=== PATIENT | male | born 1940 | race Caucasian/White ===

== ENCOUNTER → 2016-09-21 | Outpatient (CLI) | payer MEDICARE ==
[2016-09-21 10:55] LABS: HEMATOCRIT 39.1 % (37.9-51.0); HGB HCT DIFFERENCE -0.1; MEAN CORPUSCULAR HEMOGLOBIN 28.5 pg (27.0-33.4); MEAN CORPUSCULAR HGB CONC 33.1 g/dL (32.0-36.0); MEAN CORPUSCULAR VOLUME 86 fl (80-97); RED BLOOD COUNT 4.55 10^6/uL (4.35-5.55); RED CELL DISTRIBUTION WIDTH 14.6 % (11.5-14.0); WHITE BLOOD COUNT 6.4 10^3/uL (4.0-10.5)
[2016-09-21 11:14] LABS: ALBUMIN 4.2 g/dL (3.5-5.0); ANION GAP 14 (5-19); BLOOD UREA NITROGEN 27 mg/dL (7-20); CALCIUM 9.7 mg/dL (8.4-10.2); CARBON DIOXIDE 24 mmol/L (22-30); CHLORIDE 105 mmol/L (98-107); CREATININE RESULT 1.44 mg/dL (0.52-1.25); GLUCOSE 253 mg/dL (75-110); PHOSPHORUS 3.9 mg/dL (2.5-4.5); POTASSIUM 4.9 mmol/L (3.6-5.0); SODIUM 142.8 mmol/L (137-145)
[2016-09-21 11:26] LABS: EOSINOPHILS % (MANUAL) 3 % (0-6); LYMPHOCYTES % (MANUAL) 19 % (13-45); TOTAL CELLS COUNTED 100
[2016-09-21 11:27] LABS: ANISOCYTOSIS SLIGHT; HYPOCHROMASIA SLIGHT; OVALOCYTES SLIGHT; POIKILOCYTOSIS SLIGHT; TOXIC GRANULATION 1+
[2016-09-21 11:32] LABS: BASOPHILS % (MANUAL) 0 % (0-2)
[2016-09-22 07:18] LABS: VITAMIN D 25-HYDROXY 15.5 ng/mL (30.0-100.0)
== END ==
LOC: OD 09:43
PROVIDERS: ATTEND Internal Medicine Nephrology
DX: N18.3 Chronic kidney disease, stage 3 (moderate) (principal); D63.8 Anemia in other chronic diseases classified elsewhere
CPT/HCPCS: 36415; 80048; 82040; 82306; 83970; 84100; 85025

== ENCOUNTER → 2016-10-12 | Outpatient (CLI) | payer MEDICARE ==
[2016-10-12 15:19] LABS: HEMATOCRIT 38.2 % (37.9-51.0); HEMOGLOBIN 13.1 g/dL (13.5-17.0); HGB HCT DIFFERENCE 1.1; MEAN CORPUSCULAR HEMOGLOBIN 29.1 pg (27.0-33.4); MEAN CORPUSCULAR HGB CONC 34.3 g/dL (32.0-36.0); MEAN CORPUSCULAR VOLUME 85 fl (80-97); RED CELL DISTRIBUTION WIDTH 14.4 % (11.5-14.0); WHITE BLOOD COUNT 8.9 10^3/uL (4.0-10.5)
[2016-10-12 15:39] LABS: BASOPHILS % (MANUAL) 0 % (0-2); EOSINOPHILS % (MANUAL) 1 % (0-6); LYMPHOCYTES % (MANUAL) 5 % (13-45); TOTAL CELLS COUNTED 100
[2016-10-12 15:40] LABS: ANISOCYTOSIS SLIGHT; TOXIC GRANULATION SLIGHT
[2016-10-12 15:42] LABS: ALANINE AMINOTRANSFERASE 26 U/L (21-72); ALBUMIN 4.5 g/dL (3.5-5.0); ALKALINE PHOSPHATASE 113 U/L (38-126); ANION GAP 18 (5-19); ASPARTATE AMINO TRANSFERASE 16 U/L (17-59); BILIRUBIN,DIRECT 0.4 mg/dL (0.0-0.4); BILIRUBIN,TOTAL 0.8 mg/dL (0.2-1.3); BLOOD UREA NITROGEN 41 mg/dL (7-20); CALCIUM 9.5 mg/dL (8.4-10.2); CARBON DIOXIDE 20 mmol/L (22-30); CHLORIDE 99 mmol/L (98-107); CREATININE RESULT 1.57 mg/dL (0.52-1.25); GLUCOSE 377 mg/dL (75-110); POTASSIUM 4.7 mmol/L (3.6-5.0); SODIUM 136.7 mmol/L (137-145); TOTAL PROTEIN 8.1 g/dL (6.3-8.2)
== END ==
LOC: OD 14:13
PROVIDERS: ATTEND Physician Assistant
DX: E11.69 Type 2 diabetes mellitus with other specified complication (principal)
CPT/HCPCS: 36415; 80053; 82010; 83036; 85025

== ENCOUNTER 2016-10-23 17:31 | Emergency (ER) | payer MEDICARE ==
--- NOTE | 2016-10-23 19:56 | ER Document Report ---
ED Medical Screen (RME) - General Chief Complaint: High Blood Sugar Stated Complaint: SUGAR CONERNS Notes: Patient is here because his blood sugar keeps going up and down, mostly up for the past several weeks. Tonight, the blood sugar was 581. Patient has no symptoms. No cough or cold or chest congestion. No vomiting or diarrhea. No UTI symptoms. Patient's blood sugar here is 360. TRAVEL OUTSIDE OF THE [place] IN LAST 30 DAYS: No - Related Data Allergies/Adverse Reactions: aspirin [Aspirin] Allergy (Intermediate, Verified 10/23/16 17:39) bleeding ulcers codeine [Codeine] Allergy (Intermediate, Verified 10/23/16 17:39) bleeding ulcers Past Medical History - Past Medical History Cardiac Medical History: Reports: Hx Hypercholesterolemia, Hx Hypertension Denies: Hx Coronary Artery Disease, Hx Heart Attack Pulmonary Medical History: Reports: Hx COPD - "short breath" No difinitive dx Denies: Hx Asthma, Hx Bronchitis, Hx Pneumonia Neurological Medical History: Denies: Hx Cerebrovascular Accident, Hx Seizures Endocrine Medical History: Reports: Hx Diabetes Mellitus Type 1, Hx Diabetes Mellitus Type 2 Renal/ Medical History: Denies: Hx Peritoneal Dialysis GI Medical History: Reports: Hx Gastroesophageal Reflux Disease Musculoskeltal Medical History: Reports Hx Arthritis - Generalized Psychiatric Medical History: Denies: Hx Depression Past Surgical History: Reports: Hx Abdominal Surgery - hernia repair, Hx Appendectomy, Hx Cholecystectomy, Hx Orthopedic Surgery - back x2 with hardware. Denies: Hx Pacemaker - Immunizations Hx Diphtheria, Pertussis, Tetanus Vaccination: Yes Physical Exam - Vital signs Vitals: Temp Pulse Resp BP Pulse Ox 98.6 F 63 18 145/65 H 95 10/23/16 17:42 10/23/16 17:42 10/23/16 17:42 10/23/16 17:42 10/23/16 17:42 Course - Vital Signs Vital signs: Temp Pulse Resp BP Pulse Ox 98.6 F 63 18 145/65 H 95 10/23/16 17:42 10/23/16 17:42 10/23/16 17:42 10/23/16 17:42 10/23/16 17:42
--- NOTE | 2016-10-23 20:23 | ER Document Report ---
ED Medical Screen (RME) - General Chief Complaint: High Blood Sugar Stated Complaint: SUGAR CONERNS Notes: Daughter states father was hospitalized at [facility] last week for very low magnesium levels. She states her father will not admit it but he has not been feeling well again. Sugar levels have been going up and down. Seen by primary care physician yesterday and lab work was ordered, but no results known yet. Discussed with Dr. Byrnes. Labs to be ordered. TRAVEL OUTSIDE OF THE [place] IN LAST 30 DAYS: No - Related Data Allergies/Adverse Reactions: aspirin [Aspirin] Allergy (Intermediate, Verified 10/23/16 17:39) bleeding ulcers codeine [Codeine] Allergy (Intermediate, Verified 10/23/16 17:39) bleeding ulcers Past Medical History - Past Medical History Cardiac Medical History: Reports: Hx Hypercholesterolemia, Hx Hypertension Denies: Hx Coronary Artery Disease, Hx Heart Attack Pulmonary Medical History: Reports: Hx COPD - "short breath" No difinitive dx Denies: Hx Asthma, Hx Bronchitis, Hx Pneumonia Neurological Medical History: Denies: Hx Cerebrovascular Accident, Hx Seizures Endocrine Medical History: Reports: Hx Diabetes Mellitus Type 1, Hx Diabetes Mellitus Type 2 Renal/ Medical History: Denies: Hx Peritoneal Dialysis GI Medical History: Reports: Hx Gastroesophageal Reflux Disease Musculoskeltal Medical History: Reports Hx Arthritis - Generalized Psychiatric Medical History: Denies: Hx Depression Past Surgical History: Reports: Hx Abdominal Surgery - hernia repair, Hx Appendectomy, Hx Cholecystectomy, Hx Orthopedic Surgery - back x2 with hardware. Denies: Hx Pacemaker - Immunizations Hx Diphtheria, Pertussis, Tetanus Vaccination: Yes Physical Exam - Vital signs Vitals: Temp Pulse Resp BP Pulse Ox 98.6 F 63 18 145/65 H 95 10/23/16 17:42 10/23/16 17:42 10/23/16 17:42 10/23/16 17:42 10/23/16 17:42 Course - Vital Signs Vital signs: Temp Pulse Resp BP Pulse Ox 98.6 F 63 18 145/65 H 95 10/23/16 17:42 10/23/16 17:42 10/23/16 17:42 10/23/16 17:42 10/23/16 17:42
[2016-10-23 20:43] LABS: ABSOLUTE BASOPHILS # (AUTO) 0.1 10^3/uL (0.0-0.2); ABSOLUTE EOSINOPHILS # (AUTO) 0.3 10^3/uL (0.0-0.6); ABSOLUTE LYMPHOCYTES (AUTO) 1.8 10^3/uL (0.5-4.7); ABSOLUTE NEUT (AUTO) 6.2 10^3/uL (1.7-8.2); BASOPHILS % (AUTO) 0.8 % (0-2); EOSINOPHILS % (AUTO) 2.9 % (0-6); HEMATOCRIT 37.8 % (37.9-51.0); HEMOGLOBIN 12.6 g/dL (13.5-17.0); LYMPHOCYTES % (AUTO) 19.2 % (13-45); MEAN CORPUSCULAR HEMOGLOBIN 28.2 pg (27.0-33.4); MEAN CORPUSCULAR HGB CONC 33.2 g/dL (32.0-36.0); MEAN CORPUSCULAR VOLUME 85 fl (80-97); MONOCYTES % (AUTO) 10.2 % (3-13); RED BLOOD COUNT 4.45 10^6/uL (4.35-5.55); RED CELL DISTRIBUTION WIDTH 14.6 % (11.5-14.0); SEGMENTED NEUTROPHILS % (AUTO) 66.9 % (42-78); WHITE BLOOD COUNT 9.3 10^3/uL (4.0-10.5)
[2016-10-23 20:54] LABS: ALANINE AMINOTRANSFERASE 29 U/L (21-72); ALBUMIN 4.1 g/dL (3.5-5.0); ALKALINE PHOSPHATASE 94 U/L (38-126); ANION GAP 14 (5-19); ASPARTATE AMINO TRANSFERASE 17 U/L (17-59); BILIRUBIN,DIRECT 0.3 mg/dL (0.0-0.4); BILIRUBIN,TOTAL 0.5 mg/dL (0.2-1.3); BLOOD UREA NITROGEN 27 mg/dL (7-20); CALCIUM 9.2 mg/dL (8.4-10.2); CARBON DIOXIDE 22 mmol/L (22-30); CHLORIDE 102 mmol/L (98-107); CREATININE RESULT 1.44 mg/dL (0.52-1.25); GLUCOSE 305 mg/dL (75-110); MAGNESIUM 1.6 mg/dL (1.6-2.3); POTASSIUM 4.6 mmol/L (3.6-5.0); TOTAL PROTEIN 7.6 g/dL (6.3-8.2)
--- NOTE | 2016-10-23 21:19 | ER Document Report ---
ED General - General Chief Complaint: High Blood Sugar Stated Complaint: SUGAR CONERNS Notes: Patient is a 76-year-old male presents with concerns of hypoglycemia. He denies any additional symptoms. States taking his insulin and glipizide home his sugars continue to be in 300s-500s. 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 He denies any headache, neck pain, shortness of breath, nausea or vomiting. Does continue to admit to some dietary discretion indiscretions but states overall his diet has significantly improved. He has not noted that nothing seems to prompt his sugars to get higher and that nothing seems to get them lower. TRAVEL OUTSIDE OF THE [place] IN LAST 30 DAYS: No - Related Data Allergies/Adverse Reactions: aspirin [Aspirin] Allergy (Intermediate, Verified 10/23/16 17:39) bleeding ulcers codeine [Codeine] Allergy (Intermediate, Verified 10/23/16 17:39) bleeding ulcers Past Medical History - General Information source: Patient - Social History Smoking Status: Never Smoker Frequency of alcohol use: None Drug Abuse: None Lives with: Spouse/Significant other Family History: Hypertension Patient has suicidal ideation: No Patient has homicidal ideation: No - Past Medical History Cardiac Medical History: Reports: Hx Hypercholesterolemia, Hx Hypertension Denies: Hx Coronary Artery Disease, Hx Heart Attack Pulmonary Medical History: Reports: Hx COPD - "short breath" No difinitive dx Denies: Hx Asthma, Hx Bronchitis, Hx Pneumonia Neurological Medical History: Denies: Hx Cerebrovascular Accident, Hx Seizures Endocrine Medical History: Reports: Hx Diabetes Mellitus Type 1, Hx Diabetes Mellitus Type 2 Renal/ Medical History: Denies: Hx Peritoneal Dialysis GI Medical History: Reports: Hx Gastroesophageal Reflux Disease Musculoskeltal Medical History: Reports Hx Arthritis - Generalized Psychiatric Medical History: Denies: Hx Depression Past Surgical History: Reports: Hx Abdominal Surgery - hernia repair, Hx Appendectomy, Hx Cholecystectomy, Hx Orthopedic Surgery - back x2 with hardware. Denies: Hx Pacemaker - Immunizations Hx Diphtheria, Pertussis, Tetanus Vaccination: Yes Hx Pneumococcal Vaccination: 04/12/11 Review of Systems - Review of Systems Notes: Constitutional: Negative for fever. HENT: Negative for sore throat. Eyes: Negative for visual changes. Cardiovascular: Negative for chest pain. Respiratory: Negative for shortness of breath. Gastrointestinal: Negative for abdominal pain, vomiting or diarrhea. Genitourinary: Negative for dysuria. Musculoskeletal: Negative for back pain. Skin: Negative for rash. Neurological: Negative for headaches, weakness or numbness. 10 point ROS negative except as marked above and in HPI. Physical Exam - Vital signs Vitals: Temp Pulse Resp BP Pulse Ox 98.6 F 63 18 145/65 H 95 10/23/16 17:42 10/23/16 17:42 10/23/16 17:42 10/23/16 17:42 10/23/16 17:42 Interpretation: Normal Notes: PHYSICAL EXAMINATION: GENERAL: Well-appearing, well-nourished and in no acute distress. HEAD: Atraumatic, normocephalic. EYES: Pupils equal round and reactive to light, extraocular movements intact, sclera anicteric, conjunctiva are normal. ENT: nares patent, oropharynx clear without exudates. Moist mucous membranes. NECK: Normal range of motion, supple without lymphadenopathy LUNGS: Breath sounds clear to auscultation bilaterally and equal. No wheezes rales or rhonchi. HEART: Regular rate and rhythm without murmurs ABDOMEN: Soft, nontender, normoactive bowel sounds. No guarding, no rebound. No masses appreciated. EXTREMITIES: Normal range of motion, no pitting or edema. No cyanosis. NEUROLOGICAL: No focal neurological deficits. Moves all extremities spontaneously and on command. PSYCH: Normal mood, normal affect. SKIN: Warm, Dry, normal turgor, no rashes or lesions noted. Course - Re-evaluation Re-evalutation: 10/23/16 21:18 Presentation of asymptomatic hyperglycemia. There is no evidence of HHS or diabetic ketoacidosis on laboratories or based on clinical history. Patient's vitals are within normal limits. They deny any acute focal complaints. Treatment with insulin and IV fluids given here in the emergency department with appropriate response of the blood sugar. Patient does have primary care follow-up. Patient was instructed to continue taking their home medications and advised they will likely need to increase dietary modification and may also need medication changes. Indications to return to emergency department as well as the importance of close outpatient follow-up were discussed at length. Patient verbalized understanding of the need for close follow-up and indications to return to the ED. - Vital Signs Vital signs: Temp Pulse Resp BP Pulse Ox 97.7 F 54 L 18 125/74 98 10/23/16 21:39 10/23/16 21:39 10/23/16 21:39 10/23/16 21:39 10/23/16 21:39 - Laboratory Result Diagrams: 10/23/16 20:31 10/23/16 20:31 Laboratory results interpreted by me: 10/23/16 10/23/16 20:31 20:31 Hgb 12.6 L Hct 37.8 L RDW 14.6 H BUN 27 H Creatinine 1.44 H Est GFR ( Amer) 58 L Est GFR (Non-Af Amer) 48 L Glucose 305 H Discharge - Discharge Clinical Impression: Hyperglycemia Condition: Good Disposition: HOME, SELF-CARE Additional Instructions: You need to followup urgently with your primary care doctor as your blood sugars were dangerously high today. You did not have any evidence of a dangerous condition associated with these blood sugars at this time. However, it is very important that you get your blood sugars under control. Please take all of your medications exactly as directed. You should avoid foods that are high in carbohydrates and sugary foods. Losing weight will also help to better control your blood sugars. Please return to emergency department immediately if you develop weakness, persistent vomiting, confusion, or any other symptoms that are concerning to you. Referrals: ANDRES VELAZCO PA [Primary Care Provider] - Follow up as needed
[2016-10-23 21:40] VITALS: BP 125/74
== END 2016-10-23 21:41 | disposition home or self-care (01) ==
LOC: ER 17:31
DX: E11.65 Type 2 diabetes mellitus with hyperglycemia (principal)
CPT/HCPCS: 36415; 80053; 82962; 83735; 85025; 99283

== ENCOUNTER → 2016-11-08 | Outpatient (CLI) | payer MEDICARE ==
[2016-11-08 17:26] LABS: ANION GAP 11 (5-19); BLOOD UREA NITROGEN 25 mg/dL (7-20); CALCIUM 9.5 mg/dL (8.4-10.2); CARBON DIOXIDE 25 mmol/L (22-30); CHLORIDE 104 mmol/L (98-107); CREATININE RESULT 1.48 mg/dL (0.52-1.25); GLUCOSE 271 mg/dL (75-110); POTASSIUM 4.8 mmol/L (3.6-5.0); SODIUM 140.3 mmol/L (137-145)
== END ==
LOC: OD 15:29
PROVIDERS: ATTEND Internal Medicine Nephrology
DX: N18.3 Chronic kidney disease, stage 3 (moderate) (principal); E55.9 Vitamin D deficiency, unspecified
CPT/HCPCS: 36415; 80048; 82306

== ENCOUNTER → 2016-12-29 | Outpatient (CLI) | payer MEDICARE ==
[2016-12-29 10:51] LABS: ANION GAP 15 (5-19); BLOOD UREA NITROGEN 24 mg/dL (7-20); CALCIUM 9.3 mg/dL (8.4-10.2); CARBON DIOXIDE 22 mmol/L (22-30); CHLORIDE 100 mmol/L (98-107); CREATININE RESULT 1.43 mg/dL (0.52-1.25); GLUCOSE 294 mg/dL (75-110); POTASSIUM 4.4 mmol/L (3.6-5.0); SODIUM 136.6 mmol/L (137-145)
== END ==
LOC: OD 09:39
PROVIDERS: ATTEND Internal Medicine Nephrology
DX: N18.3 Chronic kidney disease, stage 3 (moderate) (principal); E55.9 Vitamin D deficiency, unspecified
CPT/HCPCS: 36415; 80048; 82306

== ENCOUNTER 2017-03-04 03:00 | Emergency (ER) | payer MEDICARE ==
[2017-03-04] MEDS ORDERED: KETOROLAC TROMETHAMINE 60 MG/2 ML SDV IM ONE (03:39)
[2017-03-04] MEDS ORDERED: DIAZEPAM 5 MG TABLET PO ONE (03:39)
--- NOTE | 2017-03-04 03:40 | ER Document Report ---
ED General - General Chief Complaint: Headache Stated Complaint: HEADACHE Time Seen by Provider: 03/04/17 03:16 Mode of Arrival: Ambulatory Information source: Patient, Relative Notes: 76-year-old male presents with complaints of left neck stiffness rating down the left arm. Patient denies any chest pain shortness breath difficulty breathing patient notes symptoms have been constant for the past 2 days worsened with movement, otherwise there is no pain TRAVEL OUTSIDE OF THE [place] IN LAST 30 DAYS: No - HPI Onset: Other Onset/Duration: Persistent Quality of pain: Achy Severity: Mild Pain Level: 1 Associated symptoms: Body/muscle aches Exacerbated by: Movement Relieved by: Denies Similar symptoms previously: No Recently seen / treated by doctor: No - Related Data Allergies/Adverse Reactions: aspirin [Aspirin] Allergy (Intermediate, Verified 10/23/16 17:39) bleeding ulcers codeine [Codeine] Allergy (Intermediate, Verified 10/23/16 17:39) bleeding ulcers Past Medical History - Social History Smoking Status: Former Smoker Cigarette use (# per day): No Chew tobacco use (# tins/day): No Smoking Education Provided: No Frequency of alcohol use: None Drug Abuse: None Family History: Hypertension Patient has suicidal ideation: No Patient has homicidal ideation: No - Past Medical History Cardiac Medical History: Reports: Hx Hypercholesterolemia, Hx Hypertension Denies: Hx Coronary Artery Disease, Hx Heart Attack Pulmonary Medical History: Reports: Hx COPD - "short breath" No difinitive dx Denies: Hx Asthma, Hx Bronchitis, Hx Pneumonia Neurological Medical History: Denies: Hx Cerebrovascular Accident, Hx Seizures Endocrine Medical History: Reports: Hx Diabetes Mellitus Type 1, Hx Diabetes Mellitus Type 2 Renal/ Medical History: Denies: Hx Peritoneal Dialysis GI Medical History: Reports: Hx Gastroesophageal Reflux Disease Musculoskeltal Medical History: Reports Hx Arthritis - Generalized Psychiatric Medical History: Denies: Hx Depression Past Surgical History: Reports: Hx Abdominal Surgery - hernia repair, Hx Appendectomy, Hx Cholecystectomy, Hx Orthopedic Surgery - back x2 with hardware. Denies: Hx Pacemaker - Immunizations Hx Diphtheria, Pertussis, Tetanus Vaccination: Yes Hx Pneumococcal Vaccination: 04/12/11 Review of Systems - Review of Systems Notes: REVIEW OF SYSTEMS: CONSTITUTIONAL : Denies fever, chills, or sweats. Denies recent illness. EENT: Admits to the left lateral neck pain CARDIOVASCULAR: Denies chest pain. Denies palpitations or racing or irregular heart beat. Denies ankle edema. RESPIRATORY: Denies cough, cold, or chest congestion. Denies shortness of breath, difficulty breathing, or wheezing. GASTROINTESTINAL: Denies abdominal pain or distention. Denies nausea, vomiting , or diarrhea. Denies blood in vomitus, stools, or per rectum. Denies black, tarry stools. Denies constipation. GENITOURINARY: Denies difficulty urinating, painful urination, burning, frequency, blood in urine, or discharge. MUSCULOSKELETAL: Admits to neck stiffness with movement SKIN: Denies rash, lesions or sores. HEMATOLOGIC : Denies easy bruising or bleeding. LYMPHATIC: Denies swollen, enlarged glands. NEUROLOGICAL: Denies confusion or altered mental status. Denies passing out or loss of consciousness. Denies dizziness or lightheadedness. Denies headache. Denies weakness or paralysis or loss of use of either side. Denies problems with gait or speech. Denies sensory loss, numbness, or tingling. Denies seizures. PSYCHIATRIC: Denies anxiety or stress. Denies depression, suicidal ideation, or homicidal ideation. ALL OTHER SYSTEMS REVIEWED AND NEGATIVE. Dictation was performed using [employer] voice recognition software PHYSICAL EXAMINATION: GENERAL: Well-appearing, well-nourished and in no acute distress. HEAD: Atraumatic, normocephalic. EYES: Pupils equal round and reactive to light, extraocular movements intact, sclera anicteric, conjunctiva are normal. ENT: Nares patent, oropharynx clear without exudates. Moist mucous membranes. NECK: Limited range of motion of the neck secondary to pain easily palpable and reproducible LUNGS: Breath sounds clear to auscultation bilaterally and equal. No wheezes rales or rhonchi. HEART: Regular rate and rhythm without murmurs ABDOMEN: Soft, nontender, nondistended abdomen. No guarding, no rebound. No masses appreciated. Musculoskeletal: Normal range of motion, no pitting or edema. No cyanosis. NEUROLOGICAL: Cranial nerves grossly intact. Normal speech, normal gait. Normal sensory, motor exams PSYCH: Normal mood, normal affect. SKIN: Warm, Dry, normal turgor, no rashes or lesions noted. Physical Exam - Vital signs Vitals: Temp Pulse Resp BP Pulse Ox 98.2 F 67 18 125/72 97 03/04/17 03:01 03/04/17 03:01 03/04/17 03:01 03/04/17 03:01 03/04/17 03:01 Course - Re-evaluation Re-evalutation: 03/04/17 04:32 Initial obvious concern was for cardiac event versus dissection however the patient's pain is easily reproducible it is completely musculoskeletal. Patient given medications which have improved his symptoms. Will discharge home at this time with close follow-up family is happy with this plan After performing a Medical Screening Examination, I estimate there is LOW risk for CENTRAL CORD SYNDROME, EPIDURAL MASS LESION, SEVERE SPINAL STENOSIS, ARTERIAL DISSECTION, MENINGITIS, or ACUTE CORONARY SYNDROME, thus I consider the discharge disposition reasonable. I have reevaluated this patient multiple times and no significant life threatening changes are noted. The patient and I have discussed the diagnosis and risks, and we agree with discharging home to follow-up on an outpatient basis with the understanding that symptoms and presentations can change. We also discussed returning to the Emergency Department immediately if new or worsening symptoms occur. We have discussed the symptoms which are most concerning (e.g., saddle anesthesia, urinary or bowel incontinence or retention, changing or worsening pain) that necessitate immediate return. - Vital Signs Vital signs: Temp Pulse Resp BP Pulse Ox 98.2 F 67 18 125/72 97 03/04/17 03:01 03/04/17 03:01 03/04/17 03:01 03/04/17 03:01 03/04/17 03:01 Discharge - Discharge Clinical Impression: Neck pain, Torticollis Condition: Stable Disposition: HOME, SELF-CARE Instructions: Torticollis ([facility]) Prescriptions: Diazepam [Valium 5 mg Tablet] 5 mg PO QIDP PRN #15 tablet PRN Reason: Referrals: GENE WICK PA-C [Primary Care Provider] - Follow up tomorrow
[2017-03-04 04:34] VITALS: BP 133/55
--- NOTE | 2017-03-04 21:52 | EKG REPORT ---
SEVERITY:- ABNORMAL ECG - SINUS RHYTHM MULTIPLE VENTRICULAR PREMATURE COMPLEXES LEFT AXIS DEVIATION : Confirmed by: Mary Altamirano 04-Mar-2017 21:52:00
== END 2017-03-04 04:33 | disposition home or self-care (01) ==
LOC: ER 03:00
DX: M43.6 Torticollis (principal); M54.2 Cervicalgia; I10 Essential (primary) hypertension; E11.9 Type 2 diabetes mellitus without complications; Z88.6 Allergy status to analgesic agent; Z88.5 Allergy status to narcotic agent; Z87.891 Personal history of nicotine dependence
CPT/HCPCS: 93005; 99284; 96372; 93010; A9270; J1885

== ENCOUNTER → 2017-08-26 | Outpatient (CLI) | payer MEDICARE ==
--- NOTE | 2017-08-26 15:19 | RADIOLOGY REPORT (SQ) ---
EXAM DESCRIPTION: CT CHEST WITHOUT COMPLETED DATE/TIME: 08/26/2017 9:21 am REASON FOR STUDY: R91.1 SOLITARY PULMONARY NODULE R91.1 SOLITARY PULMONARY NODULE COMPARISON: CT abdomen pelvis 06/12/2015 TECHNIQUE: CT scan performed of the chest without intravenous contrast. Images reviewed with lung, soft tissue and bone windows. Reconstructed coronal and sagittal MPR images reviewed. All images st ored on PACS. All CT scanners at this facility use dose modulation, iterative reconstruction, and/or weight based d osing when appropriate to reduce radiation dose to as low as reasonably achievable (ALARA). [facility]: Dose Right [facility]: CareDose [facility]: Dose Right [facility]: Teradose 4D [facility]: [employer] RADIATION DOSE: CT Rad equipment meets quality standard of care and radiation dose reduction techniq ues were employed. CTDIvol: 16.7 mGy. DLP: 650 mGy-cm. mGy. LIMITATIONS: No technical limitations. FINDINGS: LUNGS AND PLEURA: No acute infiltrates. No pleural effusions. No pneumothorax. A 6 mm focus of pleural thickening is present along the inferior right major fissure image 54, unchan ged from CT abdomen pelvis 06/12/2015. A benign calcified granuloma 5 mm in size is present in the periphery of the left upper lobe on image 24. Less than 3 mm noncalcified granulomas are present in the periphery of the right upper lobe on image 26. There is minimal benign thickening in the right minor fissure axial image 53. HILAR AND MEDIASTINAL STRUCTURES: There is mild mediastinal adenopathy of uncertain clinical signific ance as follows: 1.1 x 1 cm right peritracheal lymph node image 15 1.6 x 1.2 cm right peritracheal lymph node image 19 Aortopulmonary window lymph nodes 1.4 x 0.9 cm and 1.5 x 0.9 cm on axial image 21 Sub- carinal 2.6 x 1.6 cm lymph node axial image 29 HEART AND VASCULAR STRUCTURES: No aneurysm. No pericardial effusion. Minimal aortic valve calcifica tion UPPER ABDOMEN: Post cholecystectomy. 1.6 cm right upper pole parapelvic cyst THYROID AND OTHER SOFT TISSUES: No masses. No adenopathy. BONES: No significant finding. HARDWARE: None in the chest. OTHER: No other significant findings. IMPRESSION: No worrisome pulmonary nodules. Mild mediastinal adenopathy TECHNICAL DOCUMENTATION: JOB ID: [id number] Quality ID # [id number]: Final reports with documentation of one or more dose reduction techniques (e.g., Au tomated exposure control, adjustment of the mA and/or kV according to patient size, use of iterative reconstruction technique) 2010 [employer]- All Rights Reserved Reading location - IP/workstation name: [email or web address]
== END ==
LOC: RAD 09:51
PROVIDERS: ATTEND Physician Assistant
DX: R91.1 Solitary pulmonary nodule (principal); R59.0 Localized enlarged lymph nodes
CPT/HCPCS: 71250

== ENCOUNTER → 2017-09-11 | Outpatient (CLI) | payer MEDICARE ==
--- NOTE | 2017-09-12 11:38 | RADIOLOGY REPORT (SQ) ---
EXAM DESCRIPTION: PET CT SKULL/THIGH COMPLETED DATE/TIME: 09/11/2017 9:24 pm REASON FOR STUDY: ABNORMAL FINDINGS IN LUNG R91.8 OTHER NONSPECIFIC ABNORMAL FINDING OF LUNG FIELD COMPARISON: Chest CT dated 08/26/2017. CT abdomen and pelvis dated 06/12/2015. RADIONUCLIDE AND DOSE: 10.0 mCi F18 FDG The route of agent administration: Intravenous FASTING BLOOD SUGAR: 200 mg/dl CONTRAST TYPE AND DOSE: No CT contrast given. TECHNIQUE: Blood glucose level was verified. Above dose of FDG was injected intravenously. 2-D seg mented attenuation correction images were obtained from the base of the skull to the midthighs. Nonc ontrast CT images were obtained for attenuation correction and fusion with emission images. CT image s were performed without oral or intravenous contrast and are not sensitive for parenchymal lesions. A series of overlapping emission PET images were obtained. Images reviewed and manipulated at [facility] work station by the radiologist. Images stored on PACS. LIMITATIONS: None. FINDINGS: HEAD AND NECK: No areas of abnormal metabolic activity in the soft tissues of the head and neck. CHEST: Again seen is scattered adenopathy in the mediastinum. No unusual activity associated with al most all of these lymph nodes. There is a single lymph node between the aortic arch and trachea, kyle suring 1.6 cm, with mean SUV value 2.82. ABDOMEN AND PELVIS: No areas of abnormal metabolic activity in the abdomen or pelvis. Expected physi ologic activity is present in the genitourinary system and bowel. PROXIMAL LOWER EXTREMITIES: No areas of abnormal metabolic activity in the soft tissues of the lower extremities. BONES: No abnormal metabolic activity in the visualized skeleton. ADDITIONAL CT FINDINGS: Nonobstructing calyceal calculus in the right kidney. 8 mm calcification in the bladder. Surgical changes in the lumbar spine with hardware. No additional significant findings on the noncontrast CT images. OTHER: Background blood pool activity mean SUV value 2.13. Background liver activity mean SUV value 2.95. IMPRESSION: 1. ALMOST ALL OF THE MEDIASTINAL LYMPH NODES DEMONSTRATE NO UNUSUAL METABOLIC ACTIVITY. THERE IS A S LEONIDAS LYMPH NODE LOCATED BETWEEN THE AORTIC ARCH AND TRACHEA WITH ACTIVITY SLIGHTLY ABOVE BASELINE. THIS IS NONSPECIFIC AND COULD BE DUE TO INFLAMMATION. EARLY MALIGNANT ADENOPATHY IS LESS LIKELY BUT CANNOT BE EXCLUDED. CONSIDER FOLLOWUP WITH REPEAT CT IN 3 MONTHS FOR RE-EVALUATION. OTHERWISE NO UN USUAL ACTIVITY IN THE CHEST. NO ABNORMAL FINDINGS ON THE REMAINDER OF THE STUDY. 2. INCIDENTAL FINDINGS ON NONCONTRAST CT WITH A NONOBSTRUCTING CALYCEAL CALCULUS IN THE RIGHT KIDNEY WELL A CALCULUS IN THE BLADDER. TECHNICAL DOCUMENTATION: JOB ID: [id number] [employer]- All Rights Reserved Reading location - IP/workstation name: [email or web address]
== END ==
LOC: RAD 18:12
PROVIDERS: ATTEND Physician Assistant
DX: R91.8 Other nonspecific abnormal finding of lung field (principal); N20.0 Calculus of kidney; N21.0 Calculus in bladder
CPT/HCPCS: 78815; A9552

== ENCOUNTER → 2017-09-20 | Outpatient (CLI) | payer MEDICARE ==
--- NOTE | 2017-09-20 11:18 | RADIOLOGY REPORT (SQ) ---
EXAM DESCRIPTION: CT ABD/PELVIS COMBO COMPLETED DATE/TIME: 09/20/2017 9:01 am REASON FOR STUDY: N20.0 CALCULUS OF KIDNEY N20.0 CALCULUS OF KIDNEY COMPARISON: CT ABDOMEN PELVIS 06/12/2015 PET-CT 09/11/2017 TECHNIQUE: CT scan of the abdomen and pelvis performed with and without intravenous contrast, and WI THOUT oral contrast. Contrasted imaging performed helical scanning technique and dynamic intravenous contrast injection. Images reviewed with lung, soft tissue, and bone windows. Reconstructed coronal a nd sagittal MPR images reviewed. Delayed images for evaluation of the urinary system also acquired. A ll images stored on PACS. All CT scanners at this facility use dose modulation, iterative reconstruction, and/or weight based d osing when appropriate to reduce radiation dose to as low as reasonably achievable (ALARA). [facility]: Dose Right [facility]: CareDose [facility]: Dose Right [facility]: Teradose 4D [facility]: Taste Guru CONTRAST TYPE AND DOSE: contrast/concentration: Isovue 300.00 mg/ml; Total Contrast Delivered: 75.0 ml; Total Saline Delivered: 70.0 ml 75 ML IV ISOVUE-300, LOW OSMOLAR CONTRAST RENAL FUNCTION: Creatinine 1.5, GFR 45 RADIATION DOSE: CT Rad equipment meets quality standard of care and radiation dose reduction technWerkadoo ues were employed. CTDIvol: 17.4 - 19.8 mGy. DLP: 3203 mGy-cm. . LIMITATIONS: None. FINDINGS: NON-CONTRASTED IMAGING: There is a 3.5 mm right upper pole intrarenal nonobstructive calcu jesus. An 8 mm bladder stone is present, Hounsfield units 700. No left-sided renal or ureteral stones . POST-CONTRASTED IMAGING: LOWER CHEST: Hiatal hernia. Minimal left coronary calcifications LIVER: Normal size. No masses. No dilated ducts. SPLEEN: Normal size. No focal lesions. PANCREAS: No masses. No significant calcifications. No adjacent inflammation or peripancreatic fluid collections. Pancreatic duct not dilated. GALLBLADDER: Surgically absent ADRENAL GLANDS: No significant masses or asymmetry. RIGHT KIDNEY AND URETER: No solid masses. 1 cm posterior right midpole renal cortical cyst. 3.5 mm right upper pole intrarenal nonobstructive stone. No right ureteral calculi. No hydronephrosis or hydroureter. LEFT KIDNEY AND URETER: No solid masses. 1 cm left posterior mid pole renal cortical cyst. No signi ficant calcifications. No hydronephrosis or hydroureter. AORTA AND VESSELS: No aneurysm. No dissection. Renal arteries, SMA, celiac without stenosis. RETROPERITONEUM: No retroperitoneal adenopathy, hemorrhage or masses. BOWEL AND PERITONEAL CAVITY: No masses or inflammatory changes. No free fluid or peritoneal masses. APPENDIX: Surgically absent PELVIS: No mass. No free fluid. Bladder distended. 8 mm bladder stone. No bladder wall thickening . ABDOMINAL WALL: Moderate size subxiphoid fatty ventral hernia. Bilateral fat containing inguinal her nias right larger than left BONES: Lower lumbar fusion with hardware OTHER: No other significant finding. IMPRESSION: Nonobstructive right intrarenal upper pole and urinary bladder calculi. Benign bilateral renal cortical cysts. TECHNICAL DOCUMENTATION: JOB ID: [id number] Quality ID # [id number]: Final reports with documentation of one or more dose reduction techniques (e.g., Au tomated exposure control, adjustment of the mA and/or kV according to patient size, use of iterative reconstruction technique) 2010 [employer]- All Rights Reserved Reading location - IP/workstation name: [facility]
== END ==
LOC: RAD 08:17
PROVIDERS: ATTEND Urology
DX: N20.0 Calculus of kidney (principal); N28.1 Cyst of kidney, acquired
CPT/HCPCS: 74178; 82565

== ENCOUNTER 2017-09-28 10:45 | Day surgery (SDC) | payer MEDICARE ==
[~2017-09-28 10:45] MED LIST: CEFAZOLIN 1 GM/D5W RTU 1 GM/50 ML RTUPB IV PRN
[2017-09-28] MEDS ORDERED: FENTANYL CITRATE INJ/PF 100 MCG/2 ML AMPUL ONE (12:24)
[2017-09-28] MEDS ORDERED: ONDANSETRON HCL INJ/PF 4 MG/2 ML SDV ONE (12:24)
[2017-09-28] MEDS ORDERED: MIDAZOLAM 2 MG/2 ML INJ ONE (12:24)
[2017-09-28] MEDS ORDERED: PROPOFOL INJ 200 MG/20 ML VIAL IV ONE (12:25)
[2017-09-28] MEDS ORDERED: LIDOCAINE 2% URO-JET 5 ML KIT ONE (12:33)
[2017-09-28] MEDS ORDERED: KETAMINE HCL INJ 500 MG/10 ML VIAL ONE (12:52)
[2017-09-28 12:59] LABS: ANION GAP 11 (5-19); BLOOD UREA NITROGEN 32 mg/dL (7-20); CALCIUM 9.5 mg/dL (8.4-10.2); CARBON DIOXIDE 26 mmol/L (22-30); CHLORIDE 107 mmol/L (98-107); GLUCOSE 65 mg/dL (75-110)
--- NOTE | 2017-09-28 14:31 | EKG REPORT ---
SEVERITY:- OTHERWISE NORMAL ECG - SINUS RHYTHM ATRIAL PREMATURE COMPLEX BORDERLINE LEFT AXIS DEVIATION : Confirmed by: Kehinde Fabian MD 28-Sep-2017 14:31:05
[2017-09-28] MEDS ORDERED: HYDROCODONE/ACETAMINOPHEN 5-325 MG TABLET PO PRN (14:49)
[2017-09-28] MEDS ORDERED: ONDANSETRON HCL INJ/PF 4 MG/2 ML SDV IV PRN (14:49)
--- NOTE | 2017-09-28 15:15 | RADIOLOGY REPORT (SQ) ---
EXAM DESCRIPTION: KUB/ABDOMEN (SINGLE VIEW) COMPLETED DATE/TIME: 09/28/2017 2:46 pm REASON FOR STUDY: CYSTSCOPY WITH LITHOTRIPSY, LEFT URETERAL STENT N20.1 CALCULUS OF URETER COMPARISON: CT abdomen pelvis 09/20/2017 FLUOROSCOPY TIME: 55 seconds 3 digital images saved to PACS. TECHNIQUE: Intra-operative images acquired during surgical procedure to evaluate progress. NUMBER OF IMAGES: 3 digital images LIMITATIONS: None. FINDINGS: Intra procedural imaging and fluoro during left-sided retrograde study. Clips right upper quadrant post cholecystectomy. Lower lumbar fusion hardware. Stone at the left ureterovesical junc tion seen on 09/20/2017 is no longer identified. IMPRESSION: Intra procedural imaging and fluoro COMMENT: Quality ID [id number]: Final reports for procedures using fluoroscopy that document radiation exp osure indices, or exposure time and number of fluorographic images (if radiation exposure indices are not available) Please consult full operative report of the attending physician for description of the procedure. TECHNICAL DOCUMENTATION: JOB ID: [id number] [employer]- All Rights Reserved Reading location - IP/workstation name: [email or web address]
--- NOTE | 2017-09-28 15:50 | RADIOLOGY REPORT (SQ) ---
EXAM DESCRIPTION: NO CHG FLUORO COMPLETE DATE/TIME: 09/28/2017 2:59 pm REASON FOR STUDY: LITHOTRIPSY ON LEFT SIDED URETERAL STONE IN OR3 N20.1 CALCULUS OF URETER FINDINGS: Please see combined report for performance of procedure and radiologic supervision and int erpretation. IMPRESSION: Please see combined report for performance of procedure and radiologic supervision and i nterpretation. Reading location - IP/workstation name: [email or web address]
[2017-09-28 16:20] VITALS: BP 160/89
--- NOTE | 2017-09-30 10:14 | Operative Report ---
Operative Report DATE OF SURGERY: 09/28/17 PREOPERATIVE DIAGNOSIS: left distal ureteral stone POSTOPERATIVE DIAGNOSIS: same OPERATION: cystoscopy, ureteroscopy, laser ureteral stone and removal, placement of left ureteral stent, 4.8 26cm, left SURGEON: JESSE MATHIAS II ANESTHESIA: LMAC TISSUE REMOVED OR ALTERED: stone fragments ESTIMATED BLOOD LOSS: minimal PROCEDURE: The patient was taken to the cystoscopy suite and place into the supine position on the cysto table. After adequate MAC anesthesia, he was placed into the lithotomy position and prepped and draped in the usual sterile fashion. Cystoscopy was carried out and a bulge in the left distal ureter was confirmed. A 0.035 Garfield wire was placed into the distal ureter as a safety wire and advanced under fluoroscopy into the left renal pelvis. The cystoscope was removed and a semi-rigid ureteroscope was placed under direct vision into the bladder and the left ureteral orifice visualized. The scope was gently placed into the left ureter and advanced a short distance where the stone was seen. Using the Holmium laser, the stone was fragmented and the fragments removed. The ureteroscope was removed and the cystoscope replaced. Using the exchange technique, a 4.8 F 26cm Polaris double-pigtail stent was placed and positioned under fluoroscopic guidance. Stone fragments were irrigaed from the bladder. All scopes were removed and the patient returned to PACU in satisfactory condition, having tolerated the procedure well.
== END 2017-09-28 16:23 | disposition home or self-care (01) ==
LOC: OROUT 10:45
PROVIDERS: ATTEND Urology
DX: N20.1 Calculus of ureter (principal); I12.9 Hypertensive chronic kidney disease with stage 1 through stage 4 chronic kidney disease, or unspecified chronic kidney disease; E11.22 Type 2 diabetes mellitus with diabetic chronic kidney disease; N18.3 Chronic kidney disease, stage 3 (moderate); J44.9 Chronic obstructive pulmonary disease, unspecified; E78.5 Hyperlipidemia, unspecified; G47.30 Sleep apnea, unspecified; M19.90 Unspecified osteoarthritis, unspecified site; Z79.4 Long term (current) use of insulin; Z88.2 Allergy status to sulfonamides; Z88.5 Allergy status to narcotic agent; Z79.899 Other long term (current) drug therapy
CPT/HCPCS: 36415; 82962; 82370; 80048; 74018; 93005; 93010; 52356; C1758; Q9967; J2250; J0690; J3010; J3490; J2405; J2704; 918

== ENCOUNTER 2017-09-30 12:04 | Emergency (ER) | payer MEDICARE ==
--- NOTE | 2017-09-30 13:26 | ER Document Report ---
ED General - General Chief Complaint: Urinary Problem Stated Complaint: WOUND CHECK Time Seen by Provider: 09/30/17 13:12 Mode of Arrival: Ambulatory Information source: Patient Notes: 77-year-old male presents with complaints of blood in the urine. Patient denies any fevers or chills denies any nausea vomiting or diarrhea patient notes intermittent pain only. Patient had a 8 mm stone taken out of the bladder , notes that a stent was placed as well [address] Cam. Patient denies any other concerns discharge paper work noted to return if there is pink urine for greater than 1 day TRAVEL OUTSIDE OF THE [place] IN LAST 30 DAYS: No - HPI Onset: Other - 2 days Onset/Duration: Intermittent Quality of pain: Burning Severity: Mild Pain Level: 1 Associated symptoms: None Exacerbated by: Other - urination Relieved by: Denies Similar symptoms previously: Yes Recently seen / treated by doctor: Yes - Related Data Allergies/Adverse Reactions: aspirin [Aspirin] Allergy (Intermediate, Verified 09/30/17 13:02) bleeding ulcers codeine [Codeine] Allergy (Intermediate, Verified 09/30/17 13:02) bleeding ulcers Past Medical History - Social History Smoking Status: Former Smoker Cigarette use (# per day): No Chew tobacco use (# tins/day): No Smoking Education Provided: No Frequency of alcohol use: None Drug Abuse: None Family History: Hypertension Patient has suicidal ideation: No Patient has homicidal ideation: No - Past Medical History Cardiac Medical History: Reports: Hx Hypercholesterolemia, Hx Hypertension Denies: Hx Coronary Artery Disease, Hx Heart Attack Pulmonary Medical History: Reports: Hx COPD - USES INH Denies: Hx Asthma, Hx Bronchitis, Hx Pneumonia Neurological Medical History: Denies: Hx Cerebrovascular Accident, Hx Seizures Endocrine Medical History: Reports: Hx Diabetes Mellitus Type 1, Hx Diabetes Mellitus Type 2 Renal/ Medical History: Denies: Hx Peritoneal Dialysis GI Medical History: Reports: Hx Gastroesophageal Reflux Disease Musculoskeltal Medical History: Reports Hx Arthritis - GENERALIZED Psychiatric Medical History: Denies: Hx Depression Past Surgical History: Reports: Hx Abdominal Surgery - hernia repair, Hx Appendectomy, Hx Cholecystectomy, Hx Orthopedic Surgery - back x2 with hardware. Denies: Hx Pacemaker - Immunizations Hx Diphtheria, Pertussis, Tetanus Vaccination: No Hx Pneumococcal Vaccination: 04/12/11 Review of Systems - Review of Systems Notes: REVIEW OF SYSTEMS: CONSTITUTIONAL : Denies fever, chills, or sweats. Denies recent illness. EENT: Denies eye, ear, throat, or mouth pain or symptoms. Denies nasal or sinus congestion or discharge. Denies throat, tongue, or mouth swelling or difficulty swallowing. CARDIOVASCULAR: Denies chest pain. Denies palpitations or racing or irregular heart beat. Denies ankle edema. RESPIRATORY: Denies cough, cold, or chest congestion. Denies shortness of breath, difficulty breathing, or wheezing. GASTROINTESTINAL: Denies abdominal pain or distention. Denies nausea, vomiting , or diarrhea. Denies blood in vomitus, stools, or per rectum. Denies black, tarry stools. Denies constipation. GENITOURINARY: Admits to blood in urine MUSCULOSKELETAL: Denies back or neck pain or stiffness. Denies joint pain or swelling. SKIN: Denies rash, lesions or sores. HEMATOLOGIC : Denies easy bruising or bleeding. LYMPHATIC: Denies swollen, enlarged glands. NEUROLOGICAL: Denies confusion or altered mental status. Denies passing out or loss of consciousness. Denies dizziness or lightheadedness. Denies headache. Denies weakness or paralysis or loss of use of either side. Denies problems with gait or speech. Denies sensory loss, numbness, or tingling. Denies seizures. PSYCHIATRIC: Denies anxiety or stress. Denies depression, suicidal ideation, or homicidal ideation. ALL OTHER SYSTEMS REVIEWED AND NEGATIVE. Dictation was performed using [employer] voice recognition software PHYSICAL EXAMINATION: GENERAL: Well-appearing, well-nourished and in no acute distress. HEAD: Atraumatic, normocephalic. EYES: Pupils equal round and reactive to light, extraocular movements intact, sclera anicteric, conjunctiva are normal. ENT: Nares patent, oropharynx clear without exudates. Moist mucous membranes. NECK: Normal range of motion, supple without lymphadenopathy LUNGS: Breath sounds clear to auscultation bilaterally and equal. No wheezes rales or rhonchi. HEART: Regular rate and rhythm without murmurs ABDOMEN: Soft, nontender, nondistended abdomen. No guarding, no rebound. No masses appreciated. Musculoskeletal: Normal range of motion, no pitting or edema. No cyanosis. NEUROLOGICAL: Cranial nerves grossly intact. Normal speech, normal gait. Normal sensory, motor exams PSYCH: Normal mood, normal affect. SKIN: Warm, Dry, normal turgor, no rashes or lesions noted. Physical Exam - Vital signs Vitals: Temp Pulse Resp BP Pulse Ox 98.3 F 63 20 124/65 96 09/30/17 12:12 09/30/17 12:12 09/30/17 12:12 09/30/17 12:12 09/30/17 12:12 Course - Re-evaluation Re-evalutation: 09/30/17 13:[address] Cam who states it is normal and expected to have blood . I conveyed this information to the patient's daughter, urinalysis is pending at this time 09/30/17 13:50 09/30/17 14:07 large leuk esterase noted, pt will be started on cipro, urine culture ordered, will dc home with urology follow up After performing a Medical Screening Examination, I estimate there is LOW risk for ACUTE APPENDICITIS, BOWEL OBSTRUCTION, ACUTE CHOLECYSTITIS, PERFORATED DIVERTICULITIS, INCARCERATED HERNIA, PANCREATITIS, TESTICULAR TORSION or PERFORATED ULCER, thus I consider the discharge disposition reasonable. Also, there is no evidence or peritonitis, sepsis, or toxicity. I have reevaluated this patient multiple times and no significant life threatening changes are noted. The patient and I have discussed the diagnosis and risks, and we agree with discharging home with close follow-up with the understanding that symptoms and presentations can change. We also discussed returning to the Emergency Department immediately if new or worsening symptoms occur. We have discussed the symptoms which are most concerning (e.g., bloody stool, fever, changing or worsening pain, intractable vomiting - standard verbal up date) that necessitate immediate return. - Vital Signs Vital signs: Temp Pulse Resp BP Pulse Ox 98.3 F 63 20 124/65 96 09/30/17 12:12 09/30/17 12:12 09/30/17 12:12 09/30/17 12:12 09/30/17 12:12 - Laboratory Laboratory results interpreted by me: 09/30/17 13:30 Urine Protein 100 H Urine Glucose (UA) 50 H Urine Blood LARGE H Ur Leukocyte Esterase LARGE H Discharge - Discharge Clinical Impression: Hematuria Qualifiers: Hematuria type: unspecified type Qualified Code(s): R31.9 - Hematuria, unspecified UTI (urinary tract infection) Qualifiers: Urinary tract infection type: acute cystitis Hematuria presence: with hematuria Qualified Code(s): N30.01 - Acute cystitis with hematuria Condition: Stable Disposition: HOME, SELF-CARE Instructions: Urinary Tract Infection ([facility]) Prescriptions: Ciprofloxacin HCl [Cipro 500 mg Tablet] 500 mg PO BID #20 tablet Referrals: GENE WICK PA-C [Primary Care Provider] - Follow up tomorrow
[2017-09-30 14:04] LABS: APPEARANCE,URINE CLOUDY; BILIRUBIN,URINE NEGATIVE (NEGATIVE); COLOR,URINE AMBER; GLUCOSE, URINE 50 mg/dL (NEGATIVE)
[2017-09-30 14:05] LABS: KETONES,URINE NEGATIVE (NEGATIVE); LEUKOCYTE ESTERASE,URINE LARGE (NEGATIVE); NITRITE,URINE NEGATIVE (NEGATIVE); PROTEIN,URINE 100 mg/dL (NEGATIVE); URINE SPECIFIC GRAVITY 1.017; UROBILINOGEN,URINE NEGATIVE mg/dL (<2.0)
[2017-09-30 14:22] VITALS: BP 120/60
== END 2017-09-30 14:21 | disposition home or self-care (01) ==
LOC: ER 12:04
DX: N30.01 Acute cystitis with hematuria (principal); Z98.890 Other specified postprocedural states; Z87.891 Personal history of nicotine dependence; I10 Essential (primary) hypertension; J44.9 Chronic obstructive pulmonary disease, unspecified; E11.9 Type 2 diabetes mellitus without complications
CPT/HCPCS: 81001; 87086; 99283

== ENCOUNTER 2017-10-03 16:48 | Emergency (ER) | payer MEDICARE ==
--- NOTE | 2017-10-03 17:15 | ER Document Report ---
ED Medical Screen (RME) - General Chief Complaint: Urinary Problem Stated Complaint: BACK PAIN, URINARY PROBLEMS TRAVEL OUTSIDE OF THE [place] IN LAST 30 DAYS: No - HPI Notes: 10/03/17 17:15 Difficulty in urinating with recent bladder stone removed and a ureteral stent placed. No fevers chills - Related Data Allergies/Adverse Reactions: aspirin [Aspirin] Allergy (Intermediate, Verified 10/03/17 16:53) bleeding ulcers codeine [Codeine] Allergy (Intermediate, Verified 10/03/17 16:53) bleeding ulcers Past Medical History - Past Medical History Cardiac Medical History: Reports: Hx Hypercholesterolemia, Hx Hypertension Denies: Hx Coronary Artery Disease, Hx Heart Attack Pulmonary Medical History: Reports: Hx COPD - USES INH Denies: Hx Asthma, Hx Bronchitis, Hx Pneumonia Neurological Medical History: Denies: Hx Cerebrovascular Accident, Hx Seizures Endocrine Medical History: Reports: Hx Diabetes Mellitus Type 1, Hx Diabetes Mellitus Type 2 Renal/ Medical History: Denies: Hx Peritoneal Dialysis GI Medical History: Reports: Hx Gastroesophageal Reflux Disease Musculoskeltal Medical History: Reports Hx Arthritis - GENERALIZED Psychiatric Medical History: Denies: Hx Depression Past Surgical History: Reports: Hx Abdominal Surgery - hernia repair, Hx Appendectomy, Hx Cholecystectomy, Hx Orthopedic Surgery - back x2 with hardware. Denies: Hx Pacemaker - Immunizations Hx Diphtheria, Pertussis, Tetanus Vaccination: No History of Influenza Vaccine for 04/2017 - 09/2017 Season: Yes Influenza Administration Date for 04/2017 - 09/2017 Season: 03/04/17 Review of Systems - Review of Systems Genitourinary: Frequency, Urgency Physical Exam - Vital signs Vitals: Temp Pulse Resp BP Pulse Ox 98.2 F 72 17 145/63 H 99 10/03/17 16:56 10/03/17 16:56 10/03/17 16:56 10/03/17 16:56 10/03/17 16:56 - Respiratory Respiratory status: No respiratory distress Chest status: Nontender Breath sounds: Normal Chest palpation: Normal Course - Vital Signs Vital signs: Temp Pulse Resp BP Pulse Ox 98.2 F 72 17 145/63 H 99 10/03/17 16:56 10/03/17 16:56 10/03/17 16:56 10/03/17 16:56 10/03/17 16:56 Doctor's Discharge - Discharge Referrals: GENE WICK PA-C [Primary Care Provider] - Follow up as needed
[2017-10-03] MEDS ORDERED: TAMSULOSIN HCL 0.4 MG CAP.SR.24H PO ONE (17:16)
[2017-10-03] MEDS ORDERED: NORMAL SALINE 1000 ML 1,000 ML IV ONE (17:16)
[2017-10-03 17:42] LABS: ABSOLUTE BASOPHILS # (AUTO) 0.1 10^3/uL (0.0-0.2); ABSOLUTE EOSINOPHILS # (AUTO) 0.3 10^3/uL (0.0-0.6); ABSOLUTE LYMPHOCYTES (AUTO) 1.3 10^3/uL (0.5-4.7); ABSOLUTE MONOCYTES (AUTO) 1.3 10^3/uL (0.1-1.4); ABSOLUTE NEUT (AUTO) 4.5 10^3/uL (1.7-8.2); BASOPHILS % (AUTO) 0.8 % (0-2); EOSINOPHILS % (AUTO) 4.1 % (0-6); HEMATOCRIT 40.2 % (37.9-51.0); HEMOGLOBIN 13.2 g/dL (13.5-17.0); LYMPHOCYTES % (AUTO) 17.3 % (13-45); MEAN CORPUSCULAR HEMOGLOBIN 28.6 pg (27.0-33.4); MEAN CORPUSCULAR VOLUME 87 fl (80-97); MONOCYTES % (AUTO) 17.1 % (3-13); PLATELET COUNT 181 10^3/uL (150-450); RED BLOOD COUNT 4.63 10^6/uL (4.35-5.55); RED CELL DISTRIBUTION WIDTH 14.6 % (11.5-14.0); SEGMENTED NEUTROPHILS % (AUTO) 60.7 % (42-78); TOTAL CELLS COUNTED % (AUTO) 100 %; WHITE BLOOD COUNT 7.4 10^3/uL (4.0-10.5)
[2017-10-03 18:10] LABS: ANION GAP 11 (5-19); BLOOD UREA NITROGEN 34 mg/dL (7-20); CALCIUM 9.6 mg/dL (8.4-10.2); CARBON DIOXIDE 26 mmol/L (22-30); CHLORIDE 104 mmol/L (98-107); GLUCOSE 153 mg/dL (75-110); POTASSIUM 4.6 mmol/L (3.6-5.0); SODIUM 140.6 mmol/L (137-145)
--- NOTE | 2017-10-03 18:45 | RADIOLOGY REPORT (SQ) ---
EXAM DESCRIPTION: CT LTD RENAL STONE PROTOCOL ON COMPLETED DATE/TIME: 10/03/2017 6:31 pm REASON FOR STUDY: lower abd pain hx of ua stent COMPARISON: None. TECHNIQUE: CT scan of the abdomen and pelvis performed without intravenous or oral contrast. Images reviewed with lung, soft tissue, and bone windows. Reconstructed coronal and sagittal MPR images revi ewed. All images stored on PACS. All CT scanners at this facility use dose modulation, iterative reconstruction, and/or weight based d osing when appropriate to reduce radiation dose to as low as reasonably achievable (ALARA). [facility]: Dose Right [facility]: CareDose [facility]: Dose Right [facility]: Teradose 4D [facility]: [employer] RADIATION DOSE: CT Rad equipment meets quality standard of care and radiation dose reduction techniq ues were employed. CTDIvol: 17.8 mGy. DLP: 1024 mGy-cm.mGy. LIMITATIONS: None. FINDINGS: LOWER CHEST: No significant findings. No nodules or infiltrates. NON-CONTRASTED LIVER, SPLEEN, ADRENALS: Evaluation limited by lack of IV contrast. No identified sign ificant masses. PANCREAS: No masses. No peripancreatic inflammatory changes. GALLBLADDER: Surgically absent. RIGHT KIDNEY AND URETER: No suspicious masses. Assessment limited by lack of IV contrast. There is a tiny nonobstructing upper calyceal calculus. No hydronephrosis or hydroureter. LEFT KIDNEY AND URETER: No suspicious masses. Assessment limited by lack of IV contrast. No signifi cant calcifications. A ureteral stent is present. AORTA AND RETROPERITONEUM: No aneurysm. No retroperitoneal masses or adenopathy. BOWEL AND PERITONEAL CAVITY: Occasional sigmoid diverticula with no acute inflammatory changes. No b owel masses or wall thickening. APPENDIX: Surgically absent. PELVIS, BLADDER, AND ABDOMINAL WALL:No abnormal masses. No free fluid. Bladder normal. BONES: Posterior rods at L4-5 with screws through the pedicles. No acute abnormality. OTHER: No other significant finding. IMPRESSION: 1. Small nonobstructing right renal calculus. 2. Left ureteral stent in good position. No hydronephrosis or hydroureter. 3. Mild diverticulosis coli. 4. Surgical changes in the lower lumbar spine. COMMENT: Quality ID # [id number]: Final reports with documentation of one or more dose reduction techniques (e.g., Automated exposure control, adjustment of the mA and/or kV according to patient size, use of iterative reconstruction technique) TECHNICAL DOCUMENTATION: JOB ID: [id number] [employer]- All Rights Reserved Reading location - IP/workstation name: [email or web address]
[2017-10-03] MEDS ORDERED: LIDOCAINE 2% URO-JET 5 ML KIT MM ONE (19:17)
--- NOTE | 2017-10-03 19:24 | ER Document Report ---
ED GI/ - General Chief Complaint: Urinary Problem Stated Complaint: BACK PAIN, URINARY PROBLEMS Time Seen by Provider: 10/03/17 17:21 Notes: Patient is a 77-year-old male comes emergency department for chief complaint of difficulties with urination, he states that he can still urinate but when he does it seems to be less than usual and he is having intermittent painful urination symptoms. He reports intermittent flank pain as well. Patient had a ureteral stent placed on the left side by Dr. Cam last Tuesday, states he is unsure if he passed a stone or not. He denies nausea vomiting, fever or chills. He denies any current complaints. He states he was seen after the stent was placed here already and he thinks he is taking penicillin antibiotic. Past medical history includes diabetes, appendectomy, cholecystectomy, hernia repair, he is unsure about BPH. TRAVEL OUTSIDE OF THE [place] IN LAST 30 DAYS: No - Related Data Allergies/Adverse Reactions: aspirin [Aspirin] Allergy (Intermediate, Verified 10/03/17 16:53) bleeding ulcers codeine [Codeine] Allergy (Intermediate, Verified 10/03/17 16:53) bleeding ulcers Past Medical History - General Information source: Patient - Social History Smoking Status: Former Smoker Chew tobacco use (# tins/day): No Frequency of alcohol use: None Drug Abuse: None Lives with: Family Family History: Hypertension Patient has suicidal ideation: No Patient has homicidal ideation: No - Past Medical History Cardiac Medical History: Reports: Hx Hypercholesterolemia, Hx Hypertension Denies: Hx Coronary Artery Disease, Hx Heart Attack Pulmonary Medical History: Reports: Hx COPD - USES INH Denies: Hx Asthma, Hx Bronchitis, Hx Pneumonia Neurological Medical History: Denies: Hx Cerebrovascular Accident, Hx Seizures Endocrine Medical History: Reports: Hx Diabetes Mellitus Type 2 Renal/ Medical History: Denies: Hx Peritoneal Dialysis GI Medical History: Reports: Hx Gastroesophageal Reflux Disease Musculoskeltal Medical History: Reports Hx Arthritis - GENERALIZED Psychiatric Medical History: Denies: Hx Depression Past Surgical History: Reports: Hx Abdominal Surgery - hernia repair, Hx Appendectomy, Hx Cholecystectomy, Hx Orthopedic Surgery - back x2 with hardware. Denies: Hx Pacemaker - Immunizations Hx Diphtheria, Pertussis, Tetanus Vaccination: No Hx Pneumococcal Vaccination: 04/12/11 Review of Systems - Review of Systems Constitutional: No symptoms reported EENT: No symptoms reported Cardiovascular: No symptoms reported Respiratory: No symptoms reported Gastrointestinal: See HPI Genitourinary: See HPI Male Genitourinary: No symptoms reported Musculoskeletal: No symptoms reported Skin: No symptoms reported Hematologic/Lymphatic: No symptoms reported Neurological/Psychological: No symptoms reported Physical Exam - Vital signs Vitals: Temp Pulse Resp BP Pulse Ox 98.2 F 72 17 145/63 H 99 10/03/17 16:56 10/03/17 16:56 10/03/17 16:56 10/03/17 16:56 10/03/17 16:56 Interpretation: Normal - General General appearance: Appears well, Alert In distress: None - HEENT Head: Normocephalic, Atraumatic Eyes: Normal Pupils: PERRL - Respiratory Respiratory status: No respiratory distress Chest status: Nontender Breath sounds: Normal Chest palpation: Normal - Cardiovascular Rhythm: Regular Heart sounds: Normal auscultation Murmur: No - Abdominal Inspection: Normal Distension: No distension Bowel sounds: Normal Tenderness: Nontender. No: Tender, Guarding - Genitourinary Inspection: Normal. No: Blood at meatus, Penile discharge Tenderness: Nontender Scrotum: Normal. No: Swelling, Redness, Hot to touch - Back Back: Normal, Nontender. No: Tender, CVA tenderness - Extremities General upper extremity: Normal inspection, Nontender, Normal color, Normal ROM , Normal temperature General lower extremity: Normal inspection, Nontender, Normal color, Normal ROM , Normal temperature, Normal weight bearing. No: Aster's sign - Neurological Neuro grossly intact: Yes Cognition: Normal Orientation: AAOx4 John Coma Scale Eye Opening: Spontaneous John Coma Scale Verbal: Oriented [place] Coma Scale Motor: Obeys Commands [place] Coma Scale Total: 15 Speech: Normal Motor strength normal: LUE, RUE, LLE, RLE Sensory: Normal - Psychological Associated symptoms: Normal affect, Normal mood - Skin Skin Temperature: Warm Skin Moisture: Dry Skin Color: Normal Course - Re-evaluation Re-evalutation: Review of previous visit shows the patient was prescribed and is taking Cipro, not penicillin. Patient is well-appearing on exam, soft abdomen, he declines a Irizarry catheter to be placed, vital signs unremarkable. CT showing left ureteral stent in place without any complications, no hydroureter or hydronephrosis, small right nephrolithiasis. No acute findings. CBC shows no leukocytosis or shift. Urinalysis shows red blood cells, patient does not have gross hematuria, no infection. Previous urine culture did not grow out any concerning findings. Patient was able to urinate without any difficulty. He is asymptomatic now. Asking to go home. Intermittent dysuria, patient states he has pain medication at home but he was not taking them because he did not need them, he states he was to leave, he will take them if he needs them, he states he will follow-up with his urologist. Discussed return precautions in detail. Patient states understanding and agreement. - Vital Signs Vital signs: Temp Pulse Resp BP Pulse Ox 98.2 F 74 20 131/75 H 98 10/03/17 16:56 10/03/17 20:36 10/03/17 20:36 10/03/17 20:36 10/03/17 20:36 - Laboratory Result Diagrams: 10/03/17 17:29 10/03/17 17:29 Laboratory results interpreted by me: 10/03/17 10/03/17 10/03/17 17:29 17:29 20:00 Hgb 13.2 L RDW 14.6 H Monocytes % 17.1 H BUN 34 H Creatinine 1.54 H Est GFR ( Amer) 54 L Est GFR (Non-Af Amer) 44 L Glucose 153 H Urine Protein 100 H Urine Blood LARGE H Ur Leukocyte Esterase SMALL H Discharge - Discharge Clinical Impression: Dysuria, Urinary symptom or sign Condition: Stable Disposition: HOME, SELF-CARE Additional Instructions: Your urine does not show infection, the urine culture from last time is normal, your stent and CAT scan imaging appear normal for today. You also have a small stone in the right kidney. No concerning findings noted. You can use your pain medication if needed (along with your stool softener to avoid constipation). Please follow-up with your urologist for additional evaluation and management. Return if you worsen including vomiting, fever, severe pain, or any other concerning or worsening symptoms. Referrals: GENE WICK PA-C [Primary Care Provider] - Follow up as needed
[2017-10-03 20:18] LABS: APPEARANCE,URINE SLIGHTLY-CLOUDY; BILIRUBIN,URINE NEGATIVE (NEGATIVE); COLOR,URINE YELLOW; GLUCOSE, URINE NEGATIVE (NEGATIVE); KETONES,URINE NEGATIVE (NEGATIVE); LEUKOCYTE ESTERASE,URINE SMALL (NEGATIVE); NITRITE,URINE NEGATIVE (NEGATIVE); PROTEIN,URINE 100 mg/dL (NEGATIVE); URINE SPECIFIC GRAVITY 1.013; UROBILINOGEN,URINE NEGATIVE mg/dL (<2.0)
[2017-10-03 20:37] VITALS: BP 131/75
== END 2017-10-03 20:36 | disposition home or self-care (01) ==
LOC: ER 16:48
DX: R30.0 Dysuria (principal); R10.9 Unspecified abdominal pain; Z96.0 Presence of urogenital implants; E11.9 Type 2 diabetes mellitus without complications; I10 Essential (primary) hypertension; J44.9 Chronic obstructive pulmonary disease, unspecified; Z90.49 Acquired absence of other specified parts of digestive tract; Z88.6 Allergy status to analgesic agent; Z88.5 Allergy status to narcotic agent; Z87.891 Personal history of nicotine dependence
CPT/HCPCS: 99284; 36415; 87086; 85025; 80048; 81001; 76380; A9270; J7030

== ENCOUNTER → 2017-10-05 | Outpatient (CLI) | payer MEDICARE ==
--- NOTE | 2017-10-05 11:04 | RADIOLOGY REPORT (SQ) ---
EXAM DESCRIPTION: L SPINE WHOLE COMPLETED DATE/TIME: 10/05/2017 9:55 am REASON FOR STUDY: LOW BACK PAIN M54.5 LOW BACK PAIN COMPARISON: CT abdomen pelvis 10/03/2017 Lumbar spine plain films 07/25/2008 NUMBER OF VIEWS: Five views including obliques. TECHNIQUE: AP, lateral, oblique, and sacral radiographic images acquired of the lumbar spine. LIMITATIONS: None. FINDINGS: MINERALIZATION: Normal. SEGMENTATION: There is transitional anatomy with short ribs/ long transverse processes at the transit ional segment which is labeled T12. This puts fusion hardware at the L4-5 level ALIGNMENT: Normal. VERTEBRAE: Maintained height. No fracture or worrisome bone lesion. DISCS: High-grade disc space loss of height at L3-4 POSTERIOR ELEMENTS: Post bilateral laminectomy at L4 HARDWARE: Bilateral transpedicular screws and dorsal fixation plates at L4-5 PARASPINAL SOFT TISSUES: Left-sided double-J ureteral stent unchanged from CT 10/03/2017 PELVIS: Incompletely included in the field of view. Old bone graft harvest site left posterior iliac crest OTHER: No other significant finding. IMPRESSION: Advanced degenerative disc changes at L3-4. Old fusion at L4-5. TECHNICAL DOCUMENTATION: JOB ID: [id number] [employer]- All Rights Reserved Reading location - IP/workstation name: [email or web address]
== END ==
LOC: RAD 09:37
PROVIDERS: ATTEND Physician Assistant
DX: M54.5 Low back pain (principal); M51.36 Other intervertebral disc degeneration, lumbar region
CPT/HCPCS: 72110

== ENCOUNTER → 2017-11-09 | Outpatient (CLI) | payer MEDICARE ==
[2017-11-09 11:36] LABS: ABSOLUTE BASOPHILS # (AUTO) 0.1 10^3/uL (0.0-0.2); ABSOLUTE EOSINOPHILS # (AUTO) 0.2 10^3/uL (0.0-0.6); ABSOLUTE LYMPHOCYTES (AUTO) 1.4 10^3/uL (0.5-4.7); ABSOLUTE MONOCYTES (AUTO) 0.8 10^3/uL (0.1-1.4); ABSOLUTE NEUT (AUTO) 4.3 10^3/uL (1.7-8.2); EOSINOPHILS % (AUTO) 3.3 % (0-6); HEMATOCRIT 39.4 % (37.9-51.0); HEMOGLOBIN 13.1 g/dL (13.5-17.0); LYMPHOCYTES % (AUTO) 19.9 % (13-45); MEAN CORPUSCULAR HEMOGLOBIN 28.6 pg (27.0-33.4); MEAN CORPUSCULAR HGB CONC 33.2 g/dL (32.0-36.0); MEAN CORPUSCULAR VOLUME 86 fl (80-97); MONOCYTES % (AUTO) 11.9 % (3-13); PLATELET COUNT 191 10^3/uL (150-450); RED BLOOD COUNT 4.58 10^6/uL (4.35-5.55); SEGMENTED NEUTROPHILS % (AUTO) 63.9 % (42-78); TOTAL CELLS COUNTED % (AUTO) 100 %; WHITE BLOOD COUNT 6.8 10^3/uL (4.0-10.5)
[2017-11-09 11:40] LABS: APPEARANCE,URINE CLEAR; BILIRUBIN,URINE NEGATIVE (NEGATIVE); COLOR,URINE STRAW; GLUCOSE, URINE 150 mg/dL (NEGATIVE); KETONES,URINE NEGATIVE (NEGATIVE); LEUKOCYTE ESTERASE,URINE NEGATIVE (NEGATIVE); NITRITE,URINE NEGATIVE (NEGATIVE); PROTEIN,URINE NEGATIVE (NEGATIVE); URINE SPECIFIC GRAVITY 1.014; UROBILINOGEN,URINE NEGATIVE mg/dL (<2.0)
[2017-11-09 12:04] LABS: ALBUMIN 4.1 g/dL (3.5-5.0); ANION GAP 12 (5-19); BLOOD UREA NITROGEN 25 mg/dL (7-20); CALCIUM 9.8 mg/dL (8.4-10.2); CARBON DIOXIDE 26 mmol/L (22-30); CHLORIDE 107 mmol/L (98-107); GLUCOSE 105 mg/dL (75-110); PHOSPHORUS 3.2 mg/dL (2.5-4.5); POTASSIUM 4.6 mmol/L (3.6-5.0); SODIUM 145.4 mmol/L (137-145)
[2017-11-10 12:39] LABS: CREATININE URINE 63.1 mg/dL (Not Estab.)
[2017-11-10 13:26] LABS: MICROALBUMIN URINE <3.0 ug/mL (Not Estab.)
== END ==
LOC: OD 10:43
PROVIDERS: ATTEND Internal Medicine Nephrology
DX: N18.3 Chronic kidney disease, stage 3 (moderate) (principal); E55.9 Vitamin D deficiency, unspecified; D63.8 Anemia in other chronic diseases classified elsewhere; E11.9 Type 2 diabetes mellitus without complications
CPT/HCPCS: 36415; 80048; 81001; 82040; 82043; 82306; 82570; 83970; 84100; 85025

== ENCOUNTER 2017-11-23 19:26 | Emergency (ER) | payer MEDICARE ==
[2017-11-23 21:48] LABS: ANION GAP 11 (5-19); BLOOD UREA NITROGEN 37 mg/dL (7-20); CALCIUM 9.4 mg/dL (8.4-10.2); CARBON DIOXIDE 25 mmol/L (22-30); CHLORIDE 106 mmol/L (98-107); GLUCOSE 134 mg/dL (75-110); POTASSIUM 4.1 mmol/L (3.6-5.0); SODIUM 142.2 mmol/L (137-145)
--- NOTE | 2017-11-23 22:17 | ER Document Report ---
ED General - General Chief Complaint: Dizziness Stated Complaint: DIZZY Time Seen by Provider: 11/23/17 19:49 Mode of Arrival: Medic Information source: Patient Notes: Patient is a 77-year-old male who presents with chief complaint of possible hypoglycemic episode. Patient reports that about 530 he took his usual dose of 70/30 insulin and then a short time later felt "drunk". Patient then called his family member who came and checked his glucose and found it to be 61. Patient reports that he drank some juice and ate some crackers with fairly immediate resolution of his symptoms. On arrival patient reports that all of his symptoms have subsided. Patient denies any chest pain, shortness of breath , nausea, vomiting, fever or any other sick concerning symptoms. Patient reports that he takes 70/30 insulin but denies the use of any sulfonylureas. Patient is completely alert and oriented on arrival. TRAVEL OUTSIDE OF THE [place] IN LAST 30 DAYS: No - Related Data Allergies/Adverse Reactions: aspirin [Aspirin] Allergy (Intermediate, Verified 10/03/17 16:53) bleeding ulcers codeine [Codeine] Allergy (Intermediate, Verified 10/03/17 16:53) bleeding ulcers Past Medical History - General Information source: Patient - Social History Smoking Status: Never Smoker Frequency of alcohol use: None Drug Abuse: None Lives with: Alone Family History: Hypertension Patient has suicidal ideation: No Patient has homicidal ideation: No - Past Medical History Cardiac Medical History: Reports: Hx Hypercholesterolemia, Hx Hypertension Denies: Hx Coronary Artery Disease, Hx Heart Attack Pulmonary Medical History: Reports: Hx COPD - USES INH Denies: Hx Asthma, Hx Bronchitis, Hx Pneumonia Neurological Medical History: Denies: Hx Cerebrovascular Accident, Hx Seizures Endocrine Medical History: Reports: Hx Diabetes Mellitus Type 1, Hx Diabetes Mellitus Type 2 Renal/ Medical History: Denies: Hx Peritoneal Dialysis GI Medical History: Reports: Hx Gastroesophageal Reflux Disease Musculoskeltal Medical History: Reports Hx Arthritis - GENERALIZED Psychiatric Medical History: Denies: Hx Depression Past Surgical History: Reports: Hx Abdominal Surgery - hernia repair, Hx Appendectomy, Hx Cholecystectomy, Hx Orthopedic Surgery - back x2 with hardware. Denies: Hx Pacemaker - Immunizations Hx Diphtheria, Pertussis, Tetanus Vaccination: No Hx Pneumococcal Vaccination: 04/12/11 Review of Systems - Review of Systems Constitutional: See HPI EENT: No symptoms reported Cardiovascular: No symptoms reported Respiratory: No symptoms reported Gastrointestinal: No symptoms reported Genitourinary: No symptoms reported Male Genitourinary: No symptoms reported Musculoskeletal: No symptoms reported Skin: No symptoms reported Hematologic/Lymphatic: No symptoms reported Neurological/Psychological: No symptoms reported Physical Exam - Vital signs Vitals: Temp Pulse Resp BP Pulse Ox 97.5 F 49 L 18 129/77 H 92 11/23/17 19:38 11/23/17 19:38 11/23/17 19:38 11/23/17 19:38 11/23/17 19:38 - Notes Notes: PHYSICAL EXAMINATION: GENERAL: Well-appearing, well-nourished and in no acute distress. HEAD: Atraumatic, normocephalic. EYES: Pupils equal round and reactive to light, extraocular movements intact, sclera anicteric, conjunctiva are normal. ENT: Nares patent, oropharynx clear without exudates. Moist mucous membranes. NECK: Normal range of motion, supple without lymphadenopathy LUNGS: Breath sounds clear to auscultation bilaterally and equal. No wheezes rales or rhonchi. HEART: Regular rate and rhythm without murmurs ABDOMEN: Soft, nontender, nondistended abdomen. No guarding, no rebound. No masses appreciated. Musculoskeletal: Normal range of motion, no pitting or edema. No cyanosis. NEUROLOGICAL: Cranial nerves grossly intact. Normal speech, normal gait. Normal sensory, motor exams PSYCH: Normal mood, normal affect. SKIN: Warm, Dry, normal turgor, no rashes or lesions noted. Course - Re-evaluation Re-evalutation: Patient is a 77-year-old male who is an insulin-dependent diabetic. Patient reports that after taking his insulin earlier tonight he episode of feeling "drunk". Patient has complete resolution of the symptoms at the time he arrived to the emergency department. Patient denies use of any sulfonylureas. Patient denies any other symptoms, patient reports that he has not had any recent illnesses. Will check basic metabolic panel and monitor patient for a few hours. Physical metabolic panel is within normal limits. Patient continues to report that he feels well enough to go home. Patient will be discharged home after being given food and additional p.o. fluids. Patient understands return precautions to include an additional drop in his blood glucose. Patient agrees to follow-up with his primary care provider later this week and let him know that he was seen in the emergency department for an episode of hypoglycemia. - Vital Signs Vital signs: Temp Pulse Resp BP Pulse Ox 97.5 F 55 L 18 131/83 H 97 11/23/17 19:38 11/23/17 23:22 11/23/17 23:22 11/23/17 23:22 11/23/17 23:22 - Laboratory Result Diagrams: 11/23/17 21:09 Laboratory results interpreted by me: 11/23/17 21:09 BUN 37 H Creatinine 1.46 H Est GFR ( Amer) 57 L Est GFR (Non-Af Amer) 47 L Glucose 134 H Discharge - Discharge Clinical Impression: Hypoglycemia Condition: Stable Disposition: HOME, SELF-CARE Additional Instructions: Hypoglycemia You have suffered an episode of hypoglycemia (low blood sugar). Typical symptoms of hypoglycemia are shaking, sweating, headache, and confusion. When severe, unconsciousness or seizure may occur. Hypoglycemia occurs when a person taking insulin or diabetes pills has a change in the amount of blood sugar available -- due to exercise, decreased food intake, or alcohol. Should you feel symptoms of hypoglycemia again, immediately take some form of sugar such as sweetened juice. As the reaction subsides, eat a complex carbohydrate such as bread. If possible, check your blood sugar using a chemical strip. If episodes are occurring without obvious explanation, contact your physician for further evaluation. Please use caution when using your insulin and be sure to eat a meal as your normal routine. This appears to be the cause of your dizziness and altered feeling earlier. Your blood sugar has been stable since you arrived to the emergency department. Please follow-up with your primary care physician and let her know that you are here for an episode of hypoglycemia. Return to the emergency department if you develop worsening symptoms or any other symptoms that are concerning to you. Referrals: GENE WICK PA-C [Primary Care Provider] - Follow up as needed
[2017-11-23 23:23] VITALS: BP 131/83
== END 2017-11-23 23:23 | disposition home or self-care (01) ==
LOC: ER 19:26
DX: E11.649 Type 2 diabetes mellitus with hypoglycemia without coma (principal); R42 Dizziness and giddiness; Z79.4 Long term (current) use of insulin; I10 Essential (primary) hypertension; J44.9 Chronic obstructive pulmonary disease, unspecified
CPT/HCPCS: 36415; 80048; 82962; 99285

== ENCOUNTER → 2017-12-23 | Outpatient (CLI) | payer MEDICARE ==
--- NOTE | 2017-12-23 11:04 | RADIOLOGY REPORT (SQ) ---
EXAM DESCRIPTION: CT CHEST WITHOUT COMPLETED DATE/TIME: 12/23/2017 9:05 am REASON FOR STUDY: LOCALIZED ENLARGED LYMPH NODES R59.0 LOCALIZED ENLARGED LYMPH NODES COMPARISON: 08/26/2017. PET-CT 09/11/2017. TECHNIQUE: CT scan performed of the chest without intravenous contrast. Images reviewed with lung, soft tissue and bone windows. Reconstructed coronal and sagittal MPR images reviewed. All images st ored on PACS. All CT scanners at this facility use dose modulation, iterative reconstruction, and/or weight based d osing when appropriate to reduce radiation dose to as low as reasonably achievable (ALARA). [facility]: Dose Right [facility]: CareDose [facility]: Dose Right [facility]: Teradose 4D [facility]: Smart ChipIn RADIATION DOSE: CT Rad equipment meets quality standard of care and radiation dose reduction techniq ues were employed. CTDIvol: 17.6 mGy. DLP: 691 mGy-cm. mGy. LIMITATIONS: No technical limitations. FINDINGS: LUNGS AND PLEURA: No masses, infiltrates, pneumothorax. No pleural effusions, calcificati ons. HILAR AND MEDIASTINAL STRUCTURES: Small level 2 and level 4 nodes measuring up to about 1 cm in short axis are not significantly changed. No bulky adenopathy. HEART AND VASCULAR STRUCTURES: No aneurysm. No pericardial effusion. UPPER ABDOMEN: No acute findings. Limited exam. THYROID AND OTHER SOFT TISSUES: No masses. No adenopathy. BONES: No acute findings. HARDWARE: None in the chest. OTHER: No other significant findings. IMPRESSION: Small mediastinal nodes. No significant change. TECHNICAL DOCUMENTATION: JOB ID: [id number] Quality ID # [id number]: Final reports with documentation of one or more dose reduction techniques (e.g., Au tomated exposure control, adjustment of the mA and/or kV according to patient size, use of iterative reconstruction technique) 2010 [employer]- All Rights Reserved Reading location - IP/workstation name: [email or web address]
== END ==
LOC: RAD 08:33
PROVIDERS: ATTEND Physician Assistant
DX: R59.0 Localized enlarged lymph nodes (principal)
CPT/HCPCS: 71250

== ENCOUNTER → 2018-01-16 | Outpatient (CLI) | payer MEDICARE ==
[2018-01-17 14:38] LABS: ANTICHROMATIN AB <0.2 AI (0.0-0.9); CENTROMERE B AB <0.2 AI (0.0-0.9); JO-1 ANTIBODY (ANACOMP) <0.2 AI (0.0-0.9); RNP AB <0.2 AI (0.0-0.9); SCLERODERMA-70 ANTIBODIES <0.2 AI (0.0-0.9); SJOGREN'S ANTI-SS-B AB <0.2 AI (0.0-0.9); SJOGREN'S SS-A ANTIBODY <0.2 AI (0.0-0.9); SMITH AB ANA <0.2 AI (0.0-0.9)
[2018-01-18 08:18] LABS: DNA DOUBLE STRAND ANTIBODY ANA 2 IU/mL (0-9)
== END ==
LOC: OD 10:31
PROVIDERS: ATTEND Physician Assistant
DX: R59.0 Localized enlarged lymph nodes (principal); R94.2 Abnormal results of pulmonary function studies
CPT/HCPCS: 36415; 86021; 86225; 86235; 86430; 86698; 87449

== ENCOUNTER 2018-04-21 11:48 | Observation (INO) | payer MEDICARE ==
--- NOTE | 2018-04-21 12:10 | ER Document Report ---
ED Medical Screen (RME) - General Chief Complaint: Abdominal Pain >50 Stated Complaint: GROIN PAIN Time Seen by Provider: 04/21/18 12:06 Notes: 77 years old male with a history of COPD, going to physical therapy, during the time he started having pain over the left groin region. Therefore present to the ED. Not associated with any nausea vomiting diarrhea dysuria frequency urgency. Denies any fever chills or other constitutional symptoms. Standing walking increases the pain. Had a chemical stress test yesterday On examination left lower quadrant abdominal pain and questionable palpable mass may be its feces. And also left hip tenderness anteriorly. TRAVEL OUTSIDE OF THE [place] IN LAST 30 DAYS: No - Related Data Allergies/Adverse Reactions: aspirin [Aspirin] Allergy (Intermediate, Verified 04/21/18 11:48) bleeding ulcers codeine [Codeine] Allergy (Intermediate, Verified 04/21/18 11:48) bleeding ulcers Past Medical History - Past Medical History Cardiac Medical History: Reports: Hx Hypercholesterolemia, Hx Hypertension Denies: Hx Coronary Artery Disease, Hx Heart Attack Pulmonary Medical History: Reports: Hx COPD Denies: Hx Asthma, Hx Bronchitis, Hx Pneumonia Neurological Medical History: Denies: Hx Cerebrovascular Accident, Hx Seizures Endocrine Medical History: Reports: Hx Diabetes Mellitus Type 1, Hx Diabetes Mellitus Type 2 Renal/ Medical History: Denies: Hx Peritoneal Dialysis GI Medical History: Reports: Hx Gastroesophageal Reflux Disease Musculoskeltal Medical History: Reports Hx Arthritis - GENERALIZED Psychiatric Medical History: Denies: Hx Depression Past Surgical History: Reports: Hx Abdominal Surgery - hernia repair, Hx Appendectomy, Hx Cholecystectomy, Hx Orthopedic Surgery - back x2 with hardware. Denies: Hx Pacemaker - Immunizations Hx Diphtheria, Pertussis, Tetanus Vaccination: No History of Influenza Vaccine for 04/2017 - 09/2017 Season: Yes Influenza Administration Date for 04/2017 - 09/2017 Season: 03/04/17 Physical Exam - Vital signs Vitals: Temp Pulse Resp BP Pulse Ox 97.7 F 66 18 129/73 H 99 04/21/18 11:51 04/21/18 11:51 04/21/18 11:51 04/21/18 11:51 04/21/18 11:51 Course - Vital Signs Vital signs: Temp Pulse Resp BP Pulse Ox 97.7 F 66 18 129/73 H 99 04/21/18 11:51 04/21/18 11:51 04/21/18 11:51 04/21/18 11:51 04/21/18 11:51 Doctor's Discharge - Discharge Referrals: TRENTON CERVANTES PA-C [Primary Care Provider] - Follow up as needed
[2018-04-21 12:31] LABS: ABSOLUTE BASOPHILS # (AUTO) 0.1 10^3/uL (0.0-0.2); ABSOLUTE EOSINOPHILS # (AUTO) 0.2 10^3/uL (0.0-0.6); ABSOLUTE LYMPHOCYTES (AUTO) 1.1 10^3/uL (0.5-4.7); ABSOLUTE MONOCYTES (AUTO) 0.9 10^3/uL (0.1-1.4); BASOPHILS % (AUTO) 0.7 % (0-2); EOSINOPHILS % (AUTO) 2.9 % (0-6); HEMATOCRIT 38.5 % (37.9-51.0); HEMOGLOBIN 12.5 g/dL (13.5-17.0); LYMPHOCYTES % (AUTO) 15.1 % (13-45); MEAN CORPUSCULAR HEMOGLOBIN 28.8 pg (27.0-33.4); MEAN CORPUSCULAR HGB CONC 32.5 g/dL (32.0-36.0); MEAN CORPUSCULAR VOLUME 89 fl (80-97); MONOCYTES % (AUTO) 13.1 % (3-13); PLATELET COUNT 190 10^3/uL (150-450); RED BLOOD COUNT 4.34 10^6/uL (4.35-5.55); SEGMENTED NEUTROPHILS % (AUTO) 68.2 % (42-78); TOTAL CELLS COUNTED % (AUTO) 100 %; WHITE BLOOD COUNT 7.3 10^3/uL (4.0-10.5)
--- NOTE | 2018-04-21 12:44 | RADIOLOGY REPORT (SQ) ---
EXAM DESCRIPTION: HIP LEFT AP/LATERAL COMPLETED DATE/TIME: 04/21/2018 12:35 pm REASON FOR STUDY: Hip pain COMPARISON: None. NUMBER OF VIEWS: Two views. TECHNIQUE: AP pelvis and additional frog-leg view of the left hip. LIMITATIONS: None. FINDINGS: MINERALIZATION: Normal. LEFT HIP: No fracture or dislocation. No worrisome bone lesions. No contour deformity. No joint spa ce narrowing. RIGHT HIP: No fracture or dislocation. No worrisome bone lesions. PUBIS AND ISCHIUM: No fracture. PELVIS: No fracture. SACRUM: No fracture or dislocation. No worrisome bone lesions. LOWER LUMBAR SPINE: Hardware in the lower lumbar spine. No acute findings. SOFT TISSUES: No findings. OTHER: No other significant finding. IMPRESSION: NEGATIVE STUDY OF THE LEFT HIP AND PELVIS. NO EXPLANATION FOR PAIN. TECHNICAL DOCUMENTATION: JOB ID: [id number] [employer]- All Rights Reserved Reading location - IP/workstation name: [email or web address]
--- NOTE | 2018-04-21 12:45 | RADIOLOGY REPORT (SQ) ---
EXAM DESCRIPTION: ACUTE ABDOMEN SERIES COMPLETED DATE/TIME: 04/21/2018 12:35 pm REASON FOR STUDY: Abdominal pain COMPARISON: None. NUMBER OF VIEWS: Three views. TECHNIQUE: Frontal chest, supine abdomen and upright/decubitus abdomen radiographic images acquired. LIMITATIONS: None. FINDINGS: CHEST: Lungs clear of infiltrates. FREE AIR: None. No abnormal gas collections. BOWEL GAS PATTERN: Nonobstructive pattern. No dilated loops or air fluid levels. CALCIFICATIONS: No suspicious calcifications. HARDWARE: Clips in the upper abdomen. Hardware in the lower lumbar spine. SOFT TISSUES: No gross mass or suggestion of organomegaly. BONES: No acute fracture. No worrisome bone lesions. OTHER: No other significant finding. IMPRESSION: NO RADIOGRAPHIC EVIDENCE FOR ACUTE ABDOMINAL DISEASE. TECHNICAL DOCUMENTATION: JOB ID: [id number] [employer]- All Rights Reserved Reading location - IP/workstation name: [email or web address]
[2018-04-21 12:51] LABS: ALANINE AMINOTRANSFERASE 11 U/L (21-72); ALBUMIN 3.9 g/dL (3.5-5.0); ALKALINE PHOSPHATASE 78 U/L (38-126); ANION GAP 9 (5-19); ASPARTATE AMINO TRANSFERASE 22 U/L (17-59); BILIRUBIN,DIRECT 0.3 mg/dL (0.0-0.4); BILIRUBIN,TOTAL 0.9 mg/dL (0.2-1.3); BLOOD UREA NITROGEN 30 mg/dL (7-20); CALCIUM 9.2 mg/dL (8.4-10.2); CARBON DIOXIDE 24 mmol/L (22-30); CHLORIDE 104 mmol/L (98-107); GLUCOSE 173 mg/dL (75-110); POTASSIUM 4.7 mmol/L (3.6-5.0); TOTAL PROTEIN 7.8 g/dL (6.3-8.2)
--- NOTE | 2018-04-21 13:48 | RADIOLOGY REPORT (SQ) ---
EXAM DESCRIPTION: U/S NON OB PEL LTD W/DOPPLER COMPLETED DATE/TIME: 04/21/2018 1:34 pm REASON FOR STUDY: Left groin pain X 1 week, ? Hernia, muscle strain COMPARISON: None. TECHNIQUE: Dynamic and static grayscale images acquired of the pelvis via transabdominal approach an d recorded on PACS. Additional selected color Doppler and spectral images recorded. LIMITATIONS: None. FINDINGS: Sonographic imaging of the area of concern in the left groin with comparison imaging the r ight side shows no hernia or suspicious mass. No abnormality is seen. IMPRESSION: Normal study. TECHNICAL DOCUMENTATION: JOB ID: [id number] [employer]- All Rights Reserved Rev Reading location - IP/workstation name: [email or web address]
[2018-04-21 15:23] LABS: APPEARANCE,URINE CLEAR; BILIRUBIN,URINE NEGATIVE (NEGATIVE); COLOR,URINE YELLOW; GLUCOSE, URINE NEGATIVE (NEGATIVE); KETONES,URINE NEGATIVE (NEGATIVE); LEUKOCYTE ESTERASE,URINE NEGATIVE (NEGATIVE); NITRITE,URINE NEGATIVE (NEGATIVE); PROTEIN,URINE NEGATIVE (NEGATIVE); URINE SPECIFIC GRAVITY 1.016; UROBILINOGEN,URINE NEGATIVE mg/dL (<2.0)
--- NOTE | 2018-04-21 18:23 | RADIOLOGY REPORT (SQ) ---
EXAM DESCRIPTION: CT ABD/PELVIS WITH IV ORAL COMPLETED DATE/TIME: 04/21/2018 6:06 pm REASON FOR STUDY: LLQ pain, quest muscle strain, hernia, adenopathy? COMPARISON: 06/12/2015 TECHNIQUE: CT scan of the abdomen and pelvis performed using helical scanning technique with dynamic intravenous contrast injection. No oral contrast. Images reviewed with lung, soft tissue, and bone windows. Reconstructed coronal and sagittal MPR images reviewed. Delayed images for evaluation of the urinary system also acquired. All images stored on PACS. All CT scanners at this facility use dose modulation, iterative reconstruction, and/or weight based d osing when appropriate to reduce radiation dose to as low as reasonably achievable (ALARA). [facility]: Dose Right [facility]: CareDose [facility]: Dose Right [facility]: Teradose 4D [facility]: [employer] CONTRAST TYPE AND DOSE: contrast/concentration: Isovue 350.00 mg/ml; Total Contrast Delivered: 100.0 ml; Total Saline Delivered: 72.0 ml RENAL FUNCTION: BUN 30 creatinine 1.5 RADIATION DOSE: CT Rad equipment meets quality standard of care and radiation dose reduction techniq ues were employed. CTDIvol: 19.5 - 20.7 mGy. DLP: 2322 mGy-cm.. LIMITATIONS: None. FINDINGS: LOWER CHEST: Cardiomegaly. No infiltrates or masses. LIVER: Normal size. No masses. No dilated ducts. SPLEEN: Normal size. No focal lesions. PANCREAS: No masses. No significant calcifications. No adjacent inflammation or peripancreatic fluid collections. Pancreatic duct not dilated. GALLBLADDER: Surgically absent. ADRENAL GLANDS: No significant masses or asymmetry. RIGHT KIDNEY AND URETER: No solid masses. Small nonobstructing intrarenal calculus. No hydronephr osis or hydroureter. LEFT KIDNEY AND URETER: No solid masses. No significant calcifications. No hydronephrosis or hydr oureter. AORTA AND VESSELS: No aneurysm. No dissection. Renal arteries, SMA, celiac without stenosis. RETROPERITONEUM: No retroperitoneal adenopathy, hemorrhage or masses. BOWEL AND PERITONEAL CAVITY: Mild sigmoid diverticulosis with no acute inflammatory changes in the si gmoid area. There are inflammatory changes associated with segment of the descending colon with stra nding in the fat around the colon. A small diverticulum is seen just at the inferior margin of this inflammation on image 61. APPENDIX: Surgically absent. PELVIS: No mass. No free fluid. Normal bladder. ABDOMINAL WALL: No masses. No hernias. BONES: Surgical changes at L5-S1. OTHER: No other significant finding. IMPRESSION: 1. Cardiomegaly. 2. Inflammatory changes associated with a segment of the descending colon, possible diverticulitis. 3. Mild diverticulosis in the sigmoid colon. TECHNICAL DOCUMENTATION: JOB ID: [id number] Quality ID # [id number]: Final reports with documentation of one or more dose reduction techniques (e.g., Au tomated exposure control, adjustment of the mA and/or kV according to patient size, use of iterative reconstruction technique) 2010 [employer]- All Rights Reserved Reading location - IP/workstation name: [email or web address]
[2018-04-21] MEDS ORDERED: CEFTRIAXONE INJ 1000 MG VIAL IV ONE (18:43)
[2018-04-21] MEDS ORDERED: METRONIDAZOLE RTU 500 MG/NS 100 ML IV ONE (18:44)
--- NOTE | 2018-04-21 18:51 | ER Document Report ---
ED GI/ - General Chief Complaint: Abdominal Pain >50 Stated Complaint: GROIN PAIN Time Seen by Provider: 04/21/18 12:06 Notes: Patient is complaining of pain in the left groin for the past week. It's onset coincides with him starting physical therapy to improve his pulmonary function. His pulmonary doctor felt that it would benefit him and his breathing difficulties from COPD. The pain is located in the left lower quadrant. He is never had this pain before. Has not had any nausea or vomiting or diarrhea. Does not hurt to move, but is some pain to stand. Pressing on the abdomen is somewhat tender as well. Patient has had a couple of surgeries for hernias in the suprapubic and towards the right side of the lower abdomen. IDDM, hypertension, high cholesterol Patient recently referred to automobile sales consultant [facility] in [place] and ultimately ended up having a Lexiscan nuclear stress cardiac scan yesterday at a local office that is a branch of [facility]. I was able to track down the report of the procedure done yesterday. It was read as showing: Atrial fibrillation, baseline function normal. Stress results normal. Frequent PVCs. Ejection fraction 55%. Ultimate impression normal perfusion without ischemia. TRAVEL OUTSIDE OF THE [place] IN LAST 30 DAYS: No - Related Data Allergies/Adverse Reactions: aspirin [Aspirin] Allergy (Intermediate, Verified 04/21/18 11:48) bleeding ulcers codeine [Codeine] Allergy (Intermediate, Verified 04/21/18 11:48) bleeding ulcers Past Medical History - Social History Smoking Status: Never Smoker Family History: Reviewed & Not Pertinent, Hypertension Patient has suicidal ideation: No Patient has homicidal ideation: No - Past Medical History Cardiac Medical History: Reports: Hx Hypercholesterolemia, Hx Hypertension Pulmonary Medical History: Reports: Hx COPD Endocrine Medical History: Reports: Hx Diabetes Mellitus Type 1, Hx Diabetes Mellitus Type 2 GI Medical History: Reports: Hx Gastroesophageal Reflux Disease Musculoskeletal Medical History: Reports Hx Arthritis - GENERALIZED Past Surgical History: Reports: Hx Abdominal Surgery - hernia repair x2, Hx Appendectomy, Hx Cholecystectomy, Hx Orthopedic Surgery - back x2 with hardware. Denies: Hx Pacemaker - Immunizations Hx Diphtheria, Pertussis, Tetanus Vaccination: No Hx Pneumococcal Vaccination: 04/12/11 Review of Systems - Review of Systems Notes: REVIEW OF SYSTEMS: CONSTITUTIONAL : Denies fever. EENT: Denies eye, ear, nose or mouth or throat pain or other symptoms. CARDIOVASCULAR: Denies chest pain. RESPIRATORY: Denies cough, chest congestion, or shortness of breath. GASTROINTESTINAL: See HPI. GENITOURINARY: Denies difficulty or painful urinating, urinary frequency, blood in urine. MUSCULOSKELETAL: Denies back or neck pain. Denies joint pain or swelling. SKIN: Denies rash or skin lesions. NEUROLOGICAL: Denies LOC or altered mental status. Denies headache. Denies sensory loss or motor deficits. ALL OTHER SYSTEMS REVIEWED AND NEGATIVE. Physical Exam - Vital signs Vitals: Temp Pulse Resp BP Pulse Ox 97.7 F 66 18 129/73 H 99 04/21/18 11:51 04/21/18 11:51 04/21/18 11:51 04/21/18 11:51 04/21/18 11:51 Interpretation: Normal - Notes Notes: PHYSICAL EXAMINATION: GENERAL: Well-appearing, in no acute distress. Vital signs are all normal. HEAD: Atraumatic, normocephalic. EYES: Pupils equal round and reactive to light, extraocular movements intact. ENT: oropharynx clear without exudates. Moist mucous membranes. NECK: Normal range of motion, supple. LUNGS: Breath sounds clear and equal bilaterally. HEART: Regular rate and rhythm without murmurs. ABDOMEN: Obese, soft, tender to palpation and pressing in the left lower quadrant and lateral most inguinal region. Otherwise, no significant abdominal tenderness. No guarding or rebound. No masses. No tenderness in the scrotum or testicles. BACK: No tenderness throughout entire back. EXTREMITIES: Normal range of motion without pain. NEUROLOGICAL: Normal speech, normal gait. Normal sensory, motor, and reflex exams. Awake, alert, and oriented x3. Cranial nerves normal. PSYCH: Normal mood, normal affect. SKIN: Warm, dry, no rashes. Course - Re-evaluation Re-evalutation: 04/21/18 19:11 Spoke with hospitalist, Dr. Holm, who will see the patient for admission. Patient has been started on Rocephin and Flagyl IV. - Vital Signs Vital signs: Temp Pulse Resp BP Pulse Ox 97.7 F 66 22 H 116/67 97 04/21/18 11:51 04/21/18 11:51 04/21/18 18:05 04/21/18 18:05 04/21/18 16:01 - Laboratory Result Diagrams: 04/21/18 12:17 04/21/18 12:17 Laboratory results interpreted by me: 04/21/18 04/21/18 12:17 12:17 RBC 4.34 L Hgb 12.5 L RDW 15.0 H Monocytes % 13.1 H BUN 30 H Creatinine 1.45 H Est GFR ( Amer) 57 L Est GFR (Non-Af Amer) 47 L Glucose 173 H ALT 11 L Discharge - Discharge Clinical Impression: Abdominal pain, left lower quadrant, Diverticulitis Condition: Stable Disposition: ADMITTED INPATIENT Admitting Provider: Hospitalist Unit Admitted: Medical Floor Referrals: TRENTON CERVANTES PA-C [Primary Care Provider] - Follow up as needed
[2018-04-21] MEDS ORDERED: MAG HYDROX/AL HYDROX/SIMETH SUSP 30 ML UDCUP PO PRN (19:38)
[2018-04-21] MEDS ORDERED: ACETAMINOPHEN 325 MG TABLET PO PRN (19:38)
[2018-04-21] MEDS ORDERED: PROMETHAZINE HCL INJ 25 MG/1 ML VIAL IV PRN (19:38)
[2018-04-21] MEDS ORDERED: GLUCAGON,HUMAN RECOMB 1 MG INJ IM PRN (19:47)
[2018-04-21] MEDS ORDERED: DEXTROSE 50%-WATER 25 GM/50 ML DISP.SYRIN IV PRN ×2 (19:47)
[2018-04-21] MEDS ORDERED: DEXTROSE 40% GEL 15 GM TUBE PO PRN ×2 (19:47)
--- NOTE | 2018-04-21 20:06 | PDOC H&P ---
History of Present Illness Admission Date/PCP: 04/21/18 19:29 KEV ELDER Patient complains of: Abdominal pain History of Present Illness: JOEL MARIE is a 77 year old male who comes to the emergency department complaining of left lower abdominal pain that he refers as stated the up to 5/ 10 in intensity, but it, went to evaluate him he was pain-free. Tells me that he has started physical therapy 1 week ago to improve his pulmonary function and this pain is started the very first day, pain is related with movements, tenderness to palpation. The patient denies fever, nausea, vomiting, his last bowel movement was today and normal. Patient has a couple of hernia surgeries. CT abdomen and pelvis without contrast on it shows descending colonic diverticulitis. Past Medical History Cardiac Medical History: Reports: Hyperlipidema, Hypertension Pulmonary Medical History: Reports: Chronic Obstructive Pulmonary Disease (COPD) Endocrine Medical History: Reports: Diabetes Mellitus Type 2 Renal/ Medical History: Reports: Chronic Kidney Disease GI Medical History: Reports: Gastroesophageal Reflux Disease Musculoskeltal Medical History: Reports: Arthritis - GENERALIZED Past Surgical History Past Surgical History: Reports: Appendectomy, Cholecystectomy, Herniorrhaphy, Orthopedic Surgery - back x2 with hardware Social History Information Source: Patient Smoking Status: Never Smoker Frequency of Alcohol Use: None Hx Recreational Drug Use: No Hx Prescription Drug Abuse: No Family History Family History: Reviewed & Not Pertinent, Hypertension Parental Family History Reviewed: Yes - Brother with diabetes mellitus Children Family History Reviewed: NA Sibling(s) Family History Reviewed.: NA Medication/Allergy Home Medications: Nitroglycerin [Nitrostat 0.4 mg (1/150 Gr) Tabs 25/Bottle] 1 tab SL Q5MP PRN Sertraline HCl 50 mg PO QHS 05/30/15 Carvedilol 12.5 mg PO BID 06/19/15 Albuterol Sulfate [Ventolin Hfa] 1 puff PO Q4HP PRN 09/27/17 Atorvastatin Calcium 1 tab PO DAILY 09/27/17 Chlorthalidone [Chlorthalidone 25 mg Tablet] 1 tab PO DAILY 09/27/17 Famotidine 1 tab PO DAILY 09/27/17 Insulin Aspart Prot/Insuln Asp [Novolog Mix 70-30 Vial] 30 units SQ BID Loratadine [Claritin] 1 tab PO DAILY 09/27/17 Pioglitazone HCl 1 tab PO DAILY 09/27/17 Umeclidinium Brm/Vilanterol Tr [Anoro Ellipta 62.5-25 Mcg INH] 1 puff PO DAILY 09/27/17 Cholecalciferol (Vitamin D3) [Vitamin D3] 1 cap PO ASDIR PRN 09/28/17 Ciprofloxacin HCl [Cipro 500 mg Tablet] 500 mg PO BID #20 tablet 09/30/17 Hydrocodone/Acetaminophen [[place] 5-325 mg Tablet] 1 tab PO Q6HP PRN 09/30/17 Allergies/Adverse Reactions: aspirin [Aspirin] Allergy (Intermediate, Verified 04/21/18 11:48) bleeding ulcers codeine [Codeine] Allergy (Intermediate, Verified 04/21/18 11:48) bleeding ulcers Review of Systems Review of Systems: As outlined above, others negative Physical Exam Vital Signs: Temp Pulse Resp BP Pulse Ox 97.7 F 66 17 125/85 83 L 04/21/18 11:51 04/21/18 11:51 04/21/18 19:00 04/21/18 19:00 04/21/18 19:00 Additional comments: General appearance: Well-developed, obese, alert and cooperative, and appears to be in no acute distress Head: Normocephalic Eyes: PEERL, EOMI, vision is grossly intact. Ears: External auditory canal and tympanic membranes clear, hearing grossly intact. Nose: No nasal discharge. Throat: Oral cavity and pharynx normal. No inflammation, swelling, exudate or lesions. Neck: Neck supple, nontender without lymphadenopathy, masses or thyromegaly. Cardiac: Normal S1 and S2. No S3, S4 or murmurs. Rhythm is regular. There is no peripheral edema, cyanosis or pallor. Extremities are warm and well perfused. Capillary refill is less than 2 seconds. No carotid bruits. Lungs: Clear to auscultation and percussion without rales, rhonchi, wheezing, bilateral decreased breath sounds. Not using accessory muscles. Abdomen: Positive bowel sounds. Soft. Tenderness to palpation in the left lower quadrant. No guarding or rebound. No masses. Difficult to appreciate due to body habitus hepatosplenomegaly Extremities: No significant deformity or joint abnormality. No edema. Peripheral pulses intact. No varicosities. Neurological: Cranial nerves II through XII grossly intact. Strength and sensation symmetric and intact throughout. Reflexes 2+ throughout. Skin: Skin normal color, texture and turgor with no lesions or eruptions, warm and dry. Psychiatric: The mental examination revealed the patient was oriented to person , place, and time. The patient was able to demonstrate good judgment on recent , without hallucinations, abnormal affect or abnormal behaviors. Results Laboratory Results: 04/21/18 04/21/18 04/21/18 12:17 12:17 14:54 WBC 7.3 RBC 4.34 L Hgb 12.5 L Hct 38.5 MCV 89 MCH 28.8 MCHC 32.5 RDW 15.0 H Plt Count 190 Seg Neutrophils % 68.2 Lymphocytes % 15.1 Monocytes % 13.1 H Eosinophils % 2.9 Basophils % 0.7 Absolute Neutrophils 5.0 Absolute Lymphocytes 1.1 Absolute Monocytes 0.9 Absolute Eosinophils 0.2 Absolute Basophils 0.1 Sodium 137.0 Potassium 4.7 Chloride 104 Carbon Dioxide 24 Anion Gap 9 BUN 30 H Creatinine 1.45 H Est GFR ( Amer) 57 L Est GFR (Non-Af Amer) 47 L Glucose 173 H Calcium 9.2 Total Bilirubin 0.9 Direct Bilirubin 0.3 AST 22 ALT 11 L Alkaline Phosphatase 78 Total Protein 7.8 Albumin 3.9 Urine Color YELLOW Urine Appearance CLEAR Urine pH 5.0 Ur Specific [place] 1.016 Urine Protein NEGATIVE Urine Glucose (UA) NEGATIVE Urine Ketones NEGATIVE Urine Blood NEGATIVE Urine Nitrite NEGATIVE Urine Bilirubin NEGATIVE Urine Urobilinogen NEGATIVE Ur Leukocyte Esterase NEGATIVE Urine WBC (Auto) 0 Urine RBC (Auto) 0 Urine Mucus (Auto) RARE Urine Ascorbic Acid NEGATIVE Impressions: Acute Abdomen Series 04/21/18 12:07 IMPRESSION: NO RADIOGRAPHIC EVIDENCE FOR ACUTE ABDOMINAL DISEASE. Hip X-Ray 04/21/18 12:08 IMPRESSION: NEGATIVE STUDY OF THE LEFT HIP AND PELVIS. NO EXPLANATION FOR PAIN. Pelvis Ultrasound 04/21/18 13:03 IMPRESSION: Normal study. Abdomen/Pelvis CT 04/21/18 14:39 IMPRESSION: 1. Cardiomegaly. 2. Inflammatory changes associated with a segment of the descending colon, possible diverticulitis. 3. Mild diverticulosis in the sigmoid colon. Assessment & Plan - Diagnosis (1) Abdominal pain, left lower quadrant Is this a current diagnosis for this admission?: Yes Plan: Patient comes with left lower quadrant abdominal pain that is started right away he started physical therapy, worsening with movements. CT abdomen and pelvis shows left descending colonic diverticulitis, however the patient does not have any fever, leukocytosis, nausea or vomiting, patient is nontoxic. In the emergency department has been given IV Rocephin and IV Flagyl. I suspect that his symptoms are just secondary to muscle strain and for now I want to continue the antibiotics. I am placing a labs for the morning and pain medications. (2) CKD (chronic kidney disease), stage III Is this a current diagnosis for this admission?: Yes Plan: Stable (3) HTN (hypertension) Is this a current diagnosis for this admission?: Yes Plan: Blood pressure is well controlled, continue with home antihypertensive medications (4) Insulin dependent diabetes mellitus Is this a current diagnosis for this admission?: Yes Plan: We are going to continue with his home insulin, Accu-Cheks q. before meals and at bedtime, insulin lispro sliding scale and hypoglycemia protocol. - Time Time Spent: 30 to 50 Minutes - Inpatient Certification Based on my medical assessment, after consideration of the patient's comorbidities, presenting symptoms, or acuity I expect that the services needed warrant INPATIENT care.: Yes I certify that my determination is in accordance with my understanding of Medicare's requirements for reasonable and necessary INPATIENT services [42 CFR 412.3e].: Yes Medical Necessity: Risk of Complication if Not Cared For in Hospital
[2018-04-21] MEDS: HEPARIN SOD (PORCINE) 5,000 UNIT/ML 1 ML SYRINGE SUBCUT SCH (21:37)
[2018-04-22] MEDS: HEPARIN SOD (PORCINE) 5,000 UNIT/ML 1 ML SYRINGE SUBCUT SCH ×3 (06:11→21:27)
[2018-04-22 06:54] LABS: ABSOLUTE EOSINOPHILS # (AUTO) 0.2 10^3/uL (0.0-0.6); ABSOLUTE LYMPHOCYTES (AUTO) 1.2 10^3/uL (0.5-4.7); ABSOLUTE MONOCYTES (AUTO) 1.4 10^3/uL (0.1-1.4); ABSOLUTE NEUT (AUTO) 5.5 10^3/uL (1.7-8.2); BASOPHILS % (AUTO) 0.5 % (0-2); EOSINOPHILS % (AUTO) 2.4 % (0-6); HEMATOCRIT 36.9 % (37.9-51.0); HEMOGLOBIN 12.5 g/dL (13.5-17.0); LYMPHOCYTES % (AUTO) 14.6 % (13-45); MEAN CORPUSCULAR HEMOGLOBIN 29.6 pg (27.0-33.4); MEAN CORPUSCULAR HGB CONC 33.8 g/dL (32.0-36.0); MEAN CORPUSCULAR VOLUME 88 fl (80-97); MONOCYTES % (AUTO) 16.4 % (3-13); PLATELET COUNT 178 10^3/uL (150-450); RED BLOOD COUNT 4.21 10^6/uL (4.35-5.55); RED CELL DISTRIBUTION WIDTH 14.3 % (11.5-14.0); SEGMENTED NEUTROPHILS % (AUTO) 66.1 % (42-78); TOTAL CELLS COUNTED % (AUTO) 100 %; WHITE BLOOD COUNT 8.3 10^3/uL (4.0-10.5)
[2018-04-22 07:21] LABS: ANION GAP 14 (5-19); BLOOD UREA NITROGEN 28 mg/dL (7-20); CALCIUM 9.2 mg/dL (8.4-10.2); CARBON DIOXIDE 20 mmol/L (22-30); CHLORIDE 105 mmol/L (98-107); GLUCOSE 130 mg/dL (75-110); POTASSIUM 4.1 mmol/L (3.6-5.0); SODIUM 139.2 mmol/L (137-145)
[2018-04-22] MEDS ORDERED: METRONIDAZOLE 500 MG TABLET PO ONE (10:16)
[2018-04-22] MEDS ORDERED: CIPROFLOXACIN HCL 500 MG TABLET PO ONE (10:16)
[2018-04-22] MEDS: METRONIDAZOLE 500 MG TABLET PO SCH ×2 (14:22→21:26)
[2018-04-22] MEDS: INSULIN LISPRO 100 UNIT/ML 3 ML VIAL SUBCUT PRN ×3 (14:39→21:27)
--- NOTE | 2018-04-22 19:00 | PDOC DISCHARGE SUMMARY ---
General - Admit/Disc Date/PCP Admission Date/Primary Care Provider: 04/21/18 19:29 KEV ELDER Discharge Date: 04/22/18 - Discharge Diagnosis (1) Diverticulitis Is this a current diagnosis for this admission?: Yes Summary: It was a pretty mild case and he was very stable, so I talked it over with him and he elected to go home on oral antibiotics. We discharged him on Cipro and Flagyl. He has follow-up with his doctor this coming week. - Additional Information Resuscitation Status: Full Code Discharge Diet: Diabetic Discharge Activity: Activity As Tolerated Prescriptions: Ciprofloxacin HCl [Cipro 500 mg Tablet] 500 mg PO Q12 #20 tablet Metronidazole [Flagyl 500 mg Tablet] 500 mg PO Q8 #30 tablet Home Medications: Albuterol Sulfate [Ventolin 0.083% Neb 2.5 mg/3 mL Ampul] 1 vial NEB QHS Atorvastatin Calcium [Lipitor 10 mg Tablet] 10 mg PO QHS 04/21/18 Carvedilol [Coreg 25 mg Tablet] 25 mg PO Q12 04/21/18 Chlorthalidone [Chlorthalidone 25 mg Tablet] 25 mg PO DAILY 04/21/18 Ergocalciferol (Vitamin D2) [Vitamin D2] 50,000 unit PO WHITE@1000 04/21/18 Famotidine [Pepcid 20 mg Tablet] 40 mg PO BID 04/21/18 Fluticasone/Umeclidin/Vilanter [Trelegy Ellipta 100-62.5-25] 2 each IH DAILYP PRN 04/21/18 Hum Insulin NPH/Reg Insulin Hm [Novolin 70-30 100 Unit/ml Vial] 0 unit SQ .SLD SCALE 04/21/18 Lisinopril [Prinivil 2.5 mg Tablet] 2.5 mg PO DAILY 04/21/18 Loratadine [Claritin 10 mg Tablet] 10 mg PO DAILY 04/21/18 Pioglitazone HCl [Actos 15 mg Tablet] 15 mg PO DAILY 04/21/18 Sertraline HCl [Zoloft 50 mg Tablet] 50 mg PO DAILY 04/21/18 Ciprofloxacin HCl [Cipro 500 mg Tablet] 500 mg PO Q12 #20 tablet 04/22/18 Metronidazole [Flagyl 500 mg Tablet] 500 mg PO Q8 #30 tablet 04/22/18 History of Present Illness History of Present Illness: JOEL MARIE is a 77 year old male who comes to the emergency department complaining of left lower abdominal pain that he refers as stated the up to 5/ 10 in intensity, but it, went to evaluate him he was pain-free. Tells me that he has started physical therapy 1 week ago to improve his pulmonary function and this pain is started the very first day, pain is related with movements, tenderness to palpation. The patient denies fever, nausea, vomiting, his last bowel movement was today and normal. Patient has a couple of hernia surgeries. CT abdomen and pelvis without contrast on it shows descending colonic diverticulitis. Hospital Course Hospital Course: He was placed empirically on IV antibiotics but he can eat and drink without difficulty. He was not having any pain when he ate. He said he still had a little discomfort and soreness in his left lower quadrant but he still thinks it was probably from a muscle pull. I reviewed his CT scan and explained to him what diverticulitis is. I talked to him about his options. We eventually decided that he would be okay to go home on oral antibiotics. I prescribed a 10 -day course of Cipro and Flagyl. He said he has follow-up with his primary care provider earlier this week. His labs and examination were reassuring and he was discharged home in good condition. Physical Exam Vital Signs: Temp Pulse Resp BP Pulse Ox 98.8 F 114 H 16 122/81 99 04/22/18 16:11 04/22/18 16:11 04/22/18 16:11 04/22/18 16:11 04/22/18 16:11 Intake & Output 04/21/18 04/22/18 04/23/18 06:59 06:59 06:59 Intake Total 220 384 Output Total 500 Balance 220 -116 Weight 107.2 kg General appearance: PRESENT: no acute distress, cooperative, disheveled, morbidly obese Respiratory exam: PRESENT: clear to auscultation jake, symmetrical, unlabored. ABSENT: accessory muscle use, rales, rhonchi, tachypnea, wheezes Cardiovascular exam: PRESENT: RRR, +S1, +S2. ABSENT: diastolic murmur, systolic murmur Vascular exam: PRESENT: normal capillary refill GI/Abdominal exam: PRESENT: normal bowel sounds, soft, tenderness - Mildly tender left lower quadrant. ABSENT: distended, guarding, rebound Extremities exam: ABSENT: clubbing, pedal edema Musculoskeletal exam: PRESENT: ambulatory, normal inspection. ABSENT: deformity Neurological exam: PRESENT: alert, awake, oriented to person, oriented to place , oriented to time Psychiatric exam: PRESENT: appropriate affect, normal mood Skin exam: PRESENT: dry, warm Results Laboratory Results: 04/22/18 06:21 04/22/18 06:21 04/22/18 04/22/18 06:21 06:21 WBC 8.3 RBC 4.21 L Hgb 12.5 L Hct 36.9 L MCV 88 MCH 29.6 MCHC 33.8 RDW 14.3 H Plt Count 178 Seg Neutrophils % 66.1 Lymphocytes % 14.6 Monocytes % 16.4 H Eosinophils % 2.4 Basophils % 0.5 Absolute Neutrophils 5.5 Absolute Lymphocytes 1.2 Absolute Monocytes 1.4 Absolute Eosinophils 0.2 Absolute Basophils 0.0 Sodium 139.2 Potassium 4.1 Chloride 105 Carbon Dioxide 20 L Anion Gap 14 BUN 28 H Creatinine 1.33 H Est GFR ( Amer) > 60 Est GFR (Non-Af Amer) 52 L Glucose 130 H Calcium 9.2 Impressions: Acute Abdomen Series 04/21/18 12:07 IMPRESSION: NO RADIOGRAPHIC EVIDENCE FOR ACUTE ABDOMINAL DISEASE. Hip X-Ray 04/21/18 12:08 IMPRESSION: NEGATIVE STUDY OF THE LEFT HIP AND PELVIS. NO EXPLANATION FOR PAIN. Pelvis Ultrasound 04/21/18 13:03 IMPRESSION: Normal study. Abdomen/Pelvis CT 04/21/18 14:39 IMPRESSION: 1. Cardiomegaly. 2. Inflammatory changes associated with a segment of the descending colon, possible diverticulitis. 3. Mild diverticulosis in the sigmoid colon. Qualifiers - * PATIENT BEING DISCHARGED WITH ANY OF THE FOLLOWING DIAGNOSIS: No
[2018-04-22] MEDS: CIPROFLOXACIN HCL 500 MG TABLET PO SCH (21:26)
[2018-04-23] MEDS: HEPARIN SOD (PORCINE) 5,000 UNIT/ML 1 ML SYRINGE SUBCUT SCH (05:47)
[2018-04-23] MEDS: METRONIDAZOLE 500 MG TABLET PO SCH (06:07)
[2018-04-23] MEDS: INSULIN LISPRO 100 UNIT/ML 3 ML VIAL SUBCUT PRN (09:57)
[2018-04-23] MEDS: CIPROFLOXACIN HCL 500 MG TABLET PO SCH (09:57)
[2018-04-23 10:47] VITALS: BP 129/73
== END 2018-04-23 11:00 | disposition home or self-care (01) ==
LOC: ER 11:48 → EH 19:29 → INTOOBSV 19:29 → 5 21:06
PROVIDERS: ADMIT Internal Medicine; ATTEND Internal Medicine
DX: K57.32 Diverticulitis of large intestine without perforation or abscess without bleeding (principal); E78.5 Hyperlipidemia, unspecified; I12.9 Hypertensive chronic kidney disease with stage 1 through stage 4 chronic kidney disease, or unspecified chronic kidney disease; E11.22 Type 2 diabetes mellitus with diabetic chronic kidney disease; N18.3 Chronic kidney disease, stage 3 (moderate); J44.9 Chronic obstructive pulmonary disease, unspecified; R29.898 Other symptoms and signs involving the musculoskeletal system; Z79.899 Other long term (current) drug therapy; Z98.890 Other specified postprocedural states; Z90.49 Acquired absence of other specified parts of digestive tract; Z79.4 Long term (current) use of insulin
CPT/HCPCS: 99285; 96365; 36415 ×2; 87040; 82962 ×3; 85025 ×2; 87077; 80048; 80053; 81001; 74022; 73502; 76857; 93976; 74177; J1644 ×2; A9270 ×6; J0696; 87186; G0378; J1815

== ENCOUNTER → 2018-05-09 | Outpatient (CLI) | payer MEDICARE ==
[2018-05-09 10:54] LABS: ABSOLUTE BASOPHILS # (AUTO) 0.1 10^3/uL (0.0-0.2); ABSOLUTE EOSINOPHILS # (AUTO) 0.3 10^3/uL (0.0-0.6); ABSOLUTE LYMPHOCYTES (AUTO) 1.4 10^3/uL (0.5-4.7); ABSOLUTE MONOCYTES (AUTO) 0.8 10^3/uL (0.1-1.4); ABSOLUTE NEUT (AUTO) 3.8 10^3/uL (1.7-8.2); BASOPHILS % (AUTO) 1.1 % (0-2); EOSINOPHILS % (AUTO) 5.2 % (0-6); HEMATOCRIT 35.7 % (37.9-51.0); LYMPHOCYTES % (AUTO) 21.3 % (13-45); MEAN CORPUSCULAR HEMOGLOBIN 29.9 pg (27.0-33.4); MEAN CORPUSCULAR HGB CONC 33.6 g/dL (32.0-36.0); MEAN CORPUSCULAR VOLUME 89 fl (80-97); MONOCYTES % (AUTO) 13.2 % (3-13); PLATELET COUNT 175 10^3/uL (150-450); RED BLOOD COUNT 4.02 10^6/uL (4.35-5.55); RED CELL DISTRIBUTION WIDTH 14.5 % (11.5-14.0); SEGMENTED NEUTROPHILS % (AUTO) 59.2 % (42-78); TOTAL CELLS COUNTED % (AUTO) 100 %; WHITE BLOOD COUNT 6.4 10^3/uL (4.0-10.5)
[2018-05-09 11:09] LABS: ANION GAP 14 (5-19); BLOOD UREA NITROGEN 30 mg/dL (7-20); CALCIUM 8.7 mg/dL (8.4-10.2); CARBON DIOXIDE 22 mmol/L (22-30); CHLORIDE 109 mmol/L (98-107); GLUCOSE 138 mg/dL (75-110); POTASSIUM 4.7 mmol/L (3.6-5.0); SODIUM 145.2 mmol/L (137-145)
[2018-05-10 12:38] LABS: CREATININE URINE 102.3 mg/dL (Not Estab.); MICROALBUMIN URINE 8.9 ug/mL (Not Estab.)
== END ==
LOC: OD 10:01
PROVIDERS: ATTEND Internal Medicine Nephrology
DX: N11.9 Chronic tubulo-interstitial nephritis, unspecified (principal); D63.8 Anemia in other chronic diseases classified elsewhere; E11.9 Type 2 diabetes mellitus without complications
CPT/HCPCS: 36415; 80048; 82043; 82570; 85025

== ENCOUNTER 2018-06-04 08:47 | Inpatient (IN) | payer MEDICARE ==
--- NOTE | 2018-06-04 09:26 | ER Document Report ---
ED General - General Chief Complaint: Rectal Bleeding Stated Complaint: RECTAL BLEEDING Time Seen by Provider: 06/04/18 09:08 Mode of Arrival: Ambulatory Notes: 77-year-old male presents emergency department complaints of bleeding from his rectum. He states his been going on for the last 3 days. He states that the bleeding only occurs during defecation. He says that the toilet is bright red. He denies straining with a bowel movement. Patient states that this has happened in the past. He is followed up with GI and had a colonoscopy done. Patient denies ever being told with the bleeding was from. Patient denies any abdominal pain, nausea, vomiting, diarrhea, constipation, dysuria, hematuria. Patient does have a history of A. fib and is on Eliquis. TRAVEL OUTSIDE OF THE [place] IN LAST 30 DAYS: No - HPI Onset: Other - 3 days Onset/Duration: Gradual Quality of pain: No pain Severity: None Pain Level: Denies Associated symptoms: None Exacerbated by: Denies Relieved by: Denies Similar symptoms previously: Yes Recently seen / treated by doctor: No - Related Data Allergies/Adverse Reactions: aspirin [Aspirin] Allergy (Intermediate, Verified 04/21/18 11:48) bleeding ulcers codeine [Codeine] Allergy (Intermediate, Verified 04/21/18 11:48) bleeding ulcers Past Medical History - General Information source: Patient - Social History Smoking Status: Former Smoker Family History: Reviewed & Not Pertinent, Hypertension - Past Medical History Cardiac Medical History: Reports: Hx Hypercholesterolemia, Hx Hypertension Denies: Hx Coronary Artery Disease, Hx Heart Attack Pulmonary Medical History: Reports: Hx COPD Denies: Hx Asthma, Hx Bronchitis, Hx Pneumonia Neurological Medical History: Denies: Hx Cerebrovascular Accident, Hx Seizures Endocrine Medical History: Reports: Hx Diabetes Mellitus Type 1, Hx Diabetes Mellitus Type 2 Renal/ Medical History: Denies: Hx Peritoneal Dialysis GI Medical History: Reports: Hx Gastroesophageal Reflux Disease Musculoskeletal Medical History: Reports Hx Arthritis - GENERALIZED Psychiatric Medical History: Denies: Hx Depression Past Surgical History: Reports: Hx Abdominal Surgery - hernia repair x2, Hx Appendectomy, Hx Cholecystectomy, Hx Herniorrhaphy, Hx Orthopedic Surgery - back x2 with hardware. Denies: Hx Pacemaker - Immunizations Hx Diphtheria, Pertussis, Tetanus Vaccination: No Hx Pneumococcal Vaccination: 04/12/11 Review of Systems - Review of Systems Constitutional: No symptoms reported EENT: No symptoms reported Cardiovascular: No symptoms reported Respiratory: No symptoms reported Gastrointestinal: Rectal bleeding Genitourinary: No symptoms reported Male Genitourinary: No symptoms reported Musculoskeletal: No symptoms reported Skin: No symptoms reported Hematologic/Lymphatic: No symptoms reported Neurological/Psychological: No symptoms reported -: Yes All other systems reviewed and negative Physical Exam - Vital signs Vitals: Temp Pulse Resp BP Pulse Ox 97.6 F 94 18 115/86 H 98 06/04/18 08:58 06/04/18 08:58 06/04/18 08:58 06/04/18 08:58 06/04/18 08:58 - Notes Notes: PHYSICAL EXAMINATION: GENERAL: Well-appearing, well-nourished and in no acute distress. HEAD: Atraumatic, normocephalic. EYES: Pupils equal round and reactive to light, extraocular movements intact, sclera anicteric, conjunctiva are normal. ENT: Nares patent, oropharynx clear without exudates. Moist mucous membranes. NECK: Normal range of motion, supple without lymphadenopathy LUNGS: Breath sounds clear to auscultation bilaterally and equal. No wheezes rales or rhonchi. HEART: Regular rate and rhythm without murmurs ABDOMEN: Soft, nontender, nondistended abdomen. No guarding, no rebound. No masses appreciated. Rectal exam done. No gross blood appreciated. No hemorrhoids or fissures appreciated. Musculoskeletal: Normal range of motion, no pitting or edema. No cyanosis. NEUROLOGICAL: Cranial nerves grossly intact. Normal speech, normal gait. Normal sensory, motor exams PSYCH: Normal mood, normal affect. SKIN: Warm, Dry, normal turgor, no rashes or lesions noted. Course - Re-evaluation Re-evalutation: 06/04/18 09:32 EKG: Ventricular rate 80, QRS duration 106, QTc 425, atrial fibrillation. No ST segment elevation. 06/04/18 10:[address] Russell, general surgery, regarding keeping the patient in the hospital and having surgery perform colonoscopy as we do not have GI coverage. He's agreeable. Patient is stable. Hemoglobin is 12.1. No active bleeding appreciated. I spoke with the hospitalist application development consultant, Dr. Carpenter. He's agreeable with admitting the patient. 06/04/18 10:29 - Vital Signs Vital signs: Temp Pulse Resp BP Pulse Ox 97.6 F 94 18 115/86 H 98 06/04/18 08:58 06/04/18 08:58 06/04/18 08:58 06/04/18 08:58 06/04/18 08:58 - Laboratory Result Diagrams: 06/04/18 09:29 06/04/18 09:29 Laboratory results interpreted by me: 06/04/18 06/04/18 06/04/18 09:29 09:29 09:29 RBC 4.23 L Hgb 12.1 L Hct 37.3 L RDW 14.4 H Plt Count 147 L Monocytes % 15.3 H Eosinophils % 6.8 H PT 21.2 H APTT 43.4 H Chloride 109 H BUN 32 H Creatinine 1.51 H Est GFR ( Amer) 55 L Est GFR (Non-Af Amer) 45 L Glucose 148 H AST 14 L ALT 16 L Discharge - Discharge Clinical Impression: Lower GI bleed Renal failure Qualifiers: Renal failure chronicity: chronic Chronic kidney disease stage: unspecified stage Qualified Code(s): N18.9 - Chronic kidney disease, unspecified Condition: Stable Disposition: ADMITTED OBSERVATION Admitting Provider: Hospitalist Unit Admitted: Telemetry Referrals: SUJEY BARRAGAN MD [ACTIVE STAFF] - Follow up as needed
[2018-06-04 09:46] LABS: ABSOLUTE EOSINOPHILS # (AUTO) 0.4 10^3/uL (0.0-0.6); ABSOLUTE LYMPHOCYTES (AUTO) 1.4 10^3/uL (0.5-4.7); ABSOLUTE NEUT (AUTO) 3.6 10^3/uL (1.7-8.2); BASOPHILS % (AUTO) 0.7 % (0-2); EOSINOPHILS % (AUTO) 6.8 % (0-6); HEMATOCRIT 37.3 % (37.9-51.0); HEMOGLOBIN 12.1 g/dL (13.5-17.0); LYMPHOCYTES % (AUTO) 21.2 % (13-45); MEAN CORPUSCULAR HEMOGLOBIN 28.6 pg (27.0-33.4); MEAN CORPUSCULAR HGB CONC 32.5 g/dL (32.0-36.0); MEAN CORPUSCULAR VOLUME 88 fl (80-97); MONOCYTES % (AUTO) 15.3 % (3-13); PLATELET COUNT 147 10^3/uL (150-450); RED BLOOD COUNT 4.23 10^6/uL (4.35-5.55); RED CELL DISTRIBUTION WIDTH 14.4 % (11.5-14.0); TOTAL CELLS COUNTED % (AUTO) 100 %; WHITE BLOOD COUNT 6.4 10^3/uL (4.0-10.5)
[2018-06-04 09:49] LABS: INTERNATIONAL RATION (INR) 1.74; PROTHROMBIN TIME 21.2 SEC (11.4-15.4)
[2018-06-04 09:50] LABS: PARTIAL THROMBOPLASTIN TIME 43.4 SEC (23.5-35.8)
[2018-06-04 10:05] LABS: ALANINE AMINOTRANSFERASE 16 U/L (21-72); ALBUMIN 3.7 g/dL (3.5-5.0); ALKALINE PHOSPHATASE 79 U/L (38-126); ANION GAP 12 (5-19); ASPARTATE AMINO TRANSFERASE 14 U/L (17-59); BILIRUBIN,DIRECT 0.2 mg/dL (0.0-0.4); BILIRUBIN,TOTAL 0.4 mg/dL (0.2-1.3); BLOOD UREA NITROGEN 32 mg/dL (7-20); CALCIUM 8.9 mg/dL (8.4-10.2); CARBON DIOXIDE 22 mmol/L (22-30); CHLORIDE 109 mmol/L (98-107); GLUCOSE 148 mg/dL (75-110); POTASSIUM 4.2 mmol/L (3.6-5.0); SODIUM 143.2 mmol/L (137-145); TOTAL PROTEIN 6.9 g/dL (6.3-8.2)
[2018-06-04 12:21] LABS: ABSOLUTE EOSINOPHILS # (AUTO) 0.4 10^3/uL (0.0-0.6); ABSOLUTE LYMPHOCYTES (AUTO) 1.3 10^3/uL (0.5-4.7); ABSOLUTE NEUT (AUTO) 3.6 10^3/uL (1.7-8.2); BASOPHILS % (AUTO) 0.6 % (0-2); EOSINOPHILS % (AUTO) 6.6 % (0-6); HEMOGLOBIN 12.2 g/dL (13.5-17.0); LYMPHOCYTES % (AUTO) 20.3 % (13-45); MEAN CORPUSCULAR HEMOGLOBIN 29.1 pg (27.0-33.4); MEAN CORPUSCULAR HGB CONC 32.9 g/dL (32.0-36.0); MEAN CORPUSCULAR VOLUME 88 fl (80-97); MONOCYTES % (AUTO) 15.2 % (3-13); PLATELET COUNT 142 10^3/uL (150-450); RED BLOOD COUNT 4.19 10^6/uL (4.35-5.55); RED CELL DISTRIBUTION WIDTH 14.4 % (11.5-14.0); SEGMENTED NEUTROPHILS % (AUTO) 57.3 % (42-78); TOTAL CELLS COUNTED % (AUTO) 100 %; WHITE BLOOD COUNT 6.3 10^3/uL (4.0-10.5)
--- NOTE | 2018-06-04 17:17 | EKG REPORT ---
SEVERITY:- ABNORMAL ECG - ATRIAL FIBRILLATION, V-RATE 62-[address]-T CHANGES- INFERIOR LEADS : Confirmed by: Kehinde Fabian MD 04-Jun-2018 17:16:49
[2018-06-04] MEDS ORDERED: ALBUTEROL SULFATE 0.083% NEB 2.5 MG/3 ML AMPUL NEB PRN (18:29)
--- NOTE | 2018-06-04 18:45 | PDOC H&P ---
History of Present Illness Admission Date/PCP: 06/04/18 10:45 History of Present Illness: JOEL MARIE is a 77 year old male with a history of atrial fibrillation on Xarelto who said he is noticed a little bit of blood in his stool the last couple of days but this morning it seemed like there was a lot more and it scared him and so he decided to come in to be evaluated. He has a history of diverticulosis and was recently hospitalized here end of April with diverticulitis. He said he thinks his last colonoscopy was earlier this year and as far as he knows everything was okay. He is not had any lightheadedness or abdominal pain. Past Medical History Cardiac Medical History: Reports: Hyperlipidema, Hypertension Denies: Coronary Artery Disease, Myocardial Infarction Pulmonary Medical History: Reports: Chronic Obstructive Pulmonary Disease (COPD) Denies: Asthma, Bronchitis, Pneumonia Neurological Medical History: Denies: Seizures Endocrine Medical History: Reports: Diabetes Mellitus Type 1, Diabetes Mellitus Type 2 GI Medical History: Reports: Gastroesophageal Reflux Disease Musculoskeltal Medical History: Reports: Arthritis - GENERALIZED Psychiatric Medical History: Denies: Depression Past Surgical History Past Surgical History: Reports: Appendectomy, Cholecystectomy, Herniorrhaphy, Orthopedic Surgery - back x2 with hardware Denies: Pacemaker Social History Smoking Status: Never Smoker Frequency of Alcohol Use: None Hx Recreational Drug Use: No Drugs: None Hx Prescription Drug Abuse: No Family History Family History: Reviewed & Not Pertinent, Hypertension Parental Family History Reviewed: Yes - Noncontributory Children Family History Reviewed: Yes - Noncontributory Sibling(s) Family History Reviewed.: Yes - Noncontributory Medication/Allergy Home Medications: Albuterol Sulfate [Ventolin 0.083% Neb 2.5 mg/3 mL Ampul] 1 vial NEB RTQ6HP PRN 04/21/18 Atorvastatin Calcium [Lipitor 10 mg Tablet] 10 mg PO QHS 04/21/18 Carvedilol [Coreg 25 mg Tablet] 25 mg PO Q12 04/21/18 Chlorthalidone [Chlorthalidone 25 mg Tablet] 25 mg PO DAILY 04/21/18 Ergocalciferol (Vitamin D2) [Vitamin D2] 50,000 unit PO WHITE@1000 04/21/18 Famotidine [Pepcid 20 mg Tablet] 40 mg PO BID 04/21/18 Hum Insulin NPH/Reg Insulin Hm [Novolin 70-30 100 Unit/ml Vial] 0 unit SQ .SLD SCALE 04/21/18 Lisinopril [Prinivil 2.5 mg Tablet] 2.5 mg PO DAILY 04/21/18 Loratadine [Claritin 10 mg Tablet] 10 mg PO DAILY 04/21/18 Pioglitazone HCl [Actos 15 mg Tablet] 15 mg PO DAILY 04/21/18 Sertraline HCl [Zoloft 50 mg Tablet] 50 mg PO DAILY 04/21/18 Rivaroxaban [Xarelto 15 mg Tablet] 15 mg PO QPM 06/04/18 Allergies/Adverse Reactions: aspirin [Aspirin] Allergy (Intermediate, Verified 04/21/18 11:48) bleeding ulcers codeine [Codeine] Allergy (Intermediate, Verified 04/21/18 11:48) bleeding ulcers Review of Systems All systems: reviewed and no additional remarkable complaints except as stated - 10 point review of systems was conducted with the patient and was negative except as noted above Physical Exam Vital Signs: Temp Pulse Resp BP Pulse Ox 98.2 F 94 18 123/67 98 06/04/18 16:22 06/04/18 16:22 06/04/18 16:22 06/04/18 16:22 06/04/18 16:22 Intake & Output 06/03/18 06/04/18 06/05/18 06:59 06:59 06:59 Intake Total 940 Balance 940 Weight 101.151 kg General appearance: PRESENT: no acute distress, cooperative, disheveled, obese Head exam: PRESENT: atraumatic, normocephalic Eye exam: PRESENT: EOMI, PERRLA. ABSENT: conjunctival injection, nystagmus, scleral icterus Ear exam: PRESENT: normal external ear exam Mouth exam: PRESENT: moist, neck supple Throat exam: ABSENT: post pharyngeal erythema Neck exam: PRESENT: full ROM. ABSENT: JVD, lymphadenopathy, meningismus, tenderness, thyromegaly Respiratory exam: PRESENT: clear to auscultation jake, symmetrical, unlabored. ABSENT: accessory muscle use, chest wall tenderness, rales, rhonchi, tachypnea, wheezes Cardiovascular exam: PRESENT: irregular rhythm Vascular exam: PRESENT: normal capillary refill GI/Abdominal exam: PRESENT: normal bowel sounds, soft. ABSENT: distended, guarding, rebound, tenderness Rectal exam: PRESENT: heme (+) stool - By report Extremities exam: ABSENT: clubbing, pedal edema Musculoskeletal exam: PRESENT: ambulatory, normal inspection. ABSENT: deformity Neurological exam: PRESENT: alert, awake, oriented to person, oriented to place , oriented to time, oriented to situation, CN II-XII grossly intact. ABSENT: motor sensory deficit Psychiatric exam: PRESENT: appropriate affect, normal mood Skin exam: PRESENT: dry, warm Results Laboratory Results: 06/04/18 12:00 06/04/18 12:00 WBC 6.3 RBC 4.19 L Hgb 12.2 L Hct 37.0 L MCV 88 MCH 29.1 MCHC 32.9 RDW 14.4 H Plt Count 142 L Seg Neutrophils % 57.3 Lymphocytes % 20.3 Monocytes % 15.2 H Eosinophils % 6.6 H Basophils % 0.6 Absolute Neutrophils 3.6 Absolute Lymphocytes 1.3 Absolute Monocytes 1.0 Absolute Eosinophils 0.4 Absolute Basophils 0.0 Assessment & Plan - Diagnosis (1) Lower GI bleed Is this a current diagnosis for this admission?: Yes Plan: He is on Xarelto and does have a history of diverticuli but does not seem to have presentation consistent with diverticulitis at this time. Surgery see him in consultation and is going to a bowel prep on him with plans to do a colonoscopy Tuesday. Xarelto is on hold at this time. H&H every 4 hours. I did not put him on a twice daily PPD because this does not appear to be an upper GI bleed based on his description of bright red blood per rectum. (2) Diabetes mellitus type 2 in obese Is this a current diagnosis for this admission?: Yes Plan: Continue his home medication regimen with a consistent carbohydrate diet. (3) Atrial fibrillation Qualifiers: Atrial fibrillation type: chronic Qualified Code(s): I48.2 - Chronic atrial fibrillation Is this a current diagnosis for this admission?: Yes Plan: Continue his rate controlling agents but hold his Xarelto on now due to active bleeding. - Time Time Spent: 50 to 70 Minutes - Inpatient Certification Based on my medical assessment, after consideration of the patient's comorbidities, presenting symptoms, or acuity I expect that the services needed warrant INPATIENT care.: Yes I certify that my determination is in accordance with my understanding of Medicare's requirements for reasonable and necessary INPATIENT services [42 CFR 412.3e].: Yes Medical Necessity: Significant Comorbidiites Make Outpatient Treatment Too Risky , Need Close Monitoring Due to Risk of Patient Decompensation, Need For Continuous Telemetry Monitoring, Need for Surgery - Colonoscopy
[2018-06-04 18:49] LABS: ABSOLUTE EOSINOPHILS # (AUTO) 0.4 10^3/uL (0.0-0.6); ABSOLUTE LYMPHOCYTES (AUTO) 1.1 10^3/uL (0.5-4.7); ABSOLUTE MONOCYTES (AUTO) 0.9 10^3/uL (0.1-1.4); ABSOLUTE NEUT (AUTO) 3.2 10^3/uL (1.7-8.2); BASOPHILS % (AUTO) 0.8 % (0-2); EOSINOPHILS % (AUTO) 6.6 % (0-6); HEMATOCRIT 36.2 % (37.9-51.0); HEMOGLOBIN 11.9 g/dL (13.5-17.0); LYMPHOCYTES % (AUTO) 19.6 % (13-45); MEAN CORPUSCULAR VOLUME 88 fl (80-97); MONOCYTES % (AUTO) 15.8 % (3-13); PLATELET COUNT 122 10^3/uL (150-450); RED BLOOD COUNT 4.12 10^6/uL (4.35-5.55); RED CELL DISTRIBUTION WIDTH 14.7 % (11.5-14.0); SEGMENTED NEUTROPHILS % (AUTO) 57.2 % (42-78); TOTAL CELLS COUNTED % (AUTO) 100 %; WHITE BLOOD COUNT 5.5 10^3/uL (4.0-10.5)
--- NOTE | 2018-06-04 19:07 | PDOC CONSULTATION ---
Consultation Consult Date: 06/04/18 Consult reason:: GI Bleed. History of Present Illness Admission Date/PCP: 06/04/18 10:45 History of Present Illness: JOEL MARIE is a 77 year old male who was placed on Eliquis about a month ago for A-Fib noted blood on the toilet bowl after BM past 3 days but more this am. Had history of colonoscopy early this year for lower GI bleed but patient claimed he was not told what was found other than a normal study. He was not on Eliquis at that time. He denies any pains,N/V,diarrhea nor constipation. He took last dose of Eliquis last night and his PT/INR is elevated. Past Medical History Cardiac Medical History: Reports: Hyperlipidema, Hypertension Denies: Coronary Artery Disease, Myocardial Infarction Pulmonary Medical History: Reports: Chronic Obstructive Pulmonary Disease (COPD) Denies: Asthma, Bronchitis, Pneumonia Neurological Medical History: Denies: Seizures Endocrine Medical History: Reports: Diabetes Mellitus Type 1, Diabetes Mellitus Type 2 GI Medical History: Reports: Gastroesophageal Reflux Disease Musculoskeltal Medical History: Reports: Arthritis - GENERALIZED Psychiatric Medical History: Denies: Depression Past Surgical History Past Surgical History: Reports: Appendectomy, Cholecystectomy, Herniorrhaphy, Orthopedic Surgery - back x2 with hardware Denies: Pacemaker Social History Smoking Status: Never Smoker Frequency of Alcohol Use: None Hx Recreational Drug Use: No Drugs: None Hx Prescription Drug Abuse: No Family History Family History: Reviewed & Not Pertinent, Hypertension Parental Family History Reviewed: Yes Children Family History Reviewed: No Sibling(s) Family History Reviewed.: No Medication/Allergy Home Medications: Albuterol Sulfate [Ventolin 0.083% Neb 2.5 mg/3 mL Ampul] 1 vial NEB RTQ6HP PRN 04/21/18 Atorvastatin Calcium [Lipitor 10 mg Tablet] 10 mg PO QHS 04/21/18 Carvedilol [Coreg 25 mg Tablet] 25 mg PO Q12 04/21/18 Chlorthalidone [Chlorthalidone 25 mg Tablet] 25 mg PO DAILY 04/21/18 Ergocalciferol (Vitamin D2) [Vitamin D2] 50,000 unit PO WHITE@1000 04/21/18 Famotidine [Pepcid 20 mg Tablet] 40 mg PO BID 04/21/18 Hum Insulin NPH/Reg Insulin Hm [Novolin 70-30 100 Unit/ml Vial] 0 unit SQ .SLD SCALE 04/21/18 Lisinopril [Prinivil 2.5 mg Tablet] 2.5 mg PO DAILY 04/21/18 Loratadine [Claritin 10 mg Tablet] 10 mg PO DAILY 04/21/18 Pioglitazone HCl [Actos 15 mg Tablet] 15 mg PO DAILY 04/21/18 Sertraline HCl [Zoloft 50 mg Tablet] 50 mg PO DAILY 04/21/18 Rivaroxaban [Xarelto 15 mg Tablet] 15 mg PO QPM 06/04/18 Allergies/Adverse Reactions: aspirin [Aspirin] Allergy (Intermediate, Verified 04/21/18 11:48) bleeding ulcers codeine [Codeine] Allergy (Intermediate, Verified 04/21/18 11:48) bleeding ulcers Review of Systems Constitutional: PRESENT: as per HPI, other - no fever/chills Eyes: PRESENT: other - no visual/hearing changes Cardiovascular: PRESENT: other - no chest pains/cough Physical Exam Vital Signs: Temp Pulse Resp BP Pulse Ox 98.2 F 94 18 123/67 98 06/04/18 16:22 06/04/18 16:22 06/04/18 16:22 06/04/18 16:22 06/04/18 16:22 Intake & Output 06/03/18 06/04/18 06/05/18 06:59 06:59 06:59 Intake Total 940 Balance 940 Weight 101.151 kg General appearance: PRESENT: no acute distress, obese Head exam: PRESENT: atraumatic Eye exam: PRESENT: conjunctiva pink Mouth exam: PRESENT: moist Neck exam: PRESENT: full ROM Respiratory exam: PRESENT: clear to auscultation jake Cardiovascular exam: PRESENT: irregular rhythm Pulses: PRESENT: normal radial pulses Vascular exam: PRESENT: normal capillary refill GI/Abdominal exam: PRESENT: soft Rectal exam: PRESENT: deferred Extremities exam: PRESENT: full ROM Musculoskeletal exam: PRESENT: ambulatory Neurological exam: PRESENT: alert, oriented to person, oriented to place, oriented to time, oriented to situation Psychiatric exam: PRESENT: appropriate affect Skin exam: PRESENT: normal color, warm Results Laboratory Results: 06/04/18 18:28 06/04/18 06/04/18 12:00 18:28 WBC 6.3 5.5 RBC 4.19 L 4.12 L Hgb 12.2 L 11.9 L Hct 37.0 L 36.2 L MCV 88 88 MCH 29.1 29.0 MCHC 32.9 33.0 RDW 14.4 H 14.7 H Plt Count 142 L 122 L Seg Neutrophils % 57.3 57.2 Lymphocytes % 20.3 19.6 Monocytes % 15.2 H 15.8 H Eosinophils % 6.6 H 6.6 H Basophils % 0.6 0.8 Absolute Neutrophils 3.6 3.2 Absolute Lymphocytes 1.3 1.1 Absolute Monocytes 1.0 0.9 Absolute Eosinophils 0.4 0.4 Absolute Basophils 0.0 0.0 Assessment & Plan - Time Time Spent: 30 to 50 Minutes - Inpatient Certification Medical Necessity: Need Close Monitoring Due to Risk of Patient Decompensation, Need for Surgery - Plan Summary Plan Summary: Hold off Eliquis and follow up PT/INR Will need bowel prep prior to colonoscopy hopefully by tomorrow if PT/INR better. Will inform Dr Reagan who will likely do the colonoscopy.
[2018-06-04] MEDS ORDERED: FAMOTIDINE 20 MG TABLET PO ONE ×2 (19:30→22:00)
[2018-06-04] MEDS: ATORVASTATIN CALCIUM 10 MG TABLET PO SCH (21:55)
[2018-06-04] MEDS: CARVEDILOL 12.5 MG TABLET PO SCH (21:55)
[2018-06-05 00:32] LABS: ABSOLUTE EOSINOPHILS # (AUTO) 0.4 10^3/uL (0.0-0.6); ABSOLUTE LYMPHOCYTES (AUTO) 1.3 10^3/uL (0.5-4.7); ABSOLUTE NEUT (AUTO) 3.2 10^3/uL (1.7-8.2); BASOPHILS % (AUTO) 0.7 % (0-2); EOSINOPHILS % (AUTO) 6.8 % (0-6); HEMATOCRIT 36.3 % (37.9-51.0); HEMOGLOBIN 11.8 g/dL (13.5-17.0); LYMPHOCYTES % (AUTO) 22.2 % (13-45); MEAN CORPUSCULAR HEMOGLOBIN 28.8 pg (27.0-33.4); MEAN CORPUSCULAR HGB CONC 32.6 g/dL (32.0-36.0); MEAN CORPUSCULAR VOLUME 88 fl (80-97); MONOCYTES % (AUTO) 16.6 % (3-13); PLATELET COUNT 126 10^3/uL (150-450); RED BLOOD COUNT 4.11 10^6/uL (4.35-5.55); RED CELL DISTRIBUTION WIDTH 14.6 % (11.5-14.0); SEGMENTED NEUTROPHILS % (AUTO) 53.7 % (42-78); TOTAL CELLS COUNTED % (AUTO) 100 %
[2018-06-05 05:28] LABS: ABSOLUTE EOSINOPHILS # (AUTO) 0.4 10^3/uL (0.0-0.6); ABSOLUTE LYMPHOCYTES (AUTO) 1.3 10^3/uL (0.5-4.7); ABSOLUTE MONOCYTES (AUTO) 1.1 10^3/uL (0.1-1.4); ABSOLUTE NEUT (AUTO) 3.9 10^3/uL (1.7-8.2); BASOPHILS % (AUTO) 0.5 % (0-2); EOSINOPHILS % (AUTO) 5.8 % (0-6); HEMATOCRIT 36.5 % (37.9-51.0); MEAN CORPUSCULAR HGB CONC 32.8 g/dL (32.0-36.0); MEAN CORPUSCULAR VOLUME 88 fl (80-97); MONOCYTES % (AUTO) 15.8 % (3-13); PLATELET COUNT 127 10^3/uL (150-450); RED BLOOD COUNT 4.14 10^6/uL (4.35-5.55); RED CELL DISTRIBUTION WIDTH 14.5 % (11.5-14.0); SEGMENTED NEUTROPHILS % (AUTO) 57.9 % (42-78); TOTAL CELLS COUNTED % (AUTO) 100 %; WHITE BLOOD COUNT 6.7 10^3/uL (4.0-10.5)
[2018-06-05 06:02] LABS: ANION GAP 11 (5-19); BLOOD UREA NITROGEN 27 mg/dL (7-20); CALCIUM 8.8 mg/dL (8.4-10.2); CARBON DIOXIDE 24 mmol/L (22-30); CHLORIDE 106 mmol/L (98-107); GLUCOSE 142 mg/dL (75-110); POTASSIUM 4.1 mmol/L (3.6-5.0); SODIUM 140.8 mmol/L (137-145)
[2018-06-05] MEDS ORDERED: PEG 3350/NA SULF,BICARB,CL/KCL 4000 ML PO ONE (06:54)
[2018-06-05] MEDS ORDERED: PEG 3350/NA SULF,BICARB,CL/KCL 4000 ML ONE (07:02)
[2018-06-05] MEDS: NORMAL SALINE 1000 ML 1,000 ML IV PRN ×2 (07:42→13:43)
[2018-06-05] MEDS: HUM INSULIN NPH/REG INSULIN HM 100 UNIT/1 ML 3 ML SUBCUT SCH ×2 (07:43→18:12)
[2018-06-05] MEDS: LORATADINE 10 MG TABLET PO SCH (09:16)
[2018-06-05] MEDS: CARVEDILOL 12.5 MG TABLET PO SCH ×2 (09:16→21:35)
[2018-06-05] MEDS: PIOGLITAZONE HCL 15 MG TABLET PO SCH (09:16)
[2018-06-05] MEDS: FAMOTIDINE 20 MG TABLET PO SCH ×2 (09:17→18:13)
[2018-06-05] MEDS: SERTRALINE HCL 50 MG TABLET PO SCH (09:17)
[2018-06-05] MEDS: CHLORTHALIDONE 25 MG TABLET PO SCH (09:17)
[2018-06-05] MEDS: LISINOPRIL 5 MG TABLET PO SCH (09:17)
[2018-06-05] MEDS ORDERED: DIPHENHYDRAMINE HCL 50 MG/ML VIAL ONE (14:18)
[2018-06-05] MEDS ORDERED: FENTANYL CITRATE INJ/PF 100 MCG/2 ML AMPUL ONE (14:18)
[2018-06-05] MEDS ORDERED: ONDANSETRON HCL INJ/PF 4 MG/2 ML SDV ONE (14:18)
[2018-06-05] MEDS ORDERED: NALOXONE HCL INJ/PF 0.4 MG/1 ML SDV ONE (14:19)
[2018-06-05] MEDS ORDERED: GLUCAGON,HUMAN RECOMB 1 MG INJ ONE (14:19)
[2018-06-05] MEDS ORDERED: FLUMAZENIL INJ 0.5 MG/5 ML VIAL ONE (14:19)
[2018-06-05] MEDS ORDERED: EPINEPHRINE INJ 1 MG/10 ML DISP.SYRIN ONE (14:19)
[2018-06-05] MEDS: MIDAZOLAM 2 MG/2 ML INJ ONE ×3 (14:58→15:09)
--- NOTE | 2018-06-05 15:49 | Operative Report ---
Operative Report DATE OF SURGERY: 06/05/18 PREOPERATIVE DIAGNOSIS: Gastrointestinal bleed; history of peptic ulcer disease ; history of diverticulosis POSTOPERATIVE DIAGNOSIS: Same with mild to moderate gastritis and duodenitis; no gastrointestinal bleeding source identified OPERATION: 1. Esophagogastroduodenoscopy with biopsy of the gastric antrum. 2. Total colonoscopy to cecum with photodocumentation SURGEON: MARLA DIOP ANESTHESIA: Moderate Sedation TISSUE REMOVED OR ALTERED: Biopsies of gastric antrum COMPLICATIONS: None ESTIMATED BLOOD LOSS: Scant INTRAOPERATIVE FINDINGS: See below PROCEDURE: Patient was taken on the fifth floor to the endoscopy suite where conscious sedation was induced. He was placed in the left lateral decubitus position after monitoring devices were attached. Surgical and surgical timeout were conducted. Oropharynx anesthetized with topical lidocaine. The flexible adult upper endoscope was advanced to the hypopharynx, down the esophagus through the stomach into the first and second portion of the duodenum. Patient tolerated the procedure well. First portion of the duodenum had mild inflammation; no ulcers. The pylorus was scope very carefully no evidence of bleeding clot or ulcer. The distal antrum was mildly inflamed, and a cold forceps biopsy was obtained and sent for DELANEY and histologic analysis. Bleeding was minimal The remainder the stomach was unremarkable with no evidence of clot bleeding tumor or stricture. Scope was retroflexed in the stomach and a good look at the GE junction revealed the Z line to be at approximately 40 cm from the incisor. Small hiatal hernia. Scope was withdrawn through the stomach in a antegrade fashion with aspiration of air. Scope was brought back through the GE junction and then the remainder of the esophagus uneventfully with no evidence of bleeding tumor stricture polyp. The procedure was concluded. We now switched scopes placed the patient in the left lateral cubitus position, and performed a rectal exam. The posterior surface of the prostate gland was slightly enlarged The flexible adult colonoscope was advanced all the way to the cecum. This was an excellent study on a well-prepped bowel. The only pathologic findings were sigmoid diverticulosis. No evidence of tumor stricture bleeding or polyp. The scope was withdrawn to light the colon checked the mucosa carefully. Again no bleeding source identified. Tolerated procedure well. Appropriate candidate for surveillance colonoscopy in 3-5 years. Tez dictating. Pression: GI bleeding source abated; possibly related to diverticulosis; possibly related to mild gastritis.
--- NOTE | 2018-06-05 20:18 | PDOC PROGRESS REPORT ---
Subjective Progress Note for:: 06/05/18 Subjective:: No acute events overnight. Reason For Visit: ACUTE LOWER GI BLEED Physical Exam Vital Signs: Temp Pulse Resp BP Pulse Ox 97.6 F 85 16 135/84 H 97 06/05/18 18:30 06/05/18 19:00 06/05/18 18:30 06/05/18 18:30 06/05/18 18:30 Intake & Output 06/04/18 06/05/18 06/06/18 06:59 06:59 06:59 Intake Total 940 2114 Output Total 100 Balance 840 2114 Weight 104.8 kg General appearance: PRESENT: no acute distress, well-developed, well-nourished Respiratory exam: PRESENT: clear to auscultation jake. ABSENT: rales, rhonchi, wheezes Cardiovascular exam: PRESENT: RRR. ABSENT: diastolic murmur, rubs, systolic murmur GI/Abdominal exam: PRESENT: normal bowel sounds, soft. ABSENT: distended, guarding, mass, organolmegaly, rebound, tenderness Results Laboratory Results: 06/05/18 04:22 06/05/18 04:22 06/05/18 06/05/18 06/05/18 00:18 04:22 04:22 WBC 6.0 6.7 RBC 4.11 L 4.14 L Hgb 11.8 L 12.0 L Hct 36.3 L 36.5 L MCV 88 88 MCH 28.8 29.0 MCHC 32.6 32.8 RDW 14.6 H 14.5 H Plt Count 126 L 127 L Seg Neutrophils % 53.7 57.9 Lymphocytes % 22.2 20.0 Monocytes % 16.6 H 15.8 H Eosinophils % 6.8 H 5.8 Basophils % 0.7 0.5 Absolute Neutrophils 3.2 3.9 Absolute Lymphocytes 1.3 1.3 Absolute Monocytes 1.0 1.1 Absolute Eosinophils 0.4 0.4 Absolute Basophils 0.0 0.0 Sodium 140.8 Potassium 4.1 Chloride 106 Carbon Dioxide 24 Anion Gap 11 BUN 27 H Creatinine 1.29 H Est GFR ( Amer) > 60 Est GFR (Non-Af Amer) 54 L Glucose 142 H Calcium 8.8 Assessment & Plan - Diagnosis (1) Lower GI bleed Is this a current diagnosis for this admission?: Yes Plan: Likely diverticular source. Status post colonoscopy. Pending final report. Hold Xarelto. H&H stable. (2) Atrial fibrillation Qualifiers: Atrial fibrillation type: chronic Qualified Code(s): I48.2 - Chronic atrial fibrillation Is this a current diagnosis for this admission?: Yes Plan: Rate controlled. Beta-blockers. Hold Xarelto due to active GI bleed. Continue his rate controlling agents but hold his Xarelto on now due to active bleeding. (3) Diabetes mellitus type 2 in obese Is this a current diagnosis for this admission?: Yes Plan: Continue long-acting insulin, sliding scale, pre-meal, Accu-Chek. Diabetic diet. Restart home meds on discharge. (4) HTN (hypertension) Is this a current diagnosis for this admission?: Yes Plan: Controlled. Continue ROSY and beta-blockers. Adjust meds as needed.
[2018-06-05] MEDS: ATORVASTATIN CALCIUM 10 MG TABLET PO SCH (21:35)
[2018-06-06 04:59] LABS: ABSOLUTE EOSINOPHILS # (AUTO) 0.3 10^3/uL (0.0-0.6); ABSOLUTE LYMPHOCYTES (AUTO) 1.3 10^3/uL (0.5-4.7); ABSOLUTE NEUT (AUTO) 2.8 10^3/uL (1.7-8.2); BASOPHILS % (AUTO) 0.4 % (0-2); EOSINOPHILS % (AUTO) 6.1 % (0-6); HEMATOCRIT 33.6 % (37.9-51.0); HEMOGLOBIN 11.3 g/dL (13.5-17.0); LYMPHOCYTES % (AUTO) 24.3 % (13-45); MEAN CORPUSCULAR HEMOGLOBIN 29.3 pg (27.0-33.4); MEAN CORPUSCULAR HGB CONC 33.7 g/dL (32.0-36.0); MEAN CORPUSCULAR VOLUME 87 fl (80-97); PLATELET COUNT 127 10^3/uL (150-450); RED BLOOD COUNT 3.87 10^6/uL (4.35-5.55); RED CELL DISTRIBUTION WIDTH 14.7 % (11.5-14.0); SEGMENTED NEUTROPHILS % (AUTO) 51.2 % (42-78); TOTAL CELLS COUNTED % (AUTO) 100 %; WHITE BLOOD COUNT 5.5 10^3/uL (4.0-10.5)
[2018-06-06 05:22] LABS: ALANINE AMINOTRANSFERASE 12 U/L (21-72); ALBUMIN 3.2 g/dL (3.5-5.0); ALKALINE PHOSPHATASE 77 U/L (38-126); ANION GAP 10 (5-19); ASPARTATE AMINO TRANSFERASE 14 U/L (17-59); BILIRUBIN,DIRECT 0.2 mg/dL (0.0-0.4); BILIRUBIN,TOTAL 0.6 mg/dL (0.2-1.3); BLOOD UREA NITROGEN 23 mg/dL (7-20); CALCIUM 8.5 mg/dL (8.4-10.2); CARBON DIOXIDE 24 mmol/L (22-30); CHLORIDE 107 mmol/L (98-107); GLUCOSE 129 mg/dL (75-110); POTASSIUM 3.9 mmol/L (3.6-5.0); SODIUM 140.7 mmol/L (137-145); TOTAL PROTEIN 6.3 g/dL (6.3-8.2)
[2018-06-06] MEDS: HUM INSULIN NPH/REG INSULIN HM 100 UNIT/1 ML 3 ML SUBCUT SCH ×2 (08:30→19:35)
[2018-06-06] MEDS: LORATADINE 10 MG TABLET PO SCH (10:33)
[2018-06-06] MEDS: FAMOTIDINE 20 MG TABLET PO SCH ×2 (10:33→17:00)
[2018-06-06] MEDS: LISINOPRIL 5 MG TABLET PO SCH (10:33)
[2018-06-06] MEDS: CARVEDILOL 12.5 MG TABLET PO SCH ×2 (10:33→21:20)
[2018-06-06] MEDS: PIOGLITAZONE HCL 15 MG TABLET PO SCH (10:34)
[2018-06-06] MEDS: CHLORTHALIDONE 25 MG TABLET PO SCH (10:34)
[2018-06-06] MEDS: SERTRALINE HCL 50 MG TABLET PO SCH (10:36)
[2018-06-06] MEDS ORDERED: DEXTROSE 50%-WATER SYRINGE 12.5 GM/25 ML DOSE IV PRN (13:49)
[2018-06-06] MEDS ORDERED: GLUCAGON,HUMAN RECOMB 1 MG INJ IM PRN ×2 (13:49→16:01)
[2018-06-06] MEDS ORDERED: DEXTROSE 40% GEL 15 GM TUBE PO PRN ×3 (13:49→16:01)
[2018-06-06] MEDS ORDERED: DEXTROSE 40% GEL 15 GM TUBE X 2 PO PRN (13:49)
[2018-06-06] MEDS ORDERED: INSULIN LISPRO 100 UNIT/ML 3 ML VIAL SUBCUT PRN (13:49)
[2018-06-06] MEDS ORDERED: DEXTROSE 50%-WATER SYRINGE 25 GM/50 ML DOSE IV PRN (13:49)
--- NOTE | 2018-06-06 16:00 | PDOC PROGRESS REPORT ---
Subjective Progress Note for:: 06/06/18 Subjective:: 05/07/2018. Status post upper and lower GI endoscopy. And had another bloody bowel movement in the morning. Otherwise patient is alert oriented, very pleasant and cooperative with physical examination, p.o. tolerant ambulatory. Denies any fever, chills, nausea, vomiting, diarrhea, constipation or any urinary symptoms. Reason For Visit: ACUTE LOWER GI BLEED Physical Exam Vital Signs: Temp Pulse Resp BP Pulse Ox 97.6 F 75 16 117/63 93 06/06/18 08:14 06/06/18 14:00 06/06/18 08:14 06/06/18 08:14 06/06/18 08:14 Intake & Output 06/05/18 06/06/18 06/07/18 06:59 06:59 06:59 Intake Total 940 2754 Output Total 100 Balance 840 2754 Weight 104.8 kg 105 kg General appearance: PRESENT: obese Respiratory exam: PRESENT: clear to auscultation jake. ABSENT: rales, rhonchi, wheezes Cardiovascular exam: PRESENT: RRR. ABSENT: diastolic murmur, rubs, systolic murmur GI/Abdominal exam: PRESENT: normal bowel sounds, soft. ABSENT: distended, guarding, mass, organolmegaly, rebound, tenderness Results Laboratory Results: 06/06/18 04:12 06/06/18 04:12 06/06/18 06/06/18 04:12 04:12 WBC 5.5 RBC 3.87 L Hgb 11.3 L Hct 33.6 L MCV 87 MCH 29.3 MCHC 33.7 RDW 14.7 H Plt Count 127 L Seg Neutrophils % 51.2 Lymphocytes % 24.3 Monocytes % 18.0 H Eosinophils % 6.1 H Basophils % 0.4 Absolute Neutrophils 2.8 Absolute Lymphocytes 1.3 Absolute Monocytes 1.0 Absolute Eosinophils 0.3 Absolute Basophils 0.0 Sodium 140.7 Potassium 3.9 Chloride 107 Carbon Dioxide 24 Anion Gap 10 BUN 23 H Creatinine 1.17 Est GFR ( Amer) > 60 Est GFR (Non-Af Amer) > 60 Glucose 129 H Calcium 8.5 Total Bilirubin 0.6 AST 14 L ALT 12 L Alkaline Phosphatase 77 Total Protein 6.3 Albumin 3.2 L Assessment & Plan - Diagnosis (1) Lower GI bleed Is this a current diagnosis for this admission?: Yes Plan: Likely diverticular source. That is post upper or lower GI endoscopy on 2017 as per GI report source of bleeding was likely diverticulosis which had abated at the time of endoscopy. Initially patient had another episode of bloody bowel movement this morning. H&H has not dropped significantly. Will observe for another day if patient is stable tomorrow and no other GI bleed will discharge home. Hold Xarelto. H&H stable. (2) Atrial fibrillation Qualifiers: Atrial fibrillation type: chronic Qualified Code(s): I48.2 - Chronic atrial fibrillation Is this a current diagnosis for this admission?: Yes Plan: Rate controlled. Beta-blockers. Hold Xarelto due to active GI bleed. (3) Diabetes mellitus type 2 in obese Is this a current diagnosis for this admission?: Yes Plan: Continue long-acting insulin, sliding scale, pre-meal, Accu-Chek. Diabetic diet. Restart home meds on discharge. (4) HTN (hypertension) Is this a current diagnosis for this admission?: Yes Plan: Controlled. Continue ROSY and beta-blockers. Adjust meds as needed.
[2018-06-06] MEDS ORDERED: DEXTROSE 50%-WATER 25 GM/50 ML DISP.SYRIN IV PRN ×2 (16:01)
[2018-06-06] MEDS: ATORVASTATIN CALCIUM 10 MG TABLET PO SCH (21:20)
[2018-06-07 07:01] LABS: ABSOLUTE BASOPHILS # (AUTO) 0.1 10^3/uL (0.0-0.2); ABSOLUTE EOSINOPHILS # (AUTO) 0.3 10^3/uL (0.0-0.6); ABSOLUTE LYMPHOCYTES (AUTO) 1.3 10^3/uL (0.5-4.7); ABSOLUTE NEUT (AUTO) 2.8 10^3/uL (1.7-8.2); BASOPHILS % (AUTO) 1.1 % (0-2); EOSINOPHILS % (AUTO) 6.3 % (0-6); HEMATOCRIT 35.1 % (37.9-51.0); HEMOGLOBIN 11.7 g/dL (13.5-17.0); LYMPHOCYTES % (AUTO) 23.4 % (13-45); MEAN CORPUSCULAR HEMOGLOBIN 29.1 pg (27.0-33.4); MEAN CORPUSCULAR HGB CONC 33.5 g/dL (32.0-36.0); MEAN CORPUSCULAR VOLUME 87 fl (80-97); MONOCYTES % (AUTO) 18.3 % (3-13); PLATELET COUNT 132 10^3/uL (150-450); RED BLOOD COUNT 4.03 10^6/uL (4.35-5.55); RED CELL DISTRIBUTION WIDTH 14.3 % (11.5-14.0); SEGMENTED NEUTROPHILS % (AUTO) 50.9 % (42-78); TOTAL CELLS COUNTED % (AUTO) 100 %; WHITE BLOOD COUNT 5.4 10^3/uL (4.0-10.5)
[2018-06-07 07:23] LABS: ALANINE AMINOTRANSFERASE 15 U/L (21-72); ALBUMIN 3.3 g/dL (3.5-5.0); ALKALINE PHOSPHATASE 80 U/L (38-126); ANION GAP 10 (5-19); ASPARTATE AMINO TRANSFERASE 14 U/L (17-59); BILIRUBIN,DIRECT 0.2 mg/dL (0.0-0.4); BILIRUBIN,TOTAL 0.7 mg/dL (0.2-1.3); BLOOD UREA NITROGEN 21 mg/dL (7-20); CALCIUM 8.7 mg/dL (8.4-10.2); CARBON DIOXIDE 25 mmol/L (22-30); CHLORIDE 106 mmol/L (98-107); GLUCOSE 159 mg/dL (75-110); POTASSIUM 3.9 mmol/L (3.6-5.0); SODIUM 141.1 mmol/L (137-145); TOTAL PROTEIN 6.6 g/dL (6.3-8.2)
[2018-06-07] MEDS: PIOGLITAZONE HCL 15 MG TABLET PO SCH (10:31)
[2018-06-07] MEDS: LISINOPRIL 5 MG TABLET PO SCH (10:31)
[2018-06-07] MEDS: CHLORTHALIDONE 25 MG TABLET PO SCH (10:32)
[2018-06-07] MEDS: CARVEDILOL 12.5 MG TABLET PO SCH (10:32)
[2018-06-07] MEDS: FAMOTIDINE 20 MG TABLET PO SCH (10:32)
[2018-06-07] MEDS: LORATADINE 10 MG TABLET PO SCH (10:32)
[2018-06-07] MEDS: SERTRALINE HCL 50 MG TABLET PO SCH (10:32)
--- NOTE | 2018-06-07 14:58 | PDOC DISCHARGE SUMMARY ---
General - Admit/Disc Date/PCP Admission Date/Primary Care Provider: 06/04/18 10:45 Discharge Date: 06/07/18 - Discharge Diagnosis (1) Lower GI bleed Is this a current diagnosis for this admission?: Yes (2) Atrial fibrillation Is this a current diagnosis for this admission?: Yes (3) Diabetes mellitus type 2 in obese Is this a current diagnosis for this admission?: Yes (4) HTN (hypertension) Is this a current diagnosis for this admission?: Yes - Additional Information Resuscitation Status: Full Code Discharge Diet: As Tolerated Discharge Activity: Activity As Tolerated Home Medications: Albuterol Sulfate [Ventolin 0.083% Neb 2.5 mg/3 mL Ampul] 1 vial NEB [id number] PRN 04/21/18 Atorvastatin Calcium [Lipitor 10 mg Tablet] 10 mg PO QHS 04/21/18 Carvedilol [Coreg 25 mg Tablet] 25 mg PO Q12 04/21/18 Chlorthalidone [Chlorthalidone 25 mg Tablet] 25 mg PO DAILY 04/21/18 Ergocalciferol (Vitamin D2) [Vitamin D2] 50,000 unit PO WHITE@1000 04/21/18 Famotidine [Pepcid 20 mg Tablet] 40 mg PO BID 04/21/18 Hum Insulin NPH/Reg Insulin Hm [Novolin 70-30 100 Unit/ml Vial] 0 unit SQ .SLD SCALE 04/21/18 Lisinopril [Prinivil 2.5 mg Tablet] 2.5 mg PO DAILY 04/21/18 Loratadine [Claritin 10 mg Tablet] 10 mg PO DAILY 04/21/18 Pioglitazone HCl [Actos 15 mg Tablet] 15 mg PO DAILY 04/21/18 Sertraline HCl [Zoloft 50 mg Tablet] 50 mg PO DAILY 04/21/18 History of Present Illness History of Present Illness: JOEL MARIE is a 77 year old male with a history of atrial fibrillation on Xarelto who said he is noticed a little bit of blood in his stool the last couple of days but this morning it seemed like there was a lot more and it scared him and so he decided to come in to be evaluated. He has a history of diverticulosis and was recently hospitalized here end of April with diverticulitis. He said he thinks his last colonoscopy was earlier this year and as far as he knows everything was okay. He is not had any lightheadedness or abdominal pain. Hospital Course Hospital Course: (1) Lower GI bleed Resolved. Likely diverticular source. stats post upper or lower GI endoscopy on 2017 as per GI report source of bleeding was likely diverticulosis which had abated at the time of endoscopy. Hold Xarelto. H&H stable. (2) Atrial fibrillation Rate controlled. Continued beta-blockers. Xarelto was held. On the day of discharge patient was counseled about the risk and benefit of continuing with Xarelto. He was asked to do not resume his Xarelto until seen by his PCP. He agreed with plan. (3) Diabetes mellitus type 2 in obese Continue long-acting insulin, sliding scale, pre-meal, Accu-Chek. Diabetic diet. Restart home meds on discharge. (4) HTN (hypertension) Controlled. Continue ROSY and beta-blockers. Adjust meds as needed Physical Exam Vital Signs: Temp Pulse Resp BP Pulse Ox 97.9 F 71 16 108/54 L 96 06/07/18 12:05 06/07/18 12:05 06/07/18 12:05 06/07/18 12:05 06/07/18 12:05 Intake & Output 06/06/18 06/07/18 06/08/18 06:59 06:59 06:59 Intake Total 2754 1574 Balance 2754 1574 Weight 105 kg 104.1 kg General appearance: PRESENT: no acute distress, well-developed, well-nourished Head exam: PRESENT: atraumatic, normocephalic Eye exam: PRESENT: conjunctiva pink, EOMI, PERRLA. ABSENT: scleral icterus Ear exam: PRESENT: normal external ear exam Mouth exam: PRESENT: moist, tongue midline Neck exam: ABSENT: carotid bruit, JVD, lymphadenopathy, thyromegaly Respiratory exam: PRESENT: clear to auscultation jake. ABSENT: rales, rhonchi, wheezes Cardiovascular exam: PRESENT: RRR. ABSENT: diastolic murmur, rubs, systolic murmur Pulses: PRESENT: normal dorsalis pedis pul Vascular exam: PRESENT: normal capillary refill GI/Abdominal exam: PRESENT: normal bowel sounds, soft. ABSENT: distended, guarding, mass, organolmegaly, rebound, tenderness Rectal exam: PRESENT: deferred Extremities exam: PRESENT: full ROM. ABSENT: calf tenderness, clubbing, pedal edema Neurological exam: PRESENT: alert, awake, oriented to person, oriented to place , oriented to time, oriented to situation, CN II-XII grossly intact. ABSENT: motor sensory deficit Psychiatric exam: PRESENT: appropriate affect, normal mood. ABSENT: homicidal ideation, suicidal ideation Skin exam: PRESENT: dry, intact, warm. ABSENT: cyanosis, rash Results Laboratory Results: 06/07/18 06:50 06/07/18 06:50 06/07/18 06/07/18 06:50 06:50 WBC 5.4 RBC 4.03 L Hgb 11.7 L Hct 35.1 L MCV 87 MCH 29.1 MCHC 33.5 RDW 14.3 H Plt Count 132 L Seg Neutrophils % 50.9 Lymphocytes % 23.4 Monocytes % 18.3 H Eosinophils % 6.3 H Basophils % 1.1 Absolute Neutrophils 2.8 Absolute Lymphocytes 1.3 Absolute Monocytes 1.0 Absolute Eosinophils 0.3 Absolute Basophils 0.1 Sodium 141.1 Potassium 3.9 Chloride 106 Carbon Dioxide 25 Anion Gap 10 BUN 21 H Creatinine 1.22 Est GFR ( Amer) > 60 Est GFR (Non-Af Amer) 58 L Glucose 159 H Calcium 8.7 Total Bilirubin 0.7 AST 14 L ALT 15 L Alkaline Phosphatase 80 Total Protein 6.6 Albumin 3.3 L Qualifiers - * PATIENT BEING DISCHARGED WITH ANY OF THE FOLLOWING DIAGNOSIS: No VTE patient discharged on overlapping Therapy?: No Reason(s) for not prescribing Overlap Therapy:: Contraindicated - GI Bleed
[2018-06-07 15:19] VITALS: BP 120/61
[2018-06-11] MEDS ORDERED: ERGOCALCIFEROL (VITAMIN D2) 50000 UNIT (1.25 MG) CAPSULE PO SCH (10:00)
== END 2018-06-07 15:45 | disposition home or self-care (01) | DRG 379 ==
LOC: ER 08:47 → EH 10:28 → OBSVTOIN 10:45 → 5 16:19
PROVIDERS: ADMIT Hospitalist; ATTEND Hospitalist
PROC: 0DB78ZX Excision of Stomach, Pylorus, Via Natural or Artificial Opening Endoscopic, Diagnostic (ICD-10-PCS; principal; 2018-06-05 14:30)
PROC: 0D5N8ZZ Destruction of Sigmoid Colon, Via Natural or Artificial Opening Endoscopic (ICD-10-PCS; 2018-06-05 14:30)
DX: K57.31 Diverticulosis of large intestine without perforation or abscess with bleeding (principal); I48.91 Unspecified atrial fibrillation; E11.9 Type 2 diabetes mellitus without complications; I10 Essential (primary) hypertension; E78.5 Hyperlipidemia, unspecified; K21.9 Gastro-esophageal reflux disease without esophagitis; K29.80 Duodenitis without bleeding; K29.70 Gastritis, unspecified, without bleeding; K44.9 Diaphragmatic hernia without obstruction or gangrene; M15.9 Polyosteoarthritis, unspecified; E66.9 Obesity, unspecified; Z79.02 Long term (current) use of antithrombotics/antiplatelets; Z90.49 Acquired absence of other specified parts of digestive tract; Z79.4 Long term (current) use of insulin; Z88.6 Allergy status to analgesic agent; Z87.11 Personal history of peptic ulcer disease
CPT/HCPCS: 36415; 43239; 45378; 80048; 80053; 82272; 82962; 84484; 85025; 85610; 85730; 88305; 88342; 93005; 93010; 99285; J0171; J1200; J1610; J1815; J2250; J2310; J2405; J3010; J3490; J7030

== ENCOUNTER 2018-06-09 13:33 | Emergency (ER) | payer MEDICARE ==
[2018-06-09 14:18] LABS: ABSOLUTE BASOPHILS # (AUTO) 0.1 10^3/uL (0.0-0.2); ABSOLUTE EOSINOPHILS # (AUTO) 0.3 10^3/uL (0.0-0.6); ABSOLUTE LYMPHOCYTES (AUTO) 1.2 10^3/uL (0.5-4.7); ABSOLUTE MONOCYTES (AUTO) 1.2 10^3/uL (0.1-1.4); ABSOLUTE NEUT (AUTO) 7.2 10^3/uL (1.7-8.2); BASOPHILS % (AUTO) 0.7 % (0-2); HEMATOCRIT 38.2 % (37.9-51.0); HEMOGLOBIN 12.9 g/dL (13.5-17.0); LYMPHOCYTES % (AUTO) 11.7 % (13-45); MEAN CORPUSCULAR HEMOGLOBIN 29.6 pg (27.0-33.4); MEAN CORPUSCULAR HGB CONC 33.8 g/dL (32.0-36.0); MEAN CORPUSCULAR VOLUME 88 fl (80-97); MONOCYTES % (AUTO) 12.2 % (3-13); PLATELET COUNT 190 10^3/uL (150-450); RED BLOOD COUNT 4.35 10^6/uL (4.35-5.55); RED CELL DISTRIBUTION WIDTH 14.2 % (11.5-14.0); SEGMENTED NEUTROPHILS % (AUTO) 72.4 % (42-78); TOTAL CELLS COUNTED % (AUTO) 100 %; WHITE BLOOD COUNT 9.9 10^3/uL (4.0-10.5)
[2018-06-09] MEDS ORDERED: NORMAL SALINE 1000 ML 1,000 ML IV ONE (14:31)
[2018-06-09 14:32] LABS: ALANINE AMINOTRANSFERASE 14 U/L (21-72); ALBUMIN 3.9 g/dL (3.5-5.0); ALKALINE PHOSPHATASE 81 U/L (38-126); ANION GAP 13 (5-19); ASPARTATE AMINO TRANSFERASE 13 U/L (17-59); BILIRUBIN,DIRECT 0.3 mg/dL (0.0-0.4); BILIRUBIN,TOTAL 0.6 mg/dL (0.2-1.3); BLOOD UREA NITROGEN 38 mg/dL (7-20); CALCIUM 8.9 mg/dL (8.4-10.2); CARBON DIOXIDE 24 mmol/L (22-30); CHLORIDE 108 mmol/L (98-107); CREATINE KINASE 33 U/L (55-170); GLUCOSE 76 mg/dL (75-110); POTASSIUM 3.8 mmol/L (3.6-5.0); SODIUM 145.4 mmol/L (137-145); TOTAL PROTEIN 7.1 g/dL (6.3-8.2)
--- NOTE | 2018-06-09 14:33 | ER Document Report ---
ED Dizziness/Weakness - General Chief Complaint: Dizziness Stated Complaint: DIZZINESS Time Seen by Provider: 06/09/18 14:23 Mode of Arrival: Stretcher Information source: Patient TRAVEL OUTSIDE OF THE [place] IN LAST 30 DAYS: No - HPI Patient complains to provider of: Dizziness, Near-syncope Onset: Just prior to arrival Onset/Duration: Sudden Quality of pain: No pain Associated symptoms: Dizzy Baseline gait: Walks w/o assistance Notes: Patient is a 77-year-old male presenting to the emergency room today complaining of dizziness that occurred just prior to arrival, patient reports that he was ambulating to get some food, felt very lightheaded and dizzy, causing him to have to sit down, he reports that his blood pressure and blood sugar were both low, he denies any loss of consciousness, denies chest pain, reports a persistent chronic nonproductive cough as well as chronic shortness of breath which was no worse today than usual, denies a fever, no nausea, vomiting or diarrhea, denies any abdominal pain, at time of my initial evaluation patient has received an IV fluid bolus and his BP is 111/66, he reports feeling much better at this time - Related Data Allergies/Adverse Reactions: aspirin [Aspirin] Allergy (Intermediate, Verified 04/21/18 11:48) bleeding ulcers codeine [Codeine] Allergy (Intermediate, Verified 04/21/18 11:48) bleeding ulcers Past Medical History - General Information source: Patient - Social History Smoking Status: Former Smoker Family History: Reviewed & Not Pertinent, Hypertension - Past Medical History Cardiac Medical History: Reports: Hx Hypercholesterolemia, Hx Hypertension Denies: Hx Coronary Artery Disease, Hx Heart Attack Pulmonary Medical History: Reports: Hx COPD Denies: Hx Asthma, Hx Bronchitis, Hx Pneumonia Neurological Medical History: Denies: Hx Cerebrovascular Accident, Hx Seizures Endocrine Medical History: Reports: Hx Diabetes Mellitus Type 1, Hx Diabetes Mellitus Type 2 Renal/ Medical History: Denies: Hx Peritoneal Dialysis GI Medical History: Reports: Hx Gastroesophageal Reflux Disease Musculoskeletal Medical History: Reports Hx Arthritis - GENERALIZED Psychiatric Medical History: Denies: Hx Depression Past Surgical History: Reports: Hx Abdominal Surgery - hernia repair x2, Hx Appendectomy, Hx Cholecystectomy, Hx Herniorrhaphy, Hx Orthopedic Surgery - back x2 with hardware. Denies: Hx Pacemaker - Immunizations Hx Diphtheria, Pertussis, Tetanus Vaccination: No Hx Pneumococcal Vaccination: 04/12/11 Review of Systems - Review of Systems Constitutional: No symptoms reported EENT: No symptoms reported Cardiovascular: See HPI Respiratory: No symptoms reported Gastrointestinal: No symptoms reported Genitourinary: No symptoms reported Male Genitourinary: No symptoms reported Musculoskeletal: No symptoms reported Skin: No symptoms reported Hematologic/Lymphatic: No symptoms reported Neurological/Psychological: No symptoms reported -: Yes All other systems reviewed and negative Physical Exam - Vital signs Vitals: BP 119/88 H 06/09/18 10:19 Interpretation: Normal - General General appearance: Appears well, Alert - HEENT Head: Normocephalic, Atraumatic Eyes: Normal Pupils: PERRL - Respiratory Respiratory status: No respiratory distress Chest status: Nontender Breath sounds: Normal Chest palpation: Normal - Cardiovascular Rhythm: Irregularly irregular Heart sounds: Normal auscultation Murmur: No - Abdominal Inspection: Normal Distension: No distension Bowel sounds: Normal Tenderness: Nontender Organomegaly: No organomegaly - Back Back: Normal, Nontender - Extremities General upper extremity: Normal inspection, Nontender, Normal color, Normal ROM , Normal temperature General lower extremity: Normal inspection, Nontender, Normal color, Normal ROM , Normal temperature, Normal weight bearing. No: Aster's sign - Neurological Neuro grossly intact: Yes Cognition: Normal Orientation: AAOx4 John Coma Scale Eye Opening: Spontaneous Hodges Coma Scale Verbal: Oriented Hodges Coma Scale Motor: Obeys Commands Hodges Coma Scale Total: 15 Speech: Normal Motor strength normal: LUE, RUE, LLE, RLE Sensory: Normal - Psychological Associated symptoms: Normal affect, Normal mood - Skin Skin Temperature: Warm Skin Moisture: Dry Skin Color: Normal Course - Re-evaluation Re-evalutation: 06/09/18 16:52 Lab and imaging findings discussed with patient at bedside, patient has mildly elevated creatinine, likely symptoms related to dehydration, given 1 L of IV fluids and patient ambulated in the department without any further symptoms, therefore he was advised to drink more water at home, follow-up with primary care or return if symptoms worsen, patient acknowledges understanding and agreement with this plan - Vital Signs Vital signs: Temp Pulse Resp BP Pulse Ox 98.1 F 96 17 124/114 H 98 06/09/18 13:38 06/09/18 15:48 06/09/18 16:08 06/09/18 16:08 06/09/18 16:08 - Laboratory Result Diagrams: 06/09/18 14:08 06/09/18 14:08 Laboratory results interpreted by me: 06/09/18 06/09/18 14:08 14:08 Hgb 12.9 L RDW 14.2 H Lymphocytes % 11.7 L Sodium 145.4 H Chloride 108 H BUN 38 H Creatinine 1.43 H Est GFR ( Amer) 58 L Est GFR (Non-Af Amer) 48 L AST 13 L ALT 14 L Creatine Kinase 33 L - Diagnostic Test Radiology reviewed: Image reviewed, Reports reviewed - EKG Interpretation by Me Rhythm: A.Fib, PVC's Discharge - Discharge Clinical Impression: Dizziness Condition: Stable Disposition: HOME, SELF-CARE Instructions: Dizziness ([facility]) Additional Instructions: Follow up with your primary care provider in one to 2 days. Return to the emergency room immediately if symptoms worsen or any additional concerns. Referrals: GENE WICK PA-C [Primary Care Provider] - Follow up as needed
[2018-06-09 14:44] LABS: CREATINE KINASE MB 0.61 ng/mL (<4.55); TROPONIN I 0.021 ng/mL
[2018-06-09 14:45] LABS: INTERNATIONAL RATION (INR) 0.97; PROTHROMBIN TIME 13.4 SEC (11.4-15.4)
[2018-06-09 14:46] LABS: PARTIAL THROMBOPLASTIN TIME 29.9 SEC (23.5-35.8)
--- NOTE | 2018-06-09 14:54 | RADIOLOGY REPORT (SQ) ---
EXAM DESCRIPTION: CHEST 2 VIEWS COMPLETED DATE/TIME: 06/09/2018 2:47 pm REASON FOR STUDY: sob COMPARISON: 08/08/2015 EXAM PARAMETERS: NUMBER OF VIEWS: two views TECHNIQUE: Digital Frontal and Lateral radiographic views of the chest acquired. RADIATION DOSE: NA LIMITATIONS: none FINDINGS: LUNGS AND PLEURA: No opacities, masses or pneumothorax. No pleural effusion. MEDIASTINUM AND HILAR STRUCTURES: No masses or contour abnormalities. HEART AND VASCULAR STRUCTURES: Heart normal size. No evidence for failure. BONES: No acute findings. HARDWARE: None in the chest. OTHER: No other significant finding. IMPRESSION: NO ACUTE RADIOGRAPHIC FINDING IN THE CHEST. TECHNICAL DOCUMENTATION: JOB ID: [id number] [employer]- All Rights Reserved Reading location - IP/workstation name: [email or web address]
[2018-06-09 17:30] VITALS: BP 134/96
--- NOTE | 2018-06-10 09:10 | EKG REPORT ---
SEVERITY:- ABNORMAL ECG - ATRIAL FIBRILLATION VENTRICULAR PREMATURE COMPLEX BORDERLINE LEFT AXIS DEVIATION : Confirmed by: Mary Altamirano 10-Jun-2018 09:09:39
== END 2018-06-09 17:54 | disposition home or self-care (01) ==
LOC: ER 13:33
DX: R42 Dizziness and giddiness (principal); R06.02 Shortness of breath; Z87.891 Personal history of nicotine dependence; I10 Essential (primary) hypertension; E11.9 Type 2 diabetes mellitus without complications; J44.9 Chronic obstructive pulmonary disease, unspecified
CPT/HCPCS: 93005; 99285; 36415; 82553; 82550; 85025; 85610; 85730; 80053; 84484; 71046; 93010; J7030

== ENCOUNTER 2018-06-24 18:44 | Inpatient (IN) | payer MEDICARE ==
--- NOTE | 2018-06-24 18:57 | ER Document Report ---
ED Medical Screen (RME) - General Chief Complaint: Rectal Bleeding Stated Complaint: RECTAL BLEEDING Time Seen by Provider: 06/24/18 18:53 Mode of Arrival: Ambulatory Information source: Patient, Relative TRAVEL OUTSIDE OF THE [place] IN LAST 30 DAYS: No - HPI Patient complains to provider of: rectal bleeding Onset: Yesterday - pt. with recent colonoscopy for rectal bleeding with recurrence starting yesterday. Has been off blood thinners for several weeks. - Related Data Allergies/Adverse Reactions: aspirin [Aspirin] Allergy (Intermediate, Verified 06/24/18 18:45) bleeding ulcers codeine [Codeine] Allergy (Intermediate, Verified 06/24/18 18:45) bleeding ulcers Past Medical History - Past Medical History Cardiac Medical History: Reports: Hx Hypercholesterolemia, Hx Hypertension Denies: Hx Coronary Artery Disease, Hx Heart Attack Pulmonary Medical History: Reports: Hx COPD Denies: Hx Asthma, Hx Bronchitis, Hx Pneumonia Neurological Medical History: Denies: Hx Cerebrovascular Accident, Hx Seizures Endocrine Medical History: Reports: Hx Diabetes Mellitus Type 1, Hx Diabetes Mellitus Type 2 Renal/ Medical History: Denies: Hx Peritoneal Dialysis GI Medical History: Reports: Hx Gastroesophageal Reflux Disease Musculoskeltal Medical History: Reports Hx Arthritis - GENERALIZED Psychiatric Medical History: Denies: Hx Depression Past Surgical History: Reports: Hx Abdominal Surgery - hernia repair x2, Hx Appendectomy, Hx Cholecystectomy, Hx Herniorrhaphy, Hx Orthopedic Surgery - back x2 with hardware. Denies: Hx Pacemaker - Immunizations Hx Diphtheria, Pertussis, Tetanus Vaccination: No History of Influenza Vaccine for 04/2017 - 09/2017 Season: Yes Influenza Administration Date for 04/2017 - 09/2017 Season: 03/04/17 Physical Exam - Vital signs Vitals: Temp Pulse Resp BP Pulse Ox 97.5 F 75 18 139/77 H 96 06/24/18 18:49 06/24/18 18:49 06/24/18 18:49 06/24/18 18:49 06/24/18 18:49 Course - Vital Signs Vital signs: Temp Pulse Resp BP Pulse Ox 97.5 F 75 18 139/77 H 96 06/24/18 18:49 06/24/18 18:49 06/24/18 18:49 06/24/18 18:49 06/24/18 18:49 Doctor's Discharge - Discharge Referrals: BUNDLE,GENE, PA-C [Primary Care Provider] - Follow up as needed
[2018-06-24 19:22] LABS: ABSOLUTE EOSINOPHILS # (AUTO) 0.1 10^3/uL (0.0-0.6); ABSOLUTE LYMPHOCYTES (AUTO) 1.2 10^3/uL (0.5-4.7); ABSOLUTE MONOCYTES (AUTO) 0.8 10^3/uL (0.1-1.4); ABSOLUTE NEUT (AUTO) 3.4 10^3/uL (1.7-8.2); BASOPHILS % (AUTO) 0.7 % (0-2); EOSINOPHILS % (AUTO) 2.6 % (0-6); HEMOGLOBIN 12.1 g/dL (13.5-17.0); LYMPHOCYTES % (AUTO) 20.9 % (13-45); MEAN CORPUSCULAR HEMOGLOBIN 28.8 pg (27.0-33.4); MEAN CORPUSCULAR HGB CONC 32.7 g/dL (32.0-36.0); MEAN CORPUSCULAR VOLUME 88 fl (80-97); PLATELET COUNT 191 10^3/uL (150-450); RED BLOOD COUNT 4.21 10^6/uL (4.35-5.55); RED CELL DISTRIBUTION WIDTH 14.6 % (11.5-14.0); SEGMENTED NEUTROPHILS % (AUTO) 61.8 % (42-78); TOTAL CELLS COUNTED % (AUTO) 100 %; WHITE BLOOD COUNT 5.6 10^3/uL (4.0-10.5)
[2018-06-24 19:32] LABS: ALANINE AMINOTRANSFERASE 15 U/L (21-72); ALKALINE PHOSPHATASE 69 U/L (38-126); ANION GAP 10 (5-19); ASPARTATE AMINO TRANSFERASE 17 U/L (17-59); BILIRUBIN,DIRECT 0.2 mg/dL (0.0-0.4); BILIRUBIN,TOTAL 0.3 mg/dL (0.2-1.3); BLOOD UREA NITROGEN 33 mg/dL (7-20); CALCIUM 9.3 mg/dL (8.4-10.2); CARBON DIOXIDE 25 mmol/L (22-30); CHLORIDE 105 mmol/L (98-107); GLUCOSE 207 mg/dL (75-110); TOTAL PROTEIN 7.2 g/dL (6.3-8.2)
--- NOTE | 2018-06-24 20:04 | ER Document Report ---
ED General - General Chief Complaint: Rectal Bleeding Stated Complaint: RECTAL BLEEDING Time Seen by Provider: 06/24/18 18:53 Mode of Arrival: Ambulatory Notes: Patient is a 77-year-old male with a past medical history of atrial fibrillation, hypertension, recent lower GI bleed without identified source although diverticulosis was noted on colonoscopy on 06/05 who presents with recurrence of bright red blood per rectum. Patient states that he had not had any recurrence of rectal bleeding since discharge on 06/05 but that he has had a recurrence starting earlier this afternoon. He states that he had 3-4 bright re d bloody bowel movements over that period of time. Denies any associated abdominal pain, hematemesis lightheadedness or syncope. Patient was previously on rivaroxaban for atrial fibrillation but is not currently on any anticoagulation. Nothing seems to improve or worsen his symptoms. He has not contacted his primary care physician regarding today's concerns. States this is identical when he was hospitalized in the beginning of the month. TRAVEL OUTSIDE OF THE [place] IN LAST 30 DAYS: No - Related Data Allergies/Adverse Reactions: aspirin [Aspirin] Allergy (Intermediate, Verified 06/24/18 20:32) bleeding ulcers codeine [Codeine] Allergy (Intermediate, Verified 06/24/18 20:32) bleeding ulcers Past Medical History - General Information source: Patient, Relative - Social History Smoking Status: Never Smoker Chew tobacco use (# tins/day): No Frequency of alcohol use: None Drug Abuse: None Lives with: Family Family History: Reviewed & Not Pertinent, Hypertension Patient has suicidal ideation: No Patient has homicidal ideation: No - Past Medical History Cardiac Medical History: Reports: Hx Hypercholesterolemia, Hx Hypertension Denies: Hx Coronary Artery Disease, Hx Heart Attack Pulmonary Medical History: Reports: Hx COPD Denies: Hx Asthma, Hx Bronchitis, Hx Pneumonia Neurological Medical History: Denies: Hx Cerebrovascular Accident, Hx Seizures Endocrine Medical History: Reports: Hx Diabetes Mellitus Type 1, Hx Diabetes Mellitus Type 2 Renal/ Medical History: Denies: Hx Peritoneal Dialysis GI Medical History: Reports: Hx Gastroesophageal Reflux Disease Musculoskeletal Medical History: Reports Hx Arthritis - GENERALIZED Psychiatric Medical History: Denies: Hx Depression Past Surgical History: Reports: Hx Abdominal Surgery - hernia repair x2, Hx Appendectomy, Hx Cholecystectomy, Hx Herniorrhaphy, Hx Orthopedic Surgery - back x2 with hardware. Denies: Hx Pacemaker - Immunizations Hx Diphtheria, Pertussis, Tetanus Vaccination: No Hx Pneumococcal Vaccination: 04/12/11 Review of Systems - Review of Systems Notes: Constitutional: Negative for fever. HENT: Negative for sore throat. Eyes: Negative for visual changes. Cardiovascular: Negative for chest pain. Respiratory: Negative for shortness of breath. Gastrointestinal: Negative for abdominal pain, vomiting or diarrhea. Positive for bright red blood per rectum Genitourinary: Negative for dysuria. Musculoskeletal: Negative for back pain. Skin: Negative for rash. Neurological: Negative for headaches, weakness or numbness. 10 point ROS negative except as marked above and in HPI. Physical Exam - Vital signs Vitals: Temp Pulse Resp BP Pulse Ox 97.5 F 75 18 139/77 H 96 06/24/18 18:49 06/24/18 18:49 06/24/18 18:49 06/24/18 18:49 06/24/18 18:49 Interpretation: Normal Notes: PHYSICAL EXAMINATION: GENERAL: Well-appearing, well-nourished and in no acute distress. HEAD: Atraumatic, normocephalic. EYES: Pupils equal round and reactive to light, extraocular movements intact, sclera anicteric, conjunctiva are normal. ENT: nares patent, oropharynx clear without exudates. Moist mucous membranes. NECK: Normal range of motion, supple without lymphadenopathy LUNGS: Breath sounds clear to auscultation bilaterally and equal. No wheezes rales or rhonchi. HEART: Regular rate and rhythm without murmurs ABDOMEN: Soft, nontender, normoactive bowel sounds. No guarding, no rebound. No masses appreciated. EXTREMITIES: Normal range of motion, no pitting or edema. No cyanosis. NEUROLOGICAL: No focal neurological deficits. Moves all extremities spontaneously and on command. PSYCH: Normal mood, normal affect. SKIN: Warm, Dry, normal turgor, no rashes or lesions noted. Course - Re-evaluation Re-evalutation: 06/24/18 20:02 Patient presents with rectal bleeding, stool sample at the bedside is gross blood. Abdominal exam is benign without any tenderness. Patient is not vomiting any blood. His hemoglobin is 12.1 down from 12.9 on the seventh of this month. He did have a colonoscopy and endoscopy done on 06/[address] Reagan which was noted to be normal. He is no longer on rivaroxaban which he was on at the time of initial bleed at the beginning this month. I discussed with Dr. Peralta the surgeon on-call who he does not advise a repeat colonoscopy at this time. Will discuss with hospitalist for consideration of observation for serial CBCs to ensure that the patient does not continue to have a significant downtrend in his hemoglobin given his advanced age. 06/24/18 20:12 I have discussed this case with Dr. Overton who is except the patient for admiss ion. - Vital Signs Vital signs: Temp Pulse Resp BP Pulse Ox 97.5 F 75 18 139/77 H 96 06/24/18 18:49 06/24/18 18:49 06/24/18 18:49 06/24/18 18:49 06/24/18 18:49 - Laboratory Result Diagrams: 06/24/18 19:05 06/24/18 19:05 Laboratory results interpreted by me: 06/24/18 06/24/18 19:05 19:05 RBC 4.21 L Hgb 12.1 L Hct 37.0 L RDW 14.6 H Monocytes % 14.0 H BUN 33 H Creatinine 1.59 H Est GFR ( Amer) 52 L Est GFR (Non-Af Amer) 43 L Glucose 207 H ALT 15 L Discharge - Discharge Clinical Impression: Lower GI bleed Renal failure Qualifiers: Renal failure chronicity: acute Acute renal failure type: unspecified Qualified Code(s): N17.9 - Acute kidney failure, unspecified Condition: Fair Disposition: ADMITTED OBSERVATION Admitting Provider: Hospitalist Unit Admitted: Telemetry
[2018-06-24] MEDS ORDERED: IPRATROPIUM/ALBUTEROL 0.5-2.5 MG/3 ML AMPUL NEB PRN (20:08)
[2018-06-24] MEDS ORDERED: LACTULOSE SYRUP 20 GM/30 ML UDCUP PO ONE (20:08)
[2018-06-24] MEDS ORDERED: ONDANSETRON HCL INJ/PF 4 MG/2 ML SDV IV PRN (20:08)
[2018-06-24] MEDS ORDERED: ACETAMINOPHEN 325 MG TABLET PO PRN (20:08)
[2018-06-24] MEDS ORDERED: DEXTROSE 40% GEL 15 GM TUBE PO PRN ×2 (20:12)
[2018-06-24] MEDS ORDERED: GLUCAGON,HUMAN RECOMB 1 MG INJ IM PRN (20:12)
[2018-06-24] MEDS ORDERED: DEXTROSE 50%-WATER 25 GM/50 ML DISP.SYRIN IV PRN ×2 (20:12)
[2018-06-24 20:22] LABS: INTERNATIONAL RATION (INR) 0.98; PROTHROMBIN TIME 13.5 SEC (11.4-15.4)
--- NOTE | 2018-06-24 20:53 | RADIOLOGY REPORT (SQ) ---
EXAM DESCRIPTION: ACUTE ABDOMEN SERIES COMPLETED DATE/TIME: 06/24/2018 8:39 pm REASON FOR STUDY: gi bleed COMPARISON: 04/21/2018 NUMBER OF VIEWS: Three views. TECHNIQUE: Frontal chest, supine abdomen and upright/decubitus abdomen radiographic images acquired. LIMITATIONS: None. FINDINGS: CHEST: Lungs clear of infiltrates. Cardiomegaly. FREE AIR: None. No abnormal gas collections. BOWEL GAS PATTERN: Nonobstructive pattern. No dilated loops or air fluid levels. CALCIFICATIONS: No suspicious calcifications. HARDWARE: None in the abdomen. SOFT TISSUES: No gross mass or suggestion of organomegaly. BONES: No acute fracture. No worrisome bone lesions. OTHER: Status post cholecystectomy. IMPRESSION: 1. Cardiomegaly without acute abnormality of the lungs. No focal airspace opacity. 2. General paucity of small bowel gas, a nonspecific pattern. No obvious fluid distended loops of b owel to suggest obstruction. Gas and stool are present to the rectum. No free air in the abdomen. TECHNICAL DOCUMENTATION: JOB ID: [id number] [employer]- All Rights Reserved Reading location - IP/workstation name: [email or web address]
[2018-06-24] MEDS ORDERED: LEVOFLOXACIN 750 MG/D5W RTU 750 MG/150 ML RTUPB IV ONE (21:00)
[2018-06-24] MEDS: METRONIDAZOLE 500 MG TABLET PO SCH (21:24)
[2018-06-24 22:00] LABS: ABSOLUTE BASOPHILS # (AUTO) 0.1 10^3/uL (0.0-0.2); ABSOLUTE EOSINOPHILS # (AUTO) 0.2 10^3/uL (0.0-0.6); ABSOLUTE LYMPHOCYTES (AUTO) 1.4 10^3/uL (0.5-4.7); ABSOLUTE MONOCYTES (AUTO) 0.8 10^3/uL (0.1-1.4); ABSOLUTE NEUT (AUTO) 3.6 10^3/uL (1.7-8.2); BASOPHILS % (AUTO) 0.9 % (0-2); EOSINOPHILS % (AUTO) 3.3 % (0-6); HEMATOCRIT 35.6 % (37.9-51.0); HEMOGLOBIN 11.7 g/dL (13.5-17.0); MEAN CORPUSCULAR HGB CONC 32.9 g/dL (32.0-36.0); MEAN CORPUSCULAR VOLUME 88 fl (80-97); MONOCYTES % (AUTO) 13.6 % (3-13); PLATELET COUNT 180 10^3/uL (150-450); RED BLOOD COUNT 4.03 10^6/uL (4.35-5.55); RED CELL DISTRIBUTION WIDTH 14.3 % (11.5-14.0); SEGMENTED NEUTROPHILS % (AUTO) 59.2 % (42-78); TOTAL CELLS COUNTED % (AUTO) 100 %
[2018-06-24] MEDS: HEPARIN SOD (PORCINE) 5,000 UNIT/ML 1 ML SYRINGE SUBCUT SCH (22:45)
[2018-06-24] MEDS: CARVEDILOL 12.5 MG TABLET PO SCH (22:49)
[2018-06-24] MEDS: NORMAL SALINE 1000 ML 1,000 ML IV PRN (22:50)
[2018-06-25] MEDS: NORMAL SALINE 1000 ML 1,000 ML IV PRN (02:47)
[2018-06-25] MEDS: METRONIDAZOLE 500 MG TABLET PO SCH ×2 (02:47→11:39)
[2018-06-25 05:31] LABS: ABSOLUTE EOSINOPHILS # (AUTO) 0.2 10^3/uL (0.0-0.6); ABSOLUTE LYMPHOCYTES (AUTO) 1.6 10^3/uL (0.5-4.7); ABSOLUTE NEUT (AUTO) 2.9 10^3/uL (1.7-8.2); BASOPHILS % (AUTO) 0.8 % (0-2); EOSINOPHILS % (AUTO) 2.8 % (0-6); HEMATOCRIT 35.7 % (37.9-51.0); HEMOGLOBIN 11.6 g/dL (13.5-17.0); LYMPHOCYTES % (AUTO) 27.8 % (13-45); MEAN CORPUSCULAR HEMOGLOBIN 28.9 pg (27.0-33.4); MEAN CORPUSCULAR HGB CONC 32.4 g/dL (32.0-36.0); MEAN CORPUSCULAR VOLUME 89 fl (80-97); MONOCYTES % (AUTO) 17.5 % (3-13); PLATELET COUNT 172 10^3/uL (150-450); RED BLOOD COUNT 4.01 10^6/uL (4.35-5.55); RED CELL DISTRIBUTION WIDTH 14.5 % (11.5-14.0); SEGMENTED NEUTROPHILS % (AUTO) 51.1 % (42-78); TOTAL CELLS COUNTED % (AUTO) 100 %; WHITE BLOOD COUNT 5.8 10^3/uL (4.0-10.5)
[2018-06-25 06:01] LABS: ANION GAP 9 (5-19); BLOOD UREA NITROGEN 30 mg/dL (7-20); CALCIUM 8.9 mg/dL (8.4-10.2); CARBON DIOXIDE 24 mmol/L (22-30); CHLORIDE 108 mmol/L (98-107); GLUCOSE 137 mg/dL (75-110); POTASSIUM 4.3 mmol/L (3.6-5.0); SODIUM 140.8 mmol/L (137-145)
--- NOTE | 2018-06-25 06:26 | PDOC H&P ---
History of Present Illness Admission Date/PCP: 06/24/18 20:20 GENE WIKC PA-C Patient complains of: Right red blood per rectum History of Present Illness: JOEL MARIE is a 77 year old male with a past medical history of A. fib on Xarelto, diverticulosis, hypertension, obesity and recent colonoscopy but unidentified source of lower GI bleed 20 days ago. Patient presents with several episodes of bright red blood per rectum, complaints of constipation. Denies fever chills nausea or vomiting. In the emergency room is found to have a drop in his hemoglobin from 12.9-12.1 from 17 days ago. Patient admits to constipation and straining but denies pain. He is referred to the hospitalist for admission. Past Medical History Cardiac Medical History: Reports: Atrial Fibrillation, Hyperlipidema, Hypertension Denies: Coronary Artery Disease, Myocardial Infarction Pulmonary Medical History: Reports: Chronic Obstructive Pulmonary Disease (COPD) Denies: Asthma, Bronchitis, Pneumonia Neurological Medical History: Denies: Seizures Endocrine Medical History: Reports: Diabetes Mellitus Type 1, Diabetes Mellitus Type 2 GI Medical History: Reports: Gastroesophageal Reflux Disease Musculoskeltal Medical History: Reports: Arthritis - GENERALIZED Psychiatric Medical History: Denies: Depression Past Surgical History Past Surgical History: Reports: Appendectomy, Cholecystectomy, Herniorrhaphy, Orthopedic Surgery - back x2 with hardware Denies: Pacemaker Social History Information Source: Patient Lives with: Family Smoking Status: Never Smoker Frequency of Alcohol Use: None Hx Recreational Drug Use: No Drugs: None Hx Prescription Drug Abuse: No - Advance Directive Resuscitation Status: Full Code Family History Family History: Hypertension Parental Family History Reviewed: Yes Children Family History Reviewed: Yes Sibling(s) Family History Reviewed.: Yes Medication/Allergy Home Medications: Albuterol Sulfate [Ventolin 0.083% Neb 2.5 mg/3 mL Ampul] 1 vial NEB RTQ6HP PRN 04/21/18 Atorvastatin Calcium [Lipitor 10 mg Tablet] 10 mg PO DAILY 04/21/18 Carvedilol [Coreg 25 mg Tablet] 25 mg PO Q12 04/21/18 Chlorthalidone [Chlorthalidone 25 mg Tablet] 25 mg PO DAILY 04/21/18 Ergocalciferol (Vitamin D2) [Vitamin D2] 50,000 unit PO WHITE@1000 04/21/18 Famotidine [Pepcid 20 mg Tablet] 40 mg PO BID 04/21/18 Hum Insulin NPH/Reg Insulin Hm [Novolin 70-30 100 Unit/ml Vial] 0 unit SQ .SLD SCALE 04/21/18 Loratadine [Claritin 10 mg Tablet] 10 mg PO DAILY 04/21/18 Pioglitazone HCl [Actos 15 mg Tablet] 15 mg PO DAILY 04/21/18 Sertraline HCl [Zoloft 50 mg Tablet] 50 mg PO DAILY 04/21/18 Allergies/Adverse Reactions: aspirin [Aspirin] Allergy (Intermediate, Verified 06/24/18 20:32) bleeding ulcers codeine [Codeine] Allergy (Intermediate, Verified 06/24/18 20:32) bleeding ulcers Review of Systems Constitutional: ABSENT: chills, fever(s), headache(s), weight gain, weight loss Eyes: ABSENT: visual disturbances Ears: ABSENT: hearing changes Cardiovascular: ABSENT: chest pain, dyspnea on exertion, edema, orthropnea, palpitations Respiratory: ABSENT: cough, hemoptysis Gastrointestinal: ABSENT: abdominal pain, constipation, diarrhea, hematemesis, hematochezia, nausea, vomiting Genitourinary: ABSENT: dysuria, hematuria Musculoskeletal: ABSENT: joint swelling Integumentary: ABSENT: rash, wounds Neurological: ABSENT: abnormal gait, abnormal speech, confusion, dizziness, focal weakness, syncope Psychiatric: ABSENT: anxiety, depression, homidical ideation, suicidal ideation Endocrine: ABSENT: cold intolerance, heat intolerance, polydipsia, polyuria Hematologic/Lymphatic: ABSENT: easy bleeding, easy bruising Physical Exam Vital Signs: Temp Pulse Resp BP Pulse Ox 97.8 F 87 17 126/87 H 97 06/24/18 22:32 06/25/18 02:00 06/24/18 22:32 06/24/18 22:32 06/24/18 22:32 Intake & Output 06/23/18 06/24/18 06/25/18 11:59 11:59 11:59 Intake Total 1138 Balance 1138 Weight 106.4 kg General appearance: PRESENT: no acute distress, well-developed, well-nourished Head exam: PRESENT: atraumatic, normocephalic Eye exam: PRESENT: conjunctiva pink, EOMI, PERRLA. ABSENT: scleral icterus Ear exam: PRESENT: normal external ear exam Mouth exam: PRESENT: moist, tongue midline Neck exam: ABSENT: carotid bruit, JVD, lymphadenopathy, thyromegaly Respiratory exam: PRESENT: clear to auscultation jake. ABSENT: rales, rhonchi, wheezes Cardiovascular exam: PRESENT: RRR. ABSENT: diastolic murmur, rubs, systolic murmur Pulses: PRESENT: normal dorsalis pedis pul Vascular exam: PRESENT: normal capillary refill GI/Abdominal exam: PRESENT: normal bowel sounds, soft. ABSENT: distended, guarding, mass, organolmegaly, rebound, tenderness Rectal exam: PRESENT: deferred Extremities exam: PRESENT: full ROM. ABSENT: calf tenderness, clubbing, pedal edema Neurological exam: PRESENT: alert, awake, oriented to person, oriented to place, oriented to time, oriented to situation, CN II-XII grossly intact. ABSENT: motor sensory deficit Psychiatric exam: PRESENT: appropriate affect, normal mood. ABSENT: homicidal ideation, suicidal ideation Skin exam: PRESENT: dry, intact, warm. ABSENT: cyanosis, rash Results Laboratory Results: 06/25/18 04:31 06/24/18 06/24/18 06/24/18 19:05 19:05 19:05 WBC 5.6 RBC 4.21 L Hgb 12.1 L Hct 37.0 L MCV 88 MCH 28.8 MCHC 32.7 RDW 14.6 H Plt Count 191 Seg Neutrophils % 61.8 Lymphocytes % 20.9 Monocytes % 14.0 H Eosinophils % 2.6 Basophils % 0.7 Absolute Neutrophils 3.4 Absolute Lymphocytes 1.2 Absolute Monocytes 0.8 Absolute Eosinophils 0.1 Absolute Basophils 0.0 Sodium 140.0 Potassium 5.0 Chloride 105 Carbon Dioxide 25 Anion Gap 10 BUN 33 H Creatinine 1.59 H Est GFR ( Amer) 52 L Est GFR (Non-Af Amer) 43 L Glucose 207 H Calcium 9.3 Total Bilirubin 0.3 AST 17 ALT 15 L Alkaline Phosphatase 69 Total Protein 7.2 Albumin 4.0 Blood Type A POSITIVE Antibody Screen NEGATIVE 06/24/18 06/25/18 21:50 04:31 WBC 6.0 5.8 RBC 4.03 L 4.01 L Hgb 11.7 L 11.6 L Hct 35.6 L 35.7 L MCV 88 89 MCH 29.0 28.9 MCHC 32.9 32.4 RDW 14.3 H 14.5 H Plt Count 180 172 Seg Neutrophils % 59.2 51.1 Lymphocytes % 23.0 27.8 Monocytes % 13.6 H 17.5 H Eosinophils % 3.3 2.8 Basophils % 0.9 0.8 Absolute Neutrophils 3.6 2.9 Absolute Lymphocytes 1.4 1.6 Absolute Monocytes 0.8 1.0 Absolute Eosinophils 0.2 0.2 Absolute Basophils 0.1 0.0 Sodium Potassium Chloride Carbon Dioxide Anion Gap BUN Creatinine Est GFR ( Amer) Est GFR (Non-Af Amer) Glucose Calcium Total Bilirubin AST ALT Alkaline Phosphatase Total Protein Albumin Blood Type Antibody Screen Impressions: Acute Abdomen Series 06/24/18 20:11 IMPRESSION: 1. Cardiomegaly without acute abnormality of the lungs. No focal airspace opacity. 2. General paucity of small bowel gas, a nonspecific pattern. No obvious fluid distended loops of bowel to suggest obstruction. Gas and stool are present to the rectum. No free air in the abdomen. Assessment & Plan - Diagnosis (1) Lower GI bleed Is this a current diagnosis for this admission?: Yes Plan: Likely diverticular given history of diverticulosis and current constipation with straining, empiric antibiotics, follow-up serial CBC, clear liquid diet. GI consult as needed (2) Atrial fibrillation Qualifiers: Atrial fibrillation type: chronic Qualified Code(s): I48.2 - Chronic atrial fibrillation Is this a current diagnosis for this admission?: Yes Plan: Rate controlled continue outpatient regiment (3) CKD (chronic kidney disease), stage III Is this a current diagnosis for this admission?: Yes Plan: At baseline continue outpatient regiment, avoid nephrotoxic meds and doses - Time Time Spent: 50 to 70 Minutes - Inpatient Certification Medical Necessity: Need Close Monitoring Due to Risk of Patient Decompensation
[2018-06-25] MEDS: HEPARIN SOD (PORCINE) 5,000 UNIT/ML 1 ML SYRINGE SUBCUT SCH (06:31)
--- NOTE | 2018-06-25 08:30 | PDOC CONSULTATION ---
Consultation Consult Date: 06/25/18 Consult reason:: bright red blood per rectum History of Present Illness Admission Date/PCP: 06/24/18 20:20 GENE WICK PA-C Patient complains of: Bright red blood per rectum with bowel movements History of Present Illness: JOEL MARIE is a 77 year old male with a history of bright red rectal bleeding. The patient had hemorrhoids in the past. He recently underwent colonoscopy and EGD were gastritis was found. He had no significant abnormalities within the colon. The patient reports that yesterday he was straining to have a bowel movement and had a bloody, watery movement. He has not had any bleeding since. The patient does not have spontaneous bleeding. He denies chest pain, shortness of breath, fevers, chills, orthostasis, dizziness, weakness, fatigue, malaise, abdominal pain, sore throat, blurry vision. The patient does not take any fiber supplements. He does have a history of peptic ulcer disease. Past Medical History Cardiac Medical History: Reports: Atrial Fibrillation, Hyperlipidema, Hyper tension Denies: Coronary Artery Disease, Myocardial Infarction Pulmonary Medical History: Reports: Chronic Obstructive Pulmonary Disease (COPD) Denies: Asthma, Bronchitis, Pneumonia Neurological Medical History: Denies: Seizures Endocrine Medical History: Reports: Diabetes Mellitus Type 1, Diabetes Mellitus Type 2 GI Medical History: Reports: Gastroesophageal Reflux Disease, Peptic Ulcer Disea se Musculoskeltal Medical History: Reports: Arthritis - GENERALIZED Psychiatric Medical History: Denies: Depression Past Surgical History Past Surgical History: Reports: Appendectomy, Cholecystectomy, Herniorrhaphy, Orthopedic Surgery - back x2 with hardware Denies: Pacemaker Social History Lives with: Family Smoking Status: Never Smoker Frequency of Alcohol Use: None Hx Recreational Drug Use: No Drugs: None Hx Prescription Drug Abuse: No - Advance Directive Resuscitation Status: Full Code Family History Family History: Hypertension Parental Family History Reviewed: Yes Children Family History Reviewed: Yes Sibling(s) Family History Reviewed.: Yes Medication/Allergy Home Medications: Albuterol Sulfate [Ventolin 0.083% Neb 2.5 mg/3 mL Ampul] 1 vial NEB RTQ6HP PRN 04/21/18 Atorvastatin Calcium [Lipitor 10 mg Tablet] 10 mg PO DAILY 04/21/18 Carvedilol [Coreg 25 mg Tablet] 25 mg PO Q12 04/21/18 Chlorthalidone [Chlorthalidone 25 mg Tablet] 25 mg PO DAILY 04/21/18 Ergocalciferol (Vitamin D2) [Vitamin D2] 50,000 unit PO WHITE@1000 04/21/18 Famotidine [Pepcid 20 mg Tablet] 40 mg PO BID 04/21/18 Hum Insulin NPH/Reg Insulin Hm [Novolin 70-30 100 Unit/ml Vial] 0 unit SQ .SLD SCALE 04/21/18 Loratadine [Claritin 10 mg Tablet] 10 mg PO DAILY 04/21/18 Pioglitazone HCl [Actos 15 mg Tablet] 15 mg PO DAILY 04/21/18 Sertraline HCl [Zoloft 50 mg Tablet] 50 mg PO DAILY 04/21/18 Allergies/Adverse Reactions: aspirin [Aspirin] Allergy (Intermediate, Verified 06/24/18 20:32) bleeding ulcers codeine [Codeine] Allergy (Intermediate, Verified 06/24/18 20:32) bleeding ulcers Review of Systems Constitutional: ABSENT: anorexia, chills, fatigue, fever(s), headache(s), weakness Eyes: ABSENT: visual disturbances Ears: ABSENT: hearing changes Nose, Mouth, and Throat: ABSENT: sore throat Cardiovascular: ABSENT: chest pain, palpitations Respiratory: ABSENT: cough, dyspnea Gastrointestinal: PRESENT: hematochezia. ABSENT: abdominal pain, nausea, vomiting Genitourinary: ABSENT: dysuria Musculoskeletal: ABSENT: back pain Integumentary: ABSENT: pruritus, rash Neurological: ABSENT: confusion, convulsions, dizziness, weakness Psychiatric: ABSENT: anxiety, depression Endocrine: ABSENT: cold intolerance, heat intolerance Hematologic/Lymphatic: ABSENT: easy bleeding, easy bruising Physical Exam Vital Signs: Temp Pulse Resp BP Pulse Ox 97.7 F 94 19 123/76 99 06/25/18 04:00 06/25/18 04:00 06/25/18 04:00 06/25/18 04:00 06/25/18 04:00 Intake & Output 06/24/18 06/25/18 06/26/18 06:59 06:59 06:59 Intake Total 1538 Balance 1538 Weight 106.4 kg General appearance: PRESENT: no acute distress, obese Head exam: PRESENT: atraumatic, normocephalic Eye exam: PRESENT: EOMI, PERRLA Mouth exam: PRESENT: neck supple Neck exam: ABSENT: meningismus, tenderness, thyromegaly, tracheal deviation Respiratory exam: PRESENT: clear to auscultation jake, unlabored. ABSENT: chest wall tenderness, tachypnea, wheezes Cardiovascular exam: PRESENT: RRR Pulses: PRESENT: normal radial pulses Vascular exam: PRESENT: normal capillary refill. ABSENT: pallor GI/Abdominal exam: ABSENT: distended Rectal exam: PRESENT: hemorrhoids - Internal, prolapsing with Valsalva Extremities exam: ABSENT: clubbing Musculoskeletal exam: ABSENT: deformity Neurological exam: PRESENT: alert, awake, oriented to person, oriented to place, oriented to time, oriented to situation, CN II-XII grossly intact. ABSENT: mot or sensory deficit Psychiatric exam: ABSENT: agitated, anxious, depressed Focused psych exam: ABSENT: delusional Skin exam: ABSENT: cyanosis, erythema, jaundice Results Laboratory Results: 06/25/18 04:31 06/25/18 04:31 06/24/18 06/24/18 06/24/18 19:05 19:05 19:05 WBC 5.6 RBC 4.21 L Hgb 12.1 L Hct 37.0 L MCV 88 MCH 28.8 MCHC 32.7 RDW 14.6 H Plt Count 191 Seg Neutrophils % 61.8 Lymphocytes % 20.9 Monocytes % 14.0 H Eosinophils % 2.6 Basophils % 0.7 Absolute Neutrophils 3.4 Absolute Lymphocytes 1.2 Absolute Monocytes 0.8 Absolute Eosinophils 0.1 Absolute Basophils 0.0 Sodium 140.0 Potassium 5.0 Chloride 105 Carbon Dioxide 25 Anion Gap 10 BUN 33 H Creatinine 1.59 H Est GFR ( Amer) 52 L Est GFR (Non-Af Amer) 43 L Glucose 207 H Calcium 9.3 Total Bilirubin 0.3 AST 17 ALT 15 L Alkaline Phosphatase 69 Total Protein 7.2 Albumin 4.0 Blood Type A POSITIVE Antibody Screen NEGATIVE 06/24/18 06/25/18 06/25/18 21:50 04:31 04:31 WBC 6.0 5.8 RBC 4.03 L 4.01 L Hgb 11.7 L 11.6 L Hct 35.6 L 35.7 L MCV 88 89 MCH 29.0 28.9 MCHC 32.9 32.4 RDW 14.3 H 14.5 H Plt Count 180 172 Seg Neutrophils % 59.2 51.1 Lymphocytes % 23.0 27.8 Monocytes % 13.6 H 17.5 H Eosinophils % 3.3 2.8 Basophils % 0.9 0.8 Absolute Neutrophils 3.6 2.9 Absolute Lymphocytes 1.4 1.6 Absolute Monocytes 0.8 1.0 Absolute Eosinophils 0.2 0.2 Absolute Basophils 0.1 0.0 Sodium 140.8 Potassium 4.3 Chloride 108 H Carbon Dioxide 24 Anion Gap 9 BUN 30 H Creatinine 1.48 H Est GFR ( Amer) 56 L Est GFR (Non-Af Amer) 46 L Glucose 137 H Calcium 8.9 Total Bilirubin AST ALT Alkaline Phosphatase Total Protein Albumin Blood Type Antibody Screen Impressions: Acute Abdomen Series 06/24/18 20:11 IMPRESSION: 1. Cardiomegaly without acute abnormality of the lungs. No focal airspace opacity. 2. General paucity of small bowel gas, a nonspecific pattern. No obvious fluid distended loops of bowel to suggest obstruction. Gas and stool are present to the rectum. No free air in the abdomen. Assessment & Plan - Diagnosis (1) Lower GI bleed Is this a current diagnosis for this admission?: Yes - Plan Summary Plan Summary: This is a 77-year-old male with bright red blood per rectum. The patient recently underwent colonoscopy which was completely negative. On exam, I believe the patient has slightly prolapsing internal hemorrhoids. This may be the source of his rectal bleeding with bowel movements. I have offered him rubber band ligation of internal hemorrhoids. The patient has agreed to this. Risks/benefits discussed, informed consent obtained, and all questions answered. I do not believe the patient would benefit from EGD or colonoscopy, as he recently underwent these tests. I do not believe they would add any further information to the patient's workup.
[2018-06-25] MEDS ORDERED: PROPOFOL INJ 200 MG/20 ML VIAL IV ONE (09:00)
[2018-06-25] MEDS ORDERED: MIDAZOLAM 2 MG/2 ML INJ ONE (09:00)
[2018-06-25] MEDS ORDERED: FENTANYL CITRATE INJ/PF 100 MCG/2 ML AMPUL ONE (09:00)
[2018-06-25] MEDS ORDERED: PROMETHAZINE HCL INJ 25 MG/1 ML VIAL IV PRN ×2 (09:25)
[2018-06-25] MEDS ORDERED: MORPHINE SULFATE 10 MG/ML INJ IV PRN (09:25)
[2018-06-25] MEDS ORDERED: MEPERIDINE HCL/PF INJ 25 MG/1 ML DISP.SYRIN IV PRN (09:25)
[2018-06-25] MEDS ORDERED: FENTANYL CITRATE INJ/PF 100 MCG/2 ML AMPUL IV PRN ×3 (09:25)
[2018-06-25] MEDS ORDERED: DIPHENHYDRAMINE HCL 50 MG/ML VIAL IV PRN (09:25)
--- NOTE | 2018-06-25 09:35 | Operative Report ---
Nonrecallable Operative Report DATE OF SURGERY: 06/25/18 PREOPERATIVE DIAGNOSIS: Rectal bleeding and internal hemorrhoids POSTOPERATIVE DIAGNOSIS: Same as above OPERATION: Rubber band ligation of internal hemorrhoids x4 SURGEON: ROSE REEVES ANESTHESIA: LMAC TISSUE REMOVED OR ALTERED: None COMPLICATIONS: None apparent ESTIMATED BLOOD LOSS: Minimal PROCEDURE: Drains/implants: None. Procedure in detail: After informed consent was obtained, the patient was brought to the operating room laid in the right lateral decubitus position. The Cory-Marilyn retractor was inserted into the rectum, after adequate anesthesia was obtained. Enlarged hemorrhoids were found in all 3 positions (left lateral, right posterior, and right anterior). The largest of the hemorrhoids was found in the right posterior position. There was a minimal amount of bleeding in the right posterior position. I believe this is where the patient's rectal bleeding is coming from. 2 rubber bands were placed around hemorrhoids in the right posterior position, 1 rubber band was placed in the right anterior position, 1 rubber band was placed in the left lateral position. Once all 4 rubber bands were placed, the retractor was removed, and the procedure was concluded. All sponge, instrument, and needle counts were correct x2. Condition: Stable.
--- NOTE | 2018-06-25 09:37 | Progress Note ---
Provider Note Provider Note: Warm sitz baths twice daily and after bowel movements in warm soapy water. Tylenol for pain. Follow-up with Dr. Peralta at [facility] in 2-3 weeks. Fiber supplement twice daily. Okay for discharge from a surgical standpoint.
[2018-06-25] MEDS: CHLORTHALIDONE 25 MG TABLET PO SCH (11:22)
[2018-06-25] MEDS: CARVEDILOL 12.5 MG TABLET PO SCH ×2 (11:23→21:44)
[2018-06-25] MEDS: FAMOTIDINE 20 MG TABLET PO SCH ×2 (11:23→17:12)
[2018-06-25] MEDS ORDERED: METRONIDAZOLE 500 MG TABLET PO SCH (12:00)
--- NOTE | 2018-06-25 13:20 | PDOC PROGRESS REPORT ---
Subjective Progress Note for:: 06/25/18 Subjective:: This is a 77 year old male with a past medical history of A. fib (was on Xarelto), diverticulosis, hypertension, obesity and insulin-dependent diabetes mellitus who presented with bright red blood per rectum. He was promptly evaluated by surgery and was noted to have enlarged hemorrhoids with note of active bleeding. This was deemed as the cause of his BRBPR. Patient had mutiple bands placed on his hemorrhoids this morning 06/25/18. No other acute event. Patient says he has been off Xarelto for 3 weeks for his Afib. Discussed in length with patient and his daughter (over phone per patient request) the risks and benefits of anticoagulation. Discussed that his rectal bleed was likely from his multiple hemorrhoids and these have been banded. Discussed he has diverticulosis as well and this could also potentially bleed in the future. He does have a CHADVASC score of 4 and does have indication for chronic anticoagulation. After a lengthy discussion, patient says he wants to be resumed on Xarelto and if he develops another bleeding episode then he will pre luc to be off any anticoagulation indefinitely. Daughter also verbalized understanding and says she agrees with her father's decision. They were advised to comply with measures to avoid constipation for his diverticulosis. Discussed we'll resume his Xarelto tonight and watch overnight for any recur rence of bleeding or acute hemoglobin drop. Reason For Visit: DIVERTICULAR BLEED,CONSTIPATION Physical Exam Vital Signs: Temp Pulse Resp BP Pulse Ox 97.7 F 89 20 127/87 H 100 06/25/18 12:20 06/25/18 12:20 06/25/18 12:20 06/25/18 12:20 06/25/18 12:20 Intake & Output 06/24/18 06/25/18 06/26/18 06:59 06:59 06:59 Intake Total 1538 200 Output Total 0 Balance 1538 200 Weight 234 lb 9.149 oz General appearance: PRESENT: no acute distress, well-developed, well-nourished Head exam: PRESENT: atraumatic, normocephalic Eye exam: PRESENT: conjunctiva pink, EOMI, PERRLA. ABSENT: scleral icterus Ear exam: PRESENT: normal external ear exam Mouth exam: PRESENT: moist, tongue midline Neck exam: ABSENT: carotid bruit, JVD, lymphadenopathy, thyromegaly Respiratory exam: PRESENT: clear to auscultation jake. ABSENT: rales, rhonchi, wheezes Cardiovascular exam: PRESENT: RRR. ABSENT: diastolic murmur, rubs, systolic murmur Pulses: PRESENT: normal dorsalis pedis pul GI/Abdominal exam: PRESENT: normal bowel sounds, soft. ABSENT: guarding, mass, organolmegaly, rebound, tenderness Rectal exam: PRESENT: deferred Neurological exam: PRESENT: alert, awake, oriented to person, oriented to place, oriented to time, oriented to situation, CN II-XII grossly intact. ABSENT: motor sensory deficit Results Laboratory Results: 06/25/18 04:31 06/25/18 04:31 06/24/18 06/24/18 06/24/18 19:05 19:05 19:05 WBC 5.6 RBC 4.21 L Hgb 12.1 L Hct 37.0 L MCV 88 MCH 28.8 MCHC 32.7 RDW 14.6 H Plt Count 191 Seg Neutrophils % 61.8 Lymphocytes % 20.9 Monocytes % 14.0 H Eosinophils % 2.6 Basophils % 0.7 Absolute Neutrophils 3.4 Absolute Lymphocytes 1.2 Absolute Monocytes 0.8 Absolute Eosinophils 0.1 Absolute Basophils 0.0 Sodium 140.0 Potassium 5.0 Chloride 105 Carbon Dioxide 25 Anion Gap 10 BUN 33 H Creatinine 1.59 H Est GFR ( Amer) 52 L Est GFR (Non-Af Amer) 43 L Glucose 207 H Calcium 9.3 Total Bilirubin 0.3 AST 17 ALT 15 L Alkaline Phosphatase 69 Total Protein 7.2 Albumin 4.0 Blood Type A POSITIVE Antibody Screen NEGATIVE 06/24/18 06/25/18 06/25/18 21:50 04:31 04:31 WBC 6.0 5.8 RBC 4.03 L 4.01 L Hgb 11.7 L 11.6 L Hct 35.6 L 35.7 L MCV 88 89 MCH 29.0 28.9 MCHC 32.9 32.4 RDW 14.3 H 14.5 H Plt Count 180 172 Seg Neutrophils % 59.2 51.1 Lymphocytes % 23.0 27.8 Monocytes % 13.6 H 17.5 H Eosinophils % 3.3 2.8 Basophils % 0.9 0.8 Absolute Neutrophils 3.6 2.9 Absolute Lymphocytes 1.4 1.6 Absolute Monocytes 0.8 1.0 Absolute Eosinophils 0.2 0.2 Absolute Basophils 0.1 0.0 Sodium 140.8 Potassium 4.3 Chloride 108 H Carbon Dioxide 24 Anion Gap 9 BUN 30 H Creatinine 1.48 H Est GFR ( Amer) 56 L Est GFR (Non-Af Amer) 46 L Glucose 137 H Calcium 8.9 Total Bilirubin AST ALT Alkaline Phosphatase Total Protein Albumin Blood Type Antibody Screen Impressions: Acute Abdomen Series 06/24/18 20:11 IMPRESSION: 1. Cardiomegaly without acute abnormality of the lungs. No focal airspace opacity. 2. General paucity of small bowel gas, a nonspecific pattern. No obvious fluid distended loops of bowel to suggest obstruction. Gas and stool are present to the rectum. No free air in the abdomen. Assessment & Plan - Diagnosis (1) Lower GI bleed Is this a current diagnosis for this admission?: Yes Plan: Hemorrhoidal in origin. S/P multiple banding 06/25/18. (2) Acute blood loss anemia Is this a current diagnosis for this admission?: Yes Plan: Secondary to #1. Will recheck Hb this afternoon. (3) Paroxysmal atrial fibrillation Is this a current diagnosis for this admission?: Yes Plan: Patient says he has been off Xarelto for 3 weeks for his Afib. Discussed in length with patient and his daughter (over phone per patient request) the risks and benefits of anticoagulation. Discussed that his rectal bleed was likely from his multiple hemorrhoids and these have been banded. Discussed he has diverticulosis as well and this could also potentially bleed in the future. He does have a CHADVASC score of 4 and does have indication for chronic anticoagulation. HAS-BLED score of 2. After a lengthy discussion, patient says he wants to be resumed on Xarelto and if he develops another bleeding episode then he will prefer to be off any anticoagulation indefinitely. Daughter also verbalized understanding and says she agrees with her father's decision. They were advised to comply with measures to avoid constipation for his diverticul osis. As mentioned, will resume his Xarelto tonight and watch overnight for any recurrence of bleeding or acute hemoglobin drop. - Time Time Spent with patient: 25-34 minutes
--- NOTE | 2018-06-25 14:59 | EKG REPORT ---
SEVERITY:- ABNORMAL ECG - ATRIAL FIBRILLATION LEFT AXIS DEVIATION : Confirmed by: Kehinde Fabian MD 25-Jun-2018 14:59:12
[2018-06-25] MEDS ORDERED: POLYETHYLENE GLYCOL 3350 POWDER 17 GM/1 PACKET PO PRN (16:12)
[2018-06-25 16:14] LABS: ABSOLUTE EOSINOPHILS # (AUTO) 0.1 10^3/uL (0.0-0.6); ABSOLUTE LYMPHOCYTES (AUTO) 0.8 10^3/uL (0.5-4.7); ABSOLUTE MONOCYTES (AUTO) 0.8 10^3/uL (0.1-1.4); ABSOLUTE NEUT (AUTO) 6.4 10^3/uL (1.7-8.2); BASOPHILS % (AUTO) 0.4 % (0-2); EOSINOPHILS % (AUTO) 1.4 % (0-6); HEMATOCRIT 35.9 % (37.9-51.0); HEMOGLOBIN 11.7 g/dL (13.5-17.0); LYMPHOCYTES % (AUTO) 10.2 % (13-45); MEAN CORPUSCULAR HEMOGLOBIN 28.8 pg (27.0-33.4); MEAN CORPUSCULAR HGB CONC 32.5 g/dL (32.0-36.0); MEAN CORPUSCULAR VOLUME 89 fl (80-97); MONOCYTES % (AUTO) 9.7 % (3-13); PLATELET COUNT 166 10^3/uL (150-450); RED BLOOD COUNT 4.05 10^6/uL (4.35-5.55); RED CELL DISTRIBUTION WIDTH 14.3 % (11.5-14.0); SEGMENTED NEUTROPHILS % (AUTO) 78.3 % (42-78); TOTAL CELLS COUNTED % (AUTO) 100 %; WHITE BLOOD COUNT 8.2 10^3/uL (4.0-10.5)
[2018-06-25] MEDS ORDERED: RIVAROXABAN 15 MG TABLET PO SCH (17:00)
[2018-06-25] MEDS: INSULIN LISPRO 100 UNIT/ML 3 ML VIAL SUBCUT PRN ×2 (17:12→21:48)
[2018-06-25] MEDS ORDERED: LEVOFLOXACIN 750 MG/D5W RTU 750 MG/150 ML RTUPB IV SCH (18:00)
[2018-06-25] MEDS ORDERED: PSYLLIUM SEED-SF 5.85 GM PACKET PO ONE (20:45)
[2018-06-25] MEDS ORDERED: LIDOCAINE 4%/TETRACAINE 0.5%/EPI 0.18% 5 ML TOPICAL SOLN TOP ONE (20:45)
[2018-06-25] MEDS ORDERED: LIDOCAINE 4%/TETRACAINE 0.5%/EPI 0.18% 5 ML TOPICAL SOLN ONE (21:04)
[2018-06-26 05:19] LABS: HEMATOCRIT 35.2 % (37.9-51.0); HEMOGLOBIN 11.6 g/dL (13.5-17.0); MEAN CORPUSCULAR HEMOGLOBIN 29.1 pg (27.0-33.4); MEAN CORPUSCULAR HGB CONC 32.9 g/dL (32.0-36.0); MEAN CORPUSCULAR VOLUME 88 fl (80-97); PLATELET COUNT 159 10^3/uL (150-450); RED BLOOD COUNT 3.98 10^6/uL (4.35-5.55); RED CELL DISTRIBUTION WIDTH 14.5 % (11.5-14.0); WHITE BLOOD COUNT 6.5 10^3/uL (4.0-10.5)
[2018-06-26] MEDS: CHLORTHALIDONE 25 MG TABLET PO SCH (10:31)
[2018-06-26] MEDS: FAMOTIDINE 20 MG TABLET PO SCH ×2 (10:31→17:28)
[2018-06-26] MEDS: CARVEDILOL 12.5 MG TABLET PO SCH ×2 (10:32→21:52)
[2018-06-26] MEDS: PSYLLIUM SEED-SF 5.85 GM PACKET PO SCH ×2 (10:32→17:28)
[2018-06-26] MEDS: LIDOCAINE 4%/TETRACAINE 0.5%/EPI 0.18% 5 ML TOPICAL SOLN TOP SCH ×3 (10:33→17:25)
--- NOTE | 2018-06-26 12:26 | PDOC PROGRESS REPORT ---
Subjective Progress Note for:: 06/26/18 Subjective:: This is a 77 year old male with a past medical history of A. fib (was on Xarelto), diverticulosis, hypertension, obesity and insulin-dependent diabetes mellitus who presented with bright red blood per rectum. He was promptly evaluated by surgery and was noted to have enlarged hemorrhoids with note of active bleeding. This was deemed as the cause of his BRBPR. Patient had mutiple bands placed on his hemorrhoids this morning 06/25/18. 06/25/18: No other acute event. Patient says he has been off Xarelto for 3 weeks for his Afib. Discussed in length with patient and his daughter (over phone per patient request) the risks and benefits of anticoagulation. Discussed that his rectal bleed was likely from his multiple hemorrhoids and these have been banded. Discussed he has diverticulosis as well and this could also potentially bleed in the future. He does have a CHADVASC score of 4 and does have indication for chronic anticoagulation. After a lengthy discussion, patient says he wants to be resumed on Xarelto and if he develops another bleeding episode then he will prefer to be off any anticoagulation indefinitely. Daughter also verbalized understanding and says she agrees with her father's decision. They were advised to comply with measures to avoid constipation for his diverticulosis. Discussed we'll resume his Xarelto tonight and watch overnight for any recurrence of bleeding or acute hemoglobin drop. 06/26/18: Patient had bright red blood on his stools early this morning (~5 tbsp bright red blood). Rediscussed with patient this morning and he expressed upon encounter that he would rather be off anticoagulation indefintely. This provider also recommended the same. He denies any other complaint. Denies abdominal pain, chest pain, or SOB or dizziness. No recurrence of bloody stools so far after mentioned episode. Will discontinue Xarelto indefinitely. Continue to recheck H&H and monitor for recurrence of bloody BM. Reason For Visit: DIVERTICULAR BLEED,CONSTIPATION Physical Exam Vital Signs: Temp Pulse Resp BP Pulse Ox 97.5 F 93 18 117/76 99 06/26/18 04:00 06/26/18 04:00 06/26/18 04:00 06/26/18 04:00 06/26/18 04:00 Intake & Output 06/25/18 06/26/18 06/27/18 06:59 06:59 06:59 Intake Total 1538 1682 Output Total 0 Balance 1538 1682 Weight 234 lb 9.149 oz General appearance: PRESENT: no acute distress, well-developed, well-nourished Head exam: PRESENT: atraumatic, normocephalic Eye exam: PRESENT: conjunctiva pink, EOMI, PERRLA. ABSENT: scleral icterus Ear exam: PRESENT: normal external ear exam Mouth exam: PRESENT: moist, tongue midline Neck exam: ABSENT: carotid bruit, JVD, lymphadenopathy, thyromegaly Respiratory exam: PRESENT: clear to auscultation jake. ABSENT: rales, rhonchi, wheezes Cardiovascular exam: PRESENT: RRR. ABSENT: diastolic murmur, rubs, systolic murmur Pulses: PRESENT: normal dorsalis pedis pul GI/Abdominal exam: PRESENT: normal bowel sounds, soft. ABSENT: distended, guarding, mass, organolmegaly, rebound, tenderness Rectal exam: PRESENT: deferred Neurological exam: PRESENT: alert, awake, oriented to person, oriented to place, oriented to time, oriented to situation, CN II-XII grossly intact. ABSENT: motor sensory deficit Results Laboratory Results: 06/26/18 04:58 06/25/18 04:31 06/25/18 06/26/18 16:00 04:58 WBC 8.2 6.5 RBC 4.05 L 3.98 L Hgb 11.7 L 11.6 L Hct 35.9 L 35.2 L MCV 89 88 MCH 28.8 29.1 MCHC 32.5 32.9 RDW 14.3 H 14.5 H Plt Count 166 159 Seg Neutrophils % 78.3 H Lymphocytes % 10.2 L Monocytes % 9.7 Eosinophils % 1.4 Basophils % 0.4 Absolute Neutrophils 6.4 Absolute Lymphocytes 0.8 Absolute Monocytes 0.8 Absolute Eosinophils 0.1 Absolute Basophils 0.0 Impressions: Acute Abdomen Series 06/24/18 20:11 IMPRESSION: 1. Cardiomegaly without acute abnormality of the lungs. No focal airspace opacity. 2. General paucity of small bowel gas, a nonspecific pattern. No obvious fluid distended loops of bowel to suggest obstruction. Gas and stool are present to the rectum. No free air in the abdomen. Assessment & Plan - Diagnosis (1) Lower GI bleed Is this a current diagnosis for this admission?: Yes Plan: Hemorrhoidal in origin. S/P multiple banding 06/25/18. He does have diverticulosis as well. Discontinue Xarelto indefinitely as discussed above. (2) Acute blood loss anemia Is this a current diagnosis for this admission?: Yes Plan: Secondary to #1. Hemoglobn this morning has been stable. Will continue to monitor H&H and monitor for recurrence of bloody stools. (3) Paroxysmal atrial fibrillation Is this a current diagnosis for this admission?: Yes Plan: 06/25: Patient says he has been off Xarelto for 3 weeks for his Afib. Discussed in length with patient and his daughter (over phone per patient request) the risks and benefits of anticoagulation. Discussed that his rectal bleed was likely from his multiple hemorrhoids and these have been banded. Discussed he has diverticulosis as well and this could also potentially bleed in the future. He does have a CHADVASC score of 4 and does have indication for chronic anticoagulation. Acceptable bleeding risk with a HAS-BLED score of 2. After a lengthy discussion, patient says he wants to be resumed on Xarelto and if he develops another bleeding episode then he will prefer to be off any anticoagulation indefinitely. Daughter also verbalized understanding and says she agrees with her father's decision. They were advised to comply with measures to avoid constipation for his diverticulosis. As mentioned, will resume his Xarelto tonight and watch overnight for any recurrence of bleeding or acute hemoglobin drop. 06/26: Due to recurrence of bright red bloody stools overnight, will take off patient of Xarelto as this is also his preference. - Time Time Spent with patient: 25-34 minutes
[2018-06-26 16:01] LABS: ABSOLUTE EOSINOPHILS # (AUTO) 0.2 10^3/uL (0.0-0.6); ABSOLUTE LYMPHOCYTES (AUTO) 1.1 10^3/uL (0.5-4.7); ABSOLUTE MONOCYTES (AUTO) 0.9 10^3/uL (0.1-1.4); ABSOLUTE NEUT (AUTO) 3.8 10^3/uL (1.7-8.2); BASOPHILS % (AUTO) 0.6 % (0-2); EOSINOPHILS % (AUTO) 2.5 % (0-6); HEMATOCRIT 35.7 % (37.9-51.0); HEMOGLOBIN 11.7 g/dL (13.5-17.0); LYMPHOCYTES % (AUTO) 18.9 % (13-45); MEAN CORPUSCULAR HEMOGLOBIN 28.9 pg (27.0-33.4); MEAN CORPUSCULAR HGB CONC 32.6 g/dL (32.0-36.0); MEAN CORPUSCULAR VOLUME 89 fl (80-97); MONOCYTES % (AUTO) 15.1 % (3-13); PLATELET COUNT 156 10^3/uL (150-450); RED BLOOD COUNT 4.04 10^6/uL (4.35-5.55); RED CELL DISTRIBUTION WIDTH 14.7 % (11.5-14.0); SEGMENTED NEUTROPHILS % (AUTO) 62.9 % (42-78); TOTAL CELLS COUNTED % (AUTO) 100 %; WHITE BLOOD COUNT 6.1 10^3/uL (4.0-10.5)
[2018-06-26] MEDS: INSULIN LISPRO 100 UNIT/ML 3 ML VIAL SUBCUT PRN (17:29)
[2018-06-27] MEDS: CARVEDILOL 12.5 MG TABLET PO SCH ×2 (10:00→21:33)
[2018-06-27] MEDS: FAMOTIDINE 20 MG TABLET PO SCH ×2 (10:00→17:25)
[2018-06-27] MEDS: PSYLLIUM SEED-SF 5.85 GM PACKET PO SCH ×2 (10:00→17:25)
[2018-06-27] MEDS: CHLORTHALIDONE 25 MG TABLET PO SCH (10:00)
[2018-06-27] MEDS: INSULIN LISPRO 100 UNIT/ML 3 ML VIAL SUBCUT PRN ×2 (12:37→17:25)
--- NOTE | 2018-06-27 13:50 | PDOC PROGRESS REPORT ---
Subjective Progress Note for:: 06/27/18 Subjective:: This is a 77 year old male with a past medical history of A. fib (was on Xarelto), diverticulosis, hypertension, obesity and insulin-dependent diabetes mellitus who presented with bright red blood per rectum. He was promptly evaluated by surgery and was noted to have enlarged hemorrhoids with note of active bleeding. This was deemed as the cause of his BRBPR. Patient had mutiple bands placed on his hemorrhoids this morning 06/25/18. 06/25/18: No other acute event. Patient says he has been off Xarelto for 3 weeks for his Afib. Discussed in length with patient and his daughter (over phone per patient request) the risks and benefits of anticoagulation. Discussed that his rectal bleed was likely from his multiple hemorrhoids and these have been banded. Discussed he has diverticulosis as well and this could also potentially bleed in the future. He does have a CHADVASC score of 4 and does have indication for chronic anticoagulation. After a lengthy discussion, patient says he wants to be resumed on Xarelto and if he develops another bleeding episode then he will prefer to be off any anticoagulation indefinitely. Daughter also verbalized understanding and says she agrees with her father's decision. They were advised to comply with measures to avoid constipation for his diverticulosis. Discussed we'll resume his Xarelto tonight and watch overnight for any recurrence of bleeding or acute hemoglobin drop. 06/26/18: Patient had bright red blood on his stools early this morning (~5 tbsp bright red blood). Rediscussed with patient this morning and he expressed upon encounter that he would rather be off anticoagulation indefintely. This provider also recommended the same. He denies any other complaint. Denies abdominal pain, chest pain, or SOB or dizziness. No recurrence of bloody stools so far after mentioned episode. Will discontinue Xarelto indefinitely. Continue to recheck H&H and monitor for recurrence of bloody BM. Reason For Visit: DIVERTICULAR BLEED,CONSTIPATION 06/27/1998 [id number] male with history of A. fib on Xarelto is hypertension admitted with lower GI bleed. Status post a ligation of the hemorrhoids. Patient had bowel movement around 3 AM as per the patient he saw little bit amount of blood. He had another movement around 10:00 this morning and no blood was noticed in the stool. Before taking me home. family is concerned about recurrent bleed under wants to keep him at least another day. No acute events in the last 24 hours. Reason For Visit: LOWER GI BLEEDING, ACUTE BLOOD LOSS ANEMIA Physical Exam Vital Signs: Temp Pulse Resp BP Pulse Ox 97.6 F 85 17 134/85 H 100 06/27/18 11:35 06/27/18 11:35 06/27/18 11:35 06/27/18 11:35 06/27/18 11:35 Intake & Output 06/26/18 06/27/18 06/28/18 06:59 06:59 06:59 Intake Total 1682 1312 Output Total 0 Balance 1682 1312 Weight 104.5 kg General appearance: PRESENT: no acute distress Head exam: PRESENT: atraumatic Eye exam: PRESENT: PERRLA Mouth exam: PRESENT: dry mucosa Neck exam: ABSENT: carotid bruit, JVD, lymphadenopathy, thyromegaly Respiratory exam: PRESENT: clear to auscultation jake. ABSENT: rales, rhonchi, wheezes GI/Abdominal exam: PRESENT: normal bowel sounds, soft. ABSENT: distended, guarding, mass, organolmegaly, rebound, tenderness Extremities exam: PRESENT: full ROM. ABSENT: calf tenderness, clubbing, pedal edema Neurological exam: PRESENT: alert, awake, oriented to person, oriented to place, oriented to time, oriented to situation, CN II-XII grossly intact. ABSENT: motor sensory deficit Results Laboratory Results: 06/26/18 15:55 06/25/18 04:31 06/26/18 15:55 WBC 6.1 RBC 4.04 L Hgb 11.7 L Hct 35.7 L MCV 89 MCH 28.9 MCHC 32.6 RDW 14.7 H Plt Count 156 Seg Neutrophils % 62.9 Lymphocytes % 18.9 Monocytes % 15.1 H Eosinophils % 2.5 Basophils % 0.6 Absolute Neutrophils 3.8 Absolute Lymphocytes 1.1 Absolute Monocytes 0.9 Absolute Eosinophils 0.2 Absolute Basophils 0.0 Impressions: Acute Abdomen Series 06/24/18 20:11 IMPRESSION: 1. Cardiomegaly without acute abnormality of the lungs. No focal airspace opacity. 2. General paucity of small bowel gas, a nonspecific pattern. No obvious fluid distended loops of bowel to suggest obstruction. Gas and stool are present to the rectum. No free air in the abdomen. Assessment & Plan - Diagnosis (1) Lower GI bleed Is this a current diagnosis for this admission?: Yes Plan: 06/27/2018-patient's latest hemoglobin is 11.7. Patient complains of noticing small amount of blood this morning with bowel movement. Surgical team saw the patient and they think there is no need for EGD or colonoscopy because he has procedures done recently. Patient is found to have multiple hemorrhoids and those were banded. Also history of diverticular disease may be diverticular bleed is a possibility. Patient is on Xarelto for atrial fibrillation which was on hold for now. Plan to the family about the risk of stopping Xarelto and the patient preferred not to be on blood thinners at this at this time. (2) Paroxysmal atrial fibrillation Is this a current diagnosis for this admission?: Yes Plan: 06/25: Patient says he has been off Xarelto for 3 weeks for his Afib. Discussed in length with patient and his daughter (over phone per patient request) the risks and benefits of anticoagulation. Discussed that his rectal bleed was likely from his multiple hemorrhoids and these have been banded. Discussed he has diverticulosis as well and this could also potentially bleed in the future. He does have a CHADVASC score of 4 and does have indication for chronic anticoag ulation. Acceptable bleeding risk with a HAS-BLED score of 2. After a lengthy discussion, patient says he wants to be resumed on Xarelto and if he develops another bleeding episode then he will prefer to be off any anticoagulation indefinitely. Daughter also verbalized understanding and says she agrees with her father's decision. They were advised to comply with measures to avoid constipation for his diverticulosis. As mentioned, will resume his Xarelto tonight and watch overnight for any recurrence of bleeding or acute hemoglobin drop. 06/26: Due to recurrence of bright red bloody stools overnight, will take off patient of Xarelto as this is also his preference. 06/27/2018-patient is off Xarelto hemoglobin is stable patient noticed small amount of blood in the stool this morning. (3) Acute blood loss anemia Is this a current diagnosis for this admission?: Yes Plan: 06/27/2018 acute blood loss anemia secondary to lower GI bleed. Hemoglobin is stable around 11.7. - Time Time Spent with patient: 15-24 minutes Medications reviewed and adjusted accordingly: Yes Anticipated discharge: Home
[2018-06-28 05:38] LABS: ABSOLUTE EOSINOPHILS # (AUTO) 0.2 10^3/uL (0.0-0.6); ABSOLUTE LYMPHOCYTES (AUTO) 1.5 10^3/uL (0.5-4.7); ABSOLUTE NEUT (AUTO) 3.2 10^3/uL (1.7-8.2); BASOPHILS % (AUTO) 0.6 % (0-2); EOSINOPHILS % (AUTO) 3.6 % (0-6); HEMATOCRIT 36.6 % (37.9-51.0); LYMPHOCYTES % (AUTO) 25.4 % (13-45); MEAN CORPUSCULAR HEMOGLOBIN 28.8 pg (27.0-33.4); MEAN CORPUSCULAR HGB CONC 32.9 g/dL (32.0-36.0); MEAN CORPUSCULAR VOLUME 88 fl (80-97); MONOCYTES % (AUTO) 16.5 % (3-13); PLATELET COUNT 172 10^3/uL (150-450); RED BLOOD COUNT 4.18 10^6/uL (4.35-5.55); RED CELL DISTRIBUTION WIDTH 14.5 % (11.5-14.0); SEGMENTED NEUTROPHILS % (AUTO) 53.9 % (42-78); TOTAL CELLS COUNTED % (AUTO) 100 %
[2018-06-28 06:19] LABS: ALANINE AMINOTRANSFERASE 13 U/L (21-72); ALBUMIN 3.6 g/dL (3.5-5.0); ALKALINE PHOSPHATASE 69 U/L (38-126); ANION GAP 9 (5-19); ASPARTATE AMINO TRANSFERASE 16 U/L (17-59); BILIRUBIN,DIRECT 0.2 mg/dL (0.0-0.4); BILIRUBIN,TOTAL 0.5 mg/dL (0.2-1.3); BLOOD UREA NITROGEN 26 mg/dL (7-20); CALCIUM 9.6 mg/dL (8.4-10.2); CARBON DIOXIDE 27 mmol/L (22-30); CHLORIDE 104 mmol/L (98-107); GLUCOSE 168 mg/dL (75-110); POTASSIUM 4.3 mmol/L (3.6-5.0); SODIUM 139.7 mmol/L (137-145); TOTAL PROTEIN 6.8 g/dL (6.3-8.2)
[2018-06-28] MEDS: FAMOTIDINE 20 MG TABLET PO SCH ×2 (09:55→17:37)
[2018-06-28] MEDS: CHLORTHALIDONE 25 MG TABLET PO SCH (09:55)
[2018-06-28] MEDS: PSYLLIUM SEED-SF 5.85 GM PACKET PO SCH ×2 (09:55→17:37)
[2018-06-28] MEDS: CARVEDILOL 12.5 MG TABLET PO SCH ×2 (09:56→22:32)
[2018-06-28] MEDS: INSULIN LISPRO 100 UNIT/ML 3 ML VIAL SUBCUT PRN ×3 (11:52→22:31)
[2018-06-28] MEDS ORDERED: ALBUTEROL SULFATE 0.083% NEB 2.5 MG/3 ML AMPUL NEB PRN (13:12)
--- NOTE | 2018-06-28 13:17 | PDOC PROGRESS REPORT ---
Subjective Progress Note for:: 06/28/18 Subjective:: This is a 77 year old male with a past medical history of A. fib (was on Xarelto), diverticulosis, hypertension, obesity and insulin-dependent diabetes mellitus who presented with bright red blood per rectum. He was promptly evaluated by surgery and was noted to have enlarged hemorrhoids with note of active bleeding. This was deemed as the cause of his BRBPR. Patient had mutiple bands placed on his hemorrhoids this morning 06/25/18. 06/25/18: No other acute event. Patient says he has been off Xarelto for 3 weeks for his Afib. Discussed in length with patient and his daughter (over phone per patient request) the risks and benefits of anticoagulation. Discussed that his rectal bleed was likely from his multiple hemorrhoids and these have been banded. Discussed he has diverticulosis as well and this could also potentially bleed in the future. He does have a CHADVASC score of 4 and does have indication for chronic anticoagulation. After a lengthy discussion, patient says he wants to be resumed on Xarelto and if he develops another bleeding episode then he will prefer to be off any anticoagulation indefinitely. Daughter also verbalized understanding and says she agrees with her father's decision. They were advised to comply with measures to avoid constipation for his diverticulosis. Discussed we'll resume his Xarelto tonight and watch overnight for any recurrence of bleeding or acute hemoglobin drop. 06/26/18: Patient had bright red blood on his stools early this morning (~5 tbsp bright red blood). Rediscussed with patient this morning and he expressed upon encounter that he would rather be off anticoagulation indefintely. This provider also recommended the same. He denies any other complaint. Denies abdominal pain, chest pain, or SOB or dizziness. No recurrence of bloody stools so far after mentioned episode. Will discontinue Xarelto indefinitely. Continue to recheck H&H and monitor for recurrence of bloody BM. Reason For Visit: DIVERTICULAR BLEED,CONSTIPATION 06/27/2018 77-year-old male with history of A. fib on Xarelto is hypertension admitted with lower GI bleed. Status post a ligation of the hemorrhoids. Patient had bowel movement around 3 AM as per the patient he saw little bit amount of blood. He had another movement around 10:00 this morning and no blood was noticed in the stool. Before taking me home. family is concerned about recurrent bleed under wants to keep him at least another day. No acute events in the last 24 hours. 06/28/2018-patient is continued to have blood in the stool. Patient and family is concerned about it. Patient has hemorrhoids and they were banded by Dr. Peralta couple of days ago. pt also have a recent EGD and colonoscopy. hemoGlobin is stable around 12. Reason For Visit: LOWER GI BLEEDING,ACUTE BLOOD LOSS,ANEMIA Physical Exam Vital Signs: Temp Pulse Resp BP Pulse Ox 98.0 F 72 16 114/58 L 99 06/28/18 11:11 06/28/18 11:11 06/28/18 11:11 06/28/18 11:11 06/28/18 11:11 Intake & Output 06/27/18 06/28/18 06/29/18 06:59 06:59 06:59 Intake Total 1312 1880 Balance 1312 1880 Weight 104.5 kg General appearance: PRESENT: no acute distress Head exam: PRESENT: atraumatic Eye exam: PRESENT: PERRLA Mouth exam: PRESENT: moist Neck exam: ABSENT: carotid bruit, JVD, lymphadenopathy, thyromegaly Respiratory exam: PRESENT: clear to auscultation jake. ABSENT: rales, rhonchi, wheezes Cardiovascular exam: PRESENT: RRR. ABSENT: diastolic murmur, rubs, systolic murmur GI/Abdominal exam: PRESENT: normal bowel sounds, soft. ABSENT: distended, guarding, mass, organolmegaly, rebound, tenderness Neurological exam: PRESENT: alert, awake, oriented to person, oriented to place, oriented to time, oriented to situation, CN II-XII grossly intact. ABSENT: motor sensory deficit Psychiatric exam: PRESENT: appropriate affect, normal mood. ABSENT: homicidal ideation, suicidal ideation Results Laboratory Results: 06/28/18 05:08 06/28/18 05:08 06/28/18 06/28/18 05:08 05:08 WBC 6.0 RBC 4.18 L Hgb 12.0 L Hct 36.6 L MCV 88 MCH 28.8 MCHC 32.9 RDW 14.5 H Plt Count 172 Seg Neutrophils % 53.9 Lymphocytes % 25.4 Monocytes % 16.5 H Eosinophils % 3.6 Basophils % 0.6 Absolute Neutrophils 3.2 Absolute Lymphocytes 1.5 Absolute Monocytes 1.0 Absolute Eosinophils 0.2 Absolute Basophils 0.0 Sodium 139.7 Potassium 4.3 Chloride 104 Carbon Dioxide 27 Anion Gap 9 BUN 26 H Creatinine 1.50 H Est GFR ( Amer) 55 L Est GFR (Non-Af Amer) 46 L Glucose 168 H Calcium 9.6 Magnesium 1.5 L Total Bilirubin 0.5 AST 16 L ALT 13 L Alkaline Phosphatase 69 Total Protein 6.8 Albumin 3.6 Impressions: Acute Abdomen Series 06/24/18 20:11 IMPRESSION: 1. Cardiomegaly without acute abnormality of the lungs. No focal airspace opacity. 2. General paucity of small bowel gas, a nonspecific pattern. No obvious fluid distended loops of bowel to suggest obstruction. Gas and stool are present to the rectum. No free air in the abdomen. Assessment & Plan - Diagnosis (1) Lower GI bleed Is this a current diagnosis for this admission?: Yes Plan: 06/27/2018-patient's latest hemoglobin is 11.7. Patient complains of noticing small amount of blood this morning with bowel movement. Surgical team saw the patient and they think there is no need for EGD or colonoscopy because he has procedures done recently. Patient is found to have multiple hemorrhoids and those were banded. Also history of diverticular disease may be diverticular bleed is a possibility. Patient is on Xarelto for atrial fibrillation which was on hold for now. Plan to the family about the risk of stopping Xarelto and the patient preferred not to be on blood thinners at this at this time. 06/28/2018-latest hemoglobin is 12. Patient is continued to have a small amount of blood in the stool. Patient and the his daughter is concerned about this recurrent bleed. They want to speak to the surgeon oracle identity management consultant today. I am going to close to monitor the CBC on daily basis. I was told Dr. Peralta is going to talk to the family this evening. (2) Paroxysmal atrial fibrillation Is this a current diagnosis for this admission?: Yes Plan: 06/25: Patient says he has been off Xarelto for 3 weeks for his Afib. Discussed in length with patient and his daughter (over phone per patient request) the risks and benefits of anticoagulation. Discussed that his rectal bleed was likely from his multiple hemorrhoids and these have been banded. Discussed he has diverticulosis as well and this could also potentially bleed in the future. He does have a CHADVASC score of 4 and does have indication for chronic an ticoagulation. Acceptable bleeding risk with a HAS-BLED score of 2. After a lengthy discussion, patient says he wants to be resumed on Xarelto and if he develops another bleeding episode then he will prefer to be off any anticoagulation indefinitely. Daughter also verbalized understanding and says s he agrees with her father's decision. They were advised to comply with measures to avoid constipation for his diverticulosis. As mentioned, will resume his Xarelto tonight and watch overnight for any recurrence of bleeding or acute hemoglobin drop. 06/26: Due to recurrence of bright red bloody stools overnight, will take off patient of Xarelto as this is also his preference. 06/27/2018-patient is off Xarelto hemoglobin is stable patient noticed small amount of blood in the stool this morning. 06/28/2018 patient history of atrial fibrillation on Xarelto at home. Because of the recurrent lower GI bleed Xarelto is on hold. (3) Acute blood loss anemia Is this a current diagnosis for this admission?: Yes Plan: 06/27/2018 acute blood loss anemia secondary to lower GI bleed. Hemoglobin is stable around 11.7. 06/28/2018 patient has acute blood loss anemia secondary to lower GI bleed. Hemoglobin is stable around 12. - Time Time Spent with patient: 15-24 minutes Medications reviewed and adjusted accordingly: Yes Anticipated discharge: Home
[2018-06-28] MEDS: LISINOPRIL 5 MG TABLET PO SCH (15:57)
[2018-06-29 07:10] LABS: ABSOLUTE EOSINOPHILS # (AUTO) 0.2 10^3/uL (0.0-0.6); ABSOLUTE LYMPHOCYTES (AUTO) 1.3 10^3/uL (0.5-4.7); ABSOLUTE NEUT (AUTO) 3.6 10^3/uL (1.7-8.2); BASOPHILS % (AUTO) 0.8 % (0-2); EOSINOPHILS % (AUTO) 3.5 % (0-6); HEMATOCRIT 36.3 % (37.9-51.0); HEMOGLOBIN 12.1 g/dL (13.5-17.0); LYMPHOCYTES % (AUTO) 21.4 % (13-45); MEAN CORPUSCULAR HGB CONC 33.2 g/dL (32.0-36.0); MEAN CORPUSCULAR VOLUME 87 fl (80-97); MONOCYTES % (AUTO) 16.4 % (3-13); PLATELET COUNT 153 10^3/uL (150-450); RED BLOOD COUNT 4.16 10^6/uL (4.35-5.55); RED CELL DISTRIBUTION WIDTH 14.4 % (11.5-14.0); SEGMENTED NEUTROPHILS % (AUTO) 57.9 % (42-78); TOTAL CELLS COUNTED % (AUTO) 100 %; WHITE BLOOD COUNT 6.2 10^3/uL (4.0-10.5)
[2018-06-29] MEDS ORDERED: SERTRALINE HCL 50 MG TABLET PO SCH (10:00)
[2018-06-29] MEDS ORDERED: PIOGLITAZONE HCL 15 MG TABLET PO SCH (10:00)
[2018-06-29] MEDS ORDERED: (PENDING PHARMACY ID) (Lisinopril [Zestril] 2.5 MG) PO SCH (10:00)
[2018-06-29] MEDS ORDERED: LORATADINE 10 MG TABLET PO SCH (10:00)
[2018-06-29] MEDS ORDERED: ATORVASTATIN CALCIUM 10 MG TABLET PO SCH (10:00)
[2018-06-29] MEDS: CARVEDILOL 12.5 MG TABLET PO SCH (11:34)
[2018-06-29] MEDS: FAMOTIDINE 20 MG TABLET PO SCH (11:34)
[2018-06-29] MEDS: CHLORTHALIDONE 25 MG TABLET PO SCH (11:54)
[2018-06-29] MEDS: PSYLLIUM SEED-SF 5.85 GM PACKET PO SCH (11:55)
[2018-06-29] MEDS: LISINOPRIL 5 MG TABLET PO SCH (12:00)
[2018-06-29] MEDS: INSULIN LISPRO 100 UNIT/ML 3 ML VIAL SUBCUT PRN (12:01)
[2018-06-29 14:03] VITALS: BP 132/71
--- NOTE | 2018-06-29 14:41 | PDOC DISCHARGE SUMMARY ---
General - Admit/Disc Date/PCP Admission Date/Primary Care Provider: 06/26/18 14:01 GENE WICK PA-C Discharge Date: 06/29/18 - Discharge Diagnosis (1) Lower GI bleed Is this a current diagnosis for this admission?: Yes Summary: 06/27/2018-patient's latest hemoglobin is 11.7. Patient complains of noticing small amount of blood this morning with bowel movement. Surgical team saw the patient and they think there is no need for EGD or colonoscopy because he has procedures done recently. Patient is found to have multiple hemorrhoids and those were banded. Also history of diverticular disease may be diverticular bleed is a possibility. Patient is on Xarelto for atrial fibrillation which was on hold for now. Plan to the family about the risk of stopping Xarelto and the patient preferred not to be on blood thinners at this at this time. 06/28/2018-latest hemoglobin is 12. Patient is continued to have a small amount of blood in the stool. Patient and the his daughter is concerned about this recurrent bleed. They want to speak to the surgeon material liaison today. I am going to close to monitor the CBC on daily basis. I was told Dr. Peralta is going to talk to the family this evening. 06/29/2018-she was admitted with lower GI bleed he has had a recent EGD and colonoscopy prior to the hospital admission. Found to have hemorrhoids and those were banded. Patient continued to have a small amount of blood in the stool the family concerned about it until yesterday Dr. Peralta came and explained to them in detail that patient may notice blood in the stool for at least 10-14 days. In the meantime hemoglobin is stable around 12. The family is happy with Dr. Barlow's explanation and the patient agreed to go home today. And I strongly advised the patient to talk to his [facility] surgeon/general dermatologist about whether to take Xarelto or not in the setting of recurrent gi bleed. (2) Paroxysmal atrial fibrillation Is this a current diagnosis for this admission?: Yes Summary: 06/25: Patient says he has been off Xarelto for 3 weeks for his Afib. Discussed in length with patient and his daughter (over phone per patient request) the risks and benefits of anticoagulation. Discussed that his rectal bleed was likely from his multiple hemorrhoids and these have been banded. Discussed he has diverticulosis as well and this could also potentially bleed in the future. He does have a CHADVASC score of 4 and does have indication for chronic anticoagulation. Acceptable bleeding risk with a HAS-BLED score of 2. After a lengthy discussion, patient says he wants to be resumed on Xarelto and if he develops another bleeding episode then he will prefer to be off any anticoagulation indefinitely. Daughter also verbalized understanding and says she agrees with her father's decision. They were advised to comply with measures to avoid constipation for his diverticulosis. As mentioned, will resume his Xarelto tonight and watch overnight for any recurrence of bleeding or acute hemoglobin drop. 06/26: Due to recurrence of bright red bloody stools overnight, will take off patient of Xarelto as this is also his preference. 06/27/2018-patient is off Xarelto hemoglobin is stable patient noticed small amount of blood in the stool this morning. 06/28/2018 patient history of atrial fibrillation on Xarelto at home. Because of the recurrent lower GI bleed Xarelto is on hold. 06/29/2018-she is taking Xarelto for atrial fibrillation at home. He has recurrent recurrent episodes of diverticular bleed. We will increased him to sit with his [facility] surgeon/general dermatologist to discuss to start taking Xarelto or not. Patient verbalized his response. (3) Acute blood loss anemia Is this a current diagnosis for this admission?: Yes Summary: 06/27/2018 acute blood loss anemia secondary to lower GI bleed. Hemoglobin is stable around 11.7. 06/28/2018 patient has acute blood loss anemia secondary to lower GI bleed. Hemoglobin is stable around 12. 06/19/2018-acute blood loss anemia secondary to lower GI bleed. Latest hemoglobin is 12.1. Stable. (5) Diverticulitis Is this a current diagnosis for this admission?: Yes Summary: 06/29/2018 patient has history of diverticular disease with recurrent episodes of diverticular bleed. Same time patient is on Xarelto for atrial fibrillation. Xarelto was on hold during this hospital stay. Patient is going to sit with his [facility] surgeon/general dermatologist to make a decision whether to restart on Xarelto or not. (6) HTN (hypertension) Is this a current diagnosis for this admission?: Yes Summary: 06/19/2018 patient has history of hypertension. Blood pressures are well controlled during the hospital stay. Today's blood pressure is 119/70. Patient was advised to continue his home medications. (7) Diabetes 1.5, managed as type 2 Is this a current diagnosis for this admission?: Yes Summary: 06/29/2018-history of type 2 diabetes mellitus. His blood sugars are relatively controlled during the hospital stay. Latest blood sugar is 276. Diet exercise weight loss and lifestyle modification were advised. Patient is hemoglobin A1c is 6.4. (8) Obesity (BMI 30-39.9) Is this a current diagnosis for this admission?: Yes Summary: 06/29/2018 patient history of moderate obesity. Diet exercise weight loss lifestyle modifications were discussed with the patient. Dietary consult was requested during the hospital stay. - Additional Information Resuscitation Status: Full Code Discharge Diet: Diabetic Discharge Activity: Activity As Tolerated, Balance Activity w/Rest Home Medications: Albuterol Sulfate [Ventolin 0.083% Neb 2.5 mg/3 mL Ampul] 1 vial NEB [id number] PRN 04/21/18 Atorvastatin Calcium [Lipitor 10 mg Tablet] 10 mg PO DAILY 04/21/18 Carvedilol [Coreg 25 mg Tablet] 25 mg PO Q12 04/21/18 Chlorthalidone [Chlorthalidone 25 mg Tablet] 25 mg PO DAILY 04/21/18 Ergocalciferol (Vitamin D2) [Vitamin D2] 50,000 unit PO MO@1000 04/21/18 Famotidine [Pepcid 20 mg Tablet] 40 mg PO BID 04/21/18 Hum Insulin NPH/Reg Insulin Hm [Novolin 70-30 100 Unit/ml Vial] 30 unit SQ BID 04/21/18 Loratadine [Claritin 10 mg Tablet] 10 mg PO DAILY 04/21/18 Pioglitazone HCl [Actos 15 mg Tablet] 15 mg PO DAILY 04/21/18 Sertraline HCl [Zoloft 50 mg Tablet] 50 mg PO DAILY 04/21/18 Lisinopril [Zestril] 2.5 mg PO DAILY 06/25/18 History of Present Illness History of Present Illness: JOEL MARIE is a 77 year old male with a past medical history of A. fib on Xarelto, diverticulosis, hypertension, obesity and recent colonoscopy but unidentified source of lower GI bleed 20 days ago. Patient presents with several episodes of bright red blood per rectum, complaints of constipation. Denies fever chills nausea or vomiting. In the emergency room is found to have a drop in his hemoglobin from 12.9-12.1 from 17 days ago. Patient admits to constipation and straining but denies pain. He is referred to the hospitalist for admission. Physical Exam Vital Signs: Temp Pulse Resp BP Pulse Ox 97.8 F 75 16 132/71 H 100 06/29/18 13:56 06/29/18 13:56 06/29/18 13:56 06/29/18 13:56 06/29/18 13:56 Intake & Output 06/28/18 06/29/18 06/30/18 06:59 06:59 06:59 Intake Total 1880 1760 Balance 1879 1760 Weight 103.6 kg General appearance: PRESENT: no acute distress Head exam: PRESENT: atraumatic Eye exam: PRESENT: PERRLA Mouth exam: PRESENT: moist Neck exam: ABSENT: carotid bruit, JVD, lymphadenopathy, thyromegaly Respiratory exam: PRESENT: clear to auscultation jake. ABSENT: rales, rhonchi, wheezes Cardiovascular exam: PRESENT: RRR. ABSENT: diastolic murmur, rubs, systolic murmur GI/Abdominal exam: PRESENT: normal bowel sounds, soft. ABSENT: distended, guarding, mass, organolmegaly, rebound, tenderness Neurological exam: PRESENT: alert, awake, oriented to person, oriented to place, oriented to time, oriented to situation, CN II-XII grossly intact. ABSENT: motor sensory deficit Psychiatric exam: PRESENT: appropriate affect, normal mood. ABSENT: homicidal ideation, suicidal ideation Results Laboratory Results: 06/29/18 06:48 06/28/18 05:08 06/29/18 06:48 WBC 6.2 RBC 4.16 L Hgb 12.1 L Hct 36.3 L MCV 87 MCH 29.0 MCHC 33.2 RDW 14.4 H Plt Count 153 Seg Neutrophils % 57.9 Lymphocytes % 21.4 Monocytes % 16.4 H Eosinophils % 3.5 Basophils % 0.8 Absolute Neutrophils 3.6 Absolute Lymphocytes 1.3 Absolute Monocytes 1.0 Absolute Eosinophils 0.2 Absolute Basophils 0.0 Impressions: Acute Abdomen Series 06/24/18 20:11 IMPRESSION: 1. Cardiomegaly without acute abnormality of the lungs. No focal airspace opacity. 2. General paucity of small bowel gas, a nonspecific pattern. No obvious fluid distended loops of bowel to suggest obstruction. Gas and stool are present to the rectum. No free air in the abdomen. Qualifiers - * PATIENT BEING DISCHARGED WITH ANY OF THE FOLLOWING DIAGNOSIS: No VTE patient discharged on overlapping Therapy?: Yes
[2018-07-03] MEDS ORDERED: ERGOCALCIFEROL (VITAMIN D2) 50000 UNIT (1.25 MG) CAPSULE PO SCH (10:00)
== END 2018-06-29 15:00 | disposition home or self-care (01) | DRG 348 ==
LOC: ER 18:44 → EH 20:20 → 4S 22:30 → OBSVTOIN 06-26 14:01
PROVIDERS: ADMIT Internal Medicine; ATTEND Internal Medicine
PROC: 06LY3CC Occlusion of Hemorrhoidal Plexus with Extraluminal Device, Percutaneous Approach (ICD-10-PCS; principal; 2018-06-25 09:00)
DX: K64.8 Other hemorrhoids (principal); D62 Acute posthemorrhagic anemia; K92.2 Gastrointestinal hemorrhage, unspecified; I48.2 Chronic atrial fibrillation; I12.9 Hypertensive chronic kidney disease with stage 1 through stage 4 chronic kidney disease, or unspecified chronic kidney disease; K59.00 Constipation, unspecified; N18.3 Chronic kidney disease, stage 3 (moderate); K57.30 Diverticulosis of large intestine without perforation or abscess without bleeding; E66.9 Obesity, unspecified; E78.00 Pure hypercholesterolemia, unspecified; J44.9 Chronic obstructive pulmonary disease, unspecified; K21.9 Gastro-esophageal reflux disease without esophagitis; E11.22 Type 2 diabetes mellitus with diabetic chronic kidney disease; Z79.4 Long term (current) use of insulin; Z79.51 Long term (current) use of inhaled steroids; Z79.899 Other long term (current) drug therapy; Z79.01 Long term (current) use of anticoagulants; Z68.35 Body mass index [BMI] 35.0-35.9, adult
CPT/HCPCS: 36415; 74022; 80048; 80053; 82962; 83036; 83735; 85025; 85027; 85610; 86850; 86900; 86901; 87040; 902; 93005; 93010; 96365; 99284; G0378; J1815; J1956; J2250; J2704; J3010; J3490; J7030

== ENCOUNTER → 2018-08-08 | Outpatient (CLI) | payer MEDICARE ==
[2018-08-08 15:12] LABS: ABSOLUTE EOSINOPHILS # (AUTO) 0.2 10^3/uL (0.0-0.6); ABSOLUTE LYMPHOCYTES (AUTO) 1.5 10^3/uL (0.5-4.7); ABSOLUTE MONOCYTES (AUTO) 0.9 10^3/uL (0.1-1.4); ABSOLUTE NEUT (AUTO) 4.8 10^3/uL (1.7-8.2); BASOPHILS % (AUTO) 0.6 % (0-2); EOSINOPHILS % (AUTO) 2.4 % (0-6); HEMATOCRIT 39.6 % (37.9-51.0); HEMOGLOBIN 13.3 g/dL (13.5-17.0); LYMPHOCYTES % (AUTO) 20.7 % (13-45); MEAN CORPUSCULAR HGB CONC 33.7 g/dL (32.0-36.0); MEAN CORPUSCULAR VOLUME 86 fl (80-97); MONOCYTES % (AUTO) 11.8 % (3-13); PLATELET COUNT 188 10^3/uL (150-450); RED BLOOD COUNT 4.59 10^6/uL (4.35-5.55); RED CELL DISTRIBUTION WIDTH 14.8 % (11.5-14.0); SEGMENTED NEUTROPHILS % (AUTO) 64.5 % (42-78); TOTAL CELLS COUNTED % (AUTO) 100 %; WHITE BLOOD COUNT 7.5 10^3/uL (4.0-10.5)
[2018-08-08 15:34] LABS: ANION GAP 13 (5-19); BLOOD UREA NITROGEN 46 mg/dL (7-20); CALCIUM 9.5 mg/dL (8.4-10.2); CARBON DIOXIDE 26 mmol/L (22-30); CHLORIDE 103 mmol/L (98-107); GLUCOSE 176 mg/dL (75-110); POTASSIUM 4.1 mmol/L (3.6-5.0); SODIUM 142.2 mmol/L (137-145)
[2018-08-10 12:38] LABS: CREATININE URINE 106.8 mg/dL (Not Estab.); MICROALBUMIN URINE 3.7 ug/mL (Not Estab.)
== END ==
LOC: OD 14:08
PROVIDERS: ATTEND Internal Medicine Nephrology
DX: N11.9 Chronic tubulo-interstitial nephritis, unspecified (principal); D63.8 Anemia in other chronic diseases classified elsewhere; E11.9 Type 2 diabetes mellitus without complications
CPT/HCPCS: 36415; 80048; 82043; 82570; 85025

== ENCOUNTER 2018-08-20 10:19 | Observation (INO) | payer MEDICARE ==
--- NOTE | 2018-08-20 10:55 | ER Document Report ---
Entered by JENN TAYLOR SCRIBE 08/20/18 1047 Acting as scribe for:CARMEL WOLFE DO ED Medical Screen (RME) - General Chief Complaint: Near Syncope Stated Complaint: SYNCOPE Time Seen by Provider: 08/20/18 10:28 Primary Care Provider: SUJEY BARRAGAN MD [Primary Care Provider] - Follow up as needed Mode of Arrival: Wheelchair Information source: Patient Notes: Patient is a 78 year old male with afib, type 2 diabetes, HTN, COPD presents to the emergency department complaining of general malaise and dizziness. Patient states "I just haven't been feeling too well." Daughter reports the patient having 3 episodes of near syncope last week. Daughter mentions the patient being told to take his HTN medication of carvedilol as needed. She states the patients symptoms were onset after the patient did not take his carvedilol for approximately 1 week due to his blood pressure being normal, so she administered a dose this morning and further reports the patient becoming diaphoretic shortly after. Of note his blood pressure was also normal this morning Daughter also expresses concern for the patient's kidneys further stating the p atient recently presented to his military nurse and they found his kidneys to be working at 37%. I have greeted and performed a rapid initial assessment of this patient. A comprehensive ED assessment and evaluation of the patient, analysis of test results and completion of the medical decision making process will be conducted by additional ED providers. GENERAL: Alert, interacts well. No acute distress. HEAD: Normocephalic, Atraumatic. EYES: Pupils equal, round, and reactive to light. EOMI. ENT: Oral mucosa moist, tongue midline. NECK: Full range of motion. Supple. Trachea midline. LUNGS: Trace expiratory wheezing in the left upper lobe. HEART: Regular rate and rhythm. No murmurs, gallops, or rubs. EXTREMITIES: Moves all four extremities spontaneously. Radial pulses 2+ bilaterally no edema. PSYCH: Normal affect, normal mood. TRAVEL OUTSIDE OF THE [place] IN LAST 30 DAYS: No - Related Data Allergies/Adverse Reactions: aspirin [Aspirin] Allergy (Intermediate, Verified 08/20/18 10:21) bleeding ulcers codeine [Codeine] Adverse Reaction (Intermediate, Verified 08/20/18 10:38) bleeding ulcers Past Medical History - Social History Frequency of alcohol use: None Drug Abuse: None - Past Medical History Cardiac Medical History: Reports: Hx Atrial Fibrillation, Hx Congestive Heart Failure, Hx Hypercholesterolemia, Hx Hypertension Denies: Hx Coronary Artery Disease, Hx Heart Attack Pulmonary Medical History: Reports: Hx COPD Denies: Hx Asthma, Hx Bronchitis, Hx Pneumonia Neurological Medical History: Denies: Hx Cerebrovascular Accident, Hx Seizures Endocrine Medical History: Reports: Hx Diabetes Mellitus Type 1, Hx Diabetes Mellitus Type 2 Renal/ Medical History: Denies: Hx Peritoneal Dialysis GI Medical History: Reports: Hx Gastroesophageal Reflux Disease Musculoskeltal Medical History: Reports Hx Arthritis - GENERALIZED Psychiatric Medical History: Denies: Hx Depression Past Surgical History: Reports: Hx Abdominal Surgery - hernia repair, Hx Appendectomy, Hx Cholecystectomy, Hx Herniorrhaphy, Hx Orthopedic Surgery - back x2 with hardware. Denies: Hx Pacemaker - Immunizations Hx Diphtheria, Pertussis, Tetanus Vaccination: No History of Influenza Vaccine for 04/2017 - 09/2017 Season: Yes Influenza Administration Date for 04/2017 - 09/2017 Season: 03/04/17 Physical Exam - Vital signs Vitals: Temp Pulse Resp BP Pulse Ox 98.9 F 64 17 110/58 L 95 08/20/18 10:25 08/20/18 10:25 08/20/18 10:25 08/20/18 10:25 08/20/18 10:25 Course - Vital Signs Vital signs: Temp Pulse Resp BP Pulse Ox 98.9 F 64 17 110/58 L 95 08/20/18 10:25 08/20/18 10:25 08/20/18 10:25 08/20/18 10:25 08/20/18 10:25 Doctor's Discharge - Discharge Referrals: SUJEY BARRAGAN MD [Primary Care Provider] - Follow up as needed I personally performed the services described in the documentation, reviewed and edited the documentation which was dictated to the scribe in my presence, and it accurately records my words and actions.
[2018-08-20 11:07] LABS: ABSOLUTE BASOPHILS # (AUTO) 0.1 10^3/uL (0.0-0.2); ABSOLUTE EOSINOPHILS # (AUTO) 0.1 10^3/uL (0.0-0.6); ABSOLUTE LYMPHOCYTES (AUTO) 1.1 10^3/uL (0.5-4.7); ABSOLUTE MONOCYTES (AUTO) 0.8 10^3/uL (0.1-1.4); ABSOLUTE NEUT (AUTO) 4.2 10^3/uL (1.7-8.2); BASOPHILS % (AUTO) 0.9 % (0-2); EOSINOPHILS % (AUTO) 2.2 % (0-6); HEMOGLOBIN 13.9 g/dL (13.5-17.0); LYMPHOCYTES % (AUTO) 17.7 % (13-45); MEAN CORPUSCULAR HEMOGLOBIN 28.7 pg (27.0-33.4); MEAN CORPUSCULAR HGB CONC 33.2 g/dL (32.0-36.0); MEAN CORPUSCULAR VOLUME 86 fl (80-97); MONOCYTES % (AUTO) 13.1 % (3-13); PLATELET COUNT 217 10^3/uL (150-450); RED BLOOD COUNT 4.86 10^6/uL (4.35-5.55); RED CELL DISTRIBUTION WIDTH 14.5 % (11.5-14.0); SEGMENTED NEUTROPHILS % (AUTO) 66.1 % (42-78); TOTAL CELLS COUNTED % (AUTO) 100 %; WHITE BLOOD COUNT 6.3 10^3/uL (4.0-10.5)
[2018-08-20 11:23] LABS: ALANINE AMINOTRANSFERASE 19 U/L (21-72); ALBUMIN 4.7 g/dL (3.5-5.0); ALKALINE PHOSPHATASE 87 U/L (38-126); ANION GAP 15 (5-19); ASPARTATE AMINO TRANSFERASE 19 U/L (17-59); BILIRUBIN,DIRECT 0.1 mg/dL (0.0-0.4); BILIRUBIN,TOTAL 0.6 mg/dL (0.2-1.3); BLOOD UREA NITROGEN 48 mg/dL (7-20); CALCIUM 9.9 mg/dL (8.4-10.2); CARBON DIOXIDE 25 mmol/L (22-30); CHLORIDE 99 mmol/L (98-107); CREATINE KINASE 59 U/L (55-170); GLUCOSE 194 mg/dL (75-110); POTASSIUM 4.2 mmol/L (3.6-5.0); TOTAL PROTEIN 8.3 g/dL (6.3-8.2)
[2018-08-20 11:35] LABS: CREATINE KINASE MB 0.82 ng/mL (<4.55); TROPONIN I 0.023 ng/mL
--- NOTE | 2018-08-20 11:36 | ER Document Report ---
ED General - General Chief Complaint: Near Syncope Stated Complaint: SYNCOPE Time Seen by Provider: 08/20/18 10:28 Mode of Arrival: Wheelchair Information source: Patient, Relative Notes: This is a 78-year-old man with a complicated medical history including COPD, non-Hodgkin's lymphoma, atrial fibrillation, hypertension, diabetes, chronic kidney disease, GI bleed (history of diverticulosis, GI bleeding in the setting of oral anticoagulation). The patient is brought to the emergency room lightheadedness, dizziness, "not feeling well". Patient's family states that he was not feeling well when he woke up and he sat down on the couch and that he complained of lightheadedness on the couch and was diaphoretic at that time. He denies chest pain. He states he is chronically has shortness of breath and that there was no increase in his shortness of breath. He denied any abdominal pain. TRAVEL OUTSIDE OF THE [place] IN LAST 30 DAYS: No - HPI Onset: Just prior to arrival Onset/Duration: Sudden Quality of pain: No pain Severity: None Pain Level: Denies Associated symptoms: Nausea, Shortness of breath. denies: Chest pain, Fever Exacerbated by: Denies Relieved by: Denies Similar symptoms previously: Yes Recently seen / treated by doctor: Yes - Related Data Allergies/Adverse Reactions: aspirin [Aspirin] Allergy (Intermediate, Verified 08/20/18 16:24) bleeding ulcers codeine [Codeine] Adverse Reaction (Intermediate, Verified 08/20/18 16:24) bleeding ulcers Past Medical History - General Information source: Patient - Social History Smoking Status: Never Smoker Cigarette use (# per day): No Chew tobacco use (# tins/day): No Frequency of alcohol use: None Drug Abuse: None Lives with: Family Family History: Hypertension Patient has suicidal ideation: No Patient has homicidal ideation: No - Past Medical History Cardiac Medical History: Reports: Hx Atrial Fibrillation, Hx Congestive Heart Failure, Hx Hypercholesterolemia, Hx Hypertension Denies: Hx Coronary Artery Disease, Hx Heart Attack Pulmonary Medical History: Reports: Hx COPD Denies: Hx Asthma, Hx Bronchitis, Hx Pneumonia Neurological Medical History: Denies: Hx Cerebrovascular Accident, Hx Seizures Endocrine Medical History: Reports: Hx Diabetes Mellitus Type 1, Hx Diabetes Mellitus Type 2 Renal/ Medical History: Denies: Hx Peritoneal Dialysis GI Medical History: Reports: Hx Gastroesophageal Reflux Disease Musculoskeletal Medical History: Reports Hx Arthritis - GENERALIZED Psychiatric Medical History: Denies: Hx Depression Past Surgical History: Reports: Hx Abdominal Surgery - hernia repair, Hx Appendectomy, Hx Cholecystectomy, Hx Herniorrhaphy, Hx Orthopedic Surgery - back x2 with hardware. Denies: Hx Pacemaker - Immunizations Hx Diphtheria, Pertussis, Tetanus Vaccination: No Hx Pneumococcal Vaccination: 04/12/11 Review of Systems - Review of Systems Constitutional: denies: Chills, Fever EENT: No symptoms reported Cardiovascular: Dyspnea, Dizziness, Lightheaded Respiratory: Short of breath Gastrointestinal: denies: Abdomen distended, Abdominal pain, Diarrhea Genitourinary: No symptoms reported Male Genitourinary: No symptoms reported Musculoskeletal: No symptoms reported Skin: No symptoms reported Hematologic/Lymphatic: No symptoms reported Neurological/Psychological: No symptoms reported Physical Exam - Vital signs Vitals: Temp Pulse Resp BP Pulse Ox 98.9 F 64 17 110/58 L 95 08/20/18 10:25 08/20/18 10:25 08/20/18 10:25 08/20/18 10:25 08/20/18 10:25 Notes: Physical exam: GENERAL: Patient is alert and oriented x3, no acute distress. Blood pressure was 110/58, pulse 64, O2 sat 95% on room air. HEAD: Atraumatic, normocephalic. EYES: Pupils equal round and reactive to light, extraocular movements intact, sclera anicteric, conjunctiva are normal. ENT: TMs normal, nares patent, oropharynx clear without exudates. Moist mucous membranes. NECK: Normal range of motion, supple without obvious mass or JVD. LUNGS: Breath sounds clear to auscultation bilaterally and equal. No wheezes rales or rhonchi. HEART: Regular rate and rhythm without murmurs, rubs or gallops. ABDOMEN: Soft, normoactive bowel sounds. No tenderness to palpation. No guarding, no rebound. No masses appreciated. Rectal: No external lesions, stool is brown, it is trace positive. EXTREMITIES: Normal range of motion, no pitting or edema. No clubbing or cyanosis. NEUROLOGICAL: Cranial nerves II through XII grossly intact. Normal speech, moving all extremities. PSYCH: Normal mood, normal affect. SKIN: Warm, Dry, normal turgor, no rashes or lesions noted. Course - Vital Signs Vital signs: Temp Pulse Resp BP Pulse Ox 98.1 F 84 16 133/69 H 99 08/20/18 19:01 08/20/18 19:01 08/20/18 19:01 08/20/18 19:01 08/20/18 19:01 - Laboratory Result Diagrams: 08/20/18 10:57 08/20/18 10:57 Laboratory results interpreted by me: 08/20/18 08/20/18 10:57 10:57 RDW 14.5 H Monocytes % 13.1 H BUN 48 H Creatinine 2.30 H Est GFR ( Amer) 34 L Est GFR (Non-Af Amer) 28 L Glucose 194 H ALT 19 L Total Protein 8.3 H - Diagnostic Test Radiology reviewed: Image reviewed, Reports reviewed - Chest x-ray shows no infiltrates, there is an elevated right hemidiaphragm. - EKG Interpretation by Me Rhythm: A.Fib - EKG shows atrial fibrillation with a ventricular rate of 98, no acute ST-T wave changes. Discharge - Discharge Clinical Impression: Near syncope Condition: Stable Disposition: ADMITTED INPATIENT Admitting Provider: Hospitalist - Dr Phoenix Unit Admitted: Telemetry
--- NOTE | 2018-08-20 12:39 | RADIOLOGY REPORT (SQ) ---
EXAM DESCRIPTION: CHEST SINGLE VIEW COMPLETED DATE/TIME: 08/20/2018 11:21 am REASON FOR STUDY: dizziness, wheezing EPIFANIO COMPARISON: Chest x-ray 06/09/2018. EXAM PARAMETERS: NUMBER OF VIEWS: One view. TECHNIQUE: Single frontal radiographic view of the chest acquired. RADIATION DOSE: NA LIMITATIONS: None. FINDINGS: LUNGS AND PLEURA: No consolidation, pneumothorax or pleural effusion. MEDIASTINUM AND HILAR STRUCTURES: No masses. Contour normal. HEART AND VASCULAR STRUCTURES: The heart is enlarged. There is no overt vascular congestion. BONES: No acute findings. HARDWARE: None in the chest. IMPRESSION: Cardiomegaly. Otherwise, no acute radiographic finding in the chest. TECHNICAL DOCUMENTATION: JOB ID: [id number] [email or web address]- All Rights Reserved Reading location - IP/workstation name: [email or web address]
[2018-08-20] MEDS ORDERED: NORMAL SALINE 500 ML IV ONE (13:00)
--- NOTE | 2018-08-20 13:05 | EKG REPORT ---
SEVERITY:- ABNORMAL ECG - ATRIAL FIBRILLATION, V-RATE 81-134 PROBABLE INFERIOR INFARCT, AGE INDETERMINATE : Confirmed by: Maryam Veras MD 20-Aug-2018 13:05:23
[2018-08-20] MEDS ORDERED: ALBUTEROL SULFATE 0.083% NEB 2.5 MG/3 ML AMPUL NEB PRN (17:01)
[2018-08-20] MEDS ORDERED: NORMAL SALINE 1000 ML 500 ML IV ONE (17:06)
[2018-08-20 18:01] LABS: URINE AMPHETAMINES SCREEN NEGATIVE; URINE BARBITURATES SCREEN NEGATIVE; URINE BENZODIAZEPINES SCREEN NEGATIVE; URINE COCAINE SCREEN NEGATIVE; URINE MARIJUANA (THC) SCREEN NEGATIVE; URINE METHADONE SCREEN NEGATIVE; URINE PHENCYCLIDINE SCREEN NEGATIVE
[2018-08-20] MEDS: DOCUSATE SODIUM 100 MG CAPSULE PO SCH (18:05)
--- NOTE | 2018-08-20 18:12 | PDOC H&P ---
History of Present Illness Admission Date/PCP: 08/20/18 16:55 GENE WICK PA-C Patient complains of: dizziness and feels bad all over for 2 days History of Present Illness: JOEL MARIE is a 78 year old man with a complex past medical history who was brought into the ER by his daughter. He states that yesterday he started feeling badly, he really could not give me any specifics just saying he feels bad and when someone with diabetes knows that there is sick they can always tell you what is going on but they no other sick. So today he started feeling dizzy and had an episode of near syncope with some hot flashes. His daughter said that he has been in a bad mood and that is very unusual for him. For those reasons he was brought into the ER. He tells me he has not had any chest pain or difficulty breathing. No nausea or vomiting. No loss of consciousness. He has had a normal BM. He does not think he drinks enough water and he does not urinate very much. He checks his blood sugar several times a day and states that his glucose has been in his normal range 122 about 200. Past Medical History Cardiac Medical History: Reports: Atrial Fibrillation, Congestive Heart Failure, Hyperlipidema, Hypertension Denies: Coronary Artery Disease, Myocardial Infarction Pulmonary Medical History: Reports: Chronic Obstructive Pulmonary Disease (COPD) Denies: Asthma, Bronchitis, Pneumonia Neurological Medical History: Denies: Ischemic CVA, Seizures Endocrine Medical History: Reports: Diabetes Mellitus Type 2, Other - Gastroparesis Renal/ Medical History: Reports: Chronic Kidney Disease, Other - vit D d eficiency Malignancy Medical History: Reports: Skin Cancer, Other - Non-Hodgkin's lymphoma GI Medical History: Reports: Diverticulitis, Gastroesophageal Reflux Disease, Other - History of significant GI bleed gastric ulcers Musculoskeltal Medical History: Reports: Arthritis - GENERALIZED Psychiatric Medical History: Denies: Alcohol Dependency, Depression, Substance Abuse, Tobacco Dependency Hematology: Reports: Bleeding Tendencies Infectious History Note: Unknown Past Surgical History Past Surgical History: Reports: Appendectomy, Cholecystectomy, Herniorrhaphy, Orthopedic Surgery - back x2 with hardware, Other - Several back surgeries, wrist surgery, elbow surgery, hemmorhoids, hardeep Denies: Pacemaker Social History Information Source: Patient 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, 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 Lives with: Family Smoking Status: Former Smoker Last Time Smoked: 20 years old Frequency of Alcohol Use: None Hx Recreational Drug Use: No Drugs: None Hx Prescription Drug Abuse: No Past Social History Note: His last year from cancer, he has a child that and one surviving daughter that helps take care of him - Advance Directive Resuscitation Status: Do Not Resuscitate Surrogate healthcare decision maker:: His daughter Regina Peterson phone number [phone] Family History Family History: Hypertension Parental Family History Reviewed: Yes - Mom and dad dad of "old age" Children Family History Reviewed: Yes - 1 adult child of unknown cause Sibling(s) Family History Reviewed.: Yes - Both of his brothers are , 1 of an unknown brain disorder and one related to heart problems after the most recent hurricane Medication/Allergy Home Medications: Albuterol Sulfate [Ventolin 0.083% Neb 2.5 mg/3 mL Ampul] 1 vial NEB Q6HP PRN 04/21/18 Atorvastatin Calcium [Lipitor 10 mg Tablet] 10 mg PO DAILY 04/21/18 Carvedilol [Coreg 25 mg Tablet] 25 mg PO Q12 04/21/18 Chlorthalidone [Chlorthalidone 25 mg Tablet] 25 mg PO DAILY 04/21/18 Ergocalciferol (Vitamin D2) [Vitamin D2] 50,000 unit PO MO@1000 04/21/18 Famotidine [Pepcid 20 mg Tablet] 20 mg PO BID 04/21/18 Hum Insulin NPH/Reg Insulin Hm [Novolin 70-30 100 Unit/ml Vial] 30 unit SQ BID 04/21/18 Loratadine [Claritin 10 mg Tablet] 10 mg PO DAILY 04/21/18 Pioglitazone HCl [Actos 15 mg Tablet] 15 mg PO DAILY 04/21/18 Sertraline HCl [Zoloft 50 mg Tablet] 50 mg PO DAILY 04/21/18 Lisinopril [Zestril] 2.5 mg PO DAILY 06/25/18 Aspirin [Adult Aspirin] 81 mg PO DAILY 08/20/18 Docusate Sodium [Stool Softener] 100 mg PO BID 08/20/18 Fluticasone/Umeclidin/Vilanter [Trelegy 100-62.5-25 Mcg Ellipta 14 Dose/Dpi] 1 puff IH DAILY 08/20/18 Furosemide [Lasix 40 mg Tablet] 40 mg PO DAILY 08/20/18 Allergies/Adverse Reactions: aspirin [Aspirin] Allergy (Intermediate, Verified 08/20/18 16:24) bleeding ulcers codeine [Codeine] Adverse Reaction (Intermediate, Verified 08/20/18 16:24) bleeding ulcers Review of Systems Constitutional: PRESENT: fatigue. ABSENT: fever(s), headache(s), night sweats Eyes: ABSENT: visual disturbances Ears: ABSENT: hearing changes Nose, Mouth, and Throat: ABSENT: sore throat Cardiovascular: PRESENT: orthropnea. ABSENT: chest pain, dyspnea on exertion, edema, palpitations Respiratory: ABSENT: cough, dyspnea, hemoptysis, sputum Gastrointestinal: ABSENT: abdominal pain, bloating, constipation, diarrhea, melena, nausea, vomiting Genitourinary: ABSENT: dysuria Musculoskeletal: PRESENT: back pain. ABSENT: deformity Integumentary: PRESENT: diaphoresis. ABSENT: pruritus Neurological: PRESENT: dizziness. ABSENT: confusion, focal weakness, memory loss, syncope, weakness Psychiatric: ABSENT: anxiety, depression Endocrine: ABSENT: cold intolerance, heat intolerance Hematologic/Lymphatic: PRESENT: other - Significant upper GI bleed history Allergic/Immunologic: PRESENT: seasonal rhinorrhea Physical Exam Vital Signs: Temp Pulse Resp BP Pulse Ox 98.9 F 64 22 H 102/67 97 08/20/18 10:25 08/20/18 10:25 08/20/18 14:02 08/20/18 14:02 08/20/18 14:02 Intake & Output 08/19/18 08/20/18 08/21/18 06:59 06:59 06:59 Weight 103.1 kg General appearance: PRESENT: no acute distress, cooperative, obese Head exam: PRESENT: atraumatic, normocephalic Eye exam: PRESENT: EOMI. ABSENT: conjunctival injection, scleral icterus Ear exam: PRESENT: normal external ear exam Mouth exam: PRESENT: moist, tongue midline Respiratory exam: PRESENT: clear to auscultation jake, unlabored. ABSENT: rales, rhonchi, wheezes Cardiovascular exam: PRESENT: RRR. ABSENT: systolic murmur Pulses: PRESENT: normal radial pulses, normal dorsalis pedis pul Vascular exam: PRESENT: normal capillary refill GI/Abdominal exam: PRESENT: normal bowel sounds, soft. ABSENT: distended, guarding, tenderness Rectal exam: PRESENT: deferred Gentrourinary exam: ABSENT: indwelling catheter Extremities exam: PRESENT: pedal edema - Trace Musculoskeletal exam: ABSENT: tenderness Neurological exam: PRESENT: alert, awake, oriented to person, oriented to place, oriented to situation, CN II-XII grossly intact. ABSENT: aphasic Psychiatric exam: PRESENT: appropriate affect. ABSENT: anxious Skin exam: PRESENT: dry, intact, warm Results Laboratory Results: 08/20/18 10:57 08/20/18 10:57 08/20/18 08/20/18 10:57 10:57 WBC 6.3 RBC 4.86 Hgb 13.9 Hct 42.0 MCV 86 MCH 28.7 MCHC 33.2 RDW 14.5 H Plt Count 217 Seg Neutrophils % 66.1 Lymphocytes % 17.7 Monocytes % 13.1 H Eosinophils % 2.2 Basophils % 0.9 Absolute Neutrophils 4.2 Absolute Lymphocytes 1.1 Absolute Monocytes 0.8 Absolute Eosinophils 0.1 Absolute Basophils 0.1 Sodium 139.0 Potassium 4.2 Chloride 99 Carbon Dioxide 25 Anion Gap 15 BUN 48 H Creatinine 2.30 H Est GFR ( Amer) 34 L Est GFR (Non-Af Amer) 28 L Glucose 194 H Calcium 9.9 Total Bilirubin 0.6 AST 19 ALT 19 L Alkaline Phosphatase 87 Total Protein 8.3 H Albumin 4.7 08/20/18 08/20/18 10:57 10:57 Creatine Kinase 59 CK-MB (CK-2) 0.82 Troponin I 0.023 Impressions: Chest X-Ray 08/20/18 10:38 IMPRESSION: Cardiomegaly. Otherwise, no acute radiographic finding in the chest. Assessment & Plan - Diagnosis (1) Dizziness Is this a current diagnosis for this admission?: Yes Plan: Not entirely clear etiology at this point though patient is showing signs of some dehydration with an acute kidney injury and hypotension. He is gotten a liter of fluid and I am giving him another 500 mL of saline. I started him on a low rate of saline. We will follow his blood pressure closely. I have held his antihypertensives and his diuretics for now. We will monitor urine output and will consider placement of Irizarry if he does not have good output. Also, this patient is certainly at high risk for cardiac events. We will follow troponins given the nonspecific nature of his symptoms in the setting of diabetes and dizziness. (2) Acute kidney injury superimposed on chronic kidney disease Is this a current diagnosis for this admission?: Yes Plan: I spoke with his daughter on the phone and she told me that his numbers today are worse than when he was last at the doctor, within a few weeks. More evidence for possible dehydration. We will also check urinalysis and culture. Will try to avoid renal toxins, holding diuresis for now. Renally dose meds. (3) Dehydration Is this a current diagnosis for this admission?: Yes Plan: He has received 1.5 L of crystalloid fluid. He is now on normal saline at 100 mils will also push the p.o. fluids. Will monitor urine output. (4) Hypercholesterolemia Is this a current diagnosis for this admission?: Yes Plan: Atorvastatin 10 mg daily started (5) GERD (gastroesophageal reflux disease) Is this a current diagnosis for this admission?: Yes Plan: Pepcid 20 mg p.o. twice daily started (6) Depression Is this a current diagnosis for this admission?: Yes Plan: Sertraline 50 mg daily started (7) Atrial fibrillation Qualifiers: Atrial fibrillation type: chronic Qualified Code(s): I48.2 - Chronic atrial fibrillation Is this a current diagnosis for this admission?: Yes Plan: Patient is currently rate controlled. He is on carvedilol 25 mg twice daily. Secondary to hypotension I started him on 3.125 mg p.o. twice daily. We will watch his heart rate closely and increase carvedilol dosing if needed. I spoke with his daughter about anticoagulation. Within the last few months he has had significant upper GI bleeding is being evaluated as an outpatient. He cannot be on anticoagulation for now. (8) CKD (chronic kidney disease), stage III Is this a current diagnosis for this admission?: Yes Plan: CKD stage III, consider nephrology consultation if renal function does not return to normal in the next day or so. (9) DNR (do not resuscitate) Is this a current diagnosis for this admission?: Yes Plan: Patient states he has a DNR form at home. He also states that his daughter Regina knows about his wishes and she is his healthcare surrogate. (10) HTN (hypertension) Is this a current diagnosis for this admission?: Yes Plan: Slight hypotension, antihypertensives on hold with the exception of low-dose of carvedilol. (11) Insulin dependent diabetes mellitus Is this a current diagnosis for this admission?: Yes Plan: Pioglitazone started. Sliding scale insulin started. Diabetic diet ordered. - Time Time Spent: Greater than 70 Minutes - Inpatient Certification Based on my medical assessment, after consideration of the patient's comorbidities, presenting symptoms, or acuity I expect that the services needed warrant INPATIENT care.: Yes I certify that my determination is in accordance with my understanding of Medicare's requirements for reasonable and necessary INPATIENT services [42 CFR 412.3e].: Yes Medical Necessity: Significant Comorbidiites Make Outpatient Treatment Too Risky, Need Close Monitoring Due to Risk of Patient Decompensation, Risk of Complication if Not Cared For in Hospital
[2018-08-20] MEDS: FAMOTIDINE 20 MG TABLET PO SCH (21:16)
[2018-08-20] MEDS: CARVEDILOL 6.25 MG TABLET PO SCH (21:16)
[2018-08-21 07:04] LABS: HEMATOCRIT 35.3 % (37.9-51.0); HEMOGLOBIN 12.1 g/dL (13.5-17.0); MEAN CORPUSCULAR HEMOGLOBIN 29.5 pg (27.0-33.4); MEAN CORPUSCULAR HGB CONC 34.3 g/dL (32.0-36.0); MEAN CORPUSCULAR VOLUME 86 fl (80-97); RED CELL DISTRIBUTION WIDTH 14.6 % (11.5-14.0); WHITE BLOOD COUNT 6.9 10^3/uL (4.0-10.5)
[2018-08-21 07:24] LABS: ANION GAP 13 (5-19); BLOOD UREA NITROGEN 47 mg/dL (7-20); CALCIUM 8.9 mg/dL (8.4-10.2); CARBON DIOXIDE 21 mmol/L (22-30); CHLORIDE 105 mmol/L (98-107); GLUCOSE 146 mg/dL (75-110); POTASSIUM 4.1 mmol/L (3.6-5.0); SODIUM 138.8 mmol/L (137-145)
[2018-08-21 08:40] LABS: PLATELET COUNT 157 10^3/uL (150-450)
[2018-08-21] MEDS ORDERED: CHLORTHALIDONE 25 MG TABLET PO SCH (10:00)
[2018-08-21] MEDS ORDERED: ERGOCALCIFEROL (VITAMIN D2) 50000 UNIT (1.25 MG) CAPSULE PO SCH (10:00)
[2018-08-21] MEDS: PIOGLITAZONE HCL 15 MG TABLET PO SCH (10:22)
[2018-08-21] MEDS: LORATADINE 10 MG TABLET PO SCH (10:22)
[2018-08-21] MEDS: NORMAL SALINE 1000 ML 1,000 ML IV PRN ×2 (10:22→20:22)
[2018-08-21] MEDS: SERTRALINE HCL 50 MG TABLET PO SCH (10:23)
[2018-08-21] MEDS: FAMOTIDINE 20 MG TABLET PO SCH ×2 (10:23→22:04)
[2018-08-21] MEDS: ASPIRIN 81 MG TABLET, ENT COATED PO SCH (10:23)
[2018-08-21] MEDS: FLUTICASONE/UMECLIDIN/VILANTER 100-62.5-25 MCG/DOSE IH SCH (10:23)
[2018-08-21] MEDS: ATORVASTATIN CALCIUM 10 MG TABLET PO SCH (10:23)
[2018-08-21] MEDS: DOCUSATE SODIUM 100 MG CAPSULE PO SCH ×2 (10:23→18:12)
[2018-08-21] MEDS: CARVEDILOL 6.25 MG TABLET PO SCH ×2 (12:24→22:04)
[2018-08-21] MEDS ORDERED: ALBUTEROL SULFATE HFA (90 MCG/PUFF) 200 PUFF/8.5 GM MDI IH PRN (12:57)
[2018-08-21 14:57] LABS: APPEARANCE,URINE CLEAR; BILIRUBIN,URINE NEGATIVE (NEGATIVE); COLOR,URINE STRAW; GLUCOSE, URINE NEGATIVE (NEGATIVE); KETONES,URINE NEGATIVE (NEGATIVE); LEUKOCYTE ESTERASE,URINE NEGATIVE (NEGATIVE); NITRITE,URINE NEGATIVE (NEGATIVE); PROTEIN,URINE NEGATIVE (NEGATIVE); URINE SPECIFIC GRAVITY 1.011; UROBILINOGEN,URINE NEGATIVE mg/dL (<2.0)
[2018-08-21] MEDS ORDERED: GLUCAGON,HUMAN RECOMB 1 MG INJ IM PRN (16:45)
[2018-08-21] MEDS ORDERED: DEXTROSE 50%-WATER 25 GM/50 ML DISP.SYRIN IV PRN ×2 (16:45)
[2018-08-21] MEDS ORDERED: DEXTROSE 40% GEL 15 GM TUBE PO PRN ×2 (16:45)
[2018-08-21] MEDS: HUM INSULIN NPH/REG INSULIN HM 100 UNIT/1 ML 3 ML SUBCUT SCH (18:12)
--- NOTE | 2018-08-21 18:54 | PDOC PROGRESS REPORT ---
Subjective Progress Note for:: 08/21/18 Subjective:: The patient was a 78 year old male with a PMH significant for a. fib, CHF, HTN, HLD, COPD, DM2, CKD, Non-Hodgkins lymphoma, GERD, Hx GI bleed, and arthritis who was admitted 08/20/18 for A/CKD. The patient was seen on morning rounds with his daughter present. He was sitting up to the edge of the bed on supplemental oxygen via nasal cannula. He reports that his dizziness and generalized weakness have resolved. He overall, he is feeling much better and is hopeful to go home soon. The daughter has numerous questions regarding her father's medications and on multiple occasions states that her "goal is to get him off of everything." I attempted to explain that with his past medical history that is not a reasonable goal and he will always require some type of medication for management of his heart rhythm, blood pressure, and diabetes. Patient's daughter did not seem to understand this as she stated that she will just have to concentrate on his blood pressure medications first. The patient denies fever, chills, headache, dizziness, chest pain, palpitations, dyspnea at rest, orthopnea, abdominal pain, nausea, vomiting, diarrhea. He had no other questions or concerns today. No concerns per nursing. Reason For Visit: NEAR SYNCOPE,ELEVATED TROPONIN Physical Exam Vital Signs: Temp Pulse Resp BP Pulse Ox 98.3 F 100 18 105/59 L 97 08/21/18 16:00 08/21/18 16:00 08/21/18 16:00 08/21/18 16:00 08/21/18 16:00 Intake & Output 08/20/18 08/21/18 08/22/18 06:59 06:59 06:59 Intake Total 1510 1640 Output Total 1600 Balance 1510 40 Weight 103.2 kg General appearance: PRESENT: no acute distress, cooperative, obese, well- developed, well-nourished Head exam: PRESENT: atraumatic, normocephalic Eye exam: PRESENT: conjunctiva pink, EOMI, PERRLA. ABSENT: scleral icterus Ear exam: PRESENT: normal external ear exam Mouth exam: PRESENT: moist, tongue midline Neck exam: ABSENT: carotid bruit, JVD, lymphadenopathy, thyromegaly Respiratory exam: PRESENT: clear to auscultation jake, symmetrical, unlabored, other - Supplemental oxygen by nasal cannula. ABSENT: rales, rhonchi, wheezes Cardiovascular exam: PRESENT: RRR. ABSENT: diastolic murmur, rubs, systolic murmur Pulses: PRESENT: normal dorsalis pedis pul Vascular exam: PRESENT: normal capillary refill GI/Abdominal exam: PRESENT: normal bowel sounds, soft. ABSENT: distended, guarding, mass, organolmegaly, rebound, tenderness Rectal exam: PRESENT: deferred Extremities exam: PRESENT: full ROM. ABSENT: calf tenderness, clubbing, pedal edema Neurological exam: PRESENT: alert, awake, oriented to person, oriented to place, oriented to time, oriented to situation, CN II-XII grossly intact. ABSENT: motor sensory deficit Psychiatric exam: PRESENT: appropriate affect, normal mood. ABSENT: homicidal ideation, suicidal ideation Skin exam: PRESENT: dry, intact, warm. ABSENT: cyanosis, rash Results Laboratory Results: 08/21/18 06:30 08/21/18 06:30 08/20/18 08/21/18 08/21/18 20:08 06:30 06:30 WBC 6.9 RBC 4.10 L Hgb 12.1 L Hct 35.3 L MCV 86 MCH 29.5 MCHC 34.3 RDW 14.6 H Plt Count 157 Sodium 138.8 Potassium 4.1 Chloride 105 Carbon Dioxide 21 L Anion Gap 13 BUN 47 H Creatinine 1.87 H Est GFR ( Amer) 43 L Est GFR (Non-Af Amer) 35 L Glucose 146 H Lactic Acid 1.7 Calcium 8.9 Urine Color Urine Appearance Urine pH Ur Specific Lee Urine Protein Urine Glucose (UA) Urine Ketones Urine Blood Urine Nitrite Ur Leukocyte Esterase Urine WBC (Auto) Urine RBC (Auto) 08/21/18 14:22 WBC RBC Hgb Hct MCV MCH MCHC RDW Plt Count Sodium Potassium Chloride Carbon Dioxide Anion Gap BUN Creatinine Est GFR ( Amer) Est GFR (Non-Af Amer) Glucose Lactic Acid Calcium Urine Color STRAW Urine Appearance CLEAR Urine pH 6.0 Ur Specific Lee 1.011 Urine Protein NEGATIVE Urine Glucose (UA) NEGATIVE Urine Ketones NEGATIVE Urine Blood MODERATE H Urine Nitrite NEGATIVE Ur Leukocyte Esterase NEGATIVE Urine WBC (Auto) 2 Urine RBC (Auto) 10 08/20/18 08/20/18 08/20/18 10:57 10:57 14:41 Creatine Kinase 59 CK-MB (CK-2) 0.82 Troponin I 0.023 Cancelled 08/20/18 08/20/18 08/21/18 17:45 23:49 06:30 Creatine Kinase CK-MB (CK-2) Troponin I 0.019 0.019 0.017 Impressions: Chest X-Ray 08/20/18 10:38 IMPRESSION: Cardiomegaly. Otherwise, no acute radiographic finding in the chest. Assessment & Plan - Diagnosis (1) Dizziness Is this a current diagnosis for this admission?: Yes Plan: Resolved; secondary to dehydration. Orthostatic blood pressures are normal today. Continue gentle maintenance IV fluids. Encouraged ambulation; cautioned slow position changes. (2) Acute kidney injury superimposed on chronic kidney disease Is this a current diagnosis for this admission?: Yes Plan: Improved. Baseline Creatinine 1.5. Admitted with Cr 2.30, improved to 1.87 Continue maintenance IV fluids. Encourage p.o. fluids. Avoid nephrotoxic medications as able. Daily chemistries. (3) Dehydration Is this a current diagnosis for this admission?: Yes Plan: Improved; creatinine down to 1.87 from 2.30, BUN down to 47 from 48. Patient daughter reports that he was placed on Lasix 40 mg daily 1 month ago for dependent edema. When she noted that his blood pressure was low she discontinued his Coreg approximately 1 week ago. Discussed with daughter that the patient's Lasix dose was likely too high and and possibly would be appropriate to use this as needed only. Orthostatic vital signs are negative. Continue maintenance IV fluids. Encourage p.o. fluids. (4) Depression Is this a current diagnosis for this admission?: Yes Plan: Continue home dose sertraline (5) GERD (gastroesophageal reflux disease) Is this a current diagnosis for this admission?: Yes Plan: Pepcid twice daily (6) Hypercholesterolemia Is this a current diagnosis for this admission?: Yes Plan: Atorvastatin 10 mg daily. Cardiac diet. (7) Atrial fibrillation Qualifiers: Atrial fibrillation type: chronic Qualified Code(s): I48.2 - Chronic atrial fibrillation Is this a current diagnosis for this admission?: Yes Plan: Rate controlled at home on carvedilol 25 mg twice daily. Patient's daughter noted hypotension at home and so discontinued his Coreg approximately 1 week ago. Hypotension was likely related to Lasix use for dependent edema. He has been placed on carvedilol 6.25 mg twice daily; adequate rate control and acceptable blood pressures. He has not an chronic anticoagulation candidate due to history of significant upper GI bleeding. (8) CKD (chronic kidney disease), stage III Is this a current diagnosis for this admission?: Yes Plan: Chronic stage III kidney disease. Management as above. (9) HTN (hypertension) Is this a current diagnosis for this admission?: Yes Plan: Cardiac diet. Carvedilol 6.25 mg twice daily. (10) Insulin dependent diabetes mellitus Is this a current diagnosis for this admission?: Yes Plan: Consistent Carb diet. Continue home dose Actos; discontinue if dizziness reoccurs. Resume Novolin 70/30 at slightly lower dose than at home to observe for hypoglycemia as possible cause of dizziness. Started on 20 units twice daily (takes 30 units BID at home) Accu-Cheks before meals and at bedtime with Humalog for sliding scale coverage. (11) DNR (do not resuscitate) Is this a current diagnosis for this admission?: Yes - Time Time Spent with patient: 25-34 minutes Medications reviewed and adjusted accordingly: Yes Anticipated discharge: Home Within: within 24 hours
[2018-08-21] MEDS: INSULIN LISPRO 100 UNIT/ML 3 ML VIAL SUBCUT SCH (22:05)
[2018-08-22 04:49] VITALS: BP 106/58
[2018-08-22] MEDS: NORMAL SALINE 1000 ML 1,000 ML IV PRN (06:17)
[2018-08-22 06:52] LABS: HEMATOCRIT 33.5 % (37.9-51.0); HEMOGLOBIN 11.2 g/dL (13.5-17.0); MEAN CORPUSCULAR HEMOGLOBIN 29.1 pg (27.0-33.4); MEAN CORPUSCULAR HGB CONC 33.4 g/dL (32.0-36.0); MEAN CORPUSCULAR VOLUME 87 fl (80-97); PLATELET COUNT 140 10^3/uL (150-450); RED BLOOD COUNT 3.85 10^6/uL (4.35-5.55); RED CELL DISTRIBUTION WIDTH 14.8 % (11.5-14.0); WHITE BLOOD COUNT 5.4 10^3/uL (4.0-10.5)
[2018-08-22 07:10] LABS: ANION GAP 7 (5-19); BLOOD UREA NITROGEN 41 mg/dL (7-20); CALCIUM 8.8 mg/dL (8.4-10.2); CARBON DIOXIDE 23 mmol/L (22-30); CHLORIDE 110 mmol/L (98-107); GLUCOSE 128 mg/dL (75-110); POTASSIUM 4.4 mmol/L (3.6-5.0); SODIUM 140.3 mmol/L (137-145)
[2018-08-22] MEDS: INSULIN LISPRO 100 UNIT/ML 3 ML VIAL SUBCUT SCH ×3 (07:52→16:32)
[2018-08-22] MEDS: ATORVASTATIN CALCIUM 10 MG TABLET PO SCH (10:56)
[2018-08-22] MEDS: SERTRALINE HCL 50 MG TABLET PO SCH (10:56)
[2018-08-22] MEDS: PIOGLITAZONE HCL 15 MG TABLET PO SCH (10:56)
[2018-08-22] MEDS: LORATADINE 10 MG TABLET PO SCH (10:56)
[2018-08-22] MEDS: CARVEDILOL 6.25 MG TABLET PO SCH (10:56)
[2018-08-22] MEDS: DOCUSATE SODIUM 100 MG CAPSULE PO SCH (10:57)
[2018-08-22] MEDS: FLUTICASONE/UMECLIDIN/VILANTER 100-62.5-25 MCG/DOSE IH SCH (10:57)
[2018-08-22] MEDS: FAMOTIDINE 20 MG TABLET PO SCH (10:57)
[2018-08-22] MEDS: ASPIRIN 81 MG TABLET, ENT COATED PO SCH (10:57)
[2018-08-22] MEDS: HUM INSULIN NPH/REG INSULIN HM 100 UNIT/1 ML 3 ML SUBCUT SCH (11:00)
== END 2018-08-22 17:16 | disposition home or self-care (01) ==
LOC: ER 10:19 → EH 16:55 → INTOOBSV 16:55 → 4S 19:00
PROVIDERS: ADMIT Internal Medicine; ATTEND Internal Medicine
DX: R42 Dizziness and giddiness (principal); E86.0 Dehydration; N17.9 Acute kidney failure, unspecified; E11.22 Type 2 diabetes mellitus with diabetic chronic kidney disease; I13.0 Hypertensive heart and chronic kidney disease with heart failure and stage 1 through stage 4 chronic kidney disease, or unspecified chronic kidney disease; I50.9 Heart failure, unspecified; N18.3 Chronic kidney disease, stage 3 (moderate); F32.9 Major depressive disorder, single episode, unspecified; K21.9 Gastro-esophageal reflux disease without esophagitis; E78.00 Pure hypercholesterolemia, unspecified; I48.2 Chronic atrial fibrillation; Z66 Do not resuscitate; R55 Syncope and collapse; E11.43 Type 2 diabetes mellitus with diabetic autonomic (poly)neuropathy; R23.2 Flushing; R61 Generalized hyperhidrosis; I95.9 Hypotension, unspecified; R06.01 Orthopnea; M19.90 Unspecified osteoarthritis, unspecified site; J44.9 Chronic obstructive pulmonary disease, unspecified; J34.89 Other specified disorders of nose and nasal sinuses; Z79.4 Long term (current) use of insulin; Z85.828 Personal history of other malignant neoplasm of skin; Z85.72 Personal history of non-Hodgkin lymphomas; Z90.49 Acquired absence of other specified parts of digestive tract; Z82.49 Family history of ischemic heart disease and other diseases of the circulatory system; Z79.899 Other long term (current) drug therapy; Z98.890 Other specified postprocedural states; Z87.19 Personal history of other diseases of the digestive system; Z87.891 Personal history of nicotine dependence
CPT/HCPCS: 93005; 99285; 96360; 96361; 36415 ×3; 87040; 87086; 82553; 82962 ×2; 82550; 85025; 85027 ×2; 80048 ×2; 80053; 81001; 84484 ×2; 80307; 83605; 71045; 93010; 94640; 97116; 97162; G0378 ×4; A9270 ×24; J3490 ×3; J7030 ×3; J7040; C1758; J1815

== ENCOUNTER → 2018-08-29 | Outpatient (CLI) | payer MEDICARE ==
--- NOTE | 2018-08-29 12:32 | RADIOLOGY REPORT (SQ) ---
EXAM DESCRIPTION: CT CHEST WITHOUT COMPLETED DATE/TIME: 08/29/2018 9:29 am REASON FOR STUDY: NON HODGKIN LYMPHOMA (C85.82), ABD PAIN (R10.9), PELVIC AND PERINEAL PAIN ( C85.82 OTH TYPES OF NON-HODGKIN LYMPHOMA, INTRATHORACIC LYMP R10.9 UNSPECIFIED ABDOMINAL PAIN R10.2 PELV IC AND PERINEAL PAIN COMPARISON: None. TECHNIQUE: CT scan of the chest performed without intravenous contrast using helical scanning techni que. Images reviewed with lung, soft tissue and bone windows. Reconstructed coronal and sagittal MPR images reviewed. All images stored on PACS. CT scan of the abdomen and pelvis performed without intravenous contrast and withoutoral contrast usi ng helical scanning technique with dynamic intravenous contrast injection. Images reviewed with lung , soft tissue and bone windows. Reconstructed coronal and sagittal MPR images reviewed. All images stored on PACS. All CT scanners at this facility use dose modulation, iterative reconstruction, and/or weight based d osing when appropriate to reduce radiation dose to as low as reasonably achievable (ALARA). [facility]: Dose Right [facility]: CareDose [facility]: Dose Right [facility]: Teradose 4D [facility]: [employer] RADIATION DOSE: CT Rad equipment meets quality standard of care and radiation dose reduction techniq ues were employed. CTDIvol: 11.6 - 17.0 mGy. DLP: 1341 mGy-cm. mGy. LIMITATIONS: No technical limitations. FINDINGS: CHEST: AXILLAE: No adenopathy. CHEST WALL: No masses. No subcutaneous air. LUNGS and PLEURA: Benign calcified and noncalcified granulomas bilaterally. Benign focal pleural thi ckening along the right major and minor fissure. No worrisome pulmonary nodules. No acute infiltrat es. No pleural effusion or pneumothorax. THYROID: No masses or significant asymmetry. HILAR AND MEDIASTINAL STRUCTURES: No identified masses or abnormal nodes. AORTA AND GREAT VESSELS: No aneurysm. HEART: No pericardial effusion. HARDWARE AND LIFELINES: None. BONES: No significant finding. OTHER: No other significant finding. ABDOMEN AND PELVIS: LIVER: Normal size. No masses. No dilated ducts. SPLEEN: Normal size. No focal lesions. PANCREAS: No masses. No significant calcifications. No adjacent inflammation or peripancreatic flui d collections. Pancreatic duct not dilated. GALLBLADDER: Surgically absent ADRENAL GLANDS: No significant masses or asymmetry. RIGHT KIDNEY AND URETER: No solid masses. Assessment limited by lack of IV contrast. 5 mm right upp er pole intrarenal nonobstructive stone. 1.5 cm right midpole renal cortical cyst No hydronephrosi s or hydroureter. LEFT KIDNEY AND URETER: No solid masses. Assessment limited by lack of IV contrast. 1 cm left midpol e renal cortical cyst. No significant calcifications. No hydronephrosis or hydroureter. AORTA AND VESSELS: No aneurysm. RETROPERITONEUM: No retroperitoneal adenopathy, hemorrhage or masses. APPENDIX: Surgically absent. LARGE AND SMALL BOWEL: No CT signs of bowel obstruction. There are scattered colonic diverticuli wit h an inflamed diverticulum along the mid 3rd descending colon with inflammation in the pericolic fat on coronal images 51 through 56. No pericolic abscess or free air/fluid ABDOMINAL WALL: Fatty subxiphoid ventral hernia sagittal image 43, containing fat. Fatty bilateral i nguinal hernias PERITONEAL CAVITY: No free air. No free fluid. No peritoneal implants or masses. PELVIS: No mass or free fluid. Normal bladder. BONES: Bold L4-5 fusion with central canal stenosis at L3-4 OTHER: No other significant finding. IMPRESSION: No CT evidence of recurrent lymphoma Descending colon diverticulitis without abscess. TECHNICAL DOCUMENTATION: JOB ID: [id number] Quality ID # [id number]: Final reports with documentation of one or more dose reduction techniques (e.g., Au tomated exposure control, adjustment of the mA and/or kV according to patient size, use of iterative reconstruction technique) 2010 [employer]- All Rights Reserved Reading location - IP/workstation name: [email or web address]
--- NOTE | 2018-08-29 12:48 | RADIOLOGY REPORT (SQ) ---
EXAM DESCRIPTION: CT ABD/PELVIS NO ORAL OR IV COMPLETED DATE/TIME: 08/29/2018 9:29 am REASON FOR STUDY: NON HODGKIN LYMPHOMA (C85.82), ABD PAIN (R10.9), PELVIC AND PERINEAL PAIN ( C85.82 OTH TYPES OF NON-HODGKIN LYMPHOMA, INTRATHORACIC LYMP R10.9 UNSPECIFIED ABDOMINAL PAIN R10.2 PELV IC AND PERINEAL PAIN COMPARISON: 04/21/2018 TECHNIQUE: CT scan of the abdomen and pelvis performed without intravenous or oral contrast. Images reviewed with lung, soft tissue, and bone windows. Reconstructed coronal and sagittal MPR images revi ewed. All images stored on PACS. All CT scanners at this facility use dose modulation, iterative reconstruction, and/or weight based d osing when appropriate to reduce radiation dose to as low as reasonably achievable (ALARA). [facility]: Dose Right [facility]: CareDose [facility]: Dose Right [facility]: Teradose 4D [facility]: [employer] RADIATION DOSE: mGy. LIMITATIONS: None. FINDINGS: LOWER CHEST: See separate report of the CT of the chest. NON-CONTRASTED LIVER, SPLEEN, ADRENALS: Evaluation limited by lack of IV contrast. No identified sign ificant masses. PANCREAS: No masses. No peripancreatic inflammatory changes. GALLBLADDER: Surgically absent. RIGHT KIDNEY AND URETER: No suspicious masses. There is a small low-density lesion in the kidney on image 36. This may represent cyst or angiomyolipoma. Assessment limited by lack of IV contrast. T here is a small nonobstructing upper calyceal calculus. No hydronephrosis or hydroureter. LEFT KIDNEY AND URETER: No suspicious masses. Assessment limited by lack of IV contrast. No signifi cant calcifications. No hydronephrosis or hydroureter. AORTA AND RETROPERITONEUM: No aneurysm. No retroperitoneal masses or adenopathy. BOWEL AND PERITONEAL CAVITY: There is stranding associated with a single diverticulum in the descendi ng colon. See image 55. Occasional sigmoid diverticula are present. APPENDIX: Not identified. PELVIS, BLADDER, AND ABDOMINAL WALL:No abnormal masses. No free fluid. Bladder normal. Ventral herni a containing only fat. BONES: Rods at L5-S1 with screws through the pedicles. OTHER: No other significant finding. IMPRESSION: 1. Uncomplicated diverticulitis involving the descending colon. No abscess. No perfor ation. 2. Ventral hernia containing only fat. 3. Nonobstructing right renal calculus. 4. Small low-density right renal lesion as above. COMMENT: Quality ID # [id number]: Final reports with documentation of one or more dose reduction techniques (e.g., Automated exposure control, adjustment of the mA and/or kV according to patient size, use of iterative reconstruction technique) TECHNICAL DOCUMENTATION: JOB ID: [id number] [employer] All Rights Reserved Reading location - IP/workstation name: [email or web address]
== END ==
LOC: RAD 08:41
PROVIDERS: ATTEND Internal Medicine
DX: C85.82 Other specified types of non-Hodgkin lymphoma, intrathoracic lymph nodes (principal); R10.9 Unspecified abdominal pain; R10.2 Pelvic and perineal pain; K57.32 Diverticulitis of large intestine without perforation or abscess without bleeding; N20.0 Calculus of kidney; K43.9 Ventral hernia without obstruction or gangrene
CPT/HCPCS: 71250; 74176

== ENCOUNTER 2018-09-06 11:38 | Emergency (ER) | payer MEDICARE ==
--- NOTE | 2018-09-06 12:01 | ER Document Report ---
ED Medical Screen (RME) - General Chief Complaint: Foot Pain Stated Complaint: RIGHT FOOT PAIN Time Seen by Provider: 09/06/18 11:59 Primary Care Provider: LISA HECK MD [Primary Care Provider] - Follow up as needed Notes: 78-year-old male to the emergency department chief complaint of right foot redness pain and swelling. Symptoms have been present for 2 days. Getting worse. History of atrial fibrillation but not on anticoagulation therapy. Denies any fever, chills or sweats at that time. I have greeted and performed a rapid initial assessment of this patient. A comprehensive ED assessment and evaluation of the patient, analysis of test results and completion of the medical decision making process will be conducted by additional ED providers. TRAVEL OUTSIDE OF THE [place] IN LAST 30 DAYS: No - Related Data Allergies/Adverse Reactions: aspirin [Aspirin] Adverse Reaction (Intermediate, Verified 09/06/18 11:44) bleeding ulcers codeine [Codeine] Adverse Reaction (Intermediate, Verified 09/06/18 11:44) bleeding ulcers Past Medical History - Past Medical History Cardiac Medical History: Reports: Hx Atrial Fibrillation, Hx Congestive Heart Failure, Hx Hypercholesterolemia, Hx Hypertension Denies: Hx Coronary Artery Disease, Hx Heart Attack Pulmonary Medical History: Reports: Hx COPD Denies: Hx Asthma, Hx Bronchitis, Hx Pneumonia Neurological Medical History: Denies: Hx Cerebrovascular Accident, Hx Seizures Endocrine Medical History: Reports: Hx Diabetes Mellitus Type 1, Hx Diabetes Mellitus Type 2 Renal/ Medical History: Denies: Hx Peritoneal Dialysis Malignancy Medical History: Reports Hx Skin Cancer GI Medical History: Reports: Hx Diverticulitis, Hx Gastroesophageal Reflux Disease Musculoskeltal Medical History: Reports Hx Arthritis - GENERALIZED Psychiatric Medical History: Denies: Hx Depression Past Surgical History: Reports: Hx Abdominal Surgery - hernia repair, Hx Appendectomy, Hx Cholecystectomy, Hx Herniorrhaphy, Hx Orthopedic Surgery - back x2 with hardware, Other - Several back surgeries, wrist surgery, elbow surgery, hemmorhoids, hardeep. Denies: Hx Pacemaker - Immunizations Hx Diphtheria, Pertussis, Tetanus Vaccination: No History of Influenza Vaccine for 04/2017 - 09/2017 Season: Yes Influenza Administration Date for 04/2017 - 09/2017 Season: 03/04/17 Physical Exam - Vital signs Vitals: Temp Pulse Resp BP Pulse Ox 98.1 F 80 18 115/84 97 09/06/18 11:54 09/06/18 11:54 09/06/18 11:54 09/06/18 11:54 09/06/18 11:54 Course - Vital Signs Vital signs: Temp Pulse Resp BP Pulse Ox 98.1 F 80 18 115/84 97 09/06/18 11:54 09/06/18 11:54 09/06/18 11:54 09/06/18 11:54 09/06/18 11:54 Doctor's Discharge - Discharge Referrals: LISA HECK MD [Primary Care Provider] - Follow up as needed
[2018-09-06 12:36] LABS: ABSOLUTE BASOPHILS # (AUTO) 0.1 10^3/uL (0.0-0.2); ABSOLUTE EOSINOPHILS # (AUTO) 0.2 10^3/uL (0.0-0.6); ABSOLUTE LYMPHOCYTES (AUTO) 1.7 10^3/uL (0.5-4.7); ABSOLUTE MONOCYTES (AUTO) 1.3 10^3/uL (0.1-1.4); ABSOLUTE NEUT (AUTO) 6.1 10^3/uL (1.7-8.2); BASOPHILS % (AUTO) 0.6 % (0-2); EOSINOPHILS % (AUTO) 1.7 % (0-6); HEMATOCRIT 37.9 % (37.9-51.0); HEMOGLOBIN 12.8 g/dL (13.5-17.0); LYMPHOCYTES % (AUTO) 17.8 % (13-45); MEAN CORPUSCULAR HEMOGLOBIN 29.4 pg (27.0-33.4); MEAN CORPUSCULAR HGB CONC 33.9 g/dL (32.0-36.0); MEAN CORPUSCULAR VOLUME 87 fl (80-97); MONOCYTES % (AUTO) 13.8 % (3-13); PLATELET COUNT 240 10^3/uL (150-450); RED BLOOD COUNT 4.37 10^6/uL (4.35-5.55); RED CELL DISTRIBUTION WIDTH 14.2 % (11.5-14.0); SEGMENTED NEUTROPHILS % (AUTO) 66.1 % (42-78); TOTAL CELLS COUNTED % (AUTO) 100 %; WHITE BLOOD COUNT 9.3 10^3/uL (4.0-10.5)
[2018-09-06 12:57] LABS: ALANINE AMINOTRANSFERASE 16 U/L (21-72); ALBUMIN 4.3 g/dL (3.5-5.0); ALKALINE PHOSPHATASE 93 U/L (38-126); ANION GAP 13 (5-19); ASPARTATE AMINO TRANSFERASE 17 U/L (17-59); BILIRUBIN,DIRECT 0.2 mg/dL (0.0-0.4); BILIRUBIN,TOTAL 0.7 mg/dL (0.2-1.3); BLOOD UREA NITROGEN 30 mg/dL (7-20); C-REACTIVE PROTEIN 31.7 mg/L (<10.0); CALCIUM 10.1 mg/dL (8.4-10.2); CARBON DIOXIDE 27 mmol/L (22-30); CHLORIDE 99 mmol/L (98-107); GLUCOSE 125 mg/dL (75-110); POTASSIUM 4.2 mmol/L (3.6-5.0); SODIUM 138.9 mmol/L (137-145); TOTAL PROTEIN 7.9 g/dL (6.3-8.2); URIC ACID 10.7 mg/dL (3.5-8.5)
[2018-09-06 13:11] LABS: ERYTHROCYTE SEDIMENTATION RATE 54 mm/hr (0-20)
--- NOTE | 2018-09-06 13:14 | RADIOLOGY REPORT (SQ) ---
EXAM DESCRIPTION: FOOT RIGHT 2 VIEWS COMPLETED DATE/TIME: 09/06/2018 12:53 pm REASON FOR STUDY: foot pain COMPARISON: None. NUMBER OF VIEWS: Three views. TECHNIQUE: AP, lateral and oblique without weight bearing radiographic images acquired of the right foot. LIMITATIONS: None. FINDINGS: MINERALIZATION: Normal. BONES: No acute fracture or dislocation. No worrisome bone lesions. No significant osteophytes. JOINTS: No erosions. No bernadine-articular osteopenia. No chondrocalcinosis. SOFT TISSUES: No swelling. No calcifications. OTHER: No other significant finding. IMPRESSION: NEGATIVE STUDY OF THE RIGHT FOOT. NO ACUTE POST-TRAUMATIC CHANGES. NO EXPLANATION FOR PA IN. TECHNICAL DOCUMENTATION: JOB ID: [id number] [employer]- All Rights Reserved Reading location - IP/workstation name: [email or web address]
[2018-09-06] MEDS ORDERED: COLCHICINE 0.6 MG TABLET PO ONE ×2 (13:58→14:56)
--- NOTE | 2018-09-06 14:06 | ER Document Report ---
ED General - General Chief Complaint: Foot Pain Stated Complaint: RIGHT FOOT PAIN Time Seen by Provider: 09/06/18 11:59 Primary Care Provider: LISA HECK MD [ACTIVE STAFF] - Follow up as needed Notes: Patient is a 78-year-old male with multiple medical problems who presents to the emergency department with a chief complaint of right foot swelling and pain. He has had the symptoms for the past 3 days. States that is sometimes a little itchy. He also states he has some joint pain, especially at night. He has not seen his primary care provider in regards to this issue. TRAVEL OUTSIDE OF THE [place] IN LAST 30 DAYS: No - Related Data Allergies/Adverse Reactions: aspirin [Aspirin] Adverse Reaction (Intermediate, Verified 09/06/18 14:03) bleeding ulcers codeine [Codeine] Adverse Reaction (Intermediate, Verified 09/06/18 14:03) bleeding ulcers Past Medical History - Social History Smoking Status: Unknown if Ever Smoked Family History: Hypertension Patient has suicidal ideation: No Patient has homicidal ideation: No - Past Medical History Cardiac Medical History: Reports: Hx Atrial Fibrillation, Hx Congestive Heart Failure, Hx Hypercholesterolemia, Hx Hypertension Denies: Hx Coronary Artery Disease, Hx Heart Attack Pulmonary Medical History: Reports: Hx COPD Denies: Hx Asthma, Hx Bronchitis, Hx Pneumonia Neurological Medical History: Denies: Hx Cerebrovascular Accident, Hx Seizures Endocrine Medical History: Reports: Hx Diabetes Mellitus Type 1, Hx Diabetes Mellitus Type 2 Renal/ Medical History: Denies: Hx Peritoneal Dialysis Malignancy Medical History: Reports Hx Skin Cancer GI Medical History: Reports: Hx Diverticulitis, Hx Gastroesophageal Reflux Disease Musculoskeletal Medical History: Reports Hx Arthritis - GENERALIZED Psychiatric Medical History: Denies: Hx Depression Past Surgical History: Reports: Hx Abdominal Surgery - hernia repair, Hx Appendectomy, Hx Cholecystectomy, Hx Herniorrhaphy, Hx Orthopedic Surgery - back x2 with hardware, Other - Several back surgeries, wrist surgery, elbow surgery, hemmorhoids, hardeep. Denies: Hx Pacemaker - Immunizations Hx Diphtheria, Pertussis, Tetanus Vaccination: No Hx Pneumococcal Vaccination: 04/12/11 Review of Systems - Review of Systems Notes: REVIEW OF SYSTEMS: CONSTITUTIONAL : Denies recent illness. Denies recent unintentional weight loss. Denies fever, chills, or sweats. EENT: Denies eye, ear, throat, or mouth pain, discharge, or symptoms. Denies nasal or sinus congestion. CARDIOVASCULAR: Denies chest pain. RESPIRATORY: Denies shortness of breath, cough, congestion, difficulty breathing, or wheezing. GASTROINTESTINAL: Denies nausea, vomiting, and diarrhea. Denies abdominal pain. Denies constipation. GENITOURINARY: Denies difficulty urinating, burning, blood in urine, urgency or frequency. MUSCULOSKELETAL: See HPI SKIN: See HPI HEMATOLOGIC : Denies easy bruising or bleeding. LYMPHATIC: Denies swollen, painful, enlarged glands. NEUROLOGICAL: Denies no numbness or tingling denies weakness. Denies headache. Denies altered mental status. Denies alteration in speech. PSYCHIATRIC: Denies stress, anxiety, alteration in sleep patterns, or depression. All other systems reviewed and negative. Physical Exam - Vital signs Vitals: Temp Pulse Resp BP Pulse Ox 98.1 F 80 18 115/84 97 09/06/18 11:54 09/06/18 11:54 09/06/18 11:54 09/06/18 11:54 09/06/18 11:54 - Notes Notes: PHYSICAL EXAMINATION: GENERAL: Appears well, healthy, well-nourished, no acute distress. HEAD: Normocephalic, atraumatic. EYES: PERRL, conjunctiva normal, all extraocular movements intact, sclera nonicteric ENT: Moist mucous membranes. NECK: Supple, no noticeable swelling, redness, rash. Normal range of motion. LUNGS: Equal breath sounds bilaterally and clear to auscultation. No wheezes rales or rhonchi. CARDIOVASCULAR: S1-S2, regular rate, regular rhythm. Radial pulses 2+, normal. ABDOMEN: Normoactive bowel sounds. Soft, nontender, no guarding, no rebound tenderness, and no masses palpated. EXTREMITIES: Normal strength and range of motion, no pitting or edema. No cyanosis. NEUROLOGICAL: Moves all extremities upon command. Strength 5/5 in all extremities. PSYCH: Normal mood, normal affect. SKIN: Warm, dry. Erythema and warmth noted to the dorsal aspect of right foot. Course - Re-evaluation Re-evalutation: 09/06/18 14:09 Patient's uric acid level is 10.4. I will give him a dose of colchicine and repeat the dose in about an hour. Awaiting right lower extremity venous Doppler study. 09/06/18 14:57 Patient's right lower extremity ultrasound is negative for any DVT at this time. He will receive his second dose of colchicine here in the emergency department. He will also be started on Keflex for a possible cellulitis component to his right foot pain, as his foot is warm and he does have erythema noted to the area. Verbal discharge instructions were given to the patient. They verbalized understanding. They are stable for discharge. - Vital Signs Vital signs: Temp Pulse Resp BP Pulse Ox 98.1 F 80 18 115/84 97 09/06/18 11:54 09/06/18 11:54 09/06/18 11:54 09/06/18 11:54 09/06/18 11:54 - Laboratory Result Diagrams: 09/06/18 12:20 09/06/18 12:20 Laboratory results interpreted by me: 09/06/18 09/06/18 09/06/18 12:20 12:20 13:48 Hgb 12.8 L RDW 14.2 H Monocytes % 13.8 H ESR 54 H BUN 30 H Creatinine 1.70 H Est GFR ( Amer) 48 L Est GFR (Non-Af Amer) 39 L Glucose 125 H POC Glucose 111 H Uric Acid 10.7 H ALT 16 L C-Reactive Protein 31.7 H Discharge - Discharge Clinical Impression: Right foot pain Condition: Stable Disposition: HOME, SELF-CARE Additional Instructions: You were seen today in the emergency department for right foot pain. You do not have a blood clot in your leg. Your uric acid levels were elevated. You were treated for acute gout here in the emergency department. You are also being treated for cellulitis and her being started on antibiotics. Please follow-up with your primary care provider in regards to this visit. If you develop a fever greater than 100.4 F, have worsening symptoms, or unable to walk, or have any symptoms that are worrisome to you, please return to the emergency department. Prescriptions: Cephalexin Monohydrate [Keflex 500 mg Capsule] 500 mg PO Q6H 7 Days capsule
[2018-09-06 15:14] VITALS: BP 151/88
--- NOTE | 2018-09-06 15:44 | RADIOLOGY REPORT (SQ) ---
EXAM DESCRIPTION: VENOUS UNILATERAL LOWER COMPLETED DATE/TIME: 09/06/2018 3:31 pm REASON FOR STUDY: RLE foot pain and swelling COMPARISON: None. TECHNIQUE: Dynamic and static coleman scale and color images acquired of the right leg venous system. S elected spectral images acquired with additional compression and augmentation maneuvers. The contrala teral common femoral vein and saphenofemoral junction were also imaged. Images stored on PACS. LIMITATIONS: None. FINDINGS: COMMON FEMORAL: Normal phasicity, compression and augmentation. No visualized echogenic ma terial on coleman scale. No defects on color images. FEMORAL: Normal compression and augmentation. No visualized echogenic material on coleman scale. No defe cts on color images. POPLITEAL: Normal compression, augmentation. No visualized echogenic material on coleman scale. No defec ts on color images. CALF VESSELS: Normal compression, augmentation. No visualized echogenic material on coleman scale. No de fects on color images. GSV and SSV: Normal compression, augmentation. No visualized echogenic material on coleman scale. No def ects on color images. ANY DEEP VENOUS INSUFFICIENCY: Not evaluated. ANY EVIDENCE OF POPLITEAL CYST: No. OTHER: No other significant finding. CONTRALATERAL COMMON FEMORAL VEIN AND SAPHENOFEMORAL JUNCTION: Normal phasicity, compression and augmentation. No visualized echogenic material on coleman scale. No de fects on color images. IMPRESSION: 1. NO EVIDENCE OF DVT OR SVT IN THE RIGHT LEG. TECHNICAL DOCUMENTATION: JOB ID: [id number] [employer]- All Rights Reserved Reading location - IP/workstation name: [email or web address]
== END 2018-09-06 15:23 | disposition home or self-care (01) ==
LOC: ER 11:38
DX: M79.671 Pain in right foot (principal); L29.9 Pruritus, unspecified; L53.9 Erythematous condition, unspecified; M79.89 Other specified soft tissue disorders; M25.50 Pain in unspecified joint; I10 Essential (primary) hypertension; J44.9 Chronic obstructive pulmonary disease, unspecified; E11.9 Type 2 diabetes mellitus without complications
CPT/HCPCS: 99284; 36415; 82962; 84550; 85025; 85652; 86140; 80053; 93971; 73620; A9270

== ENCOUNTER 2018-09-21 19:22 | Emergency (ER) | payer MEDICARE ==
--- NOTE | 2018-09-21 20:16 | ER Document Report ---
ED Medical Screen (RME) - General Chief Complaint: Leg Swelling Stated Complaint: LEFT LEG SWELLING Time Seen by Provider: 09/21/18 19:57 Primary Care Provider: GENE WICK PA-C [Primary Care Provider] - Follow up as needed Information source: Patient TRAVEL OUTSIDE OF THE [place] IN LAST 30 DAYS: No - HPI Notes: 09/21/18 20:10 Rapid medical exam triage note : patient is a 78-year-old male presents with report that he has a history of gout is currently on anticoagulant therapy and had a watchman access approach without complication placed yesterday by a right femoral vascular access. The patient reports no right leg pain, but today he had pain to the left midfoot region. He has a history of gout, and is unaware of any injury to the foot that he can recall. His surgeon advised him to get an ultrasound of the left lower extremity and he arrives for that. He denies any significant worsening of the swelling on the left versus right leg. The patient reports no chest pain or difficulty breathing or fever or chills. No abdominal pain or constipation or diarrhea. Physical exam shows a 78-year-old male in no obvious distress HEENT atraumatic normocephalic Neck supple nontender. Cardiovascular regular rate and rhythm without appreciable gallop or rub there is a 1/6 systolic ejection murmur best auscultated over the apex. Lungs clear to auscultation bilaterally Abdomen soft nontender no pulsatile mass. Examination of the groin region shows right femoral access approach appears completely clear. Extremity exam shows both lower extremities have good Distal pulses both DP and PT. There is no proximal erythema or adenopathy. The patient may have a very mild cellulitis on the dorsal aspect of the midfoot with mild tenderness. There is no pain over the first metatarsophalangeal joint. Patient has 1+ edema both lower extremities. No splinter hemorrhages distally. Good distal capillary refill. No obvious cellulitis noted further up the leg. Patient has mild pain to the calf region with a plus minus Homans. Question DVT, although unlikely given that the patient is currently anticoagulated again. Also question a mild cellulitis on the dorsal aspect of the left foot. Given the pain with movement, we will obtain a x-ray of the area to rule out pathologic fracture or other abnormality. No evidence for gout given the location. The patient is good arterial supply to both lower extremities. For further care and evaluation see partners note. - Related Data Allergies/Adverse Reactions: aspirin [Aspirin] Adverse Reaction (Intermediate, Verified 09/06/18 14:03) bleeding ulcers codeine [Codeine] Adverse Reaction (Intermediate, Verified 09/06/18 14:03) bleeding ulcers Past Medical History - Social History Frequency of alcohol use: None Drug Abuse: None - Past Medical History Cardiac Medical History: Reports: Hx Atrial Fibrillation, Hx Congestive Heart Failure, Hx Hypercholesterolemia, Hx Hypertension Denies: Hx Coronary Artery Disease, Hx Heart Attack Pulmonary Medical History: Reports: Hx COPD Denies: Hx Asthma, Hx Bronchitis, Hx Pneumonia Neurological Medical History: Denies: Hx Cerebrovascular Accident, Hx Seizures Endocrine Medical History: Reports: Hx Diabetes Mellitus Type 1, Hx Diabetes Mellitus Type 2 Renal/ Medical History: Denies: Hx Peritoneal Dialysis Malignancy Medical History: Reports Hx Skin Cancer GI Medical History: Reports: Hx Diverticulitis, Hx Gastroesophageal Reflux Disease Musculoskeltal Medical History: Reports Hx Arthritis - GENERALIZED Psychiatric Medical History: Denies: Hx Depression Past Surgical History: Reports: Hx Abdominal Surgery - hernia repair, Hx Appendectomy, Hx Cholecystectomy, Hx Herniorrhaphy, Hx Orthopedic Surgery - back x2 with hardware, Other - Several back surgeries, wrist surgery, elbow surgery, hemmorhoids, hardeep. Denies: Hx Pacemaker - Immunizations Hx Diphtheria, Pertussis, Tetanus Vaccination: No History of Influenza Vaccine for 04/2017 - 09/2017 Season: Yes Influenza Administration Date for 04/2017 - 09/2017 Season: 03/04/17 Physical Exam - Vital signs Vitals: Temp Pulse Resp BP Pulse Ox 99.3 F 101 H 22 H 102/72 96 09/21/18 19:31 09/21/18 19:31 09/21/18 19:31 09/21/18 19:31 09/21/18 19:31 Course - Vital Signs Vital signs: Temp Pulse Resp BP Pulse Ox 99.3 F 101 H 22 H 102/72 96 09/21/18 19:31 09/21/18 19:31 09/21/18 19:31 09/21/18 19:31 09/21/18 19:31 - Laboratory Laboratory results interpreted by me: 09/21/18 20:02 POC Glucose 253 H Doctor's Discharge - Discharge Referrals: GENE WICK PA-C [Primary Care Provider] - Follow up as needed
--- NOTE | 2018-09-21 20:37 | ER Document Report ---
ED Extremity Problem, Lower - General Chief Complaint: Leg Swelling Stated Complaint: LEFT LEG SWELLING Time Seen by Provider: 09/21/18 19:57 Primary Care Provider: GENE WICK PA-C [Primary Care Provider] - Follow up tomorrow Notes: Patient is a 78-year-old male with a history of atrial fibrillation and gout that comes emergency department for chief complaint of swelling to the left lower extremity at the foot and ankle, yesterday (09/20/2018) he had a procedure to place a watchman device in his heart due to his atrial fibrillation, this was performed by Dr. Nia Hernández, this was performed via vascular access starting in the right femoral area (the opposite side from patient's complaint). His daughter noticed the swelling in the left foot after they went home today. Patient did notice some pain to the area, has not had fever or chills, he denies injury. They reportedly called his surgeon and they advised him to get an ultrasound of the left lower extremity, he presents to the emergency department for this. Patient denies any other complaints, he denies any current complaints. Patient is currently on Eliquis. TRAVEL OUTSIDE OF THE [place] IN LAST 30 DAYS: No - Related Data Allergies/Adverse Reactions: aspirin [Aspirin] Adverse Reaction (Intermediate, Verified 09/06/18 14:03) bleeding ulcers codeine [Codeine] Adverse Reaction (Intermediate, Verified 09/06/18 14:03) bleeding ulcers Past Medical History - General Information source: Patient, Relative - Social History Smoking Status: Never Smoker Frequency of alcohol use: None Drug Abuse: None Lives with: Family Family History: Hypertension Patient has suicidal ideation: No Patient has homicidal ideation: No - Past Medical History Cardiac Medical History: Reports: Hx Atrial Fibrillation, Hx Congestive Heart Failure, Hx Hypercholesterolemia, Hx Hypertension Denies: Hx Coronary Artery Disease, Hx Heart Attack Pulmonary Medical History: Reports: Hx COPD Denies: Hx Asthma, Hx Bronchitis, Hx Pneumonia Neurological Medical History: Denies: Hx Cerebrovascular Accident, Hx Seizures Endocrine Medical History: Reports: Hx Diabetes Mellitus Type 1, Hx Diabetes Mellitus Type 2 Renal/ Medical History: Denies: Hx Peritoneal Dialysis Malignancy Medical History: Reports Hx Skin Cancer GI Medical History: Reports: Hx Diverticulitis, Hx Gastroesophageal Reflux Disease Musculoskeletal Medical History: Reports Hx Arthritis - GENERALIZED Psychiatric Medical History: Denies: Hx Depression Past Surgical History: Reports: Hx Abdominal Surgery - hernia repair, Hx Appendectomy, Hx Cholecystectomy, Hx Herniorrhaphy, Hx Orthopedic Surgery - back x2 with hardware, Other - Several back surgeries, wrist surgery, elbow surgery, hemmorhoids, hardeep. Denies: Hx Pacemaker - Immunizations Hx Diphtheria, Pertussis, Tetanus Vaccination: No Hx Pneumococcal Vaccination: 04/12/11 Review of Systems - Review of Systems Constitutional: No symptoms reported EENT: No symptoms reported Cardiovascular: No symptoms reported Respiratory: No symptoms reported Gastrointestinal: No symptoms reported Genitourinary: No symptoms reported Male Genitourinary: No symptoms reported Musculoskeletal: See HPI Skin: See HPI Hematologic/Lymphatic: No symptoms reported Neurological/Psychological: No symptoms reported Physical Exam - Vital signs Vitals: Temp Pulse Resp BP Pulse Ox 99.3 F 101 H 22 H 102/72 96 09/21/18 19:31 09/21/18 19:31 09/21/18 19:31 09/21/18 19:31 09/21/18 19:31 - Notes Notes: GENERAL: Alert, interacts well. No acute distress. HEAD: Normocephalic, atraumatic. EYES: Pupils equal, round, and reactive to light. Extraocular movements intact. ENT: Oral mucosa moist, tongue midline. Oropharynx unremarkable. Airway patent. Nares patent, no nasal septal hematoma, TM's intact. NECK: Full range of motion. Supple. Trachea midline. LUNGS: Clear to auscultation bilaterally, no wheezes, rales, or rhonchi. No respiratory distress. HEART: Regular rate and rhythm. No murmur ABDOMEN: Soft, non-tender. Non-distended. Bowel sounds present in all 4 quadrants. GENITOURINARY: Deferred EXTREMITIES: Postop dressing over the right femoral area, this is nontender, there is no ecchymosis, erythema, or swelling. Right lower extremity is normal except for minimal lower extremity edema which is identical to the left. Normal distal pulses and sensation. There is slight amount of swelling and there is some tenderness and warmth over the left dorsal foot, borderline erythema but no significant erythema, no induration or fluctuance, no severe tenderness. Unremarkable exam otherwise. BACK: no cervical, thoracic, lumbar midline tenderness. No saddle anesthesia, normal distal neurovascular exam. NEUROLOGICAL: Alert and oriented x3. Normal speech. [cranial nerves II through XII grossly intact]. PSYCH: Normal affect, normal mood. SKIN: Warm, dry, normal turgor. No rashes or lesions noted. Course - Re-evaluation Re-evalutation: On physical exam the right femoral axis region is very normal in appearance with a small bandage but no swelling, ecchymosis, pain, erythema, or abnormality noted. Good distal pulses and sensation. Left foot is generally unremarkable. There is mild questionable swelling, there no overt erythema of the foot (it is slightly borderline), there is mild t enderness. There appears to be minimal edema in both legs which is comparable, the only difference is the swelling in the left foot and the pain. On re- evaluation patient reports more pain. It is painful to move or touch the foot, it is warmer now, but it is still not erythematous. Patient afebrile, not tachycardic, conversational and well appearing otherwise. Venous Doppler is unremarkable, no acute findings. X-ray with no acute findings. Patient's symptoms do not appear to be postop, it is on the opposite leg from his procedure, his femoral access area is very normal in appearance. Patient is telling me that this feels like his gout flares, states he had one in the other foot in the same place recently. Requesting treatment of the pain and discharge. I discussed with Dr. Can. Patient advised to return if he worsens in any way including redness, fever, severe worsening pain, etc. He states that he will. Daughter states agreement. Given 1.2 g of colchicine, also given the 0.6 g to take at home in 1 hour if needed, provided with pain medication. - Vital Signs Vital signs: Temp Pulse Resp BP Pulse Ox 98.1 F 79 18 115/65 96 09/21/18 21:48 09/21/18 21:48 09/21/18 21:48 09/21/18 21:48 09/21/18 21:48 - Laboratory Laboratory results interpreted by me: 09/21/18 20:02 POC Glucose 253 H Discharge - Discharge Clinical Impression: Left foot pain Condition: Stable Disposition: HOME, SELF-CARE Additional Instructions: The Doppler study and imaging do not show any concerning findings. Your evaluation is consistent with a gout flare, take the second dose of colchicine at home if needed, take the pain medication as prescribed if needed. Your surgical site appears normal. Follow-up with your primary care provider closely for additional evaluation and management. See them in the office tomorrow. Return if you worsen in any way including developing or spreading redness, fever/chills, swelling of the surgical site, chest pain, abdominal pain, or any other concerning symptoms. Prescriptions: Morphine Sulfate [Morphine Ir 15 Mg Tablet] 15 mg PO TID PRN #12 tablet PRN Reason: Referrals: GENE WICK PA-C [Primary Care Provider] - Follow up tomorrow
--- NOTE | 2018-09-21 21:00 | RADIOLOGY REPORT (SQ) ---
EXAM DESCRIPTION: XR FOOT 3 OR MORE VIEWS COMPLETED DATE/TME: 09/21/2018 20:07 CLINICAL HISTORY: 78 years, Male, Left foot pain and swelling COMPARISON: None. NUMBER OF VIEWS: 3 TECHNIQUE: 3 view left foot LIMITATIONS: None. FINDINGS: Negative for acute fracture or dislocation. Soft tissues are unremarkable IMPRESSION: Negative exam copyright 2011 [employer]- All Rights Reserved
[2018-09-21] MEDS ORDERED: COLCHICINE 0.6 MG TABLET PO ONE ×2 (21:29→21:33)
[2018-09-21] MEDS ORDERED: MORPHINE SULFATE IR 15 MG TABLET PO ONE (21:29)
[2018-09-21 21:48] VITALS: BP 115/65
--- NOTE | 2018-09-22 08:22 | RADIOLOGY REPORT (SQ) ---
EXAM DESCRIPTION: VENOUS UNILATERAL LOWER COMPLETED DATE/TIME: 09/21/2018 9:20 pm REASON FOR STUDY: left leg swelling, R femoral vasc access yesterday COMPARISON: None. TECHNIQUE: Dynamic and static coleman scale and color images acquired of the left leg venous system. Se lected spectral images acquired with additional compression and augmentation maneuvers. The contralat eral common femoral vein and saphenofemoral junction were also imaged. Images stored on PACS. LIMITATIONS: None. FINDINGS: COMMON FEMORAL: Normal phasicity, compression and augmentation. No visualized echogenic ma terial on coleman scale. No defects on color images. FEMORAL: Normal compression and augmentation. No visualized echogenic material on coleman scale. No defe cts on color images. POPLITEAL: Normal compression, augmentation. No visualized echogenic material on coleman scale. No defec ts on color images. CALF VESSELS: Normal compression, augmentation. No visualized echogenic material on coleman scale. No de fects on color images. GSV and SSV: Normal compression, augmentation. No visualized echogenic material on coleman scale. No def ects on color images. ANY DEEP VENOUS INSUFFICIENCY: Not evaluated. ANY EVIDENCE OF POPLITEAL CYST: No. OTHER: No other significant finding. CONTRALATERAL COMMON FEMORAL VEIN AND SAPHENOFEMORAL JUNCTION: Obscured by bandage following venous access. IMPRESSION: Negative examination for deep venous thrombosis in the left lower extremity. TECHNICAL DOCUMENTATION: JOB ID: [id number] [employer]- All Rights Reserved Reading location - IP/workstation name: [email or web address]
== END 2018-09-21 21:57 | disposition home or self-care (01) ==
LOC: ER 19:22
DX: M79.672 Pain in left foot (principal); M79.89 Other specified soft tissue disorders; Z98.890 Other specified postprocedural states; Z79.01 Long term (current) use of anticoagulants; I50.9 Heart failure, unspecified; I11.0 Hypertensive heart disease with heart failure; J44.9 Chronic obstructive pulmonary disease, unspecified; E11.9 Type 2 diabetes mellitus without complications
CPT/HCPCS: 99284; 82962; 93971; 73630; A9270 ×2

== ENCOUNTER 2020-01-03 02:07 | Emergency (ER) | payer MEDICARE ==
[2020-01-03 02:49] LABS: ABSOLUTE EOSINOPHILS # (AUTO) 0.1 10^3/uL (0.0-0.6); ABSOLUTE LYMPHOCYTES (AUTO) 0.9 10^3/uL (0.5-4.7); ABSOLUTE MONOCYTES (AUTO) 0.8 10^3/uL (0.1-1.4); BASOPHILS % (AUTO) 0.5 % (0-2); EOSINOPHILS % (AUTO) 2.2 % (0-6); HEMOGLOBIN 12.2 g/dL (13.5-17.0); MEAN CORPUSCULAR HEMOGLOBIN 30.3 pg (27.0-33.4); MEAN CORPUSCULAR HGB CONC 34.8 g/dL (32.0-36.0); MEAN CORPUSCULAR VOLUME 87 fl (80-97); MONOCYTES % (AUTO) 13.1 % (3-13); PLATELET COUNT 218 10^3/uL (150-450); RED BLOOD COUNT 4.03 10^6/uL (4.35-5.55); RED CELL DISTRIBUTION WIDTH 16.1 % (11.5-14.0); SEGMENTED NEUTROPHILS % (AUTO) 69.2 % (42-78); TOTAL CELLS COUNTED % (AUTO) 100 %; WHITE BLOOD COUNT 5.8 10^3/uL (4.0-10.5)
--- NOTE | 2020-01-03 02:50 | ER Document Report ---
ED General - General Chief Complaint: Shortness Of Breath Stated Complaint: SHORT OF BREATH Time Seen by Provider: 01/03/20 02:45 Primary Care Provider: LISA HECK MD [ACTIVE STAFF] - Follow up as needed Notes: 79-year-old male presents the emergency department via EMS stating that he had worsening shortness of breath and swelling in his legs. Patient states that this is actually been an intermittent problem for the past 10 years however it was worse tonight and he could not sleep because it was so bad. Denies any chest pain at the time but also denies ever having had chest pain. Admits chronic orthopnea, states that tonight pacing did not help with his shortness of breath. Admits to history of CHF, states his medications have not been changed recently, still on his usual dose of metolazone. Does admit to moving here recently from [place], moved here approximately 1 week ago. States he has seen a timber management professor in [place] but does not remember the name. States his new doctor is going to be KEV Swanson. TRAVEL OUTSIDE OF THE [place] IN LAST 30 DAYS: No - Related Data Allergies/Adverse Reactions: aspirin [Aspirin] Adverse Reaction (Intermediate, Verified 09/06/18 14:03) bleeding ulcers codeine [Codeine] Adverse Reaction (Intermediate, Verified 09/06/18 14:03) bleeding ulcers Past Medical History - General Information source: Patient - Social History Smoking Status: Former Smoker Frequency of alcohol use: None Drug Abuse: None Family History: Hypertension - Past Medical History Cardiac Medical History: Reports: Hx Atrial Fibrillation, Hx Congestive Heart Failure, Hx Hypercholesterolemia, Hx Hypertension Denies: Hx Coronary Artery Disease, Hx Heart Attack Pulmonary Medical History: Reports: Hx COPD Denies: Hx Asthma, Hx Bronchitis, Hx Pneumonia Neurological Medical History: Denies: Hx Cerebrovascular Accident, Hx Seizures Endocrine Medical History: Reports: Hx Diabetes Mellitus Type 1, Hx Diabetes Mellitus Type 2 Renal/ Medical History: Denies: Hx Peritoneal Dialysis Malignancy Medical History: Reports Hx Skin Cancer GI Medical History: Reports: Hx Diverticulitis, Hx Gastroesophageal Reflux Disease Musculoskeletal Medical History: Reports Hx Arthritis - GENERALIZED Psychiatric Medical History: Denies: Hx Depression Past Surgical History: Reports: Hx Abdominal Surgery - hernia repair, Hx Appendectomy, Hx Cholecystectomy, Hx Herniorrhaphy, Hx Orthopedic Surgery - back x2 with hardware, Other - Several back surgeries, wrist surgery, elbow surgery, hemmorhoids, hardeep. Denies: Hx Pacemaker - Immunizations Hx Diphtheria, Pertussis, Tetanus Vaccination: No Hx Pneumococcal Vaccination: 04/12/11 Review of Systems - Review of Systems Constitutional: No symptoms reported EENT: No symptoms reported Cardiovascular: See HPI, Orthopnea, Dyspnea, Edema. denies: Chest pain, Syncope, Dizziness, Lightheaded Respiratory: See HPI, Short of breath. denies: Cough Musculoskeletal: Leg swelling -: Yes All other systems reviewed and negative Physical Exam - Vital signs Vitals: Temp 97.9 F 01/03/20 02:07 Interpretation: Hypertensive - Notes Notes: GENERAL: Alert, interacts well. No acute distress. HEAD: Normocephalic, atraumatic EYES: Pupils equal, round and reactive to light, extraocular movements intact. ENT: Oral mucosa moist, tongue midline. NECK: Full range of motion, supple, trachea midline. LUNGS: Mild diffuse expiratory wheezing, no rales, no rhonchi, no respiratory distress. HEART: Regular rate and rhythm, no murmurs, gallops, rubs. ABDOMEN: Soft, nontender, nondistended, bowel sounds present in all 4 quadrants. EXTREMITIES: Moves all 4 extremities spontaneously, 2+ pitting edema to the level of the knees, radial and dorsalis pedis pulses 2/4 bilaterally. No cyanosis. NEUROLOGICAL: Alert and oriented x3, normal speech. PSYCH: Normal mood, normal affect. SKIN: Warm, Dry. Course - Re-evaluation Re-evalutation: 01/03/20 06:36 CBC shows mild anemia without any leukocytosis, INR is actually low at 0.97, he is supposed to be taking Coumadin. Patient will be given a shot of Lovenox here and counseled to follow-up with the doctor who manages his Coumadin. CMP shows relatively stable renal failure, glucose is elevated in this known diabetic, in itial troponin is indeterminate 0.052, repeat troponin is downtrending and negative at 0.049, proBNP minimally elevated at 417. Chest x-ray does not show any signs of heart failure. It is also does not show the pacemaker/defibrillator he told me he had. When we discussed the defibrillator with him further he tells me that he has something "the size of a grain of rice in my heart." On further questioning it appears that he may have actually had a stent placed in his heart rather than being given a pacer/defibrillator. Patient is completely asymptomatic here, he is not hypoxic he is not tachycardic he is not hyper or hypotensive. Patient does not meet any admission criteria. There is no indication to admit the patient to the hospital nor would he benefit from admission. Patient will be discharged to home - Vital Signs Vital signs: Temp Pulse Resp BP Pulse Ox 97.9 F 20 137/52 H 94 01/03/20 02:27 01/03/20 06:01 01/03/20 06:01 01/03/20 06:01 - Laboratory Result Diagrams: 01/03/20 02:32 01/03/20 02:32 Laboratory results interpreted by me: 01/03/20 01/03/20 02:32 02:32 RBC 4.03 L Hgb 12.2 L Hct 35.0 L RDW 16.1 H [place] % (Auto) 13.1 H Sodium 136.2 L BUN 25 H Creatinine 1.69 H Est GFR ( Amer) 48 L Est GFR (MDRD) Non-Af 40 L Glucose 278 H Total Protein 6.2 L Albumin 3.3 L - EKG Interpretation by Me Additional EKG results interpreted by me: 01/03/20 02:50 EKG shows sinus bradycardia at a rate of 59, 1 PAC, slight interventricular conduction delay, no ST segment elevations or depressions, there is left axis deviation, T wave inversions in lead III, T wave flattening in aVF per my interpretation. Discharge - Discharge Clinical Impression: Orthopnea, Insulin dependent diabetes mellitus, CKD (chronic kidney disease), stage III, Diabetes mellitus type 2 in obese Congestive heart failure Qualifiers: Heart failure type: unspecified Heart failure chronicity: chronic Qualified Code(s): I50.9 - Heart failure, unspecified Hyperglycemia due to type 2 diabetes mellitus Qualifiers: Diabetes mellitus ocean transportation intermediary insulin use: with ocean transportation intermediary use Qualified Code(s): E11.65 - Type 2 diabetes mellitus with hyperglycemia; Z79.4 - nursing home (current) use of insulin Condition: Stable Disposition: HOME, SELF-CARE Additional Instructions: Today we did not find any signs of a heart attack. There is not any sign of w orsening heart failure. Your fluid appears to be well balanced. Your INR was low today at 0.97. It should be significantly higher than this. They will likely want to target your INR between 2 and 3. It is very important that she speak with the person who controls your warfarin/Coumadin dosing and discuss with them what dose they would like you to take. We did give you a shot of Lovenox here today to help thin out your blood while your INR is returned to its target range. Referrals: GENE WICK PA-C [Primary Care Provider] - Follow up as needed
[2020-01-03 03:09] LABS: ALBUMIN 3.3 g/dL (3.5-5.0); ALKALINE PHOSPHATASE 82 U/L (38-126); ANION GAP 7 (5-19); ASPARTATE AMINO TRANSFERASE 19 U/L (17-59); BILIRUBIN,TOTAL 0.4 mg/dL (0.2-1.3); BLOOD UREA NITROGEN 25 mg/dL (7-20); CALCIUM 8.6 mg/dL (8.4-10.2); CARBON DIOXIDE 23 mmol/L (22-30); CHLORIDE 106 mmol/L (98-107); GLUCOSE 278 mg/dL (75-110); POTASSIUM 3.6 mmol/L (3.6-5.0); TOTAL PROTEIN 6.2 g/dL (6.3-8.2)
[2020-01-03] MEDS ORDERED: ALBUTEROL SULFATE 0.083% NEB 2.5 MG/3 ML AMPUL NEB ONE (03:16)
[2020-01-03 03:27] LABS: INTERNATIONAL RATION (INR) 0.97; PROTHROMBIN TIME 12.9 SEC (11.4-15.4)
--- NOTE | 2020-01-03 03:46 | RADIOLOGY REPORT (SQ) ---
CHEST 1 VIEW on 01/03/2020 at 3:32 AM CLINICAL INDICATION: Shortness of breath COMPARISON: 08/20/2018 FINDINGS: There is moderate elevation of the right hemidiaphragm. Mild cardiomegaly is noted. The lungs are clear. Hilar and mediastinal contours are within normal limits. Pulmonary vascularity is within normal limits. No acute bony abnormality is noted. IMPRESSION: No significant change and no acute disease.
[2020-01-03 03:47] LABS: TROPONIN I 0.052 ng/mL
[2020-01-03] MEDS ORDERED: ENOXAPARIN SODIUM INJ 120 MG/0.8 ML DISP.SYRIN SUBCUT ONE (06:39)
[2020-01-03 06:48] VITALS: BP 147/71
--- NOTE | 2020-01-03 09:44 | EKG REPORT ---
SEVERITY:- BORDERLINE ECG - SINUS RHYTHM ATRIAL PREMATURE COMPLEX BORDERLINE IVCD WITH LAD BORDERLINE T ABNORMALITIES, INFERIOR LEADS : Confirmed by: Maryam Veras MD 03-Jan-2020 09:43:42
== END 2020-01-03 06:55 | disposition home or self-care (01) ==
LOC: ER 02:07
DX: I13.0 Hypertensive heart and chronic kidney disease with heart failure and stage 1 through stage 4 chronic kidney disease, or unspecified chronic kidney disease (principal); E11.22 Type 2 diabetes mellitus with diabetic chronic kidney disease; N18.3 Chronic kidney disease, stage 3 (moderate); I50.9 Heart failure, unspecified; D63.1 Anemia in chronic kidney disease; E11.65 Type 2 diabetes mellitus with hyperglycemia; R00.1 Bradycardia, unspecified; I45.9 Conduction disorder, unspecified; J44.9 Chronic obstructive pulmonary disease, unspecified; R06.02 Shortness of breath; E66.9 Obesity, unspecified; Z79.899 Other long term (current) drug therapy; Z79.4 Long term (current) use of insulin
CPT/HCPCS: 93005; 94640; 99285; 96372; 36415; 85025; 85610; 80053; 84484; 83880; 71045; 93010; J1650; A9270

== ENCOUNTER 2020-01-08 22:10 | Emergency (ER) | payer MEDICARE ==
[2020-01-08] MEDS ORDERED: IPRATROPIUM/ALBUTEROL 0.5-2.5 MG/3 ML AMPUL NEB ONE (23:51)
--- NOTE | 2020-01-08 23:53 | ER Document Report ---
ED Respiratory Problem - General Chief Complaint: Shortness Of Breath Stated Complaint: TROUBLE BREATHING/SWELLING Time Seen by Provider: 01/08/20 23:22 Primary Care Provider: GENE ZENG PA-C [Primary Care Provider] - Follow up tomorrow Notes: Patient is a 79-year-old male that comes to the emergency department for chief complaint of worsening shortness of breath for the past several days. He states his legs have been swelling increasingly as well. He reports difficulty walking and lying flat. He denies chest pain, cough, fever, dizziness, nausea, vomiting, or any other complaints. He states he is compliant with his home medications including metolazone. He is on Coumadin for history of atrial fibrillation. He states he follows with cardiology in [place] and he follows with Gene zeng PA-C locally. He lives at home with his brother. He was seen approximately 5 days ago for the same complaint. TRAVEL OUTSIDE OF THE [place] IN LAST 30 DAYS: No - Related Data Allergies/Adverse Reactions: aspirin [Aspirin] Adverse Reaction (Intermediate, Verified 09/06/18 14:03) bleeding ulcers codeine [Codeine] Adverse Reaction (Intermediate, Verified 09/06/18 14:03) bleeding ulcers Past Medical History - General Information source: Patient - Social History Smoking Status: Former Smoker Chew tobacco use (# tins/day): No Frequency of alcohol use: None Drug Abuse: None Lives with: Family Family History: Hypertension - Past Medical History Cardiac Medical History: Reports: Hx Atrial Fibrillation, Hx Congestive Heart Failure, Hx Hypercholesterolemia, Hx Hypertension Denies: Hx Coronary Artery Disease, Hx Heart Attack Pulmonary Medical History: Reports: Hx COPD Denies: Hx Asthma, Hx Bronchitis, Hx Pneumonia Neurological Medical History: Denies: Hx Cerebrovascular Accident, Hx Seizures Endocrine Medical History: Reports: Hx Diabetes Mellitus Type 1, Hx Diabetes Mellitus Type 2 Renal/ Medical History: Denies: Hx Peritoneal Dialysis Malignancy Medical History: Reports Hx Skin Cancer GI Medical History: Reports: Hx Diverticulitis, Hx Gastroesophageal Reflux Disease Musculoskeletal Medical History: Reports Hx Arthritis - GENERALIZED Psychiatric Medical History: Denies: Hx Depression Past Surgical History: Reports: Hx Abdominal Surgery - hernia repair, Hx Appendectomy, Hx Cholecystectomy, Hx Herniorrhaphy, Hx Orthopedic Surgery - back x2 with hardware, Other - Several back surgeries, wrist surgery, elbow surgery, hemmorhoids, hardeep. Denies: Hx Pacemaker - Immunizations Hx Diphtheria, Pertussis, Tetanus Vaccination: No Hx Pneumococcal Vaccination: 04/12/11 Review of Systems - Review of Systems Constitutional: No symptoms reported EENT: No symptoms reported Cardiovascular: See HPI Respiratory: See HPI Gastrointestinal: No symptoms reported Genitourinary: No symptoms reported Male Genitourinary: No symptoms reported Musculoskeletal: No symptoms reported Skin: No symptoms reported Hematologic/Lymphatic: No symptoms reported Neurological/Psychological: No symptoms reported Physical Exam - Vital signs Vitals: Temp Pulse Resp BP Pulse Ox 98.4 F 77 20 136/66 H 95 01/08/20 22:23 01/08/20 22:23 01/08/20 22:23 01/08/20 22:23 01/08/20 22:23 - Notes Notes: GENERAL: Alert, interacts well. No acute distress. Talkative and well appearing. HEAD: Normocephalic, atraumatic. EYES: Pupils equal, round, and reactive to light. Extraocular movements intact. ENT: Oral mucosa moist, tongue midline. Oropharynx unremarkable. Airway patent. LUNGS: Mild expiratory wheezes, no rales, rhonchi, tachypnea, distress. Speaks in full sentences. Nontender chest wall. HEART: Regular rate and rhythm. No murmur ABDOMEN: Soft, non-tender. Non-distended. EXTREMITIES: Moves all 4 extremities spontaneously. No edema, normal radial and dorsalis pedis pulses bilaterally. No cyanosis. BACK: no cervical, thoracic, lumbar midline tenderness. No saddle anesthesia, normal distal neurovascular exam. Moves all extremities in full range of motion. NEUROLOGICAL: Alert and oriented x3. Normal speech. Cranial nerves II through XII grossly intact. Strength 5/5 in all extremities. PSYCH: Normal affect, normal mood. SKIN: Warm, dry, normal turgor. No rashes or lesions noted. Course - Re-evaluation Re-evalutation: Patient is smiling, talkative, well-appearing. I do not note any concerning lower extremity swelling, lungs are clear except for some expiratory wheezing, patient has no cough or fever. Chest x-ray is unremarkable. Wheezing resolved with DuoNeb's. Patient appears to have mild COPD exacerbation and/or mild bronchitis. Troponin baseline, cycled and downtrending, EKG without concerning change, overall work-up is very similar to previous. Patient is unfortunately not a good historian. Review of records shows that patient is actually on Coumadin for atrial fibrillation. When I discussed this with him he does recall this. He states that he has an appointment on the with his primary care provider but has not been able to see them before that time. I discussed with Dr. Calabrese. She is familiar with the patient from several days ago. She recommends Lovenox dose now, but patient to call his primary tomorrow to set up closer follow-up for management of his Coumadin, return precautions. I discussed with patient. I discussed steroid use for COPD exacerbation but patient declined because it "messes up his sugars". Symptoms were very mild. I do not feel patient needs an adjustment on his diuretics based on his work-up, especially with his renal functioning, patient does state understanding of this. Patient is going home with family, states appreciation and agreement with plan. - Vital Signs Vital signs: Temp Pulse Resp BP Pulse Ox 98.8 F 64 20 164/67 H 97 01/09/20 05:13 01/09/20 05:13 01/09/20 05:13 01/09/20 05:13 01/09/20 05:13 - Laboratory Result Diagrams: 01/08/20 22:56 01/08/20 22:56 Laboratory results interpreted by me: 01/08/20 01/08/20 22:56 22:56 RBC 4.28 L Hgb 12.4 L Hct 37.1 L RDW 15.8 H [place] % (Auto) 14.5 H Sodium 135.2 L Potassium 3.3 L BUN 27 H Creatinine 1.98 H Est GFR ( Amer) 40 L Est GFR (MDRD) Non-Af 33 L Glucose 200 H - EKG Interpretation by Me Additional EKG results interpreted by me: EKG shows sinus rhythm at a rate of 76, bigeminy, incomplete right bundle branch block, QTc 459, [place] interval of 184. No T wave inversions or ST segment changes in consecutive leads. Discharge - Discharge Clinical Impression: Shortness of breath, Wheezing Condition: Stable Disposition: HOME, SELF-CARE Additional Instructions: Your exam is most consistent with a mild COPD exacerbation and/or bronchitis. Continue your home albuterol if needed. You have been given Lovenox tonight, your blood is too thick, please call your primary care tomorrow and ask them about your current warfarin prescription and testing. Come back if you worsen including developing pain, difficulty breathing, fever, or any other concerning or worsening symptoms. Referrals: GENE ZENG PA-C [Primary Care Provider] - Follow up tomorrow
[2020-01-09 00:01] LABS: ABSOLUTE BASOPHILS # (AUTO) 0.1 10^3/uL (0.0-0.2); ABSOLUTE EOSINOPHILS # (AUTO) 0.1 10^3/uL (0.0-0.6); ABSOLUTE LYMPHOCYTES (AUTO) 1.4 10^3/uL (0.5-4.7); ABSOLUTE MONOCYTES (AUTO) 1.1 10^3/uL (0.1-1.4); BASOPHILS % (AUTO) 0.7 % (0-2); EOSINOPHILS % (AUTO) 1.8 % (0-6); HEMATOCRIT 37.1 % (37.9-51.0); HEMOGLOBIN 12.4 g/dL (13.5-17.0); LYMPHOCYTES % (AUTO) 18.7 % (13-45); MEAN CORPUSCULAR HEMOGLOBIN 29.1 pg (27.0-33.4); MEAN CORPUSCULAR HGB CONC 33.6 g/dL (32.0-36.0); MEAN CORPUSCULAR VOLUME 87 fl (80-97); MONOCYTES % (AUTO) 14.5 % (3-13); PLATELET COUNT 206 10^3/uL (150-450); RED BLOOD COUNT 4.28 10^6/uL (4.35-5.55); RED CELL DISTRIBUTION WIDTH 15.8 % (11.5-14.0); SEGMENTED NEUTROPHILS % (AUTO) 64.3 % (42-78); TOTAL CELLS COUNTED % (AUTO) 100 %; WHITE BLOOD COUNT 7.7 10^3/uL (4.0-10.5)
[2020-01-09 00:03] LABS: INTERNATIONAL RATION (INR) 0.92; PROTHROMBIN TIME 12.3 SEC (11.4-15.4)
[2020-01-09 00:05] LABS: ALBUMIN 3.8 g/dL (3.5-5.0); ALKALINE PHOSPHATASE 93 U/L (38-126); ANION GAP 8 (5-19); ASPARTATE AMINO TRANSFERASE 19 U/L (17-59); BILIRUBIN,TOTAL 0.3 mg/dL (0.2-1.3); BLOOD UREA NITROGEN 27 mg/dL (7-20); CALCIUM 8.9 mg/dL (8.4-10.2); CARBON DIOXIDE 24 mmol/L (22-30); CHLORIDE 103 mmol/L (98-107); GLUCOSE 200 mg/dL (75-110); POTASSIUM 3.3 mmol/L (3.6-5.0); TOTAL PROTEIN 6.7 g/dL (6.3-8.2)
[2020-01-09 00:21] LABS: TROPONIN I 0.059 ng/mL
--- NOTE | 2020-01-09 01:08 | RADIOLOGY REPORT (SQ) ---
EXAM DESCRIPTION: X-ray single view chest. CLINICAL HISTORY: 79 years Male, shortness of breath COMPARISON: 01/03/2020 and 08/20/2018 TECHNIQUE: Single portable x-ray view of the chest performed on 01/09/2020 at 12:28 AM FINDINGS: There is overpenetration of the image . The lungs are well expanded and are grossly clear. There is stable elevation of the right hemidiaphragm. There is no evidence of a pneumothorax. The cardiac silhouette is stable and is prominent. The mediastinal contours are normal. No acute osseous abnormality is identified. No focal soft tissue abnormalities are seen. Lines and tubes: None. IMPRESSION: No definite acute intrathoracic disease. There is stable prominence of the cardiac silhouette as well as stable elevation of the right hemidiaphragm.
[2020-01-09] MEDS ORDERED: MAGNESIUM SULFATE/D5W 1 GM/100 ML RTUPB IV ONE (02:11)
[2020-01-09] MEDS ORDERED: IPRATROPIUM/ALBUTEROL 0.5-2.5 MG/3 ML AMPUL NEB ONE (02:11)
[2020-01-09] MEDS ORDERED: ENOXAPARIN SODIUM INJ 100 MG/1 ML DISP.SYRIN SUBCUT ONE (04:49)
[2020-01-09 05:13] VITALS: BP 164/67
--- NOTE | 2020-01-09 07:32 | EKG REPORT ---
SEVERITY:- ABNORMAL ECG - SINUS RHYTHM PVC. SUPRAVENTRICULAR BIGEMINY INCOMPLETE RBBB AND LAFB : Confirmed by: Kehinde Fabian MD 09-Jan-2020 07:31:48
--- NOTE | 2020-01-10 07:47 | EKG REPORT ---
SEVERITY:- ABNORMAL ECG - SINUS RHYTHM ATRIAL PREMATURE COMPLEXES LAD, CONSIDER LEFT ANTERIOR FASCICULAR BLOCK : Confirmed by: Kehinde Fabian MD 10-Jan-2020 07:46:36
== END 2020-01-09 05:26 | disposition home or self-care (01) ==
LOC: ER 22:10
DX: J44.9 Chronic obstructive pulmonary disease, unspecified (principal); I11.0 Hypertensive heart disease with heart failure; I50.9 Heart failure, unspecified; R06.02 Shortness of breath; E11.9 Type 2 diabetes mellitus without complications; I48.91 Unspecified atrial fibrillation; Z79.899 Other long term (current) drug therapy; Z87.891 Personal history of nicotine dependence
CPT/HCPCS: 93005; 94640 ×2; 99285; 96372; 96365; 36415; 85025; 85610; 80053; 84484; 83880; 71045; 93010; J3475; J1650

== ENCOUNTER 2020-01-09 21:32 | Observation (INO) | payer MEDICARE ==
--- NOTE | 2020-01-09 22:49 | ER Document Report ---
ED Medical Screen (RME) - General Chief Complaint: Shortness Of Breath Stated Complaint: SHORTNESS OF BREATH/WEAKNESS Primary Care Provider: GENE WICK PA-C [Primary Care Provider] - Follow up as needed Notes: Patient is a 79-year-old white male with a history of COPD, diabetes, hypertension, 2 prior CVAs who presents the emergency department the chief complaint of shortness of breath. States is been seen here 2 times over the past 3 days, this is his third visit. States that he continues to be short of breath. He has had baseline findings and previous work-ups without any evidence at that time for admission. He states despite his treatments here he continues to have underlying shortness of breath. States that this time he is here to "stay". Denies any chest pain. It was noted that he previously traveled here from [place] but has had multiple negative COVID-19 tests. I have treated and performed a rapid initial assessment of this patient. A comprehensive ED assessment and evaluation of the patient, analysis of test r esults and completion of medical decision making process will be conducted by additional ED providers. PHYSICAL EXAMINATION: GENERAL: Well-appearing, well-nourished and in no acute distress. A&Ox4. Answers questions appropriately. TRAVEL OUTSIDE OF THE [place] IN LAST 30 DAYS: No - Related Data Allergies/Adverse Reactions: aspirin [Aspirin] Adverse Reaction (Intermediate, Verified 09/06/18 14:03) bleeding ulcers codeine [Codeine] Adverse Reaction (Intermediate, Verified 09/06/18 14:03) bleeding ulcers Past Medical History - Social History Chew tobacco use (# tins/day): No Frequency of alcohol use: None Drug Abuse: None - Past Medical History Cardiac Medical History: Reports: Hx Atrial Fibrillation, Hx Congestive Heart Failure, Hx Hypercholesterolemia, Hx Hypertension Denies: Hx Coronary Artery Disease, Hx Heart Attack Pulmonary Medical History: Reports: Hx COPD Denies: Hx Asthma, Hx Bronchitis, Hx Pneumonia Neurological Medical History: Denies: Hx Cerebrovascular Accident, Hx Seizures Endocrine Medical History: Reports: Hx Diabetes Mellitus Type 1, Hx Diabetes Mellitus Type 2 Renal/ Medical History: Denies: Hx Peritoneal Dialysis Malignancy Medical History: Reports Hx Skin Cancer GI Medical History: Reports: Hx Diverticulitis, Hx Gastroesophageal Reflux Disease Musculoskeltal Medical History: Reports Hx Arthritis - GENERALIZED Psychiatric Medical History: Denies: Hx Depression Past Surgical History: Reports: Hx Abdominal Surgery - hernia repair, Hx Appendectomy, Hx Cholecystectomy, Hx Herniorrhaphy, Hx Orthopedic Surgery - back x2 with hardware, Other - Several back surgeries, wrist surgery, elbow surgery, hemmorhoids, hardeep. Denies: Hx Pacemaker - Immunizations Hx Diphtheria, Pertussis, Tetanus Vaccination: No Physical Exam - Vital signs Vitals: Temp Pulse Resp BP Pulse Ox 99.0 F 99 19 145/72 H 95 01/09/20 21:36 01/09/20 21:36 01/09/20 21:36 01/09/20 21:36 01/09/20 21:36 Course - Vital Signs Vital signs: Temp Pulse Resp BP Pulse Ox 99.0 F 99 19 145/72 H 95 01/09/20 22:40 01/09/20 21:36 01/09/20 21:36 01/09/20 21:36 01/09/20 21:36 Doctor's Discharge - Discharge Referrals: GENE WICK PA-C [Primary Care Provider] - Follow up as needed
--- NOTE | 2020-01-09 23:39 | RADIOLOGY REPORT (SQ) ---
EXAM DESCRIPTION: X-ray, single view of the chest CLINICAL HISTORY: 79 years Male, sob COMPARISON: Single view of the chest obtained earlier in the day at 12:28 AM FINDINGS: Lungs: Lung volumes have improved when compared to the previous examination. There is fullness in the right hilum which may be related to superimposition of shadows. A pulmonary nodule cannot be excluded. No pneumothorax. There is probable small right pleural effusion. Mediastinum: Cardiac and mediastinal silhouette are unchanged Bones: Osseous structures are normal. IMPRESSION: 1. Improvement in lung volumes and aeration. 2. Possible pulmonary nodule versus superimposition of shadows projecting over the right hilum. If clinically indicated this could be further assessed with chest CT. 3. Trace right pleural effusion.
--- NOTE | 2020-01-10 03:00 | ER Document Report ---
ED General - General Chief Complaint: Shortness Of Breath Stated Complaint: SHORTNESS OF BREATH/WEAKNESS Primary Care Provider: GENE WICK PA-C [Primary Care Provider] - Follow up as needed Mode of Arrival: Ambulatory Information source: Patient, [facility] Records Notes: Patient is a 79-year-old male presenting to the emergency department chief complaint of shortness of breath. Patient states that he has been seen 3 times this week for similar complaint and does not feel that he has resolution of his symptoms. He is able to speak in full sentences. Patient does not have any pain at this time. Patient currently lives alone but has a daughter who is going to be moving to the area sometime in the next week or 2. Patient from discussion sounds like he is medically noncompliant and not really aware of his medical issues. TRAVEL OUTSIDE OF THE [place] IN LAST 30 DAYS: No - HPI Onset: Last week Onset/Duration: Persistent Quality of pain: No pain Severity: None Pain Level: 0 Associated symptoms: Shortness of breath Exacerbated by: Movement, Walking, Coughing, Deep breathing Relieved by: Denies Similar symptoms previously: Yes Recently seen / treated by doctor: Yes - Related Data Allergies/Adverse Reactions: aspirin [Aspirin] Adverse Reaction (Intermediate, Verified 09/06/18 14:03) bleeding ulcers codeine [Codeine] Adverse Reaction (Intermediate, Verified 09/06/18 14:03) bleeding ulcers Past Medical History - General Information source: Patient, [facility] Records - Social History Smoking Status: Former Smoker Chew tobacco use (# tins/day): No Frequency of alcohol use: None Drug Abuse: None Lives with: Alone Family History: CAD, DM, Hyperlipidemia, Hypertension Patient has suicidal ideation: No Patient has homicidal ideation: No - Past Medical History Cardiac Medical History: Reports: Hx Atrial Fibrillation, Hx Congestive Heart Failure, Hx Hypercholesterolemia, Hx Hypertension Denies: Hx Coronary Artery Disease, Hx Heart Attack Pulmonary Medical History: Reports: Hx COPD Denies: Hx Asthma, Hx Bronchitis, Hx Pneumonia Neurological Medical History: Denies: Hx Cerebrovascular Accident, Hx Seizures Endocrine Medical History: Reports: Hx Diabetes Mellitus Type 1, Hx Diabetes Mellitus Type 2 Renal/ Medical History: Denies: Hx Peritoneal Dialysis Malignancy Medical History: Reports Hx Skin Cancer GI Medical History: Reports: Hx Diverticulitis, Hx Gastroesophageal Reflux Disease Musculoskeletal Medical History: Reports Hx Arthritis - GENERALIZED Psychiatric Medical History: Denies: Hx Depression Past Surgical History: Reports: Hx Abdominal Surgery - hernia repair, Hx Appendectomy, Hx Cholecystectomy, Hx Herniorrhaphy, Hx Orthopedic Surgery - back x2 with hardware, Other - Several back surgeries, wrist surgery, elbow surgery, hemmorhoids, hardeep. Denies: Hx Pacemaker - Immunizations Hx Diphtheria, Pertussis, Tetanus Vaccination: No Hx Pneumococcal Vaccination: 04/12/11 Review of Systems - Review of Systems Notes: REVIEW OF SYSTEMS: CONSTITUTIONAL : Denies fever, chills, or sweats. Denies recent illness. EENT: Denies eye, ear, throat, or mouth pain or symptoms. Denies nasal or sinus congestion. CARDIOVASCULAR: Denies chest pain. RESPIRATORY: Per HPI GASTROINTESTINAL: Denies abdominal pain. Denies nausea, vomiting, or diarrhea. Denies constipation. GENITOURINARY: Denies difficulty urinating, painful urination, burning, frequ ency, or blood in urine. MUSCULOSKELETAL: Denies neck or back pain or joint pain or swelling. SKIN: Denies rash or skin lesions. HEMATOLOGIC : Denies easy bruising or bleeding. NEUROLOGICAL: Denies altered mental status or loss of consciousness. Denies headache. Denies weakness or paralysis or loss of use of either side. Denies problems with gait or speech. Denies sensory or motor loss. PSYCHIATRIC: Denies suicidal or homicidal ideations 10 Systems are negative unless otherwise specified above Physical Exam - Vital signs Vitals: Temp Pulse Resp BP Pulse Ox 99.0 F 99 19 145/72 H 95 01/09/20 21:36 01/09/20 21:36 01/09/20 21:36 01/09/20 21:36 01/09/20 21:36 - Notes Notes: PHYSICAL EXAMINATION: GENERAL: Well-appearing, well-nourished and in no acute distress. HEAD: Atraumatic, normocephalic. EYES: Pupils equal round and reactive to light, extraocular movements intact, sclera anicteric, conjunctiva are normal. ENT: nares patent, oropharynx clear without exudates. Moist mucous membranes. NECK: Normal range of motion, supple without lymphadenopathy, no appreciable JVD LUNGS: Lungs clear to auscultation bilaterally and equal. No wheezes rales or rhonchi. HEART: Regular rate and rhythm without murmurs ABDOMEN: Soft, nontender, normal bowel sounds. No guarding, no rebound. No masses appreciated. EXTREMITIES: Active full range of motion, patient does have 2+ edema to the ankles. No cyanosis. 2+ pulses x4 NEUROLOGICAL: No focal neurological deficits. Moves all extremities spontaneously and on command. SKIN: Warm, Dry, and intact. Normal turgor, no rashes or lesions noted. Course - Re-evaluation Re-evalutation: 01/10/20 05:05 Patient has remained stable while in emergency department. On review of his chest x-ray there is no signs of acute pneumonia. Further evaluation of laboratory results shows a gradual increase in the patient's BNP and a gradual increase in the patient's troponin level over the past 3 visits in 7 days. This is concerning for 79-year-old with no other family members at the home to help keep an eye on him and as well as patient's inability to get in and see his primary care provider. I have spoken to the hospitalist and they are agreeable with admission of the patient. I did have a request from the hospitalist for COVID testing. - Vital Signs Vital signs: Temp Pulse Resp BP Pulse Ox 99.0 F 99 19 147/71 H 96 01/09/20 22:40 01/09/20 21:36 01/10/20 04:00 01/10/20 03:28 01/10/20 04:00 - Laboratory Result Diagrams: 01/10/20 03:12 01/10/20 03:12 Laboratory results interpreted by me: 01/10/20 01/10/20 03:12 03:12 RBC 4.27 L Hgb 12.2 L Hct 36.9 L RDW 15.8 H Lymph % (Auto) 10.4 L BUN 24 H Creatinine 1.60 H Est GFR ( Amer) 51 L Est GFR (MDRD) Non-Af 42 L Glucose 188 H - Diagnostic Test Radiology reviewed: Reports reviewed - EKG Interpretation by Me EKG shows normal: Sinus rhythm Rate: Normal Rhythm: NSR When compared to previous EKG there are: No significant change Discharge - Discharge Clinical Impression: Diabetes mellitus type 2 in obese, Acute kidney injury superimposed on chronic kidney disease, Shortness of breath Condition: Stable Disposition: ADMITTED OBSERVATION Admitting Provider: Vianca (Hospitalist) Unit Admitted: Medical Floor Referrals: GENE WICK PA-C [Primary Care Provider] - Follow up as needed
[2020-01-10 03:27] LABS: ABSOLUTE BASOPHILS # (AUTO) 0.1 10^3/uL (0.0-0.2); ABSOLUTE EOSINOPHILS # (AUTO) 0.1 10^3/uL (0.0-0.6); ABSOLUTE LYMPHOCYTES (AUTO) 0.9 10^3/uL (0.5-4.7); ABSOLUTE MONOCYTES (AUTO) 1.1 10^3/uL (0.1-1.4); ABSOLUTE NEUT (AUTO) 6.6 10^3/uL (1.7-8.2); BASOPHILS % (AUTO) 0.8 % (0-2); HEMATOCRIT 36.9 % (37.9-51.0); HEMOGLOBIN 12.2 g/dL (13.5-17.0); LYMPHOCYTES % (AUTO) 10.4 % (13-45); MEAN CORPUSCULAR HEMOGLOBIN 28.7 pg (27.0-33.4); MEAN CORPUSCULAR HGB CONC 33.2 g/dL (32.0-36.0); MEAN CORPUSCULAR VOLUME 86 fl (80-97); MONOCYTES % (AUTO) 12.5 % (3-13); PLATELET COUNT 209 10^3/uL (150-450); RED BLOOD COUNT 4.27 10^6/uL (4.35-5.55); RED CELL DISTRIBUTION WIDTH 15.8 % (11.5-14.0); SEGMENTED NEUTROPHILS % (AUTO) 75.3 % (42-78); TOTAL CELLS COUNTED % (AUTO) 100 %; WHITE BLOOD COUNT 8.8 10^3/uL (4.0-10.5)
[2020-01-10 03:34] LABS: INTERNATIONAL RATION (INR) 0.97; PROTHROMBIN TIME 12.9 SEC (11.4-15.4)
[2020-01-10 03:35] LABS: PARTIAL THROMBOPLASTIN TIME 29.7 SEC (23.5-35.8)
[2020-01-10 03:43] LABS: ALKALINE PHOSPHATASE 93 U/L (38-126); ANION GAP 10 (5-19); ASPARTATE AMINO TRANSFERASE 21 U/L (17-59); BILIRUBIN,TOTAL 0.6 mg/dL (0.2-1.3); BLOOD UREA NITROGEN 24 mg/dL (7-20); CALCIUM 9.4 mg/dL (8.4-10.2); CARBON DIOXIDE 25 mmol/L (22-30); CHLORIDE 103 mmol/L (98-107); CREATINE KINASE 75 U/L (55-170); GLUCOSE 188 mg/dL (75-110); POTASSIUM 3.6 mmol/L (3.6-5.0); TOTAL PROTEIN 6.9 g/dL (6.3-8.2)
[2020-01-10] MEDS ORDERED: PROMETHAZINE HCL INJ 25 MG/1 ML VIAL IV PRN (05:50)
[2020-01-10] MEDS ORDERED: MAGNESIUM HYDROXIDE SUSP 30 ML UDCUP PO PRN (05:50)
[2020-01-10] MEDS ORDERED: MAG HYDROX/AL HYDROX/SIMETH SUSP 30 ML UDCUP PO PRN (05:50)
[2020-01-10] MEDS ORDERED: ACETAMINOPHEN 325 MG TABLET PO PRN (05:57)
[2020-01-10] MEDS ORDERED: LORAZEPAM INJ 2 MG/1 ML VIAL IV PRN (05:57)
[2020-01-10] MEDS ORDERED: METHYLPREDNISOLONE INJ 125 MG/2 ML SDV IV ONE (05:57)
[2020-01-10] MEDS ORDERED: MELATONIN 5 MG TABLET PO PRN (05:57)
[2020-01-10] MEDS ORDERED: GUAIFENESIN SYRP 200 MG/10 ML UDC PO PRN (05:57)
[2020-01-10] MEDS ORDERED: MORPHINE SULFATE 10 MG/ML INJ IV PRN ×4 (05:57→06:14)
[2020-01-10] MEDS ORDERED: LEVALBUTEROL HCL NEB 0.63 MG/3 ML AMPUL NEB PRN (05:57)
[2020-01-10] MEDS ORDERED: HYDRALAZINE HCL INJ/PF 20 MG/1 ML SDV IV PRN (05:57)
[2020-01-10] MEDS ORDERED: DEXTROSE 40% GEL 15 GM TUBE PO PRN ×2 (05:59)
[2020-01-10] MEDS ORDERED: GLUCAGON,HUMAN RECOMB 1 MG INJ IM PRN (05:59)
[2020-01-10] MEDS ORDERED: DEXTROSE 50%-WATER 25 GM/50 ML DISP.SYRIN IV PRN ×2 (05:59)
[2020-01-10] MEDS: HEPARIN SOD (PORCINE) 5,000 UNIT/ML 1 ML VIAL SUBCUT SCH ×3 (06:24→22:40)
[2020-01-10] MEDS: PANTOPRAZOLE SODIUM 40 MG TABLET.DR PO SCH (06:27)
--- NOTE | 2020-01-10 07:14 | PDOC H&P ---
History of Present Illness Admission Date/PCP: 01/10/2020 05:15 GENE WICK PA-C Patient complains of: Dyspnea History of Present Illness: JEOL MARIE is a 79 year old male who represented to the emergency room for the third time in 1 week with the persistent complaint of dyspnea. He admits continued moderate dyspnea worsened by exertion, without additional associated or accompanying accompanying signs and symptoms. He admits prior similar episodes related to his COPD and congestive heart failure. He has not identified any additional aggravating or ameliorating factors for his dyspnea. In the emergency room patient was found to have an essentially unremarkable evaluation. He was subsequently admitted to observation status for further evaluation and treatment. Past Medical History Cardiac Medical History: Reports: Atrial Fibrillation, Congestive Heart Failure, Hyperlipidema, Hypertension Denies: Coronary Artery Disease, Myocardial Infarction Pulmonary Medical History: Reports: Chronic Obstructive Pulmonary Disease (COPD) Denies: Asthma, Bronchitis, Pneumonia EENT Medical History: Denies: Cataracts, Ears - Hearing aids Neurological Medical History: Reports: Ischemic CVA Denies: Hemorrhagic CVA, Seizures Endocrine Medical History: Reports: Diabetes Mellitus Type 2, Obesity Denies: Diabetes Mellitus Type 1, Hyperthyroidism, Hypothyroidism Renal/ Medical History: Reports: Chronic Kidney Disease Denies: Nephrolithiasis Malignancy Medical History: Reports: Skin Cancer GI Medical History: Reports: Diverticulitis, Gastroesophageal Reflux Disease, Other - GI bleeding Denies: Cirrhosis, Hepatitis, Peptic Ulcer Disease Musculoskeltal Medical History: Reports: Arthritis - Generalized osteoarthritis, Other - Chronic pain syndrome Denies: Gout Skin Medical History: Denies: Eczema, Psoriasis Psychiatric Medical History: Denies: Alcohol Dependency, Depression, Substance Abuse, Tobacco Dependency Traumatic Medical History: Reports: None Hematology: Reports: Anemia, Bleeding Tendencies Infectious Medical History: Reports: None Past Surgical History Past Surgical History: Reports: Appendectomy, Cholecystectomy, Herniorrhaphy, Orthopedic Surgery - back x2 with hardware, Other - Several back surgeries, wrist surgery, elbow surgery, hemmorhoids, MINA Social History Information Source: Patient Lives with: Alone Smoking Status: Former Smoker Electronic Cigarette use?: No Frequency of Alcohol Use: None Hx Recreational Drug Use: No Drugs: None Hx Prescription Drug Abuse: No - Advance Directive Resuscitation Status: Full Code Surrogate healthcare decision maker:: Regina Peterson Family History Family History: CAD, DM, Hyperlipidemia, Hypertension Parental Family History Reviewed: Yes Children Family History Reviewed: No Sibling(s) Family History Reviewed.: Yes Medication/Allergy Home Medications: Albuterol Sulfate [Ventolin 0.083% Neb 2.5 mg/3 mL Ampul] 1 vial NEB Q6HP PRN 04/21/18 Amiodarone HCl [Cordarone 200 mg Tablet] 200 mg PO DAILY 01/10/20 Budesonide/Formoterol Fumarate [Symbicort Hfa 160-4.5 Mcg Inhaler 6 gm] 2 puff IH Q12 01/10/20 Bumetanide [Bumex 1 mg Tablet] 1 tab PO DAILY 01/10/20 Calcitriol [Rocaltrol 0.25 Mcg Capsule] 1 cap PO DAILY 01/10/20 Clopidogrel Bisulfate [Plavix 75 mg Tablet] 75 mg PO DAILY 01/10/20 Digoxin 250 mcg PO DAILY 01/10/20 Diltiazem HCl [Cardizem Cd 180 mg Capsule] 1 cap.sr PO DAILY 01/10/20 Furosemide [Lasix 20 mg Tablet] 20 mg PO BID 01/10/20 Gabapentin [Neurontin 100 mg Capsule] 100 mg PO QHS 01/10/20 Insulin Glargine,Hum.rec.anlog [Lantus Insulin 100 Unit/mL Insulin Pen] 26 unit SUBCUT QHS 01/10/20 Insulin Lispro [Humalog] 5 unit SQ AC 01/10/20 Metoprolol Succinate [Toprol Xl] 100 mg PO Q12 01/10/20 Pantoprazole Sodium [Protonix [address] Tablet] 40 mg PO QAM 01/10/20 Sodium Bicarbonate [Sodium Bicarbonate 650 mg Tablet] 650 mg PO TID 01/10/20 Warfarin Sodium [Jantoven] 7.5 mg PO DAILY 01/10/20 Allergies/Adverse Reactions: aspirin [Aspirin] Adverse Reaction (Intermediate, Verified 09/06/18 14:03) bleeding ulcers codeine [Codeine] Adverse Reaction (Intermediate, Verified 09/06/18 14:03) bleeding ulcers Review of Systems Constitutional: ABSENT: chills, fever(s) Eyes: ABSENT: visual disturbances, other - Eye pain Ears: ABSENT: hearing changes, other - Ear pain Nose, Mouth, and Throat: ABSENT: headache(s), sore throat Cardiovascular: PRESENT: as per HPI, dyspnea on exertion. ABSENT: chest pain, edema, orthropnea, palpitations Respiratory: PRESENT: dyspnea. ABSENT: cough Gastrointestinal: ABSENT: abdominal pain, constipation, diarrhea, nausea, vomiting Genitourinary: ABSENT: dysuria, hematuria Musculoskeletal: PRESENT: back pain - Chronic. ABSENT: joint swelling Integumentary: ABSENT: pruritus, rash Neurological: ABSENT: confusion, convulsions, focal weakness, memory loss, syncope Psychiatric: ABSENT: anxiety, depression Endocrine: ABSENT: cold intolerance, heat intolerance Hematologic/Lymphatic: ABSENT: easy bleeding, easy bruising Allergic/Immunologic: ABSENT: seasonal rhinorrhea Physical Exam Vital Signs: Temp Pulse Resp BP Pulse Ox 99.0 F 99 19 147/71 H 96 01/09/20 22:40 01/09/20 21:36 01/10/20 04:00 01/10/20 03:28 01/10/20 04:00 Intake & Output 01/08/20 01/09/20 01/10/20 23:59 23:59 23:59 Weight 104.4 kg General appearance: PRESENT: no acute distress, cooperative, obese Head exam: PRESENT: atraumatic, normocephalic Eye exam: PRESENT: conjunctiva pink. ABSENT: conjunctival injection, scleral icterus Ear exam: PRESENT: normal external ear exam. ABSENT: bleeding, drainage Mouth exam: PRESENT: dry mucosa, neck supple Neck exam: ABSENT: thyromegaly, tracheal deviation Respiratory exam: PRESENT: decreased breath sounds - Minimally decreased breath sounds throughout all taylor, prolonged expiratory phas - Minimally prolonged expiratory phase throughout all taylor, symmetrical, wheezes - Mild expiratory wheezes noted in all taylor Cardiovascular exam: PRESENT: RRR. ABSENT: clicks, gallop, rubs Pulses: PRESENT: normal radial pulses, normal dorsalis pedis pul Vascular exam: PRESENT: normal capillary refill. ABSENT: pallor GI/Abdominal exam: PRESENT: normal bowel sounds, soft Rectal exam: PRESENT: deferred Extremities exam: ABSENT: joint swelling, pedal edema Musculoskeletal exam: ABSENT: deformity, dislocation Neurological exam: PRESENT: alert, oriented to person, oriented to place, or iented to time, oriented to situation, CN II-XII grossly intact. ABSENT: motor sensory deficit Psychiatric exam: PRESENT: appropriate affect, normal mood Skin exam: PRESENT: dry, intact, warm. ABSENT: jaundice, rash, urticaria Results Laboratory Results: 01/10/20 03:12 01/10/20 03:12 01/10/20 01/10/20 03:12 03:12 WBC 8.8 RBC 4.27 L Hgb 12.2 L Hct 36.9 L MCV 86 MCH 28.7 MCHC 33.2 RDW 15.8 H Plt Count 209 Seg Neutrophils % 75.3 Sodium 137.7 Potassium 3.6 Chloride 103 Carbon Dioxide 25 Anion Gap 10 BUN 24 H Creatinine 1.60 H Est GFR ( Amer) 51 L Glucose 188 H Calcium 9.4 Total Bilirubin 0.6 AST 21 Alkaline Phosphatase 93 Total Protein 6.9 Albumin 4.0 01/10/20 01/10/20 01/10/20 03:12 03:12 03:12 Creatine Kinase 75 Troponin I 0.066 NT-Pro-B Natriuret Pep 408 Impressions: Chest X-Ray 01/09/20 22:46 IMPRESSION: 1. Improvement in lung volumes and aeration. 2. Possible pulmonary nodule versus superimposition of shadows projecting over the right hilum. If clinically indicated this could be further assessed with chest CT. 3. Trace right pleural effusion. Assessment and Plan - Diagnosis (1) Dyspnea Qualifiers: Dyspnea type: dyspnea on exertion Qualified Code(s): R06.00 - Dyspnea, unspecified Is this a current diagnosis for this admission?: Yes (2) COPD (chronic obstructive pulmonary disease) Qualifiers: COPD type: unspecified COPD Qualified Code(s): J44.9 - Chronic obstructive pulmonary disease, unspecified Is this a current diagnosis for this admission?: Yes (3) HTN (hypertension) Qualifiers: Hypertension type: essential hypertension Qualified Code(s): I10 - Essential (primary) hypertension Is this a current diagnosis for this admission?: Yes (4) CKD (chronic kidney disease), stage III Is this a current diagnosis for this admission?: Yes (5) Diabetes mellitus type 2 in obese Is this a current diagnosis for this admission?: Yes (6) Paroxysmal atrial fibrillation Is this a current diagnosis for this admission?: Yes (7) Congestive heart failure Qualifiers: Heart failure type: unspecified Heart failure chronicity: chronic Qualified Code(s): I50.9 - Heart failure, unspecified Is this a current diagnosis for this admission?: Yes (8) Hypercholesterolemia Is this a current diagnosis for this admission?: Yes (9) GERD (gastroesophageal reflux disease) Qualifiers: Esophagitis presence: esophagitis presence not specified Qualified Code(s): K21.9 - Gastro-esophageal reflux disease without esophagitis Is this a current diagnosis for this admission?: Yes - Plan Summary Summary: Patient will be admitted observation status on the medical floor he will receive routine supportive and symptomatic cares. He will be treated with aggressive pulmonary toilet utilizing nebulized Xopenex, Atrovent and Pulmicort. He will receive burst dose IV Solu-Medrol 125 mg x 1 followed by 40 mg every 6 hours x3 doses. He will receive supplemental oxygen as needed for maintenance of an adequate oxygen saturation with the potential use of noninvasive airway pressure support devices if required. Received Ativan 1 mg IV every 4 hours as needed for anxiety or restlessness. His usual home medications will be continued as soon as his medication list verified and reconciled. He will be on a cardiac and diabetic restricted diet. CBCs, metabolic profiles, magnesium levels and additional laboratory and/or radiographic evaluations will be obtained as appropriate. - Time Time Spent with patient: 15-24 minutes Medications reviewed and adjusted accordingly: Yes Anticipated discharge: Home Within: within 48 hours - Inpatient Certification Based on my medical assessment, after consideration of the patient's comorbidities, presenting symptoms, or acuity I expect that the services needed warrant INPATIENT care.: No I certify that my determination is in accordance with my understanding of Medicare's requirements for reasonable and necessary INPATIENT services [42 CFR 412.3e].: No
[2020-01-10] MEDS: INSULIN REG, HUMAN 100 UNIT/ML 3 ML VIAL (PYX) SUBCUT SCH ×4 (08:12→22:41)
[2020-01-10] MEDS: LEVALBUTEROL HCL NEB 1.25 MG/3 ML AMPUL NEB SCH ×2 (08:13→16:00)
[2020-01-10] MEDS: BUDESONIDE NEB 0.5 MG/2 ML AMPUL NEB SCH ×2 (08:13→20:40)
[2020-01-10] MEDS: IPRATROPIUM BROMIDE 0.02% NEB 0.5 MG/2.5 ML AMPUL NEB SCH ×2 (08:16→16:00)
--- NOTE | 2020-01-10 11:26 | PDOC PROGRESS REPORT ---
Subjective Progress Note for:: 01/10/20 Subjective:: Resting comfortably. No increased work of breathing. No complaints. He is requesting help with a shower because of balance issues. Reason For Visit: DYSPNEA,CHRONIC OBSTRUCTIVE PULMONARY DISEASE Physical Exam Vital Signs: Temp Pulse Resp BP Pulse Ox 97.7 F 80 21 H 160/81 H 96 01/10/20 06:44 01/10/20 06:44 01/10/20 08:00 01/10/20 07:01 01/10/20 08:00 Intake & Output 01/09/20 01/10/20 01/11/20 06:59 06:59 06:59 Weight 104.4 kg General appearance: PRESENT: no acute distress, cooperative, well-developed Head exam: PRESENT: atraumatic, normocephalic Eye exam: PRESENT: conjunctiva pink. ABSENT: scleral icterus Ear exam: PRESENT: normal external ear exam. ABSENT: bleeding, drainage Mouth exam: PRESENT: moist, tongue midline Neck exam: ABSENT: JVD, lymphadenopathy, tenderness, tracheostomy Respiratory exam: PRESENT: symmetrical, unlabored, wheezes - Trace expiratory wheeze. ABSENT: accessory muscle use, rales, rhonchi, tachypnea Cardiovascular exam: PRESENT: RRR, +S1, +S2. ABSENT: diastolic murmur, irregular rhythm, systolic murmur GI/Abdominal exam: PRESENT: normal bowel sounds, soft. ABSENT: distended, guarding, tenderness Rectal exam: PRESENT: deferred Gentrourinary exam: ABSENT: indwelling catheter Extremities exam: PRESENT: +1 edema Musculoskeletal exam: PRESENT: ambulatory, normal inspection. ABSENT: deformity, dislocation Neurological exam: PRESENT: alert, awake, oriented to person, oriented to place, oriented to time, oriented to situation, CN II-XII grossly intact. ABSENT: altered Psychiatric exam: PRESENT: appropriate affect, normal mood. ABSENT: agitated, anxious Focused psych exam: ABSENT: delusional, paranoid, restlessness Skin exam: PRESENT: dry, normal color, warm. ABSENT: rash Results Laboratory Results: 01/10/20 03:12 01/10/20 03:12 01/10/20 01/10/20 03:12 03:12 WBC 8.8 RBC 4.27 L Hgb 12.2 L Hct 36.9 L MCV 86 MCH 28.7 MCHC 33.2 RDW 15.8 H Plt Count 209 Seg Neutrophils % 75.3 Sodium 137.7 Potassium 3.6 Chloride 103 Carbon Dioxide 25 Anion Gap 10 BUN 24 H Creatinine 1.60 H Est GFR ( Amer) 51 L Glucose 188 H Calcium 9.4 Total Bilirubin 0.6 AST 21 Alkaline Phosphatase 93 Total Protein 6.9 Albumin 4.0 01/10/20 01/10/20 01/10/20 03:12 03:12 03:12 Creatine Kinase 75 Troponin I 0.066 NT-Pro-B Natriuret Pep 408 Impressions: Chest X-Ray 01/09/20 22:46 IMPRESSION: 1. Improvement in lung volumes and aeration. 2. Possible pulmonary nodule versus superimposition of shadows projecting over the right hilum. If clinically indicated this could be further assessed with chest CT. 3. Trace right pleural effusion. Assessment and Plan - Diagnosis (1) Dyspnea Qualifiers: Dyspnea type: dyspnea on exertion Qualified Code(s): R06.00 - Dyspnea, unspecified Is this a current diagnosis for this admission?: Yes Plan: Much better already this afternoon. Continue current regimen. (2) COPD (chronic obstructive pulmonary disease) Qualifiers: COPD type: unspecified COPD Qualified Code(s): J44.9 - Chronic obstructive pulmonary disease, unspecified Is this a current diagnosis for this admission?: Yes Plan: Continue nebs and short course of steroids (3) HTN (hypertension) Qualifiers: Hypertension type: essential hypertension Qualified Code(s): I10 - Essential (primary) hypertension Is this a current diagnosis for this admission?: Yes Plan: Good blood pressure control. Continue current regimen. (4) CKD (chronic kidney disease), stage III Is this a current diagnosis for this admission?: Yes Plan: Creatinine is the best that is been since August (5) Hyperglycemia due to type 2 diabetes mellitus Qualifiers: Diabetes mellitus skilled nursing insulin use: with skilled nursing use Qualified Code(s): E11.65 - Type 2 diabetes mellitus with hyperglycemia; Z79.4 - MCC (current) use of insulin Is this a current diagnosis for this admission?: Yes Plan: Lantus and sliding scale. Expect increased glucose with steroids. Continue current regimen and adjust as needed. (6) Paroxysmal atrial fibrillation Is this a current diagnosis for this admission?: Yes Plan: Currently in sinus rhythm. There were multiple cardiac medications on the patient's medication reconciliation. I did speak with the pharmacy picking technician and many of those had not been filled in several months. I did speak to the patient's daughter. He has not been on digoxin or amiodarone as those were discontinued. He is no longer on metoprolol or warfarin for that matter. He is stable on diltiazem. (7) Hypercholesterolemia Is this a current diagnosis for this admission?: Yes Plan: Continue statin therapy (8) Chronic diastolic heart failure Is this a current diagnosis for this admission?: Yes Plan: Stable. Not acutely symptomatic. Continue current regimen. (9) GERD (gastroesophageal reflux disease) Qualifiers: Esophagitis presence: esophagitis presence not specified Qualified Code(s): K21.9 - Gastro-esophageal reflux disease without esophagitis Is this a current diagnosis for this admission?: Yes Plan: Continue proton pump inhibitor. - Plan Summary Summary: Patient will be admitted observation status on the medical floor he will receive routine supportive and symptomatic cares. He will be treated with aggressive pulmonary toilet utilizing nebulized Xopenex, Atrovent and Pulmicort. He will receive burst dose IV Solu-Medrol 125 mg x 1 followed by 40 mg every 6 hours x3 doses. He will receive supplemental oxygen as needed for maintenance of an adequate oxygen saturation with the potential use of noninvasive airway pressure support devices if required. Received Ativan 1 mg IV every 4 hours as needed for anxiety or restlessness. His usual home medications will be continued as soon as his medication list verified and reconciled. He will be on a cardiac and diabetic restricted diet. CBCs, metabolic profiles, magnesium levels and additional laboratory and/or radiographic evaluations will be obtained as appropriate. - Time Time Spent with patient: 15-24 minutes Medications reviewed and adjusted accordingly: Yes Anticipated discharge: Home Within: within 48 hours
[2020-01-10] MEDS: DOCUSATE SODIUM 100 MG CAPSULE PO SCH ×2 (11:58→17:26)
[2020-01-10] MEDS: METHYLPREDNISOLONE INJ 40 MG/1 ML SDV IV SCH ×3 (12:07→23:42)
[2020-01-10] MEDS: SODIUM BICARBONATE 650 MG TABLET PO SCH ×2 (14:16→17:23)
[2020-01-10] MEDS ORDERED: INSULIN LISPRO 5 UNIT SQ SCH (16:00)
[2020-01-10] MEDS: INSULIN LISPRO 100 UNIT/ML 3 ML VIAL SUBCUT SCH (17:06)
[2020-01-10] MEDS: FUROSEMIDE 20 MG TABLET PO SCH (17:23)
[2020-01-10] MEDS ORDERED: METOPROLOL SUCCINATE 50 MG TAB.SR.24H PO SCH (18:00)
[2020-01-10] MEDS ORDERED: INSULIN GLARGINE,HUM.REC.ANLOG 1,000 UNIT/10 ML VIAL SUBCUT SCH (22:00)
[2020-01-10] MEDS ORDERED: GABAPENTIN 100 MG CAPSULE PO SCH (22:00)
[2020-01-11] MEDS: LEVALBUTEROL HCL NEB 1.25 MG/3 ML AMPUL NEB SCH ×2 (00:26→08:07)
[2020-01-11] MEDS: IPRATROPIUM BROMIDE 0.02% NEB 0.5 MG/2.5 ML AMPUL NEB SCH ×2 (00:26→08:07)
[2020-01-11 02:45] LABS: CREATINE KINASE MB 3.12 ng/mL (<4.55); TROPONIN I 0.066 ng/mL
[2020-01-11] MEDS: PANTOPRAZOLE SODIUM 40 MG TABLET.DR PO SCH (05:11)
[2020-01-11] MEDS: HEPARIN SOD (PORCINE) 5,000 UNIT/ML 1 ML VIAL SUBCUT SCH (05:11)
--- NOTE | 2020-01-11 07:36 | EKG REPORT ---
SEVERITY:- ABNORMAL ECG - SINUS TACHYCARDIA MULTIFORM VENTRICULAR PREMATURE COMPLEXES and PACS LAD, CONSIDER LEFT ANTERIOR FASCICULAR BLOCK NONSPECIFIC ANTEROLATERAL ST-T CHANGES, NEW SINCE 01/09/20 EKG : Confirmed by: Kehinde Fabian MD 11-Jan-2020 07:35:30
[2020-01-11] MEDS: BUDESONIDE NEB 0.5 MG/2 ML AMPUL NEB SCH (08:07)
[2020-01-11 08:39] LABS: ANION GAP 8 (5-19); BLOOD UREA NITROGEN 27 mg/dL (7-20); CARBON DIOXIDE 26 mmol/L (22-30); CHLORIDE 99 mmol/L (98-107); CHOLESTEROL 190.79 mg/dL (0-200); CREATINE KINASE 184 U/L (55-170); GLUCOSE 386 mg/dL (75-110); TRIGLYCERIDES 309 mg/dL (<150)
[2020-01-11 08:50] LABS: DIRECT LDL 58 mg/dL (<100)
[2020-01-11 08:52] LABS: VLDL CHOLESTEROL 61.8 mg/dL (10-31)
[2020-01-11] MEDS: DOCUSATE SODIUM 100 MG CAPSULE PO SCH (09:13)
[2020-01-11] MEDS: FUROSEMIDE 20 MG TABLET PO SCH (09:13)
[2020-01-11] MEDS: SODIUM BICARBONATE 650 MG TABLET PO SCH (09:13)
[2020-01-11] MEDS: INSULIN LISPRO 100 UNIT/ML 3 ML VIAL SUBCUT SCH ×2 (09:14→11:36)
[2020-01-11] MEDS: INSULIN REG, HUMAN 100 UNIT/ML 3 ML VIAL (PYX) SUBCUT SCH ×2 (09:14→11:36)
[2020-01-11] MEDS ORDERED: AMIODARONE HCL 200 MG TABLET PO SCH (10:00)
[2020-01-11] MEDS ORDERED: CALCITRIOL 0.25 MCG CAPSULE PO SCH (10:00)
[2020-01-11] MEDS ORDERED: BUMETANIDE 1 MG TABLET PO SCH (10:00)
[2020-01-11] MEDS ORDERED: CLOPIDOGREL BISULFATE 75 MG TABLET PO SCH (10:00)
[2020-01-11] MEDS ORDERED: DILTIAZEM HCL 180 MG CAPSULE.CR PO SCH (10:00)
[2020-01-11] MEDS ORDERED: (PENDING PHARMACY ID) (Warfarin Sodium 7.5 MG) PO SCH (10:00)
[2020-01-11] MEDS ORDERED: DIGOXIN 0.25 MG TABLET PO SCH (10:00)
[2020-01-11 10:36] LABS: PROTHROMBIN TIME 13.2 SEC (11.4-15.4)
[2020-01-11 10:41] LABS: HEMATOCRIT 36.9 % (37.9-51.0); HEMOGLOBIN 12.1 g/dL (13.5-17.0); MEAN CORPUSCULAR HGB CONC 32.8 g/dL (32.0-36.0); MEAN CORPUSCULAR VOLUME 88 fl (80-97); PLATELET COUNT 191 10^3/uL (150-450); RED BLOOD COUNT 4.18 10^6/uL (4.35-5.55); RED CELL DISTRIBUTION WIDTH 16.1 % (11.5-14.0)
[2020-01-11 11:13] LABS: CREATINE KINASE MB 4.08 ng/mL (<4.55); TROPONIN I 0.071 ng/mL
--- NOTE | 2020-01-11 11:15 | PDOC DISCHARGE SUMMARY ---
Impression - Admit/DC Date/PCP Admission Date/Primary Care Provider: 01/10/20 05:34 GENE WICK PA-C Discharge Date: 01/11/20 - Discharge Diagnosis (1) Dyspnea Is this a current diagnosis for this admission?: Yes (2) COPD (chronic obstructive pulmonary disease) Is this a current diagnosis for this admission?: Yes (3) HTN (hypertension) Is this a current diagnosis for this admission?: Yes (4) CKD (chronic kidney disease), stage III Is this a current diagnosis for this admission?: Yes (5) Hyperglycemia due to type 2 diabetes mellitus Is this a current diagnosis for this admission?: Yes (6) Paroxysmal atrial fibrillation Is this a current diagnosis for this admission?: Yes (7) Hypercholesterolemia Is this a current diagnosis for this admission?: Yes (8) Chronic diastolic heart failure Is this a current diagnosis for this admission?: Yes (9) GERD (gastroesophageal reflux disease) Is this a current diagnosis for this admission?: Yes - Assessment Summary: Patient will be admitted observation status on the medical floor he will receive routine supportive and symptomatic cares. He will be treated with aggressive pulmonary toilet utilizing nebulized Xopenex, Atrovent and Pulmicort. He will receive burst dose IV Solu-Medrol 125 mg x 1 followed by 40 mg every 6 hours x3 doses. He will receive supplemental oxygen as needed for maintenance of an adequate oxygen saturation with the potential use of noninvasive airway pressure support devices if required. Received Ativan 1 mg IV every 4 hours as needed for anxiety or restlessness. His usual home medications will be continued as soon as his medication list verified and reconciled. He will be on a cardiac and diabetic restricted diet. CBCs, metabolic profiles, magnesium levels and additional laboratory and/or radiographic evaluations will be obtained as appropriate. - Additional Information Resuscitation Status: Full Code Discharge Diet: Cardiac, Diabetic Discharge Activity: Activity As Tolerated, Balance Activity w/Rest Referrals: GENE WICK PA-C [Primary Care Provider] - 01/17/20 8:15 am Home Medications: Albuterol Sulfate [Ventolin 0.083% Neb 2.5 mg/3 mL Ampul] 1 vial NEB Q6HP PRN 04/21/18 Budesonide/Formoterol Fumarate [Symbicort HFA 160-4.5 mcg Inhaler 6 gm] 2 puff IH Q12 01/10/20 Calcitriol [Rocaltrol 0.25 mcg Capsule] 1 cap PO DAILY 01/10/20 Clopidogrel Bisulfate [Plavix 75 mg Tablet] 75 mg PO DAILY 01/10/20 Diltiazem HCl [Cardizem Cd 180 mg Capsule] 1 cap.sr PO DAILY 01/10/20 Furosemide [Lasix 20 mg Tablet] 20 mg PO BID 01/10/20 Gabapentin [Neurontin 100 mg Capsule] 100 mg PO QHS 01/10/20 Insulin Glargine,Hum.rec.anlog [Lantus Insulin 100 Unit/mL Insulin Pen] 26 unit SUBCUT QHS 01/10/20 Insulin Lispro [Humalog] 5 unit SQ AC 01/10/20 Pantoprazole Sodium [Protonix [address] Tablet] 40 mg PO QAM 01/10/20 Sodium Bicarbonate [Sodium Bicarbonate 650 mg Tablet] 650 mg PO TID 01/10/20 Acetaminophen [Tylenol 325 mg Tablet] 650 mg PO Q4HP PRN tablet 01/11/20 Docusate Sodium [Colace 100 mg Capsule] 100 mg PO BID capsule 01/11/20 Guaifenesin [Robitussin Syrup 200 mg/10 ml Ud Cup] 200 mg PO Q4HP PRN udc 01/11/20 Pantoprazole Sodium [Protonix [address] Tablet] 40 mg PO Q6AM tablet. 01/11/20 History of Present Illiness History of Present Illness: JEOL MARIE is a 79 year old male who represented to the emergency room for the third time in 1 week with the persistent complaint of dyspnea. He admits continued moderate dyspnea worsened by exertion, without additional associated or accompanying accompanying signs and symptoms. He admits prior similar episodes related to his COPD and congestive heart failure. He has not ident ified any additional aggravating or ameliorating factors for his dyspnea. In the emergency room patient was found to have an essentially unremarkable evaluation. He was subsequently admitted to observation status for further evaluation and treatment. Hospital Course Hospital Course: (1) Dyspnea Qualifiers: Dyspnea type: dyspnea on exertion Qualified Code(s): R06.00 - Dyspnea, unspecified Is this a current diagnosis for this admission?: Yes Plan: Much better already this afternoon. Continue current regimen. (2) COPD (chronic obstructive pulmonary disease) Qualifiers: COPD type: unspecified COPD Qualified Code(s): J44.9 - Chronic obstructive pulmonary disease, unspecified Is this a current diagnosis for this admission?: Yes Plan: Continue nebs and short course of steroids (3) HTN (hypertension) Qualifiers: Hypertension type: essential hypertension Qualified Code(s): I10 - Essential (primary) hypertension Is this a current diagnosis for this admission?: Yes Plan: Good blood pressure control. Continue current regimen. (4) CKD (chronic kidney disease), stage III Is this a current diagnosis for this admission?: Yes Plan: Creatinine is the best that is been since August (5) Hyperglycemia due to type 2 diabetes mellitus Qualifiers: Diabetes mellitus retirement insulin use: with registration coordinator use Qualified Code(s): E11.65 - Type 2 diabetes mellitus with hyperglycemia; Z79.4 - customer care coordinator (current) use of insulin Is this a current diagnosis for this admission?: Yes Plan: Lantus and sliding scale. Expect increased glucose with steroids. Continue current regimen and adjust as needed. (6) Paroxysmal atrial fibrillation Is this a current diagnosis for this admission?: Yes Plan: Currently in sinus rhythm. There were multiple cardiac medications on the patient's medication reconciliation. I did speak with the pharmacy associate and many of those had not been filled in several months. I did speak to the patient's daughter. He has not been on digoxin or amiodarone as those were discontinued. He is no longer on metoprolol or warfarin for that matter. He is stable on diltiazem. (7) Hypercholesterolemia Is this a current diagnosis for this admission?: Yes Plan: Continue statin therapy (8) Chronic diastolic heart failure Is this a current diagnosis for this admission?: Yes Plan: Stable. Not acutely symptomatic. Continue current regimen. (9) GERD (gastroesophageal reflux disease) Qualifiers: Esophagitis presence: esophagitis presence not specified Qualified Code(s): K21.9 - Gastro-esophageal reflux disease without esophagitis Is this a current diagnosis for this admission?: Yes Plan: Continue proton pump inhibitor. Physical Exam Vital Signs: Temp Pulse Resp BP Pulse Ox 97.6 F 89 16 154/78 H 91 L 01/11/20 07:46 01/11/20 08:10 01/11/20 08:10 01/11/20 07:46 01/11/20 08:10 Intake & Output 01/10/20 01/11/20 01/12/20 06:59 06:59 06:59 Intake Total 1598 Output Total 0 Balance 1598 Weight 104.4 kg 101.6 kg General appearance: PRESENT: no acute distress, cooperative, well-developed Ear exam: PRESENT: normal external ear exam. ABSENT: bleeding, drainage Mouth exam: PRESENT: moist, tongue midline Respiratory exam: PRESENT: clear to auscultation jake, symmetrical, unlabored. ABSENT: rhonchi, tachypnea, wheezes Cardiovascular exam: PRESENT: RRR, +S1, +S2 GI/Abdominal exam: PRESENT: normal bowel sounds, soft. ABSENT: tenderness Results Laboratory Results: WBC 10.0 10^3/uL (4.0-10.5) 01/11/20 10:00 RBC 4.18 10^6/uL (4.35-5.55) L 01/11/20 10:00 Hgb 12.1 g/dL (13.5-17.0) L 01/11/20 10:00 Hct 36.9 % (37.9-51.0) L 01/11/20 10:00 MCV 88 fl (80-97) 01/11/20 10:00 MCH 29.0 pg (27.0-33.4) 01/11/20 10:00 MCHC 32.8 g/dL (32.0-36.0) 01/11/20 10:00 RDW 16.1 % (11.5-14.0) H 01/11/20 10:00 Plt Count 191 10^3/uL (150-450) 01/11/20 10:00 Lymph % (Auto) 10.4 % (13-45) L 01/10/20 03:12 [place] % (Auto) 12.5 % (3-13) 01/10/20 03:12 Eos % (Auto) 1.0 % (0-6) 01/10/20 03:12 Baso % (Auto) 0.8 % (0-2) 01/10/20 03:12 Absolute Neuts (auto) 6.6 10^3/uL (1.7-8.2) 01/10/20 03:12 Absolute Lymphs (auto) 0.9 10^3/uL (0.5-4.7) 01/10/20 03:12 Absolute Monos (auto) 1.1 10^3/uL (0.1-1.4) 01/10/20 03:12 Absolute Eos (auto) 0.1 10^3/uL (0.0-0.6) 01/10/20 03:12 Absolute Basos (auto) 0.1 10^3/uL (0.0-0.2) 01/10/20 03:12 Seg Neutrophils % 75.3 % (42-78) 01/10/20 03:12 Platelet Estimate Cancelled 01/11/20 07:30 PT 13.2 SEC (11.4-15.4) 01/11/20 10:00 INR 1.00 01/11/20 10:00 APTT 29.7 SEC (23.5-35.8) 01/10/20 03:12 Sodium 132.9 mmol/L (137-145) L 01/11/20 07:30 Potassium 4.0 mmol/L (3.6-5.0) 01/11/20 07:30 Chloride 99 mmol/L (98-107) 01/11/20 07:30 Carbon Dioxide 26 mmol/L (22-30) 01/11/20 07:30 Anion Gap 8 (5-19) 01/11/20 07:30 BUN 27 mg/dL (7-20) H 01/11/20 07:30 Creatinine 1.64 mg/dL (0.52-1.25) H 01/11/20 07:30 Est GFR ( Amer) 50 (>60) L 01/11/20 07:30 Est GFR (MDRD) Non-Af 41 (>60) L 01/11/20 07:30 Glucose 386 mg/dL (75-110) H 01/11/20 07:30 POC Glucose 464 mg/dL (70-110) H* 01/10/20 16:21 Hemoglobin A1c % 8.8 % (4.7-6.0) H 01/11/20 10:00 Calcium 9.0 mg/dL (8.4-10.2) 01/11/20 07:30 Magnesium 2.0 mg/dL (1.6-2.3) 01/11/20 07:30 Total Bilirubin 0.6 mg/dL (0.2-1.3) 01/10/20 03:12 Direct Bilirubin 0.0 mg/dL (0.0-0.4) 01/10/20 03:12 Neonat Total Bilirubin Not Reportable 01/10/20 03:12 Neonat Direct Bilirubin Not Reportable 01/10/20 03:12 Neonat Indirect Bili Not Reportable 01/10/20 03:12 AST 21 U/L (17-59) 01/10/20 03:12 ALT 14 U/L (<50) 01/10/20 03:12 Alkaline Phosphatase 93 U/L (38-126) 01/10/20 03:12 Creatine Kinase 184 U/L (55-170) H 01/11/20 07:30 CK-MB (CK-2) 3.12 ng/mL (<4.55) 01/11/20 01:49 Troponin I 0.066 ng/mL 01/11/20 01:49 NT-Pro-B Natriuret Pep 408 pg/mL (<450) 01/10/20 03:12 Total Protein 6.9 g/dL (6.3-8.2) 01/10/20 03:12 Albumin 4.0 g/dL (3.5-5.0) 01/10/20 03:12 Triglycerides 309 mg/dL (<150) H 01/11/20 07:30 Cholesterol 190.79 mg/dL (0-200) 01/11/20 07:30 LDL Cholesterol Direct 58 mg/dL (<100) 01/11/20 07:30 VLDL Cholesterol 61.8 mg/dL (10-31) H 01/11/20 07:30 HDL Cholesterol 36 mg/dL (>40) L 01/11/20 07:30 Digoxin < 0.40 ng/mL (0.8-2.0) L 01/10/20 03:12 COVID-19 Source Cancelled 01/10/20 05:24 COVID-19 ([facility]) Cancelled 01/10/20 05:24 SARS-CoV-2 (PCR) NEGATIVE (NEGATIVE) 01/10/20 05:24 Slides for Path Review Cancelled 01/11/20 07:30 01/10/20 01/10/20 01/11/20 03:12 03:12 01:49 CK-MB (CK-2) 3.12 Troponin I 0.066 0.066 NT-Pro-B Natriuret Pep 408 Impressions: Chest X-Ray 01/09/20 22:46 IMPRESSION: 1. Improvement in lung volumes and aeration. 2. Possible pulmonary nodule versus superimposition of shadows projecting over the right hilum. If clinically indicated this could be further assessed with chest CT. 3. Trace right pleural effusion. Plan Health Concerns: Multiple comorbidities Plan of Treatment: Resume previous medications Goals: Medical stability Time Spent: Greater than 30 Minutes Stroke Is this a Stroke Patient?: No Acute Heart Failure - Is this a Heart Failure Patient?: No
[2020-01-11 11:30] VITALS: BP 142/58
--- NOTE | 2020-01-11 18:18 | EKG REPORT ---
SEVERITY:- ABNORMAL ECG - SINUS TACHYCARDIA SUPRAVENTRICULAR BIGEMINY LEFT ANTERIOR FASCICULAR BLOCK BORDERLINE T ABNORMALITIES, DIFFUSE LEADS BORDERLINE PROLONGED QT INTERVAL : Confirmed by: Kehinde Fabian MD 11-Jan-2020 18:17:36
== END 2020-01-11 13:50 | disposition home or self-care (01) ==
LOC: ER 21:32 → EH 01-10 05:34 → 3W 01-10 09:25
PROVIDERS: ADMIT Emergency Medicine; ATTEND Hospitalist
DX: R06.09 Other forms of dyspnea (principal); J44.9 Chronic obstructive pulmonary disease, unspecified; I48.0 Paroxysmal atrial fibrillation; I13.0 Hypertensive heart and chronic kidney disease with heart failure and stage 1 through stage 4 chronic kidney disease, or unspecified chronic kidney disease; E11.22 Type 2 diabetes mellitus with diabetic chronic kidney disease; E11.65 Type 2 diabetes mellitus with hyperglycemia; N17.9 Acute kidney failure, unspecified; N18.3 Chronic kidney disease, stage 3 (moderate); I50.32 Chronic diastolic (congestive) heart failure; E78.00 Pure hypercholesterolemia, unspecified; K21.9 Gastro-esophageal reflux disease without esophagitis; M15.9 Polyosteoarthritis, unspecified; G89.4 Chronic pain syndrome; M54.9 Dorsalgia, unspecified; E66.9 Obesity, unspecified; Z20.828 Contact with and (suspected) exposure to other viral communicable diseases; Z60.2 Problems related to living alone; Z96.698 Presence of other orthopedic joint implants; Z79.4 Long term (current) use of insulin; Z86.73 Personal history of transient ischemic attack (TIA), and cerebral infarction without residual deficits; Z85.828 Personal history of other malignant neoplasm of skin; Z87.891 Personal history of nicotine dependence; Z82.49 Family history of ischemic heart disease and other diseases of the circulatory system; Z79.899 Other long term (current) drug therapy; Z79.02 Long term (current) use of antithrombotics/antiplatelets
CPT/HCPCS: 93005 ×2; 99285; 96374; 36415 ×2; 82553; 82962 ×2; 82550 ×2; 80162; 83735; 84443; 85025; 85027; 85610 ×2; 85730; 80048; 80053; 84484 ×2; 83036; 80061; 83880; 71045; 93010 ×2; 94640 ×2; U0003; A9270 ×18; J1644 ×2; J0360; J2920; J2930; J2060; J3490 ×6; C9803; 87635; G0378; J1815

== ENCOUNTER 2020-01-29 05:21 | Observation (INO) | payer MEDICARE ==
--- NOTE | 2020-01-29 10:01 | RADIOLOGY REPORT (SQ) ---
EXAM DESCRIPTION: CHEST SINGLE VIEW IMAGES COMPLETED DATE/TIME: 01/29/2020 9:39 am REASON FOR STUDY: sob COMPARISON: 01/09/2020 EXAM PARAMETERS: NUMBER OF VIEWS: One view. TECHNIQUE: Single frontal radiographic view of the chest acquired. RADIATION DOSE: NA LIMITATIONS: None. FINDINGS: LUNGS AND PLEURA: Chronic elevation right diaphragm. No opacities, masses or pneumothorax . No pleural effusion. MEDIASTINUM AND HILAR STRUCTURES: No masses. Contour normal. HEART AND VASCULAR STRUCTURES: Heart normal in size. Normal vasculature. BONES: No acute findings. HARDWARE: None in the chest. OTHER: No other significant finding. IMPRESSION: NO ACUTE RADIOGRAPHIC FINDING IN THE CHEST. TECHNICAL DOCUMENTATION: JOB ID: [id number] 2010 [employer]- All Rights Reserved Reading location - IP/workstation name: [email or web address]
[2020-01-29] MEDS ORDERED: FUROSEMIDE 20 MG TABLET PO ONE (10:02)
--- NOTE | 2020-01-29 10:08 | EKG REPORT ---
SEVERITY:- BORDERLINE ECG - SINUS RHYTHM LEFT AXIS DEVIATION BORDERLINE PROLONGED QT INTERVAL : Confirmed by: Maryam Veras MD 29-Jan-2020 10:07:15
[2020-01-29 10:25] LABS: ABSOLUTE LYMPHOCYTES (AUTO) 0.7 10^3/uL (0.5-4.7); ABSOLUTE MONOCYTES (AUTO) 0.8 10^3/uL (0.1-1.4); ABSOLUTE NEUT (AUTO) 5.3 10^3/uL (1.7-8.2); BASOPHILS % (AUTO) 0.4 % (0-2); EOSINOPHILS % (AUTO) 0.4 % (0-6); HEMATOCRIT 39.2 % (37.9-51.0); LYMPHOCYTES % (AUTO) 10.6 % (13-45); MEAN CORPUSCULAR HEMOGLOBIN 28.8 pg (27.0-33.4); MEAN CORPUSCULAR HGB CONC 33.2 g/dL (32.0-36.0); MEAN CORPUSCULAR VOLUME 87 fl (80-97); MONOCYTES % (AUTO) 12.2 % (3-13); PLATELET COUNT 167 10^3/uL (150-450); RED BLOOD COUNT 4.52 10^6/uL (4.35-5.55); RED CELL DISTRIBUTION WIDTH 16.1 % (11.5-14.0); SEGMENTED NEUTROPHILS % (AUTO) 76.4 % (42-78); TOTAL CELLS COUNTED % (AUTO) 100 %; WHITE BLOOD COUNT 6.9 10^3/uL (4.0-10.5)
[2020-01-29 10:35] LABS: ALKALINE PHOSPHATASE 86 U/L (38-126); ANION GAP 10 (5-19); ASPARTATE AMINO TRANSFERASE 23 U/L (17-59); BILIRUBIN,TOTAL 0.4 mg/dL (0.2-1.3); BLOOD UREA NITROGEN 20 mg/dL (7-20); CALCIUM 9.3 mg/dL (8.4-10.2); CARBON DIOXIDE 27 mmol/L (22-30); CHLORIDE 102 mmol/L (98-107); GLUCOSE 195 mg/dL (75-110); POTASSIUM 4.6 mmol/L (3.6-5.0); TOTAL PROTEIN 6.8 g/dL (6.3-8.2)
[2020-01-29 10:55] LABS: TROPONIN I 0.119 ng/mL
--- NOTE | 2020-01-29 11:56 | ER Document Report ---
ED General - General Chief Complaint: Shortness Of Breath Stated Complaint: DIFFICULTY BREATHING,SWOLLEN LEG AND ARM Time Seen by Provider: 01/29/20 09:06 Primary Care Provider: GENE WICK PA-C [Primary Care Provider] - Follow up as needed Mode of Arrival: Ambulatory Information source: Patient TRAVEL OUTSIDE OF THE [place] IN LAST 30 DAYS: No - HPI Notes: Patient presents with shortness of breath. He states that this is been going on intermittently for the last 2 days. He states he had some shortness of breath last week and he was admitted to the hospital for and treated for congestive heart failure. He states that he has been taking all of his medicines as directed. He denies any chest pain. He has some mild chest pressure that is anterior and central. His symptoms get worse with exertion and better with rest. There is no significant radiation of his symptoms. They have been moderate in intensity. He is also noticed some leg swelling. No cough cold or congestion. States he had a negative COVID test last week. No known covert exposures. No fevers. - Related Data Allergies/Adverse Reactions: aspirin [Aspirin] Adverse Reaction (Intermediate, Verified 09/06/18 14:03) bleeding ulcers codeine [Codeine] Adverse Reaction (Intermediate, Verified 09/06/18 14:03) bleeding ulcers Home Medications: pt doesn't know Past Medical History - General Information source: Patient - Social History Smoking Status: Former Smoker Frequency of alcohol use: None Drug Abuse: None Family History: CAD, DM, Hyperlipidemia, Hypertension Patient has homicidal ideation: No - Past Medical History Cardiac Medical History: Reports: Hx Atrial Fibrillation, Hx Congestive Heart Failure, Hx Hypercholesterolemia, Hx Hypertension Denies: Hx Coronary Artery Disease, Hx Heart Attack Pulmonary Medical History: Reports: Hx COPD Denies: Hx Asthma, Hx Bronchitis, Hx Pneumonia Neurological Medical History: Denies: Hx Cerebrovascular Accident, Hx Seizures Endocrine Medical History: Reports: Hx Diabetes Mellitus Type 2. Denies: Hx Diabetes Mellitus Type 1, Hx Hyperthyroidism, Hx Hypothyroidism Renal/ Medical History: Denies: Hx Peritoneal Dialysis Malignancy Medical History: Reports Hx Skin Cancer GI Medical History: Reports: Hx Diverticulitis, Hx Gastroesophageal Reflux Disease. Denies: Hx Cirrhosis, Hx Hepatitis Musculoskeletal Medical History: Reports Hx Arthritis - Generalized osteoarthritis, Denies Hx Gout Skin Medical History: Denies Hx Eczema, Denies Hx Psoriasis Psychiatric Medical History: Denies: Hx Depression Infectious Medical History: Denies: Hx Hepatitis Past Surgical History: Reports: Hx Abdominal Surgery - hernia repair, Hx Appendectomy, Hx Cholecystectomy, Hx Herniorrhaphy, Hx Orthopedic Surgery - back x2 with hardware, Other - Several back surgeries, wrist surgery, elbow surgery, hemmorhoids, MINA. Denies: Hx Pacemaker - Immunizations Hx Diphtheria, Pertussis, Tetanus Vaccination: No Hx Pneumococcal Vaccination: 04/12/11 Review of Systems - Review of Systems Constitutional: denies: Chills, Fever Cardiovascular: denies: Chest pain, Palpitations Respiratory: Short of breath. denies: Cough -: Yes All other systems reviewed and negative Physical Exam - Vital signs Vitals: Temp Pulse Resp BP Pulse Ox 98.5 F 83 20 142/63 H 95 01/29/20 05:37 01/29/20 05:37 01/29/20 05:37 01/29/20 05:37 01/29/20 05:37 Interpretation: Normal - General General appearance: Appears well, Alert - HEENT Head: Normocephalic, Atraumatic Eyes: Normal Pupils: PERRL - Respiratory Respiratory status: No respiratory distress Chest status: Nontender Breath sounds: Decreased air movement Chest palpation: Normal - Cardiovascular Rhythm: Regular Heart sounds: Normal auscultation Murmur: No - Abdominal Inspection: Normal Distension: No distension Bowel sounds: Normal Tenderness: Nontender Organomegaly: No organomegaly - Back Back: Normal, Nontender - Extremities General upper extremity: Normal inspection, Nontender, Normal color, Normal ROM, Normal temperature General lower extremity: Normal inspection, Nontender, Edema - 2+ pitting bilaterally, Normal color, Normal ROM, Normal temperature. No: Aster's sign - Neurological Neuro grossly intact: Yes Cognition: Normal Orientation: AAOx4 Pratt Coma Scale Eye Opening: Spontaneous Pratt Coma Scale Verbal: Oriented Pratt Coma Scale Motor: Obeys Commands John Coma Scale Total: 15 Speech: Normal Motor strength normal: LUE, RUE, LLE, RLE Sensory: Normal - Psychological Associated symptoms: Normal affect, Normal mood - Skin Skin Temperature: Warm Skin Moisture: Dry Skin Color: Normal Course - Re-evaluation Re-evalutation: 01/29/20 11:54 Patient presents with shortness of breath. He has had multiple visits in the last 2 weeks for the same complaint. In discussions with the patient, although he is somewhat of a poor historian, it appears that he has not had any type of recent evaluation for coronary artery disease. I called and discussed the case with the public health representative. It was felt that the best plan for the patient was to admit him and have the patient stressed tomorrow. This was discussed with the patient he is in agreement. He is got an equivocal elevation of his troponin at this time but no significant pain. He is got some subtle EKG changes. However his vital signs are stable he appears stable and comfortable. - Vital Signs Vital signs: Temp Pulse Resp BP Pulse Ox 98.5 F 83 20 142/63 H 95 01/29/20 05:37 01/29/20 05:37 01/29/20 05:37 01/29/20 05:37 01/29/20 05:37 - Laboratory Result Diagrams: 01/29/20 09:30 01/29/20 09:30 Laboratory results interpreted by me: 01/29/20 01/29/20 09:30 09:30 Hgb 13.0 L RDW 16.1 H Lymph % (Auto) 10.6 L Creatinine 1.62 H Est GFR ( Amer) 50 L Est GFR (MDRD) Non-Af 42 L Glucose 195 H - Diagnostic Test Radiology reviewed: Image reviewed, Reports reviewed - EKG Interpretation by Me EKG shows normal: Sinus rhythm Rate: Normal - 86 Rhythm: NSR Tanner/QRS: Left axis deviation When compared to previous EKG there are: Changes noted - Has some subtle ST depression in lateral leads that appear to be new Discharge - Discharge Clinical Impression: Acute electrocardiogram changes Dyspnea Qualifiers: Dyspnea type: dyspnea on exertion Qualified Code(s): R06.00 - Dyspnea, unspecified Condition: Fair Disposition: ADMITTED INPATIENT Admitting Provider: [place] (Hospitalist) - [facility] Admitted: Telemetry Referrals: GENE WICK PA-C [Primary Care Provider] - Follow up as needed
[2020-01-29] MEDS ORDERED: PROMETHAZINE HCL INJ 25 MG/1 ML VIAL IV PRN (12:45)
[2020-01-29] MEDS ORDERED: ACETAMINOPHEN 325 MG TABLET PO PRN (12:45)
[2020-01-29] MEDS ORDERED: ALBUTEROL SULFATE 0.083% NEB 2.5 MG/3 ML AMPUL NEB PRN (12:45)
[2020-01-29] MEDS ORDERED: ONDANSETRON HCL INJ/PF 4 MG/2 ML SDV IV PRN (12:45)
[2020-01-29] MEDS ORDERED: MAG HYDROX/AL HYDROX/SIMETH SUSP 30 ML UDCUP PO PRN (12:45)
[2020-01-29] MEDS ORDERED: DEXTROSE 50%-WATER 25 GM/50 ML DISP.SYRIN IV PRN ×2 (12:51)
[2020-01-29] MEDS ORDERED: DEXTROSE 40% GEL 15 GM TUBE PO PRN ×2 (12:51)
[2020-01-29] MEDS ORDERED: GLUCAGON,HUMAN RECOMB 1 MG INJ IM PRN (12:51)
[2020-01-29] MEDS ORDERED: HYDRALAZINE HCL INJ/PF 20 MG/1 ML SDV IV PRN (13:03)
[2020-01-29] MEDS ORDERED: MORPHINE SULFATE 10 MG/ML INJ IV PRN (13:07)
[2020-01-29] MEDS ORDERED: NITROGLYCERIN 0.4 MG/TAB 25 TAB/BOTTLE SL PRN (13:07)
--- NOTE | 2020-01-29 13:09 | PDOC H&P ---
History of Present Illness Admission Date/PCP: GENE ZENG PA-C Patient complains of: Dyspnea and chest pressure History of Present Illness: JOEL MARIE is a 79 year old male with a past medical history significant for atrial fibrillation (not anticoagulated), CHF, HTN, HLD, COPD, ischemic CVA, insulin-dependent diabetes mellitus, obesity, CKD, skin cancer, and osteoarthritis who presented to the emergency department today with a complaint of sudden onset dyspnea/orthopnea and chest pressure upon waking this morning. Patient has been to the emergency department 4 times this month with 1 prior admission for a similar complaint. 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 He has not had any recent cardiology evaluation other than what was provided during his prior admission 01/10/2020 (A1C 8.8%. Trig 309, LDL 58, HDL 36, TChol 190). In the emergency department, patient is found stable vital signs, normal CBC, baseline renal function, slightly elevated troponin as compared to his baseline at 0.119. Chest x-ray is benign. EKG shows subtle ST depression to the lateral leads. He is referred to the hospitalist service for further evaluation and management. Past Medical History Cardiac Medical History: Reports: Atrial Fibrillation, Congestive Heart Failure, Hyperlipidema, Hypertension Denies: Coronary Artery Disease, Myocardial Infarction Pulmonary Medical History: Reports: Chronic Obstructive Pulmonary Disease (COPD) Denies: Asthma, Pneumonia Neurological Medical History: Reports: Ischemic CVA Denies: Seizures Endocrine Medical History: Reports: Diabetes Mellitus Type 2, Obesity Denies: Hypothyroidism Renal/ Medical History: Reports: Chronic Kidney Disease Malignancy Medical History: Reports: Skin Cancer GI Medical History: Reports: Diverticulitis, Gastroesophageal Reflux Disease Denies: Cirrhosis, Hepatitis Musculoskeltal Medical History: Reports: Arthritis - Generalized osteoarthritis Denies: Gout Skin Medical History: Denies: Eczema, Psoriasis Psychiatric Medical History: Denies: Depression Hematology: Reports: Anemia Infectious Medical History: Reports: None Past Surgical History Past Surgical History: Reports: Appendectomy, Cholecystectomy, Herniorrhaphy, Orthopedic Surgery - back x2 with hardware, Other - Several back surgeries, wrist surgery, elbow surgery, hemmorhoids, MINA Denies: Pacemaker Social History Information Source: Patient Lives with: Alone Smoking Status: Former Smoker Electronic Cigarette use?: No Frequency of Alcohol Use: None Hx Recreational Drug Use: No Drugs: None Hx Prescription Drug Abuse: No - Advance Directive Resuscitation Status: Full Code Family History Family History: CAD, DM, Hyperlipidemia, Hypertension Parental Family History Reviewed: Yes Children Family History Reviewed: Yes Sibling(s) Family History Reviewed.: Yes Medication/Allergy Home Medications: Albuterol Sulfate [Ventolin 0.083% Neb 2.5 mg/3 mL Ampul] 1 vial NEB Q6HP PRN 04/21/18 Budesonide/Formoterol Fumarate [Symbicort HFA 160-4.5 mcg Inhaler 6 gm] 2 puff IH Q12 01/10/20 Calcitriol [Rocaltrol 0.25 mcg Capsule] 1 cap PO DAILY 01/10/20 Clopidogrel Bisulfate [Plavix 75 mg Tablet] 75 mg PO DAILY 01/10/20 Diltiazem HCl [Cardizem Cd 180 mg Capsule] 1 cap.sr PO DAILY 01/10/20 Furosemide [Lasix 20 mg Tablet] 20 mg PO BID 01/10/20 Gabapentin [Neurontin 100 mg Capsule] 100 mg PO QHS 01/10/20 Insulin Glargine,Hum.rec.anlog [Lantus Insulin 100 Unit/mL Insulin Pen] 26 unit SUBCUT QHS 01/10/20 Insulin Lispro [Humalog] 5 unit SQ AC 01/10/20 Pantoprazole Sodium [Protonix [address] Tablet] 40 mg PO QAM 01/10/20 Sodium Bicarbonate [Sodium Bicarbonate 650 mg Tablet] 650 mg PO TID 01/10/20 Acetaminophen [Tylenol 325 mg Tablet] 650 mg PO Q4HP PRN tablet 01/11/20 Docusate Sodium [Colace 100 mg Capsule] 100 mg PO BID capsule 01/11/20 Guaifenesin [Robitussin Syrup 200 mg/10 ml Ud Cup] 200 mg PO Q4HP PRN udc 01/11/20 Pantoprazole Sodium [Protonix [address] Tablet] 40 mg PO Q6AM tablet. 01/11/20 Allergies/Adverse Reactions: aspirin [Aspirin] Adverse Reaction (Intermediate, Verified 09/06/18 14:03) bleeding ulcers codeine [Codeine] Adverse Reaction (Intermediate, Verified 09/06/18 14:03) bleeding ulcers Review of Systems Constitutional: ABSENT: chills, fever(s), headache(s), weight gain, weight loss Eyes: ABSENT: visual disturbances Ears: ABSENT: hearing changes Cardiovascular: PRESENT: chest pain, edema, orthropnea. ABSENT: dyspnea on exertion, palpitations Respiratory: PRESENT: dyspnea. ABSENT: cough, hemoptysis Gastrointestinal: ABSENT: abdominal pain, constipation, diarrhea, hematemesis, hematochezia, nausea, vomiting Genitourinary: ABSENT: dysuria, hematuria Musculoskeletal: ABSENT: joint swelling Integumentary: ABSENT: rash, wounds Neurological: ABSENT: abnormal gait, abnormal speech, confusion, dizziness, focal weakness, syncope Psychiatric: ABSENT: anxiety, depression, homidical ideation, suicidal ideation Endocrine: ABSENT: cold intolerance, heat intolerance, polydipsia, polyuria Hematologic/Lymphatic: ABSENT: easy bleeding, easy bruising Physical Exam Vital Signs: Temp Pulse Resp BP Pulse Ox 98.5 F 83 20 142/63 H 95 01/29/20 05:37 01/29/20 05:37 01/29/20 05:37 01/29/20 05:37 01/29/20 05:37 Intake & Output 01/28/20 01/29/20 01/30/20 06:59 06:59 06:59 Weight 104.5 kg General appearance: PRESENT: no acute distress, cooperative, obese, well- developed, well-nourished Head exam: PRESENT: atraumatic, normocephalic Eye exam: PRESENT: conjunctiva pink, EOMI, PERRLA. ABSENT: scleral icterus Mouth exam: PRESENT: moist, tongue midline Neck exam: ABSENT: carotid bruit, JVD, lymphadenopathy, thyromegaly Respiratory exam: PRESENT: clear to auscultation jake, symmetrical, unlabored. ABSENT: rales, rhonchi, wheezes Cardiovascular exam: PRESENT: RRR, +S1, +S2. ABSENT: diastolic murmur, rubs, systolic murmur Pulses: PRESENT: normal dorsalis pedis pul Vascular exam: PRESENT: normal capillary refill GI/Abdominal exam: PRESENT: normal bowel sounds, soft. ABSENT: distended, guarding, mass, organolmegaly, rebound, tenderness Rectal exam: PRESENT: deferred Extremities exam: PRESENT: full ROM, pedal edema, +1 edema - BLE. ABSENT: calf tenderness, clubbing Musculoskeletal exam: PRESENT: ambulatory Neurological exam: PRESENT: alert, awake, oriented to person, oriented to place, oriented to time, oriented to situation, CN II-XII grossly intact. ABSENT: motor sensory deficit Psychiatric exam: PRESENT: appropriate affect, normal mood. ABSENT: homicidal ideation, suicidal ideation Skin exam: PRESENT: dry, intact, warm. ABSENT: cyanosis, rash Results Laboratory Results: 01/29/20 09:30 01/29/20 09:30 01/29/20 01/29/20 09:30 09:30 WBC 6.9 RBC 4.52 Hgb 13.0 L Hct 39.2 MCV 87 MCH 28.8 MCHC 33.2 RDW 16.1 H Plt Count 167 Seg Neutrophils % 76.4 Sodium 138.7 Potassium 4.6 Chloride 102 Carbon Dioxide 27 Anion Gap 10 BUN 20 Creatinine 1.62 H Est GFR ( Amer) 50 L Glucose 195 H Calcium 9.3 Total Bilirubin 0.4 AST 23 Alkaline Phosphatase 86 Total Protein 6.8 Albumin 4.0 01/29/20 09:30 Troponin I 0.119 NT-Pro-B Natriuret Pep 330 Impressions: Chest X-Ray 01/29/20 09:18 IMPRESSION: NO ACUTE RADIOGRAPHIC FINDING IN THE CHEST. Assessment and Plan - Diagnosis (1) Chest pain Is this a current diagnosis for this admission?: Yes Plan: Patient is admitted to the medical floor on continuous cardiac telemetry. Chest x-ray benign. Initial troponin 0.119; will continue to trend. Echocardiogram pending SL nitro as needed chest pain IV morphine for unrelieved chest discomfort. Daily aspirin and statin therapy. Supplemental oxygen as needed to maintain saturations greater than 89%. Cardiology is consulted; Cardiolite stress test ordered. Cardiac diet. (2) Congestive heart failure Qualifiers: Heart failure type: unspecified Heart failure chronicity: chronic Qualified Code(s): I50.9 - Heart failure, unspecified Is this a current diagnosis for this admission?: Yes Plan: Cardiology is consulted. Echocardiogram pending Continue daily aspirin and statin therapy. Continue home dose antihypertensives once reconciled. Cardiac Diet. Daily weights, strict I&O's. (3) Diabetes Qualifiers: Diabetes mellitus type: type 2 Diabetes mellitus intermediate manager insulin use: with intermediate manager use Chronic kidney disease stage: stage 3 (moderate) Is this a current diagnosis for this admission?: Yes Plan: A1C 8.8%. Patient is placed on a cardiac/consistent carb diet. Accu-Cheks before meals and at bedtime with Humalog for sliding scale coverage. Hypoglycemia protocol in place. Registered dietitian elementary educator consulted. (4) HLD (hyperlipidemia) Is this a current diagnosis for this admission?: Yes Plan: Trig 309, LDL 58, HDL 36, TChol 190 Continue statin therapy. Cardiac diet (5) CKD (chronic kidney disease), stage III Is this a current diagnosis for this admission?: Yes Plan: At baseline renal function. Avoid nephrotoxic medications as able. Optimize cardiac output. Follow-up chemistry. (6) GERD (gastroesophageal reflux disease) Qualifiers: Esophagitis presence: esophagitis presence not specified Qualified Code(s): K21.9 - Gastro-esophageal reflux disease without esophagitis Is this a current diagnosis for this admission?: Yes Plan: Twice daily Protonix. (7) HTN (hypertension) Qualifiers: Hypertension type: essential hypertension Qualified Code(s): I10 - Essential (primary) hypertension Is this a current diagnosis for this admission?: Yes Plan: Resume home antihypertensive regiment once reconciled. IV hydralazine as needed for blood pressure control. Cardiac diet. (8) Obesity (BMI 30-39.9) Is this a current diagnosis for this admission?: Yes Plan: Lifestyle modification and dietary discretion advised. Cardiac/consistent carb diet. 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 - Time Time Spent with patient: 35 or more minutes Medications reviewed and adjusted accordingly: Yes Anticipated Discharge Disposition: Home with Home Health Anticipated Discharge: within 48 hours
[2020-01-29] MEDS: HEPARIN SOD (PORCINE) 5,000 UNIT/ML 1 ML VIAL SUBCUT SCH (14:47)
[2020-01-29] MEDS: PANTOPRAZOLE SODIUM 40 MG TABLET.DR PO SCH (16:57)
[2020-01-29] MEDS: INSULIN LISPRO 100 UNIT/ML 3 ML VIAL SUBCUT SCH ×2 (16:58→23:48)
[2020-01-30] MEDS: PANTOPRAZOLE SODIUM 40 MG TABLET.DR PO SCH (05:32)
[2020-01-30] MEDS: HEPARIN SOD (PORCINE) 5,000 UNIT/ML 1 ML VIAL SUBCUT SCH ×2 (06:00→09:15)
[2020-01-30 06:48] LABS: HEMOGLOBIN 11.9 g/dL (13.5-17.0); MEAN CORPUSCULAR HEMOGLOBIN 28.4 pg (27.0-33.4); MEAN CORPUSCULAR HGB CONC 32.9 g/dL (32.0-36.0); MEAN CORPUSCULAR VOLUME 86 fl (80-97); PLATELET COUNT 135 10^3/uL (150-450); RED BLOOD COUNT 4.18 10^6/uL (4.35-5.55); RED CELL DISTRIBUTION WIDTH 15.5 % (11.5-14.0); WHITE BLOOD COUNT 6.4 10^3/uL (4.0-10.5)
[2020-01-30 07:08] LABS: BLOOD UREA NITROGEN 16 mg/dL (7-20); CALCIUM 8.9 mg/dL (8.4-10.2); CHLORIDE 103 mmol/L (98-107); GLUCOSE 155 mg/dL (75-110); POTASSIUM 4.4 mmol/L (3.6-5.0)
[2020-01-30 07:14] LABS: CARBON DIOXIDE 28 mmol/L (22-30)
[2020-01-30 07:17] LABS: ANION GAP 5 (5-19)
--- NOTE | 2020-01-30 08:52 | PDOC CONSULTATION ---
Consultation Consult Date: 01/30/20 Attending physician:: GUILHERME BOLES Provider Consulted: ROSLYN PETERSON Consult reason:: CP and SOB History of Present Illness Admission Date/PCP: 01/29/20 13:38 GENE WICK PA-C History of Present Illness: JOEL MARIE is a 79 year old male with history of paroxysmal atrial fibrillation (not anticoagulated) status post Watchman procedure, CHF, HTN, HLD, COPD, ischemic CVA, insulin-dependent diabetes mellitus, obesity, CKD, skin cancer, and osteoarthritis who is consulted to our service for evaluation of shortness of breath and chest pain. The patient presented to the emergency room yesterday complaining of dyspnea/orthopnea as well as chest pressure upon waking this morning. Unfortunately the patient is not a good historian and cannot give me details of his chest discomfort however states that his shortness of breath, which has been present for 3 or 4 years, has been progressively getting worse to the point he is feeling short of breath at rest and particularly when laying flat. He also endorses lower extremity edema and chest discomfort as well as increased shortness of breath with any significant physical activities. Of note, he has been to this facility at least 4 times in the past several weeks with similar complaints. His troponin is now mildly elevated. This morning he is resting comfortably and with shortness of breath at his baseline. Physical exam on 01/30/2020: GENERAL: Pleasant and conversational. Oriented x3 with normal mood. Not in acute distress. Well groomed and well developed. HEENT: Normocephalic, atraumatic. Pupils equal. Sclerae anicteric. Oropharynx moist. NECK: No JVD. No carotid bruits. LUNGS: Inspiratory and expiratory wheezing in all taylor bilaterally. Normal respiratory effort without the use of accessory muscles or intercostal retractions. CARDIOVASCULAR: Regular rate and rhythm, normal S1 and S2 without murmurs, rubs, or gallops. PMI not displaced. ABDOMEN: No masses or tenderness to palpation. No bruit. No splenomegaly or hepatomegaly. No abdominal aorta bruit noted. EXTREMITIES: 2+ pitting edema bilaterally, no cyanosis, no clubbing. +2 pulses femoral and pedal pulses bilaterally. SKIN: No lesions or rashes. MUSCULOSKELETAL: No chest tenderness to palpation. NEUROLOGIC: Nonfocal. No gross sensory or motor deficits bilateral upper or lower extremities. Past Medical History Cardiac Medical History: Reports: Atrial Fibrillation, Congestive Heart Failure, Hyperlipidema, Hypertension Denies: Coronary Artery Disease, Myocardial Infarction Pulmonary Medical History: Reports: Chronic Obstructive Pulmonary Disease (COPD) Denies: Asthma, Bronchitis, Pneumonia Neurological Medical History: Reports: Ischemic CVA Denies: Seizures Endocrine Medical History: Reports: Diabetes Mellitus Type 2, Obesity Denies: Diabetes Mellitus Type 1, Hyperthyroidism, Hypothyroidism Renal/ Medical History: Reports: Chronic Kidney Disease Malignancy Medical History: Reports: Skin Cancer GI Medical History: Reports: Diverticulitis, Gastroesophageal Reflux Disease Denies: Cirrhosis, Hepatitis Musculoskeltal Medical History: Reports: Arthritis - Generalized osteoarthritis Denies: Gout Skin Medical History: Denies: Eczema, Psoriasis Psychiatric Medical History: Denies: Depression Hematology: Reports: Anemia, Bleeding Tendencies Infectious Medical History: Reports: None Past Surgical History Past Surgical History: Reports: Appendectomy, Cholecystectomy, Herniorrhaphy, Orthopedic Surgery - back x2 with hardware, Other - Several back surgeries, wrist surgery, elbow surgery, hemmorhoids, MINA Denies: Pacemaker Social History Lives with: Alone Smoking Status: Former Smoker Electronic Cigarette use?: No Frequency of Alcohol Use: None Hx Recreational Drug Use: No Drugs: None Hx Prescription Drug Abuse: No - Advance Directive Resuscitation Status: Full Code Family History Family History: CAD, DM, Hyperlipidemia, Hypertension Parental Family History Reviewed: Yes Children Family History Reviewed: Yes Sibling(s) Family History Reviewed.: Yes Medication/Allergy Home Medications: Albuterol Sulfate [Ventolin 0.083% Neb 2.5 mg/3 mL Ampul] 1 vial NEB Q6HP PRN 04/21/18 Budesonide/Formoterol Fumarate [Symbicort HFA 160-4.5 mcg Inhaler 6 gm] 2 puff IH Q12 01/10/20 Calcitriol [Rocaltrol 0.25 mcg Capsule] 1 cap PO DAILY 01/10/20 Clopidogrel Bisulfate [Plavix 75 mg Tablet] 75 mg PO DAILY 01/10/20 Diltiazem HCl [Cardizem Cd 180 mg Capsule] 1 cap.sr PO DAILY 01/10/20 Furosemide [Lasix 20 mg Tablet] 20 mg PO BID 01/10/20 Gabapentin [Neurontin 100 mg Capsule] 100 mg PO QHS 01/10/20 Insulin Glargine,Hum.rec.anlog [Lantus Insulin 100 Unit/mL Insulin Pen] 26 unit SUBCUT QHS 01/10/20 Insulin Lispro [Humalog] 5 unit SQ AC 01/10/20 Pantoprazole Sodium [Protonix [address] Tablet] 40 mg PO QAM 01/10/20 Sodium Bicarbonate [Sodium Bicarbonate 650 mg Tablet] 650 mg PO TID 01/10/20 Acetaminophen [Tylenol 325 mg Tablet] 650 mg PO Q4HP PRN tablet 01/11/20 Docusate Sodium [Colace 100 mg Capsule] 100 mg PO BID capsule 01/11/20 Guaifenesin [Robitussin Syrup 200 mg/10 ml Ud Cup] 200 mg PO Q4HP PRN udc 01/11/20 Pantoprazole Sodium [Protonix [address] Tablet] 40 mg PO Q6AM tablet.dr 01/11/20 Allergies/Adverse Reactions: aspirin [Aspirin] Adverse Reaction (Intermediate, Verified 01/29/20 16:42) bleeding ulcers codeine [Codeine] Adverse Reaction (Intermediate, Verified 01/29/20 16:42) bleeding ulcers Physical Exam Vital Signs: Temp Pulse Resp BP Pulse Ox 98.0 F 59 L 18 146/70 H 96 01/30/20 02:26 01/29/20 15:34 01/30/20 06:01 01/30/20 06:01 01/30/20 06:01 Intake & Output 01/29/20 01/30/20 01/31/20 06:59 06:59 06:59 Weight 104.5 kg Results Laboratory Results: 01/30/20 05:53 01/30/20 05:53 01/29/20 01/29/20 01/30/20 09:30 09:30 05:53 WBC 6.9 6.4 RBC 4.52 4.18 L Hgb 13.0 L 11.9 L Hct 39.2 36.0 L MCV 87 86 MCH 28.8 28.4 MCHC 33.2 32.9 RDW 16.1 H 15.5 H Plt Count 167 135 L Seg Neutrophils % 76.4 Sodium 138.7 Potassium 4.6 Chloride 102 Carbon Dioxide 27 Anion Gap 10 BUN 20 Creatinine 1.62 H Est GFR ( Amer) 50 L Glucose 195 H Calcium 9.3 Total Bilirubin 0.4 AST 23 Alkaline Phosphatase 86 Total Protein 6.8 Albumin 4.0 01/30/20 05:53 WBC RBC Hgb Hct MCV MCH MCHC RDW Plt Count Seg Neutrophils % Sodium 136.3 L Potassium 4.4 Chloride 103 Carbon Dioxide 28 Anion Gap 5 BUN 16 Creatinine 1.43 H Est GFR ( Amer) 58 L Glucose 155 H Calcium 8.9 Total Bilirubin AST Alkaline Phosphatase Total Protein Albumin 01/29/20 01/29/20 01/30/20 09:30 18:22 00:48 Troponin I 0.119 0.125 0.127 NT-Pro-B Natriuret Pep 330 Impressions: Chest X-Ray 01/29/20 09:18 IMPRESSION: NO ACUTE RADIOGRAPHIC FINDING IN THE CHEST. 01/30/20 05:53 01/30/20 05:53 MCV 86 fl (80-97) 01/30/20 05:53 MCH 28.4 pg (27.0-33.4) 01/30/20 05:53 MCHC 32.9 g/dL (32.0-36.0) 01/30/20 05:53 RDW 15.5 % (11.5-14.0) H 01/30/20 05:53 Seg Neutrophils % 76.4 % (42-78) 01/29/20 09:30 Chloride 103 mmol/L (98-107) 01/30/20 05:53 Carbon Dioxide 28 mmol/L (22-30) 01/30/20 05:53 Anion Gap 5 (5-19) 01/30/20 05:53 Est GFR ( Amer) 58 (>60) L 01/30/20 05:53 Glucose 155 mg/dL (75-110) H 01/30/20 05:53 Calcium 8.9 mg/dL (8.4-10.2) 01/30/20 05:53 Total Bilirubin 0.4 mg/dL (0.2-1.3) 01/29/20 09:30 AST 23 U/L (17-59) 01/29/20 09:30 Alkaline Phosphatase 86 U/L (38-126) 01/29/20 09:30 Total Protein 6.8 g/dL (6.3-8.2) 01/29/20 09:30 Albumin 4.0 g/dL (3.5-5.0) 01/29/20 09:30 01/29/20 01/29/20 01/30/20 09:30 18:22 00:48 Troponin I 0.119 0.125 0.127 NT-Pro-B Natriuret Pep 330 Current Medication List Generic Name Dose Route Start Last Admin Trade Name Freq PRN Reason Stop Dose Admin Acetaminophen 650 mg 01/29/20 12:45 Tylenol 325 Mg Tablet PO 02/28/20 12:44 Q4HP PRN FOR PAIN OR TEMP Al Hydrox/Mg Hydrox/Simethicone 30 ml 01/29/20 12:45 Maalox Plus Susp 30 Udcup PO 02/28/20 12:44 Q6HP PRN HEARTBURN Albuterol 2.5 mg 01/29/20 12:45 Ventolin 0.083% Neb 2.5 Mg/3 Ml Ampul NEB 02/28/20 12:44 RTQ6HP PRN SHORTNESS OF BREATH Aspirin 81 mg 01/30/20 10:00 Aspirin 81 Mg Chewable Tablet PO 02/29/20 09:59 DAILY [facility] Atorvastatin Calcium 80 mg 01/30/20 08:38 Lipitor 80 Mg Tablet PO 01/30/20 08:39 NOW ONE Dextrose 12.5 gm 01/29/20 12:51 Dextrose Inj 50% Syringe (25 Gm/50 Ml) IV 02/28/20 12:50 PRN PRN FOR BG 50-69 IN ALERT PATIENT Protocol Dextrose 25 gm 01/29/20 12:51 Dextrose Inj 50% Syringe (25 Gm/50 Ml) IV 02/28/20 12:50 PRN PRN PER PROTOCOL Protocol Docusate Sodium 100 mg 01/30/20 10:00 Colace 100 Mg Capsule PO 02/29/20 09:59 DAILY [facility] Enoxaparin Sodium 105 mg 01/30/20 10:00 Lovenox Inj 120 Mg/0.8 Ml Disp.Syrin SUBCUT 02/29/20 09:59 Q12 [facility] Glucagon 1 mg 01/29/20 12:51 Glucagen Inj 1 Mg Vial IM 02/28/20 12:50 PRN PRN Evaluate for BG < 70 Protocol Glucose 15 gm 01/29/20 12:51 Glutose 40% Gel 15 Gm Tube PO 02/28/20 12:50 PRN PRN FOR BG 50-69 IN ALERT PATIENT Protocol Glucose 30 gm 01/29/20 12:51 Glutose 40% Gel 15 Gm Tube PO 02/28/20 12:50 PRN PRN FOR BG < 50 IN ALERT PATIENT Protocol Hydralazine HCl 10 mg 01/29/20 13:03 Apresoline Inj/Pf 20 Mg/1 Ml Sdv IV 02/28/20 13:02 Q6HP PRN SBP>180, DBP>90 Insulin Human Lispro 0 - 12 unit 01/29/20 16:00 01/29/20 23:48 Humalog Insulin 100 Unit/1 Ml 3 Ml Vial SUBCUT 02/28/20 15:59 Not Given ACHS [facility] Protocol Morphine Sulfate 2 mg 01/29/20 13:07 Morphine 10 Mg/Ml Inj IV 02/05/20 13:06 Q4HP PRN Chest pain unrelieved by nitro Nitroglycerin 1 tab 01/29/20 13:07 Nitrostat 0.4 Mg (1/150 Gr) Tabs 25/Bottle SL 02/28/20 13:06 Q5MP PRN FOR CHEST PAIN Ondansetron HCl 4 mg 01/29/20 12:45 Zofran Inj/Pf 4 Mg/2 Ml Sdv IV 02/28/20 12:44 Q6HP PRN FOR NAUSEA/VOMITING Pantoprazole Sodium 40 mg 01/29/20 17:00 01/30/20 05:[address] Tablet PO 02/28/20 16:59 Not Given BID@0600,1700 [facility] Promethazine HCl 6.25 mg 01/29/20 12:45 Phenergan Inj 25 Mg/1 Ml Vial IV 02/28/20 12:44 Q4HP PRN FOR NAUSEA/VOMITING Discontinued Medications Generic Name Dose Route Start Last Admin Trade Name Freq PRN Reason Stop Dose Admin Furosemide 20 mg 01/29/20 10:02 01/29/20 10:37 Lasix 20 Mg Tablet PO 01/29/20 10:03 20 mg NOW ONE Administration Heparin Sodium (Porcine) 5,000 unit 01/29/20 14:00 01/30/20 06:00 Heparin Inj 5,000 Units/Ml 1 Ml Vial SUBCUT 02/28/20 13:59 5,000 unit Q8 [facility] Administration Assessment & Plan - Diagnosis (1) NSTEMI (non-ST elevated myocardial infarction) Plan: 79-year-old male with multiple cardiac risk factors for coronary artery disease who had been evaluated at this facility for complaints of chest pain and shortness of breath at least 4 times in the month of January who presented with similar complaints of chest discomfort and shortness of breath in the setting of mildly elevated cardiac troponins. Recommendations: -Anticoagulation with heparin. -Baby aspirin. -Lipitor 80 mg. -We will hold off on beta-simran given his active wheezing. -[facility]
[2020-01-30] MEDS: INSULIN LISPRO 100 UNIT/ML 3 ML VIAL SUBCUT SCH ×2 (09:14→11:59)
[2020-01-30] MEDS ORDERED: DOCUSATE SODIUM 100 MG CAPSULE PO SCH (10:00)
[2020-01-30] MEDS ORDERED: ENOXAPARIN SODIUM INJ 120 MG/0.8 ML DISP.SYRIN SUBCUT SCH (10:00)
[2020-01-30] MEDS ORDERED: ATORVASTATIN CALCIUM 80 MG TABLET PO ONE (10:00)
[2020-01-30] MEDS ORDERED: ASPIRIN 81 MG TABLET, CHEWABLE PO SCH (10:00)
--- NOTE | 2020-01-30 10:51 | PDOC TRANSFER SUMMARY ---
General Admission Date/PCP: 01/29/20 13:38 GENE ZENG PA-C Admission Date: 01/29/20 Transfer Date: 01/30/20 [facility] Accepting Physician: Dr. Pelaez Resuscitation Status: Full Code - Transfer Diagnosis (1) NSTEMI (non-ST elevated myocardial infarction) Is this a current diagnosis for this admission?: Yes (2) Chest pain Is this a current diagnosis for this admission?: Yes (3) Congestive heart failure Is this a current diagnosis for this admission?: Yes (4) Diabetes Is this a current diagnosis for this admission?: Yes (5) HLD (hyperlipidemia) Is this a current diagnosis for this admission?: Yes (6) CKD (chronic kidney disease), stage III Is this a current diagnosis for this admission?: Yes (7) GERD (gastroesophageal reflux disease) Is this a current diagnosis for this admission?: Yes (8) HTN (hypertension) Is this a current diagnosis for this admission?: Yes (9) Obesity (BMI 30-39.9) Is this a current diagnosis for this admission?: Yes - Transfer Medications Home Medications: Albuterol Sulfate [Ventolin 0.083% Neb 2.5 mg/3 mL Ampul] 1 vial NEB Q6HP PRN 04/21/18 Budesonide/Formoterol Fumarate [Symbicort HFA 160-4.5 mcg Inhaler 6 gm] 2 puff IH Q12 01/10/20 Calcitriol [Rocaltrol 0.25 mcg Capsule] 1 cap PO DAILY 01/10/20 Clopidogrel Bisulfate [Plavix 75 mg Tablet] 75 mg PO DAILY 01/10/20 Diltiazem HCl [Cardizem Cd 180 mg Capsule] 1 cap.sr PO DAILY 01/10/20 Furosemide [Lasix 20 mg Tablet] 20 mg PO BID 01/10/20 Gabapentin [Neurontin 100 mg Capsule] 100 mg PO QHS 01/10/20 Insulin Glargine,Hum.rec.anlog [Lantus Insulin 100 Unit/mL Insulin Pen] 26 unit SUBCUT QHS 01/10/20 Insulin Lispro [Humalog] 5 unit SQ AC 01/10/20 Pantoprazole Sodium [Protonix [address] Tablet] 40 mg PO QAM 01/10/20 Sodium Bicarbonate [Sodium Bicarbonate 650 mg Tablet] 650 mg PO TID 01/10/20 Allopurinol [Zyloprim 100 mg Tablet] 100 mg PO DAILY 01/30/20 Transfer Medications: Current Medications Acetaminophen (Tylenol 325 Mg Tablet) 650 mg PO Q4HP PRN PRN Reason: FOR PAIN OR TEMP Stop: 02/28/20 12:44 Al Hydrox/Mg Hydrox/Simethicone (Maalox Plus Susp 30 Udcup) 30 ml PO Q6HP PRN PRN Reason: HEARTBURN Stop: 02/28/20 12:44 Albuterol (Ventolin 0.083% Neb 2.5 Mg/3 Ml Ampul) 2.5 mg NEB RTQ6HP PRN PRN Reason: SHORTNESS OF BREATH Stop: 02/28/20 12:44 Aspirin (Aspirin 81 Mg Chewable Tablet) 81 mg PO DAILY [facility] Stop: 02/29/20 09:59 Last Admin: 01/30/20 10:33 Dose: Not Given Documented by: Dextrose (Dextrose Inj 50% Syringe (25 Gm/50 Ml)) 12.5 gm IV PRN PRN; Protocol PRN Reason: FOR BG 50-69 IN ALERT PATIENT Stop: 02/28/20 12:50 Dextrose (Dextrose Inj 50% Syringe (25 Gm/50 Ml)) 25 gm IV PRN PRN; Protocol PRN Reason: PER PROTOCOL Stop: 02/28/20 12:50 Docusate Sodium (Colace 100 Mg Capsule) 100 mg PO DAILY [facility] Stop: 02/29/20 09:59 Last Admin: 01/30/20 10:33 Dose: Not Given Documented by: Enoxaparin Sodium (Lovenox Inj 120 Mg/0.8 Ml Disp.Syrin) 105 mg SUBCUT Q12 [facility] Stop: 02/29/20 09:59 Glucagon (Glucagen Inj 1 Mg Vial) 1 mg IM PRN PRN; Protocol PRN Reason: Evaluate for BG < 70 Stop: 02/28/20 12:50 Glucose (Glutose 40% Gel 15 Gm Tube) 15 gm PO PRN PRN; Protocol PRN Reason: FOR BG 50-69 IN ALERT PATIENT Stop: 02/28/20 12:50 Glucose (Glutose 40% Gel 15 Gm Tube) 30 gm PO PRN PRN; Protocol PRN Reason: FOR BG < 50 IN ALERT PATIENT Stop: 02/28/20 12:50 Hydralazine HCl (Apresoline Inj/Pf 20 Mg/1 Ml Sdv) 10 mg IV Q6HP PRN PRN Reason: SBP>180, DBP>90 Stop: 02/28/20 13:02 Insulin Human Lispro (Humalog Insulin 100 Unit/1 Ml 3 Ml Vial) 0 - 12 unit SUBCUT [facility]; Protocol Stop: 02/28/20 15:59 Last Admin: 01/30/20 09:14 Dose: Not Given Documented by: Morphine Sulfate (Morphine 10 Mg/Ml Inj) 2 mg IV Q4HP PRN PRN Reason: Chest pain unrelieved by nitro Stop: 02/05/20 13:06 Nitroglycerin (Nitrostat 0.4 Mg (1/150 Gr) Tabs 25/Bottle) 1 tab SL Q5MP PRN PRN Reason: FOR CHEST PAIN Stop: 02/28/20 13:06 Ondansetron HCl (Zofran Inj/Pf 4 Mg/2 Ml Sdv) 4 mg IV Q6HP PRN PRN Reason: FOR NAUSEA/VOMITING Stop: 02/28/20 12:44 Pantoprazole Sodium (Protonix [address] Tablet) 40 mg PO BID@0600,1700 [facility] Stop: 02/28/20 16:59 Last Admin: 01/30/20 05:32 Dose: Not Given Documented by: Promethazine HCl (Phenergan Inj 25 Mg/1 Ml Vial) 6.25 mg IV Q4HP PRN PRN Reason: FOR NAUSEA/VOMITING Stop: 02/28/20 12:44 - Allergies Allergies/Adverse Reactions: aspirin [Aspirin] Adverse Reaction (Intermediate, Verified 01/29/20 16:42) bleeding ulcers codeine [Codeine] Adverse Reaction (Intermediate, Verified 01/29/20 16:42) bleeding ulcers - Diet/Activity Discharge Diet: Other (Comments) - NPO Discharge Activity: Activity As Tolerated Hospital Course Hospital Course: Per H&P: JOEL MARIE is a 79 year old male with a past medical history significant for atrial fibrillation (not anticoagulated), CHF, HTN, HLD, COPD, ischemic CVA, insulin-dependent diabetes mellitus, obesity, CKD, skin cancer, and osteoarthritis who presented to the emergency department today with a complaint of sudden onset dyspnea/orthopnea and chest pressure upon waking this morning. Patient has been to the emergency department 4 times this month with 1 prior admission for a similar complaint. Patient tells me that he is followed by Gene zeng as his PCP and has a new patient appointment with an unknown redipper located in [place]. He has not had any recent cardiology evaluation other than what was provided during his prior admission 01/10/2020 (A1C 8.8%. Trig 309, LDL 58, HDL 36, TChol 190). In the emergency department, patient is found stable vital signs, normal CBC, baseline renal function, slightly elevated troponin as compared to his baseline at 0.119. Chest x-ray is benign. EKG shows subtle ST depression to the lateral leads. He is referred to the hospitalist service for further evaluation and management. Course: Patient was admitted for dyspnea, CHF, and chest pain rule out. Serial troponins gradually trended upward; 0.119-> 0.125-> 0.127. He has had no further episodes of acute chest discomfort but does continue to have dyspnea at rest and orthopnea. Patient was started on daily aspirin and statin therapy. Cardiology was consulted. Discussed with Dr. Espinoza this morning; he recommends placing the patient in NPO status, initiating treatment dose anticoagulation, and transferring to tertiary care center for further management (anticipated cardiac cath intervention required). Dr. Espinoza has discussed with [facility] service and arranged for transfer of patient into the care of Dr. Pelaez with cardiology consulting. Physical Exam Vital Signs: Temp Pulse Resp BP Pulse Ox 98.5 F 59 L 17 163/78 H 95 01/30/20 09:13 01/29/20 15:34 01/30/20 09:13 01/30/20 09:13 01/30/20 09:13 Intake & Output 01/29/20 01/30/20 01/31/20 06:59 06:59 06:59 Weight 104.5 kg General appearance: PRESENT: no acute distress, cooperative, obese, well- developed, well-nourished Head exam: PRESENT: atraumatic, normocephalic Eye exam: PRESENT: conjunctiva pink, EOMI, PERRLA. ABSENT: scleral icterus Mouth exam: PRESENT: moist, tongue midline Respiratory exam: PRESENT: clear to auscultation jake, symmetrical, unlabored, wheezes - scant, other - room air. ABSENT: rales, rhonchi Cardiovascular exam: PRESENT: RRR. ABSENT: diastolic murmur, rubs, systolic murmur Pulses: PRESENT: normal dorsalis pedis pul Vascular exam: PRESENT: normal capillary refill GI/Abdominal exam: PRESENT: normal bowel sounds, soft. ABSENT: distended, guarding, mass, organolmegaly, rebound, tenderness Rectal exam: PRESENT: deferred Extremities exam: PRESENT: full ROM, +1 edema - nonpitting, BLE. ABSENT: calf tenderness, clubbing, pedal edema Neurological exam: PRESENT: alert, awake, oriented to person, oriented to place, oriented to time, oriented to situation, CN II-XII grossly intact. ABSENT: motor sensory deficit Psychiatric exam: PRESENT: appropriate affect, normal mood. ABSENT: homicidal ideation, suicidal ideation Skin exam: PRESENT: dry, intact, warm. ABSENT: cyanosis, rash Results Laboratory Results: 01/30/20 05:53 01/30/20 05:53 01/29/20 01/30/20 01/30/20 09:30 05:53 05:53 WBC 6.4 RBC 4.18 L Hgb 11.9 L Hct 36.0 L MCV 86 MCH 28.4 MCHC 32.9 RDW 15.5 H Plt Count 135 L Sodium 138.7 136.3 L Potassium 4.6 4.4 Chloride 102 103 Carbon Dioxide 27 28 Anion Gap 10 5 BUN 20 16 Creatinine 1.62 H 1.43 H Est GFR ( Amer) 50 L 58 L Glucose 195 H 155 H Calcium 9.3 8.9 Total Bilirubin 0.4 AST 23 Alkaline Phosphatase 86 Total Protein 6.8 Albumin 4.0 01/29/20 01/29/20 01/30/20 09:30 18:22 00:48 Troponin I 0.119 0.125 0.127 NT-Pro-B Natriuret Pep 330 Impressions: Chest X-Ray 01/29/20 09:18 IMPRESSION: NO ACUTE RADIOGRAPHIC FINDING IN THE CHEST. Plan Discharge Plan: Transfer to [facility]. Time Spent: Greater than 30 Minutes
[2020-01-30 13:30] VITALS: BP 166/73
--- NOTE | 2020-01-30 18:10 | XCELERA REPORT ---
[address] [address] Transthoracic Echocardiogram Report Name: JOEL MARIE Age: 79 yrs Gender: Male : 1940 Patient Status: Inpatient [address] Study Date: 01/30/2020 08:42 AM Procedure: A complete two-dimensional transthoracic echocardiogram was performed (2D, M-mode, spectral and color flow Doppler). Study Quality: Fair. Reason For Study: CHF exacerbation Ordering Physician: GUILHERME BOLES Performed By: Bella Her Interpretation Summary Difficult study due to pt. body habitus The left ventricle is normal in size. There is mild concentric left ventricular hypertrophy. Left ventricular systolic function is normal. The Ejection Fraction estimate is 60-65%. Doppler measurements suggest impaired left ventricular relaxation, which is associated with grade I/IV or mild diastolic dysfunction. The left ventricular wall motion is normal. There is no thrombus. Mild LAE. Trace MR, trace AI, trace PI. Small, circumferential, hemodynamically insignificant pericardial effusion that appears to be organized. MMode/2D Measurements & Calculations RVDd: 2.6 cm LVIDd: 5.7 cm FS: 34.8 % Ao root diam: 3.1 cm IVSd: 1.6 cm LVIDs: 3.7 cm EDV(Teich): 157.0 ml Ao root area: 7.5 cm2 LVPWd: 1.3 cm ESV(Teich): 57.7 ml EF(Teich): 63.3 % Doppler Measurements & Calculations MV E max lorna: MV dec slope: Ao V2 max: LV V1 max P.5 cm/sec 139.4 cm/sec 5.3 mmHg MV A max lorna: 178.7 cm/sec2 Ao max PG: LV V1 max: 69.0 cm/sec MV dec time: 0.29 sec7.8 mmHg 115.6 cm/sec MV E/A: 0.75 PA V2 max: PI end-d lorna: 114.1 cm/sec 97.9 cm/sec PA max P.2 mmHg Left Ventricle The left ventricle is normal in size. There is mild concentric left ventricular hypertrophy. Left ventricular systolic function is normal. The Ejection Fraction estimate is 60-65%. Doppler measurements suggest impaired left ventricular relaxation, which is associated with grade I/IV or mild diastolic dysfunction. The left ventricular wall motion is normal. There is no thrombus. Right Ventricle The right ventricle is grossly normal size. The right ventricular systolic function is normal. Atria The right atrium is normal. The left atrium is mildly dilated. There is no Doppler evidence for an interatrial shunt. Mitral Valve The mitral valve is normal in structure and function. There is a trace amount of mitral regurgitation. Aortic Valve The aortic valve is sclerotic, but shows no functional abnormality. There is a trace amount of aortic regurgitation. Tricuspid Valve The tricuspid valve is not well visualized secondary to technical limitations. No tricuspid regurgitation. Pulmonic Valve The pulmonic valve is not well visualized. There is a trace amount of pulmonic regurgitation. Effusions Small, circumferential, hemodynamically insignificant pericardial effusion that appears to be organized. There is no pleural effusion. : GUILHERME BOLES Antonio
== END 2020-01-30 13:50 | disposition short-term general hospital (02) ==
LOC: ER 05:21 → EH 13:38 → INTOOBSV 13:38 → EH 01-30 01:53
PROVIDERS: ADMIT Internal Medicine; ATTEND Registered Nurse
DX: I21.4 Non-ST elevation (NSTEMI) myocardial infarction (principal); E11.22 Type 2 diabetes mellitus with diabetic chronic kidney disease; I13.0 Hypertensive heart and chronic kidney disease with heart failure and stage 1 through stage 4 chronic kidney disease, or unspecified chronic kidney disease; N18.3 Chronic kidney disease, stage 3 (moderate); I50.9 Heart failure, unspecified; E78.5 Hyperlipidemia, unspecified; K21.9 Gastro-esophageal reflux disease without esophagitis; E66.9 Obesity, unspecified; M15.9 Polyosteoarthritis, unspecified; J44.9 Chronic obstructive pulmonary disease, unspecified; Z68.39 Body mass index [BMI] 39.0-39.9, adult; Z79.899 Other long term (current) drug therapy; Z79.4 Long term (current) use of insulin; Z60.2 Problems related to living alone; Z79.51 Long term (current) use of inhaled steroids; Z86.73 Personal history of transient ischemic attack (TIA), and cerebral infarction without residual deficits; Z85.828 Personal history of other malignant neoplasm of skin; Z87.891 Personal history of nicotine dependence; Z82.49 Family history of ischemic heart disease and other diseases of the circulatory system
CPT/HCPCS: 93005; 99285; 36415 ×2; 82962 ×2; 85025; 85027; 80048; 80053; 84484 ×2; 83880; 93306; 71045; 93010; J1644 ×2; A9270 ×4; J1650; G0378; J1815; J3490

== ENCOUNTER 2020-02-14 19:50 | Observation (INO) | payer MEDICARE ==
[2020-02-14] MEDS ORDERED: ASPIRIN 81 MG TABLET, CHEWABLE PO ONE (20:28)
--- NOTE | 2020-02-14 20:28 | ER Document Report ---
ED Medical Screen (RME) - General Chief Complaint: Chest Pain Stated Complaint: CHEST PAINS, DIFFICULTY BREATHING, SWOLLEN LEGS Time Seen by Provider: 02/14/20 20:24 Primary Care Provider: GENE WICK PA-C [Primary Care Provider] - Follow up as needed Mode of Arrival: Wheelchair Information source: Patient Notes: 79-year-old male presented to ED for complaint of chest pain shortness of breath. He states he has been having this problem for about 3 years. 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 He states that the pain got better and the shortness of breath got better and his feet started swelling and is been leaking fluid out of his legs so he came back to the emergency room. He is alert oriented respirations regular nonlabored at this time. Denies use of alcohol or drugs or tobacco. I have greeted and performed a rapid initial assessment of this patient. A comprehensive ED assessment and evaluation of the patient, analysis of test results and completion of medical decision making process will be conducted by an additional ED providers. TRAVEL OUTSIDE OF THE [place] IN LAST 30 DAYS: No - Related Data Allergies/Adverse Reactions: aspirin [Aspirin] Adverse Reaction (Intermediate, Verified 02/14/20 20:20) bleeding ulcers codeine [Codeine] Adverse Reaction (Intermediate, Verified 02/14/20 20:20) bleeding ulcers Past Medical History - Past Medical History Cardiac Medical History: Reports: Hx Atrial Fibrillation, Hx Congestive Heart Failure, Hx Hypercholesterolemia, Hx Hypertension Pulmonary Medical History: Reports: Hx COPD Denies: Hx Asthma, Hx Bronchitis, Hx Pneumonia Neurological Medical History: Denies: Hx Cerebrovascular Accident, Hx Seizures Endocrine Medical History: Reports: Hx Diabetes Mellitus Type 2. Denies: Hx Diabetes Mellitus Type 1, Hx Hyperthyroidism, Hx Hypothyroidism Renal/ Medical History: Denies: Hx Peritoneal Dialysis Malignancy Medical History: Reports Hx Skin Cancer GI Medical History: Reports: Hx Diverticulitis, Hx Gastroesophageal Reflux Disease. Denies: Hx Cirrhosis, Hx Hepatitis Musculoskeltal Medical History: Reports Hx Arthritis - Generalized osteoarthritis, Denies Hx Gout Skin Medical History: Denies Hx Eczema, Denies Hx Psoriasis Psychiatric Medical History: Denies: Hx Depression Infectious Medical History: Denies: Hx Hepatitis Past Surgical History: Reports: Hx Abdominal Surgery - hernia repair, Hx Appendectomy, Hx Cholecystectomy, Hx Inguinal Hernia, Hx Orthopedic Surgery - back x2 with hardware, Other - Several back surgeries, wrist surgery, elbow surgery, hemmorhoids, MINA. Denies: Hx Pacemaker - Immunizations Hx Diphtheria, Pertussis, Tetanus Vaccination: No Physical Exam - Vital signs Vitals: Temp Pulse Resp BP Pulse Ox 99.1 F 53 L 20 117/73 94 02/14/20 20:12 02/14/20 20:12 02/14/20 20:12 02/14/20 20:12 02/14/20 20:12 Course - Vital Signs Vital signs: Temp Pulse Resp BP Pulse Ox 99.1 F 53 L 20 117/73 94 02/14/20 20:12 02/14/20 20:12 02/14/20 20:12 02/14/20 20:12 02/14/20 20:12 Doctor's Discharge - Discharge Referrals: GENE WICK PA-C [Primary Care Provider] - Follow up as needed
--- NOTE | 2020-02-14 21:10 | RADIOLOGY REPORT (SQ) ---
EXAM DESCRIPTION: X-RAY CHEST- TWO VIEWS CLINICAL HISTORY: Chest pain COMPARISON: January 29, 2020 TECHNIQUE: 2 views of the chest FINDINGS: There are no discrete air space infiltrates, pneumothoraces or pleural effusions. There is nonspecific elevation of the right hemidiaphragm. The pulmonary vascularity is normal. The cardiomediastinal silhouette is stable in size. No suspicious lytic or blastic osseous lesions are identified. Surgical clips in the right upper abdominal quadrant likely indicate prior cholecystectomy. Surgical clips in the right lower neck may represent prior thyroid surgery. IMPRESSION: There are no acute lung parenchymal findings.
[2020-02-14 22:41] LABS: ABSOLUTE BASOPHILS # (AUTO) 0.1 10^3/uL (0.0-0.2); ABSOLUTE LYMPHOCYTES (AUTO) 1.3 10^3/uL (0.5-4.7); BASOPHILS % (AUTO) 0.9 % (0-2); HEMOGLOBIN 12.5 g/dL (13.5-17.0); TOTAL CELLS COUNTED % (AUTO) 100 %
[2020-02-14 22:54] LABS: ALBUMIN 3.9 g/dL (3.5-5.0); ALKALINE PHOSPHATASE 81 U/L (38-126); ANION GAP 9 (5-19); ASPARTATE AMINO TRANSFERASE 17 U/L (17-59); BILIRUBIN,TOTAL 0.4 mg/dL (0.2-1.3); BLOOD UREA NITROGEN 32 mg/dL (7-20); CALCIUM 9.8 mg/dL (8.4-10.2); CARBON DIOXIDE 28 mmol/L (22-30); CHLORIDE 101 mmol/L (98-107); GLUCOSE 146 mg/dL (75-110); POTASSIUM 3.6 mmol/L (3.6-5.0); TOTAL PROTEIN 6.8 g/dL (6.3-8.2)
[2020-02-14 22:57] LABS: ABSOLUTE EOSINOPHILS # (AUTO) 0.2 10^3/uL (0.0-0.6); ABSOLUTE MONOCYTES (AUTO) 1.2 10^3/uL (0.1-1.4); ABSOLUTE NEUT (AUTO) 4.7 10^3/uL (1.7-8.2); HEMATOCRIT 37.6 % (37.9-51.0); LYMPHOCYTES % (AUTO) 17.3 % (13-45); MEAN CORPUSCULAR HEMOGLOBIN 28.6 pg (27.0-33.4); MEAN CORPUSCULAR HGB CONC 33.3 g/dL (32.0-36.0); MEAN CORPUSCULAR VOLUME 86 fl (80-97); MONOCYTES % (AUTO) 15.6 % (3-13); PLATELET COUNT 193 10^3/uL (150-450); RED BLOOD COUNT 4.38 10^6/uL (4.35-5.55); RED CELL DISTRIBUTION WIDTH 14.6 % (11.5-14.0); SEGMENTED NEUTROPHILS % (AUTO) 64.2 % (42-78); WHITE BLOOD COUNT 7.4 10^3/uL (4.0-10.5)
[2020-02-14 23:09] LABS: TROPONIN I 0.119 ng/mL
[2020-02-15] MEDS ORDERED: NITROGLYCERIN 0.4 MG/TAB 25 TAB/BOTTLE SL ONE (02:23)
[2020-02-15] MEDS ORDERED: ENOXAPARIN SODIUM INJ 120 MG/0.8 ML DISP.SYRIN SUBCUT SCH (02:30)
[2020-02-15] MEDS: ENOXAPARIN SODIUM INJ 120 MG/0.8 ML DISP.SYRIN SUBCUT SCH ×2 (02:56→15:49)
--- NOTE | 2020-02-15 03:20 | ER Document Report ---
ED General - General Chief Complaint: Chest Pain Stated Complaint: CHEST PAINS, DIFFICULTY BREATHING, SWOLLEN LEGS Time Seen by Provider: 02/14/20 20:24 Mode of Arrival: Wheelchair TRAVEL OUTSIDE OF THE [place] IN LAST 30 DAYS: No - HPI Notes: 79-year-old male history of hypertension, hyperlipidemia, diabetes presents with chest pain. Patient says that he feels pain in his left chest that every now and then comes out of the blue. Patient is a very poor historian limiting histo ry. Patient has not identified any aggravating or alleviating factors and episodes are not associated with exertion. Patient says that he had cardiac cath at [facility] last week which was negative. Patient denies ever having any cabg or stents. Says he was a distant smoker previously and denies COPD although has several COPD visits in his chart. Patient endorses bilateral lower extremity edema although unsure if it has changed recently. Patient denies any shortness of breath, cough, fever, DVT/PE/hypercoagulability history, recent travel/trauma/surgery, pleuritic chest pain, back pain, abdominal pain - Related Data Allergies/Adverse Reactions: aspirin [Aspirin] Adverse Reaction (Intermediate, Verified 02/14/20 20:20) bleeding ulcers codeine [Codeine] Adverse Reaction (Intermediate, Verified 02/14/20 20:20) bleeding ulcers Home Medications: SEE DETAILED LIST OF MEDS. Past Medical History - General Information source: Patient, [facility] Records, Outside Facility Records - Social History Smoking Status: Former Smoker Frequency of alcohol use: None Drug Abuse: None Family History: CAD, DM, Hyperlipidemia, Hypertension - Past Medical History Cardiac Medical History: Reports: Hx Atrial Fibrillation, Hx Congestive Heart Failure, Hx Hypercholesterolemia, Hx Hypertension Pulmonary Medical History: Reports: Hx COPD Denies: Hx Asthma, Hx Bronchitis, Hx Pneumonia Neurological Medical History: Denies: Hx Cerebrovascular Accident, Hx Seizures Endocrine Medical History: Reports: Hx Diabetes Mellitus Type 2. Denies: Hx Diabetes Mellitus Type 1, Hx Hyperthyroidism, Hx Hypothyroidism Renal/ Medical History: Denies: Hx Peritoneal Dialysis Malignancy Medical History: Reports Hx Skin Cancer GI Medical History: Reports: Hx Diverticulitis, Hx Gastroesophageal Reflux Disease. Denies: Hx Cirrhosis, Hx Hepatitis Musculoskeletal Medical History: Reports Hx Arthritis - Generalized osteoarthritis, Denies Hx Gout Skin Medical History: Denies Hx Eczema, Denies Hx Psoriasis Psychiatric Medical History: Denies: Hx Depression Infectious Medical History: Denies: Hx Hepatitis Past Surgical History: Reports: Hx Abdominal Surgery - hernia repair, Hx Appendectomy, Hx Cholecystectomy, Hx Inguinal Hernia, Hx Orthopedic Surgery - back x2 with hardware, Other - Several back surgeries, wrist surgery, elbow surgery, hemmorhoids, MINA. Denies: Hx Pacemaker - Immunizations Hx Diphtheria, Pertussis, Tetanus Vaccination: No Hx Pneumococcal Vaccination: 04/12/11 Review of Systems - Review of Systems Notes: REVIEW OF SYSTEMS: CONSTITUTIONAL : Denies fever, chills, or sweats. EENT: Denies recent cold/sinus symptoms, denies throat pain CARDIOVASCULAR: + chest pain, + SEBASTIAN RESPIRATORY: Denies cough, denies shortness of breath. GASTROINTESTINAL: Denies abdominal pain, nausea/vomiting. GENITOURINARY: Denies difficulty urinating, painful urination. MUSCULOSKELETAL: Denies neck pain, back pain. SKIN: Denies rash or skin lesions. HEMATOLOGIC : Denies easy bruising or bleeding. LYMPHATIC: Denies swollen, enlarged glands. NEUROLOGICAL: Denies headache, denies change in gait. PSYCHIATRIC: Denies anxiety or stress or depression. Physical Exam - Vital signs Vitals: Temp Pulse Resp BP Pulse Ox 99.1 F 53 L 20 117/73 94 02/14/20 20:12 02/14/20 20:12 02/14/20 20:12 02/14/20 20:12 02/14/20 20:12 - Notes Notes: PHYSICAL EXAMINATION: GENERAL: Well-appearing, well-nourished and in no acute distress. HEAD: Atraumatic, normocephalic. EYES: Pupils equal round and appropriate constriction, sclera anicteric, conjunctiva are normal. ENT: nares patent, moist mucous membranes. NECK: Normal range of motion, supple without lymphadenopathy LUNGS: Breath sounds clear to auscultation bilaterally and equal. No wheezes rales or rhonchi. HEART: Regular rate and rhythm without murmurs, no chest tenderness ABDOMEN: Soft, nontender, no guarding, no masses, no CVAT EXTREMITIES: Normal range of motion, mild symmetric bilateral lower extremity edema, no calf tenderness NEUROLOGICAL: Awake, alert, conversing appropriately, moves all extremities s pontaneously. PSYCH: Normal mood, normal affect. SKIN: Warm, Dry, normal turgor, no rashes or lesions noted. Course - Re-evaluation Re-evalutation: 02/15/20 03:25 Patient with chest pain with elevated troponin concerning for ACS, no signs of acute ischemia on EKG. I spoke to direct support staff Dr. Bhatt and was informed that when patient was cathed last week that his coronary arteries were completely clean. Repeat troponins were obtained at [facility] at that time and they normalized to 0.04 and 0.02. Patient has had numerous troponins drawn over the last 2 years and have only ever been this elevated during his evaluation 2 weeks ago after which they normalized. Given this information, will rule out other causes of newly elevated troponin including PE, aortic dissection, myocarditis, coronary vasospasm, takotsubo, CHF exacerbation. Patient's pain is currently improved although still present, d-dimer and repeat troponin ordered. Discussed case with Dr. Carpenter and am waiting on his acceptance of patient to admit him. 02/15/20 04:[address] Carpenter who has requested telemetry observation bed. - Vital Signs Vital signs: Temp Pulse Resp BP Pulse Ox 97.1 F 49 L 12 137/66 H 96 02/15/20 07:28 02/15/20 07:28 02/15/20 07:28 02/15/20 07:28 02/15/20 07:28 - Laboratory Result Diagrams: 02/14/20 22:00 02/14/20 22:00 Laboratory results interpreted by me: 02/14/20 02/14/20 02/14/20 22:00 22:00 22:00 Hgb 12.5 L Hct 37.6 L RDW 14.6 H [place] % (Auto) 15.6 H BUN 32 H Creatinine 1.89 H Est GFR ( Amer) 42 L Est GFR (MDRD) Non-Af 35 L Glucose 146 H NT-Pro-B Natriuret Pep 470 H - EKG Interpretation by Me Additional EKG results interpreted by me: 02/15/20 08:14 HR 55, sinus bradycardia, no significant ST elevations or depressions, nonspecific T wave abnormalities in inferior leads 02/15/20 08:15 repeat EKG: HR 51, sinus bradycardia, no sig ADRIANO/D, no sig change from initial EKG Discharge - Discharge Clinical Impression: Elevation of cardiac enzymes, CKD (chronic kidney disease), stage III Chest pain Qualifiers: Chest pain type: other chest pain Qualified Code(s): R07.89 - Other chest pain Disposition: ADMITTED OBSERVATION Admitting Provider: Jayden (Hospitalist) Unit Admitted: Telemetry
--- NOTE | 2020-02-15 04:59 | PDOC H&P ---
History of Present Illness Admission Date/PCP: GENE WICK PA-C History of Present Illness: JOEL MARIE is a 79 year old male with a history of hypertension, morbid obesity, insulin-dependent diabetes mellitus, and COPD was admitted to this hospital a couple weeks ago for chest pain and was transferred to [facility] and he had a cardiac catheterization there last week that was normal. He has been taking his medications as prescribed. He has some chronic kidney disease and has demonstrated baseline elevations in his troponin level within the expected range for someone with chronic kidney disease. He was having left-sided nonradiating chest pain for couple of hours at home and whenever he got to the ER his pain stopped. His troponin is in the typical ran ge that it has been in for some time. He had no EKG changes. His d-dimer was normal. The ER provider said that when he had his heart cath in [place] that his troponins were lower. He has not had any recent symptoms consistent with any sort of viral infection. His eosinophils are low. The ER provider called Dr. Raphael who is already agreed come in and see the patient today. Past Medical History Cardiac Medical History: Reports: Atrial Fibrillation, Congestive Heart Failure, Hyperlipidema, Hypertension Pulmonary Medical History: Reports: Chronic Obstructive Pulmonary Disease (COPD) Denies: Asthma, Bronchitis, Pneumonia Neurological Medical History: Denies: Seizures Endocrine Medical History: Reports: Diabetes Mellitus Type 2 Denies: Diabetes Mellitus Type 1, Hyperthyroidism, Hypothyroidism Malignancy Medical History: Reports: Skin Cancer GI Medical History: Reports: Diverticulitis, Gastroesophageal Reflux Disease Denies: Cirrhosis, Hepatitis Musculoskeltal Medical History: Reports: Arthritis - Generalized osteoarthritis Denies: Gout Skin Medical History: Denies: Eczema, Psoriasis Psychiatric Medical History: Denies: Depression Hematology: Reports: Anemia, Bleeding Tendencies Past Surgical History Past Surgical History: Reports: Appendectomy, Cholecystectomy, Orthopedic Surgery - back x2 with hardware, Other - Several back surgeries, wrist surgery, elbow surgery, hemmorhoids, MINA Denies: Pacemaker Social History Smoking Status: Former Smoker Frequency of Alcohol Use: None Hx Recreational Drug Use: No Drugs: None Hx Prescription Drug Abuse: No Family History Family History: CAD, DM, Hyperlipidemia, Hypertension Parental Family History Reviewed: Yes Children Family History Reviewed: Yes Sibling(s) Family History Reviewed.: Yes Medication/Allergy Home Medications: Albuterol Sulfate [Ventolin 0.083% Neb 2.5 mg/3 mL Ampul] 1 vial NEB Q6HP PRN 04/21/18 Budesonide/Formoterol Fumarate [Symbicort HFA 160-4.5 mcg Inhaler 6 gm] 2 puff IH Q12 01/10/20 Calcitriol [Rocaltrol 0.25 mcg Capsule] 1 cap PO DAILY 01/10/20 Clopidogrel Bisulfate [Plavix 75 mg Tablet] 75 mg PO DAILY 01/10/20 Diltiazem HCl [Cardizem Cd 180 mg Capsule] 1 cap.sr PO DAILY 01/10/20 Furosemide [Lasix 20 mg Tablet] 20 mg PO BID 01/10/20 Gabapentin [Neurontin 100 mg Capsule] 100 mg PO QHS 01/10/20 Insulin Glargine,Hum.rec.anlog [Lantus Insulin 100 Unit/mL Insulin Pen] 26 unit SUBCUT QHS 01/10/20 Insulin Lispro [Humalog] 5 unit SQ AC 01/10/20 Pantoprazole Sodium [Protonix [address] Tablet] 40 mg PO QAM 01/10/20 Sodium Bicarbonate [Sodium Bicarbonate 650 mg Tablet] 650 mg PO TID 01/10/20 Acetaminophen [Tylenol 325 mg Tablet] 650 mg PO Q4HP PRN tablet 01/11/20 Guaifenesin [Robitussin Syrup 200 mg/10 ml Ud Cup] 200 mg PO Q4HP PRN udc 01/11/20 Allopurinol [Zyloprim 100 mg Tablet] 100 mg PO DAILY 01/30/20 Allergies/Adverse Reactions: aspirin [Aspirin] Adverse Reaction (Intermediate, Verified 02/14/20 20:20) bleeding ulcers codeine [Codeine] Adverse Reaction (Intermediate, Verified 02/14/20 20:20) bleeding ulcers Review of Systems All systems: reviewed and no additional remarkable complaints except as stated - All systems were reviewed and were negative except as noted in the HPI Physical Exam Vital Signs: Temp Pulse Resp BP Pulse Ox 99.1 F 53 L 5 L 122/51 L 91 L 02/14/20 20:12 02/14/20 20:12 02/15/20 04:02 02/15/20 04:02 02/15/20 04:02 Intake & Output 02/13/20 02/14/20 02/15/20 06:59 06:59 06:59 Weight 105.3 kg General appearance: PRESENT: no acute distress, cooperative, disheveled, morbidly obese Head exam: PRESENT: atraumatic, normocephalic Eye exam: PRESENT: EOMI, PERRLA. ABSENT: conjunctival injection, nystagmus, scleral icterus Ear exam: PRESENT: normal external ear exam Mouth exam: PRESENT: moist, neck supple Teeth exam: PRESENT: poor dentation Throat exam: ABSENT: post pharyngeal erythema Neck exam: PRESENT: full ROM. ABSENT: carotid bruit, JVD, lymphadenopathy, meningismus, tenderness, thyromegaly Respiratory exam: PRESENT: clear to auscultation jake, symmetrical, unlabored. ABSENT: accessory muscle use, chest wall tenderness, crackles, prolonged expiratory phas, rhonchi, tachypnea, wheezes Cardiovascular exam: PRESENT: RRR, +S1, +S2, other - No pericardial friction rub. ABSENT: diastolic murmur, systolic murmur Pulses: PRESENT: normal carotid pulses Vascular exam: PRESENT: normal capillary refill GI/Abdominal exam: PRESENT: normal bowel sounds, soft. ABSENT: distended, guarding, rebound, tenderness Extremities exam: ABSENT: clubbing, pedal edema Musculoskeletal exam: PRESENT: normal inspection. ABSENT: deformity Neurological exam: PRESENT: awake, oriented to person, oriented to place, oriented to situation, CN II-XII grossly intact. ABSENT: motor sensory deficit Psychiatric exam: PRESENT: appropriate affect, normal mood Skin exam: PRESENT: dry, warm Results Laboratory Results: 02/14/20 22:00 02/14/20 22:00 02/14/20 02/14/20 22:00 22:00 WBC 7.4 RBC 4.38 Hgb 12.5 L Hct 37.6 L MCV 86 MCH 28.6 MCHC 33.3 RDW 14.6 H Plt Count 193 Seg Neutrophils % 64.2 Sodium 137.6 Potassium 3.6 Chloride 101 Carbon Dioxide 28 Anion Gap 9 BUN 32 H Creatinine 1.89 H Est GFR ( Amer) 42 L Glucose 146 H Calcium 9.8 Magnesium 1.7 Total Bilirubin 0.4 AST 17 Alkaline Phosphatase 81 Total Protein 6.8 Albumin 3.9 02/14/20 02/15/20 22:00 03:02 Troponin I 0.119 0.121 NT-Pro-B Natriuret Pep 470 H Impressions: Chest X-Ray 02/14/20 20:28 IMPRESSION: There are no acute lung parenchymal findings. Assessment and Plan - Diagnosis (1) Chest pain Qualifiers: Chest pain type: other chest pain Qualified Code(s): R07.89 - Other chest pain; R07.8 - Other chest pain Is this a current diagnosis for this admission?: Yes Plan: It is now resolved. I do not think he has acute coronary syndrome. His troponins are elevated, but he has chronic kidney disease with chronically elevated troponins. His troponins were probably lower before his heart cath because given his chronic kidney disease they probably aggressively hydrated him prior to the heart cath knowing he would be getting a load of contrast dye, which is a common practice in a nonemergent setting. All of his data from this year shows that he has had elevated troponins. He also had a normal heart catheterization last week. D-dimer was negative so he does not have a PE. Nothing in his lab work, EKG, or physical exam to suggest myocarditis or pericar ditis. Chest x-ray was negative for any sort of acute process. ER provider said she spoke with Dr. Raphael and he agreed to come see the patient in consultation. - Time Time Spent with patient: 35 or more minutes Anticipated Discharge Disposition: Home, Self Care Anticipated Discharge Timeframe: within 24 hours
[2020-02-15] MEDS ORDERED: ALBUTEROL SULFATE 0.083% NEB 2.5 MG/3 ML AMPUL NEB PRN (14:58)
--- NOTE | 2020-02-15 16:30 | EKG REPORT ---
SEVERITY:- ABNORMAL ECG - SINUS RHYTHM SUPRAVENTRICULAR BIGEMINY BORDERLINE LEFT AXIS DEVIATION NONSPECIFIC T ABNORMALITIES, INFERIOR LEADS : Confirmed by: Marc Raphael MD 15-Feb-2020 16:30:19
--- NOTE | 2020-02-15 16:30 | EKG REPORT ---
SEVERITY:- ABNORMAL ECG - SINUS BRADYCARDIA NONSPECIFIC INTRAVENTRICULAR CONDUCTION DELAY : Confirmed by: Marc Raphael MD 15-Feb-2020 16:30:04
[2020-02-15] MEDS ORDERED: SODIUM BICARBONATE 650 MG TABLET PO SCH (18:00)
[2020-02-15] MEDS ORDERED: FUROSEMIDE 20 MG TABLET PO SCH (18:00)
[2020-02-15 18:19] VITALS: BP 137/66
[2020-02-15] MEDS ORDERED: GABAPENTIN 100 MG CAPSULE PO SCH (22:00)
[2020-02-16] MEDS ORDERED: PANTOPRAZOLE SODIUM 40 MG TABLET.DR PO SCH (08:00)
[2020-02-16] MEDS ORDERED: CLOPIDOGREL BISULFATE 75 MG TABLET PO SCH (10:00)
[2020-02-16] MEDS ORDERED: CALCITRIOL 0.25 MCG CAPSULE PO SCH (10:00)
[2020-02-16] MEDS ORDERED: ALLOPURINOL 100 MG TABLET PO SCH (10:00)
[2020-02-16] MEDS ORDERED: DILTIAZEM HCL 180 MG CAPSULE.CR PO SCH (10:00)
[2020-02-16] MEDS ORDERED: FLUTICASONE/VILANTEROL 200-25 MCG/DOSE IH SCH (10:00)
--- NOTE | 2020-02-17 18:48 | PDOC DISCHARGE SUMMARY ---
Impression - Admit/DC Date/PCP Admission Date/Primary Care Provider: 02/15/20 04:49 GENE WICK PA-C Discharge Date: 02/15/20 - Discharge Diagnosis (1) Chest pain Is this a current diagnosis for this admission?: Yes - Additional Information Discharge Diet: Cardiac, Diabetic Discharge Activity: Activity As Tolerated, Balance Activity w/Rest, Slowly Increase Activity Referrals: GENE WICK PA-C [Primary Care Provider] - Follow up as needed Home Medications: Albuterol Sulfate [Ventolin 0.083% Neb 2.5 mg/3 mL Ampul] 1 vial NEB Q6HP PRN 04/21/18 Budesonide/Formoterol Fumarate [Symbicort HFA 160-4.5 mcg Inhaler 6 gm] 2 puff IH Q12 01/10/20 Calcitriol [Rocaltrol 0.25 mcg Capsule] 1 cap PO DAILY 01/10/20 Clopidogrel Bisulfate [Plavix 75 mg Tablet] 75 mg PO DAILY 01/10/20 Diltiazem HCl [Cardizem Cd 180 mg Capsule] 1 cap.sr PO DAILY 01/10/20 Furosemide [Lasix 20 mg Tablet] 20 mg PO BID 01/10/20 Gabapentin [Neurontin 100 mg Capsule] 100 mg PO QHS 01/10/20 Pantoprazole Sodium [Protonix [address] Tablet] 40 mg PO QAM 01/10/20 Sodium Bicarbonate [Sodium Bicarbonate 650 mg Tablet] 650 mg PO TID 01/10/20 Allopurinol [Zyloprim 100 mg Tablet] 100 mg PO DAILY 01/30/20 Insulin NPH Hum/Reg Insulin Hm [Novolin 70-30 Flexpen] 30 unit SQ Q12HP PRN 02/15/20 History of Present Illiness History of Present Illness: Per H&P by Dr. Carpenter: JOEL MARIE is a 79 year old male with a history of hypertension, morbid obesity, insulin-dependent diabetes mellitus, and COPD was admitted to this hospital a couple weeks ago for chest pain and was transferred to [facility] and he had a cardiac catheterization there last week that was normal. He has been taking his medications as prescribed. He has some chronic kidney disease and has demonstrated baseline elevations in his troponin level within the expected range for someone with chronic kidney disease. He was having left-sided nonradiating chest pain for couple of hours at home and whenever he got to the ER his pain stopped. His troponin is in the typical range that it has been in for some time. He had no EKG changes. His d- dimer was normal. The ER provider said that when he had his heart cath in [place] that his troponins were lower. He has not had any recent symptoms consistent with any sort of viral infection. His eosinophils are low. The ER provider called Dr. Raphael who is already agreed come in and see the patient today. Hospital Course Hospital Course: Patient was admitted to the medical floor and monitored overnight on telemetry. He had no further episodes of chest discomfort and no abnormal rhythms noted. Laboratory evaluation was unremarkable; baseline renal function noted, proBNP elevated to 470 (baseline), and troponins at baseline x2 (0.119-0.121; related to chronic kidney disease). Patient underwent clean cardiac catheterization at [facility] just 2 weeks ago. He continues on his home medication regiment of diltiazem, furosemide, and Plavix. Patient reports that he has a follow-up appointment with his binitrotoluene operator scheduled in [address] Raphael; he agrees that the patient does not show evidence of ACS or myocarditis. He is cleared from cardiology service for discharge to home with close outpatient follow-up. Physical Exam Vital Signs: Temp Pulse Resp BP Pulse Ox 97.7 F 58 L 12 137/66 H 96 02/15/20 18:16 02/15/20 18:16 02/15/20 18:16 02/15/20 18:16 02/15/20 18:16 Intake & Output 02/16/20 02/17/20 02/18/20 06:59 06:59 06:59 Intake Total 720 Output Total 650 Balance 70 General appearance: PRESENT: no acute distress, cooperative, morbidly obese, well-developed, well-nourished Head exam: PRESENT: atraumatic, normocephalic Eye exam: PRESENT: conjunctiva pink, EOMI, PERRLA. ABSENT: scleral icterus Mouth exam: PRESENT: moist, tongue midline Respiratory exam: PRESENT: clear to auscultation jake, symmetrical, unlabored. ABSENT: rales, rhonchi, wheezes Cardiovascular exam: PRESENT: RRR, +S1, +S2. ABSENT: diastolic murmur, rubs, systolic murmur Pulses: PRESENT: normal dorsalis pedis pul Vascular exam: PRESENT: normal capillary refill Extremities exam: PRESENT: full ROM. ABSENT: calf tenderness, clubbing, pedal edema Neurological exam: PRESENT: alert, awake, oriented to person, oriented to place, oriented to time, oriented to situation, CN II-XII grossly intact. ABSENT: motor sensory deficit Psychiatric exam: PRESENT: appropriate affect, normal mood. ABSENT: homicidal ideation, suicidal ideation Skin exam: PRESENT: dry, intact, warm. ABSENT: cyanosis, rash Results Laboratory Results: WBC 7.4 10^3/uL (4.0-10.5) 02/14/20 22:00 RBC 4.38 10^6/uL (4.35-5.55) 02/14/20 22:00 Hgb 12.5 g/dL (13.5-17.0) L 02/14/20 22:00 Hct 37.6 % (37.9-51.0) L 02/14/20 22:00 MCV 86 fl (80-97) 02/14/20 22:00 MCH 28.6 pg (27.0-33.4) 02/14/20 22:00 MCHC 33.3 g/dL (32.0-36.0) 02/14/20 22:00 RDW 14.6 % (11.5-14.0) H 02/14/20 22:00 Plt Count 193 10^3/uL (150-450) 02/14/20 22:00 Lymph % (Auto) 17.3 % (13-45) 02/14/20 22:00 [place] % (Auto) 15.6 % (3-13) H 02/14/20 22:00 Eos % (Auto) 2.0 % (0-6) 02/14/20 22:00 Baso % (Auto) 0.9 % (0-2) 02/14/20 22:00 Absolute Neuts (auto) 4.7 10^3/uL (1.7-8.2) 02/14/20 22:00 Absolute Lymphs (auto) 1.3 10^3/uL (0.5-4.7) 02/14/20 22:00 Absolute Monos (auto) 1.2 10^3/uL (0.1-1.4) 02/14/20 22:00 Absolute Eos (auto) 0.2 10^3/uL (0.0-0.6) 02/14/20 22:00 Absolute Basos (auto) 0.1 10^3/uL (0.0-0.2) 02/14/20 22:00 Seg Neutrophils % 64.2 % (42-78) 02/14/20 22:00 D-Dimer 0.38 ug/mL (0.00-0.50) 02/15/20 02:45 Sodium 137.6 mmol/L (137-145) 02/14/20 22:00 Potassium 3.6 mmol/L (3.6-5.0) 02/14/20 22:00 Chloride 101 mmol/L (98-107) 02/14/20 22:00 Carbon Dioxide 28 mmol/L (22-30) 02/14/20 22:00 Anion Gap 9 (5-19) 02/14/20 22:00 BUN 32 mg/dL (7-20) H 02/14/20 22:00 Creatinine 1.89 mg/dL (0.52-1.25) H 02/14/20 22:00 Est GFR ( Amer) 42 (>60) L 02/14/20 22:00 Est GFR (MDRD) Non-Af 35 (>60) L 02/14/20 22:00 Glucose 146 mg/dL (75-110) H 02/14/20 22:00 POC Glucose 223 mg/dL (70-110) H 02/15/20 16:24 Calcium 9.8 mg/dL (8.4-10.2) 02/14/20 22:00 Magnesium 1.7 mg/dL (1.6-2.3) 02/14/20 22:00 Total Bilirubin 0.4 mg/dL (0.2-1.3) 02/14/20 22:00 Direct Bilirubin 0.0 mg/dL (0.0-0.4) 02/14/20 22:00 Neonat Total Bilirubin Not Reportable 02/14/20 22:00 Neonat Direct Bilirubin Not Reportable 02/14/20 22:00 Neonat Indirect Bili Not Reportable 02/14/20 22:00 AST 17 U/L (17-59) 02/14/20 22:00 ALT 13 U/L (<50) 02/14/20 22:00 Alkaline Phosphatase 81 U/L (38-126) 02/14/20 22:00 Troponin I 0.121 ng/mL 02/15/20 03:02 NT-Pro-B Natriuret Pep 470 pg/mL (<450) H 02/14/20 22:00 Total Protein 6.8 g/dL (6.3-8.2) 02/14/20 22:00 Albumin 3.9 g/dL (3.5-5.0) 02/14/20 22:00 02/14/20 02/15/20 22:00 03:02 Troponin I 0.119 0.121 NT-Pro-B Natriuret Pep 470 H Impressions: Chest X-Ray 02/14/20 20:28 IMPRESSION: There are no acute lung parenchymal findings. Plan Plan of Treatment: Patient is discharged home in stable condition. He is advised follow-up with his primary care provider within 1 week. Follow-up with established binitrotoluene operator, as scheduled. Take medications as prescribed; there have been no dose adjustments or changes to his home regiment during this visit. Eat a heart healthy/consistent carb diet. Do not smoke. Return to the emergency department as needed for concerning symptoms. Time Spent: Greater than 30 Minutes Stroke Is this a Stroke Patient?: No Acute Heart Failure - Is this a Heart Failure Patient?: No
== END 2020-02-15 18:23 | disposition home or self-care (01) ==
LOC: ER 19:50 → EH 02-15 04:49 → 5 02-15 05:51
PROVIDERS: ADMIT Family Medicine; ATTEND Registered Nurse
DX: R07.89 Other chest pain (principal); I13.0 Hypertensive heart and chronic kidney disease with heart failure and stage 1 through stage 4 chronic kidney disease, or unspecified chronic kidney disease; I50.9 Heart failure, unspecified; E11.22 Type 2 diabetes mellitus with diabetic chronic kidney disease; N18.3 Chronic kidney disease, stage 3 (moderate); E66.01 Morbid (severe) obesity due to excess calories; M15.9 Polyosteoarthritis, unspecified; I48.91 Unspecified atrial fibrillation; R79.89 Other specified abnormal findings of blood chemistry; R00.1 Bradycardia, unspecified; Z79.4 Long term (current) use of insulin; Z79.899 Other long term (current) drug therapy; Z79.02 Long term (current) use of antithrombotics/antiplatelets; Z87.891 Personal history of nicotine dependence; Z82.49 Family history of ischemic heart disease and other diseases of the circulatory system
CPT/HCPCS: 93005 ×2; 99285; 96372; 36415 ×2; 82962; 83735; 85025; 80053; 84484 ×2; 85379; 83880; 71046; 93010 ×2; G0378 ×2; A9270 ×4; J1650

== ENCOUNTER 2020-02-17 23:20 | Emergency (ER) | payer MEDICARE ==
--- NOTE | 2020-02-17 23:47 | EKG REPORT ---
SEVERITY:- ABNORMAL ECG - WANDERING PACEMAKER INCOMPLETE RIGHT BUNDLE BRANCH BLOCK : Confirmed by: Marc Raphael MD 17-Feb-2020 23:47:14
--- NOTE | 2020-02-17 23:55 | ER Document Report ---
ED Medical Screen (RME) - General Chief Complaint: Chest Pain Stated Complaint: HEART ISSUES Time Seen by Provider: 02/17/20 23:48 Primary Care Provider: GENE WICK PA-C [Primary Care Provider] - Follow up as needed Mode of Arrival: Wheelchair Information source: Patient Notes: HPI; 79-year-old male presents to the emergency room complaining of diaphoresis with bradycardia. History of A. fib. Currently on Plavix. Denies chest pain, complains of chronic shortness of breath that has gotten worse tonight. PE: Alert and oriented x3. Mild distress noted. Lungs: Clear to auscultation without rales rhonchi wheezes. Heart irregular rate rhythm without murmurs rubs or gallops. I have greeted and performed a rapid initial assessment of this patient. A comp rehensive ED assessment and evaluation of the patient, analysis of test results and completion of the medical decision making process will be conducted by additional ED providers. I have specifically instructed the patient or family members with the patient to immediately return to any nursing staff should anything change in the patient's condition or with their chief complaint. TRAVEL OUTSIDE OF THE [place] IN LAST 30 DAYS: No - Related Data Allergies/Adverse Reactions: aspirin [Aspirin] Adverse Reaction (Intermediate, Verified 02/14/20 20:20) bleeding ulcers codeine [Codeine] Adverse Reaction (Intermediate, Verified 02/14/20 20:20) bleeding ulcers Past Medical History - Social History Chew tobacco use (# tins/day): No Frequency of alcohol use: None Drug Abuse: None - Past Medical History Cardiac Medical History: Reports: Hx Atrial Fibrillation, Hx Congestive Heart Failure, Hx Hypercholesterolemia, Hx Hypertension Pulmonary Medical History: Reports: Hx COPD Denies: Hx Asthma, Hx Bronchitis, Hx Pneumonia Neurological Medical History: Denies: Hx Cerebrovascular Accident, Hx Seizures Endocrine Medical History: Reports: Hx Diabetes Mellitus Type 2. Denies: Hx Diabetes Mellitus Type 1, Hx Hyperthyroidism, Hx Hypothyroidism Renal/ Medical History: Denies: Hx Peritoneal Dialysis Malignancy Medical History: Reports Hx Skin Cancer GI Medical History: Reports: Hx Diverticulitis, Hx Gastroesophageal Reflux D isease. Denies: Hx Cirrhosis, Hx Hepatitis Musculoskeltal Medical History: Reports Hx Arthritis - Generalized osteoarthritis, Denies Hx Gout Skin Medical History: Denies Hx Eczema, Denies Hx Psoriasis Psychiatric Medical History: Denies: Hx Depression Infectious Medical History: Denies: Hx Hepatitis Past Surgical History: Reports: Hx Abdominal Surgery - hernia repair, Hx Appendectomy, Hx Cholecystectomy, Hx Inguinal Hernia, Hx Orthopedic Surgery - back x2 with hardware, Other - Several back surgeries, wrist surgery, elbow surgery, hemmorhoids, MINA. Denies: Hx Pacemaker - Immunizations Hx Diphtheria, Pertussis, Tetanus Vaccination: No Physical Exam - Vital signs Vitals: Temp 98.7 F 02/17/20 23:38 Course - Vital Signs Vital signs: Temp Pulse Resp BP Pulse Ox 98.7 F 53 L 18 131/73 H 95 02/17/20 23:38 02/17/20 23:49 02/17/20 23:49 02/17/20 23:49 02/17/20 23:49 Doctor's Discharge - Discharge Referrals: GENE WICK PA-C [Primary Care Provider] - Follow up as needed
[2020-02-18] MEDS ORDERED: DEXTROSE 50%-WATER 25 GM/50 ML DISP.SYRIN IV ONE ×2 (00:32→00:33)
[2020-02-18 00:41] LABS: ABSOLUTE EOSINOPHILS # (AUTO) 0.1 10^3/uL (0.0-0.6); ABSOLUTE LYMPHOCYTES (AUTO) 1.2 10^3/uL (0.5-4.7); ABSOLUTE MONOCYTES (AUTO) 1.8 10^3/uL (0.1-1.4); ABSOLUTE NEUT (AUTO) 9.3 10^3/uL (1.7-8.2); BASOPHILS % (AUTO) 0.4 % (0-2); EOSINOPHILS % (AUTO) 0.8 % (0-6); HEMATOCRIT 36.1 % (37.9-51.0); HEMOGLOBIN 12.3 g/dL (13.5-17.0); LYMPHOCYTES % (AUTO) 9.9 % (13-45); MEAN CORPUSCULAR HEMOGLOBIN 29.1 pg (27.0-33.4); MEAN CORPUSCULAR HGB CONC 34.1 g/dL (32.0-36.0); MEAN CORPUSCULAR VOLUME 85 fl (80-97); MONOCYTES % (AUTO) 14.3 % (3-13); PLATELET COUNT 245 10^3/uL (150-450); RED BLOOD COUNT 4.24 10^6/uL (4.35-5.55); RED CELL DISTRIBUTION WIDTH 15.8 % (11.5-14.0); SEGMENTED NEUTROPHILS % (AUTO) 74.6 % (42-78); TOTAL CELLS COUNTED % (AUTO) 100 %; WHITE BLOOD COUNT 12.5 10^3/uL (4.0-10.5)
--- NOTE | 2020-02-18 00:53 | RADIOLOGY REPORT (SQ) ---
XR CHEST 1 VIEW HISTORY: Dyspnea. COMPARISON: 01/29/2020 FINDINGS: The heart size is mildly enlarged but stable. There is no pulmonary vascular congestion. No consolidation, pleural effusion, or pneumothorax is seen. The bony structures are preserved. IMPRESSION: No evidence of acute cardiopulmonary disease.
[2020-02-18 01:25] LABS: CREATINE KINASE MB 1.25 ng/mL (<4.55)
[2020-02-18 01:29] LABS: TROPONIN I 0.118 ng/mL
[2020-02-18 01:49] LABS: ALBUMIN 4.2 g/dL (3.5-5.0); ALKALINE PHOSPHATASE 89 U/L (38-126); ANION GAP 11 (5-19); ASPARTATE AMINO TRANSFERASE 22 U/L (17-59); BILIRUBIN,TOTAL 0.4 mg/dL (0.2-1.3); BLOOD UREA NITROGEN 27 mg/dL (7-20); CALCIUM 9.1 mg/dL (8.4-10.2); CARBON DIOXIDE 27 mmol/L (22-30); CHLORIDE 105 mmol/L (98-107); CREATINE KINASE 79 U/L (55-170); POTASSIUM 3.5 mmol/L (3.6-5.0); TOTAL PROTEIN 7.1 g/dL (6.3-8.2)
[2020-02-18 01:50] LABS: GLUCOSE 55 mg/dL (75-110)
--- NOTE | 2020-02-18 03:08 | ER Document Report ---
Entered by TREV PEREZ SCRIBE 02/18/20 0254 Acting as scribe for:REGINO PATEL IV, MD ED General - General Chief Complaint: General Weakness Stated Complaint: HEART ISSUES Time Seen by Provider: 02/17/20 23:48 Primary Care Provider: GNEE WICK PA-C [Primary Care Provider] - Follow up as needed Mode of Arrival: Wheelchair Information source: Patient Notes: This 79 year old male patient with a history of insulin-dependent diabetes mellitus presents to the ED today via POV for evaluation after becoming diaphoretic around 2100 yesterday evening. Patient mentions generalized weakness, but denies chest pain or shortness of breath. Patient reports that he was admitted here x2 days ago for chest pain and was discharged yesterday. P chaz states that he is followed by cardiology in [place]. TRAVEL OUTSIDE OF THE [place] IN LAST 30 DAYS: No - Related Data Allergies/Adverse Reactions: aspirin [Aspirin] Adverse Reaction (Intermediate, Verified 02/14/20 20:20) bleeding ulcers codeine [Codeine] Adverse Reaction (Intermediate, Verified 02/14/20 20:20) bleeding ulcers Past Medical History - General Information source: Patient - Social History Smoking Status: Never Smoker Cigarette use (# per day): No Chew tobacco use (# tins/day): No Smoking Education Provided: No Frequency of alcohol use: None Drug Abuse: None Lives with: Family Family History: Reviewed & Not Pertinent, CAD, DM, Hyperlipidemia, Hypertension Patient has suicidal ideation: No Patient has homicidal ideation: No - Past Medical History Cardiac Medical History: Reports: Hx Atrial Fibrillation, Hx Congestive Heart Failure, Hx Hypercholesterolemia, Hx Hypertension Pulmonary Medical History: Reports: Hx COPD Endocrine Medical History: Reports: Hx Diabetes Mellitus Type 2 Malignancy Medical History: Reports Hx Skin Cancer GI Medical History: Reports: Hx Diverticulitis, Hx Gastroesophageal Reflux Disease Musculoskeletal Medical History: Reports Hx Arthritis - Generalized osteoarthritis Past Surgical History: Reports: Hx Appendectomy, Hx Cholecystectomy, Hx Inguinal Hernia, Hx Orthopedic Surgery - back x2 with hardware, wrist surgery, elbow surgery, Hx Rectal Surgery - hemmorhoids, Other - [facility] - Immunizations Hx Diphtheria, Pertussis, Tetanus Vaccination: No Hx Pneumococcal Vaccination: 04/12/11 Review of Systems - Review of Systems Constitutional: See HPI, Diaphoresis, Weakness EENT: No symptoms reported Cardiovascular: See HPI. denies: Chest pain Respiratory: See HPI. denies: Short of breath Gastrointestinal: No symptoms reported Genitourinary: No symptoms reported Male Genitourinary: No symptoms reported Musculoskeletal: No symptoms reported Skin: No symptoms reported Hematologic/Lymphatic: No symptoms reported Neurological/Psychological: No symptoms reported -: Yes All other systems reviewed and negative Physical Exam - Vital signs Vitals: Temp 98.7 F 02/17/20 23:38 - General General appearance: Alert In distress: None - HEENT Head: Normocephalic, Atraumatic Eyes: Normal Pupils: PERRL - Respiratory Respiratory status: No respiratory distress Chest status: Nontender Breath sounds: Normal Chest palpation: Normal - Cardiovascular Rhythm: Regular Heart sounds: Normal auscultation Murmur: No Friction rub: No Gallop: None auscultated - Abdominal Inspection: Normal Distension: No distension Bowel sounds: Normal Tenderness: Nontender - Abdomen soft Organomegaly: No organomegaly - Back Back: Normal, Nontender - Extremities General upper extremity: Normal inspection General lower extremity: Normal inspection - Neurological Neuro grossly intact: Yes Orientation: AAOx4 [place] Coma Scale Eye Opening: Spontaneous [place] Coma Scale Verbal: Oriented John Coma Scale Motor: Obeys Commands [place] Coma Scale Total: 15 - Psychological Associated symptoms: Normal affect, Normal mood - Skin Skin Temperature: Warm Skin Moisture: Dry Skin Color: Normal Course - Re-evaluation Re-evalutation: 02/18/20 04:46 Results of ED MSE discussed with patient. Patient's last blood sugar is 229. Patient was able to tolerate p.o. muttering crackers. Patient's prior troponin levels reviewed. Patient has chronically elevated troponins and chronically elevated creatinine. This MD discussed with Dr. Carpenter that the patient had return to the emergency department complaining of weakness and sweatiness but denied having any chest pain. This MD also informed Dr. Carpenter that patient had a blood sugar of 55 and has improved since being given D50. All questions were answered prior to discharge. Emergency signs and symptoms, reasons to return to the emergency department discussed with patient. 02/18/20 04:50 - Vital Signs Vital signs: Temp Pulse Resp BP Pulse Ox 98.7 F 53 L 20 127/60 H 97 02/17/20 23:38 02/17/20 23:49 02/18/20 05:01 02/18/20 05:01 02/18/20 05:01 - Laboratory Result Diagrams: 02/18/20 00:20 02/18/20 00:20 Laboratory results interpreted by me: 02/18/20 02/18/20 02/18/20 00:20 00:20 03:41 WBC 12.5 H RBC 4.24 L Hgb 12.3 L Hct 36.1 L RDW 15.8 H Lymph % (Auto) 9.9 L [place] % (Auto) 14.3 H Absolute Neuts (auto) 9.3 H Absolute Monos (auto) 1.8 H Potassium 3.5 L BUN 27 H Creatinine 1.73 H Est GFR ( Amer) 47 L Est GFR (MDRD) Non-Af 38 L Glucose 55 L POC Glucose 229 H - Diagnostic Test Radiology reviewed: Reports reviewed - EKG Interpretation by Me Additional EKG results interpreted by me: 02/18/20 04:47 EKG obtained on 02/17/2020 at 2327 hrs. was interpreted by this MD. Findings: P waves appear to proceed QRS complexes, axis appears normal, there is baseline artifact, there are no obvious patterns of ST segment elevation or depression present to suggest acute myocardial ischemia or infarction. Right bundle branch block is also present. Impression: Bradycardia with right bundle branch block and nonspecific ST segments. Discharge - Discharge Clinical Impression: Hypoglycemia Condition: Stable Disposition: HOME, SELF-CARE Additional Instructions: Return to the Emergency Department without delay if any worse. HOME CARE INSTRUCTIONS & INFORMATION: Thank you for choosing us for your medical needs. We hope you're satisfied with the care you received. After you leave, you must properly care for your problem and, at the same time, observe its progress. Any condition can change. Some illnesses can change rapidly over hours or days. If your condition worsens, return to the Emergency Department or see your physician promptly. ABOUT YOUR X-RAYS AND EKG'S: If you had an EKG or X-rays taken, they have been read by the Emergency Physician. The X-rays and EKG's will also be read by a Radiologist or Warehouse Logistics Coordinator within 24 hours. If discrepancies are noted, you will be notified by telephone. Please be certain the ED has a correct telephone number & address where you can be reached. Also, realize that some fractures or abnormalities do not show up on initial X-rays. If your symptoms continue, see your physician. ABOUT YOUR LABORATORY TEST: If you had laboratory tests, the results have been reviewed by the Emergency Physician. Some test results (for example cultures) may not be available for several days. You will be contacted if any test result shows you need additional treatment. Please be certain the ED has a correct telephone number and address where you can be reached. ABOUT YOUR MEDICATIONS: You will receive instructions on how to take your medicine on the prescription label you receive. Additional information may be provided by the Pharmacy. If you have questions afterwards, call the ED for clarification or further instructions. Some prescribed medications may cause drowsiness. Do not perform tasks such as driving a car or operating machinery without consulting your Pharmacist. If you feel you need a refill of pain medication, your condition will need re-evaluation. Please do not call for a refill of any medication. ABOUT YOUR SIGNATURE: Signature of this document acknowledges to followin. Understanding that you received emergency treatment and that you may be released before al medical problems are known or treated. Please be certain the ED has a correct phone number & address where you can be reached. 2. Acknowledgement that you will arrange for follow-up care as recommended. 3. Authorization for the Emergency Physician to provide information to your follow-up Physician in order to maximize your care. AT ANY TIME, IF YOUR SYMPTOMS CHANGE SIGNIFICANTLY OR WORSEN OR YOU DEVELOP NEW SYMPTOMS, RETURN TO THE EMERGENCY DEPARTMENT IMMEDIATELY FOR RE-EVALUATION. OUR GOAL IS TO PROVIDE EXCELLENT MEDICAL CARE! WE HOPE THAT WE HAVE MET YOUR EXPECTATIONS DURING YOUR EMERGENCY DEPARTMENT VISIT AND THAT YOU FEEL YOU HAVE RECEIVED EXCELLENT CARE! Hypoglycemia You have suffered an episode of hypoglycemia (low blood sugar). Typical symptoms of hypoglycemia are shaking, sweating, headache, and confusion. When severe, unconsciousness or seizure may occur. Hypoglycemia occurs when a person taking insulin or diabetes pills has a change in the amount of blood sugar available -- due to exercise, decreased food intake, or alcohol. Should you feel symptoms of hypoglycemia again, immediately take some form of sugar such as sweetened juice. As the reaction subsides, eat a complex carbohydrate such as bread. If possible, check your blood sugar using a chemical strip. If episodes are occurring without obvious explanation, contact your physician for further evaluation. Referrals: GENE WICK PA-C [Primary Care Provider] - Follow up as needed I personally performed the services described in the documentation, reviewed and edited the documentation which was dictated to the scribe in my presence, and it accurately records my words and actions.
[2020-02-18 05:06] VITALS: BP 127/60
== END 2020-02-18 05:25 | disposition home or self-care (01) ==
LOC: ER 23:20
DX: E11.649 Type 2 diabetes mellitus with hypoglycemia without coma (principal); R61 Generalized hyperhidrosis; R53.1 Weakness; I10 Essential (primary) hypertension; J44.9 Chronic obstructive pulmonary disease, unspecified; R00.1 Bradycardia, unspecified; I45.10 Unspecified right bundle-branch block
CPT/HCPCS: 93005; 99285; 96374; 36415; 82553; 82962; 82550; 85025; 80053; 84484; 83880; 71045; 93010; J3490

== ENCOUNTER 2020-02-23 20:46 | Emergency (ER) | payer MEDICARE ==
--- NOTE | 2020-02-23 21:18 | ER Document Report ---
ED Medical Screen (RME) - General Chief Complaint: Chest Pain Stated Complaint: CHEST PAIN, DIFFICULTY BREATHING Time Seen by Provider: 02/23/20 20:57 Primary Care Provider: GENE WICK PA-C [Primary Care Provider] - Follow up as needed Mode of Arrival: Wheelchair Information source: Patient Notes: HPI; 89-year-old male presents to the emergency room complaining of shortness of breath with difficulty breathing for the past week. Intermittent chest pain. States got worse tonight. States he feels like he has fluid around his lungs. History of CHF, hypertension, diabetes, COPD states he tried using his nebulizer as well as his inhaler without relief. PE: Alert and oriented x3. Mild distress noted. Lungs bibasilar rales no rhonchi no wheezes. Heart: Irregular rate and rhythm without murmurs, rubs, gallops. 2+ pitting edema bilaterally. I have greeted and performed a rapid initial assessment of this patient. A comprehensive ED assessment and evaluation of the patient, analysis of test results and completion of the medical decision making process will be conducted by additional ED providers. I have specifically instructed the patient or famil y members with the patient to immediately return to any nursing staff should anything change in the patient's condition or with their chief complaint. TRAVEL OUTSIDE OF THE [place] IN LAST 30 DAYS: No - Related Data Allergies/Adverse Reactions: aspirin [Aspirin] Adverse Reaction (Intermediate, Verified 02/14/20 20:20) bleeding ulcers codeine [Codeine] Adverse Reaction (Intermediate, Verified 02/14/20 20:20) bleeding ulcers Past Medical History - Past Medical History Cardiac Medical History: Reports: Hx Atrial Fibrillation, Hx Congestive Heart Failure, Hx Hypercholesterolemia, Hx Hypertension Pulmonary Medical History: Reports: Hx COPD Denies: Hx Asthma, Hx Bronchitis, Hx Pneumonia Neurological Medical History: Denies: Hx Cerebrovascular Accident, Hx Seizures Endocrine Medical History: Reports: Hx Diabetes Mellitus Type 2. Denies: Hx Diabetes Mellitus Type 1, Hx Hyperthyroidism, Hx Hypothyroidism Renal/ Medical History: Denies: Hx Peritoneal Dialysis Malignancy Medical History: Reports Hx Skin Cancer GI Medical History: Reports: Hx Diverticulitis, Hx Gastroesophageal Reflux Disease. Denies: Hx Cirrhosis, Hx Hepatitis Musculoskeltal Medical History: Reports Hx Arthritis - Generalized osteoarthritis, Denies Hx Gout Skin Medical History: Denies Hx Eczema, Denies Hx Psoriasis Psychiatric Medical History: Denies: Hx Depression Infectious Medical History: Denies: Hx Hepatitis Past Surgical History: Reports: Hx Abdominal Surgery - hernia repair, Hx Appendectomy, Hx Cholecystectomy, Hx Inguinal Hernia, Hx Orthopedic Surgery - back x2 with hardware, wrist surgery, elbow surgery, Hx Rectal Surgery - hemmorhoids, Other - [facility]. Denies: Hx Pacemaker - Immunizations Hx Diphtheria, Pertussis, Tetanus Vaccination: No Physical Exam - Vital signs Vitals: Temp Pulse Resp BP Pulse Ox 99.1 F 71 20 155/53 H 97 02/23/20 20:59 02/23/20 20:59 02/23/20 20:59 02/23/20 20:59 02/23/20 20:59 Course - Vital Signs Vital signs: Temp Pulse Resp BP Pulse Ox 99.1 F 71 20 155/53 H 97 02/23/20 20:59 02/23/20 20:59 02/23/20 20:59 02/23/20 20:59 02/23/20 20:59 Doctor's Discharge - Discharge Referrals: GENE WICK PA-C [Primary Care Provider] - Follow up as needed
--- NOTE | 2020-02-23 22:03 | RADIOLOGY REPORT (SQ) ---
EXAM DESCRIPTION: XR CHEST 1 VIEW COMPLETED DATE/TME: 02/23/2020 21:15 CLINICAL HISTORY: 79 years, Male, dyspnea COMPARISON: 02/18/2020 chest NUMBER OF VIEWS: 1 TECHNIQUE: Portable chest LIMITATIONS: None. FINDINGS: Cardiomegaly. Elevation of the right hemidiaphragm. Osteopenia. Lungs clear. No pneumothorax IMPRESSION: Cardiomegaly. Lungs are clear copyright 2011 [employer]- All Rights Reserved
[2020-02-23] MEDS ORDERED: IPRATROPIUM/ALBUTEROL 0.5-2.5 MG/3 ML AMPUL NEB ONE (22:56)
[2020-02-23] MEDS ORDERED: FUROSEMIDE INJ/PF 20 MG/2 ML SDV IV ONE (22:56)
[2020-02-23] MEDS ORDERED: NITROGLYCERIN 2% OINTMENT 1 GM PACKET TP ONE (22:57)
--- NOTE | 2020-02-23 22:58 | ER Document Report ---
ED General - General Chief Complaint: Chest Pain > 30 Stated Complaint: CHEST PAIN, DIFFICULTY BREATHING Time Seen by Provider: 02/23/20 20:57 Primary Care Provider: GENE WICK PA-C [Primary Care Provider] - Follow up as needed Mode of Arrival: Wheelchair Notes: This 79-year-old man presents to the emergency department with a complaint of shortness of breath and chest discomfort which he states began late this afternoon. He has a history of COPD, diabetes mellitus and history of shortness of breath and chest pain episodes for which he has been seen in the emergency department on several occasions. He states that his chest pain now is a 2/10 and that he still has a little shortness of breath. He has chronic edema and denies dizziness or lightheadedness. He is not on home O2. TRAVEL OUTSIDE OF THE [place] IN LAST 30 DAYS: No - Related Data Allergies/Adverse Reactions: aspirin [Aspirin] Adverse Reaction (Intermediate, Verified 02/23/20 21:23) bleeding ulcers codeine [Codeine] Adverse Reaction (Intermediate, Verified 02/23/20 21:23) bleeding ulcers Past Medical History - General Information source: Patient - Social History Smoking Status: Never Smoker Chew tobacco use (# tins/day): No Frequency of alcohol use: None Drug Abuse: None Family History: Reviewed & Not Pertinent, CAD, DM, Hyperlipidemia, Hypertension Patient has homicidal ideation: No - Past Medical History Cardiac Medical History: Reports: Hx Atrial Fibrillation, Hx Congestive Heart Failure, Hx Hypercholesterolemia, Hx Hypertension Pulmonary Medical History: Reports: Hx COPD Denies: Hx Asthma, Hx Bronchitis, Hx Pneumonia Neurological Medical History: Denies: Hx Cerebrovascular Accident, Hx Seizures Endocrine Medical History: Reports: Hx Diabetes Mellitus Type 2. Denies: Hx Diabetes Mellitus Type 1, Hx Hyperthyroidism, Hx Hypothyroidism Renal/ Medical History: Denies: Hx Peritoneal Dialysis Malignancy Medical History: Reports Hx Skin Cancer GI Medical History: Reports: Hx Diverticulitis, Hx Gastroesophageal Reflux Disease. Denies: Hx Cirrhosis, Hx Hepatitis Musculoskeletal Medical History: Reports Hx Arthritis - Generalized osteoarthritis, Denies Hx Gout Skin Medical History: Denies Hx Eczema, Denies Hx Psoriasis Psychiatric Medical History: Denies: Hx Depression Infectious Medical History: Denies: Hx Hepatitis Past Surgical History: Reports: Hx Abdominal Surgery - hernia repair, Hx Appendectomy, Hx Cholecystectomy, Hx Inguinal Hernia, Hx Orthopedic Surgery - back x2 with hardware, wrist surgery, elbow surgery, Hx Rectal Surgery - hemmorhoids, Other - [facility]. Denies: Hx Pacemaker - Immunizations Hx Diphtheria, Pertussis, Tetanus Vaccination: No Hx Pneumococcal Vaccination: 04/12/11 Review of Systems - Review of Systems Notes: Constitutional: Negative for fever. HENT: Negative for sore throat. Eyes: Negative for visual changes. Cardiovascular: + Chest pain. Respiratory: + Shortness of breath. Gastrointestinal: Negative for abdominal pain, vomiting or diarrhea. Genitourinary: Negative for dysuria. Musculoskeletal: Negative for back pain. Skin: Negative for rash. Neurological: Negative for headaches, weakness or numbness. 10 point ROS negative except as marked above and in HPI. Physical Exam - Vital signs Vitals: Temp Pulse Resp BP Pulse Ox 99.1 F 71 20 155/53 H 97 02/23/20 20:59 02/23/20 20:59 02/23/20 20:59 02/23/20 20:59 02/23/20 20:59 - Notes Notes: PHYSICAL EXAMINATION: Physical Exam: General: Well-nourished well-developed 79-year-old male in no acute distress HEENT: NC/AT, pupils equal round and reactive to light, MM moist,nares clear, oropharynx clear, airway patent Neck: supple, no adenopathy, no masses. Good range of motion Lungs: Good air movement, no wheezes rales or rhonchi no respiratory distress CVS: Regular rate and rhythm no murmur gallop or rub Abdomen: Soft, active, nontender, no masses, no hepatosplenomegaly Ext: 1+ edema Neuro: Alert and responsive, moving all 4 extremities on command, cranial nerves intact, no focal findings Skin: Intact no open lesions, no rash PSYCH: Normal mood, normal affect. Course - Re-evaluation Re-evalutation: 02/24/20 00:28 Patient was given 20 mg of Lasix and a DuoNeb. His symptoms have improved, review of his labs reveal a creatinine 1.5, troponin of 0.116. When compared to his previous labs on 02/18/2020 these are both improved values. Patient states that he is feeling better he denies any chest pressure or pain at this time. He has been discharged home to follow-up as an outpatient. - Vital Signs Vital signs: Temp Pulse Resp BP Pulse Ox 97.7 F 55 L 20 147/71 H 96 02/24/20 01:00 02/24/20 01:00 02/24/20 01:00 02/24/20 01:00 02/24/20 01:00 - Laboratory Result Diagrams: 02/23/20 22:30 02/23/20 22:30 Laboratory results interpreted by me: 02/23/20 02/23/20 02/23/20 22:30 22:30 22:30 RBC 4.24 L Hgb 12.0 L Hct 36.6 L RDW 15.4 H Lymph % (Auto) 11.9 L [place] % (Auto) 15.2 H Potassium 3.5 L Creatinine 1.55 H Est GFR ( Amer) 53 L Est GFR (MDRD) Non-Af 44 L Glucose 239 H NT-Pro-B Natriuret Pep 772 H Urine Glucose (UA) 02/24/20 00:07 RBC Hgb Hct RDW Lymph % (Auto) [place] % (Auto) Potassium Creatinine Est GFR ( Amer) Est GFR (MDRD) Non-Af Glucose NT-Pro-B Natriuret Pep Urine Glucose (UA) 150 H I have reviewed laboratory data and used this information for the treatment decisions regarding the patient. - Diagnostic Test Radiology reviewed: Image reviewed, Reports reviewed Radiology results interpreted by me: 02/24/20 00:31 Chest x-ray: Elevation of the right ky-diaphragm, osteopenia, lungs are clear, there is no pneumothorax. - EKG Interpretation by Me Rate: Normal - EKG interpreted by Dr. Obrien: Normal sinus rhythm, rate 65, NIVCD, normal axis, no acute ST or T wave abnormalities, no ischemic findings, compared to EC17-Feb-2020 23:27:54 - Abnormal Confirmed, no acute changes. Discharge - Discharge Clinical Impression: Obesity (BMI 30-39.9) COPD (chronic obstructive pulmonary disease) Qualifiers: COPD type: unspecified COPD Qualified Code(s): J44.9 - Chronic obstructive pulmonary disease, unspecified Chest pain Qualifiers: Chest pain type: unspecified Qualified Code(s): R07.9 - Chest pain, unspecified Congestive heart failure Qualifiers: Heart failure type: unspecified Heart failure chronicity: unspecified Qualified Code(s): I50.9 - Heart failure, unspecified Condition: Good Disposition: HOME, SELF-CARE Instructions: Chronic Obstructive Lung Disease ([facility]), Congestive Heart Failure ([facility]) Additional Instructions: You were seen tonight in the emergency department with shortness of breath and some chest pain. The laboratory data reveals improved kidney function and a troponin which is lower than your previous visit 02/18/2020. Chest x-ray was also clear. The EKG is unchanged. Please continue your usual medications and follow-up with your primary care doctor as needed. If your symptoms are worsening or if you have other concerns you may return to the emergency department for further evaluation and treatment. HOME CARE INSTRUCTIONS & INFORMATION: Thank you for choosing us for your medical needs. We hope you're satisfied with the care you received. After you leave, you must properly care for your problem and, at the same time, observe its progress. Any condition can change. Some illnesses can change rapidly over hours or days. If your condition worsens, return to the Emergency Department or see your physician promptly. ABOUT YOUR X-RAYS AND EKG'S: If you had an EKG or X-rays taken, they have been read by the Emergency Physician. The X-rays and EKG's will also be read by a Radiologist or Hospital Intern within 24 hours. If discrepancies are noted, you will be notified by telephone. Please be certain the ED has a correct telephone number & address where you can be reached. Also, realize that some fractures or abnormalities do not show up on initial X-rays. If your symptoms continue, see your physician. ABOUT YOUR LABORATORY TEST: If you had laboratory tests, the results have been reviewed by the Emergency Physician. Some test results (for example cultures) may not be available for several days. You will be contacted if any test result shows you need additional treatment. Please be certain the ED has a correct telephone number and address where you can be reached. ABOUT YOUR MEDICATIONS: You will receive instructions on how to take your medicine on the prescription label you receive. Additional information may be provided by the Pharmacy. If you have questions afterwards, call the ED for clarification or further instructions. Some prescribed medications may cause drowsiness. Do not perform tasks such as driving a car or operating machinery without consulting your Pharmacist. If you feel you need a refill of pain medication, your condition will need re-evaluation. Please do not call for a refill of any medication. ABOUT YOUR SIGNATURE: Signature of this document acknowledges to followin. Understanding that you received emergency treatment and that you may be released before al medical problems are known or treated. Please be certain the ED has a correct phone number & address where you can be reached. 2. Acknowledgement that you will arrange for follow-up care as recommended. 3. Authorization for the Emergency Physician to provide information to your follow-up Physician in order to maximize your care. AT ANY TIME, IF YOUR SYMPTOMS CHANGE SIGNIFICANTLY OR WORSEN OR YOU DEVELOP NEW SYMPTOMS, RETURN TO THE EMERGENCY DEPARTMENT IMMEDIATELY FOR RE-EVALUATION. OUR GOAL IS TO PROVIDE EXCELLENT MEDICAL CARE! WE HOPE THAT WE HAVE MET YOUR EXPECTATIONS DURING YOUR EMERGENCY DEPARTMENT VISIT AND THAT YOU FEEL YOU HAVE RECEIVED EXCELLENT CARE! Referrals: GENE WICK PA-C [Primary Care Provider] - Follow up as needed
[2020-02-23 23:00] LABS: ABSOLUTE BASOPHILS # (AUTO) 0.1 10^3/uL (0.0-0.2); ABSOLUTE EOSINOPHILS # (AUTO) 0.1 10^3/uL (0.0-0.6); ABSOLUTE LYMPHOCYTES (AUTO) 0.9 10^3/uL (0.5-4.7); ABSOLUTE MONOCYTES (AUTO) 1.2 10^3/uL (0.1-1.4); ABSOLUTE NEUT (AUTO) 5.4 10^3/uL (1.7-8.2); BASOPHILS % (AUTO) 0.7 % (0-2); EOSINOPHILS % (AUTO) 0.7 % (0-6); HEMATOCRIT 36.6 % (37.9-51.0); LYMPHOCYTES % (AUTO) 11.9 % (13-45); MEAN CORPUSCULAR HEMOGLOBIN 28.4 pg (27.0-33.4); MEAN CORPUSCULAR HGB CONC 32.9 g/dL (32.0-36.0); MEAN CORPUSCULAR VOLUME 86 fl (80-97); MONOCYTES % (AUTO) 15.2 % (3-13); PLATELET COUNT 194 10^3/uL (150-450); RED BLOOD COUNT 4.24 10^6/uL (4.35-5.55); RED CELL DISTRIBUTION WIDTH 15.4 % (11.5-14.0); SEGMENTED NEUTROPHILS % (AUTO) 71.5 % (42-78); TOTAL CELLS COUNTED % (AUTO) 100 %; WHITE BLOOD COUNT 7.6 10^3/uL (4.0-10.5)
[2020-02-23 23:18] LABS: INTERNATIONAL RATION (INR) 0.93; PROTHROMBIN TIME 12.7 SEC (11.4-15.4)
[2020-02-23 23:23] LABS: ALBUMIN 3.8 g/dL (3.5-5.0); ALKALINE PHOSPHATASE 75 U/L (38-126); ANION GAP 10 (5-19); ASPARTATE AMINO TRANSFERASE 18 U/L (17-59); BILIRUBIN,TOTAL 0.3 mg/dL (0.2-1.3); BLOOD UREA NITROGEN 17 mg/dL (7-20); CALCIUM 8.7 mg/dL (8.4-10.2); CARBON DIOXIDE 29 mmol/L (22-30); CHLORIDE 102 mmol/L (98-107); CREATINE KINASE 69 U/L (55-170); GLUCOSE 239 mg/dL (75-110); POTASSIUM 3.5 mmol/L (3.6-5.0); TOTAL PROTEIN 6.5 g/dL (6.3-8.2)
[2020-02-23 23:33] LABS: CREATINE KINASE MB 0.95 ng/mL (<4.55)
[2020-02-24 00:23] LABS: APPEARANCE,URINE CLEAR; BILIRUBIN,URINE NEGATIVE (NEGATIVE); COLOR,URINE YELLOW; GLUCOSE, URINE 150 mg/dL (NEGATIVE); KETONES,URINE NEGATIVE (NEGATIVE); LEUKOCYTE ESTERASE,URINE NEGATIVE (NEGATIVE); NITRITE,URINE NEGATIVE (NEGATIVE); PROTEIN,URINE NEGATIVE (NEGATIVE); URINE SPECIFIC GRAVITY 1.011; UROBILINOGEN,URINE NEGATIVE mg/dL (<2.0)
[2020-02-24 01:06] VITALS: BP 147/71
--- NOTE | 2020-02-24 20:20 | EKG REPORT ---
SEVERITY:- ABNORMAL ECG - SINUS RHYTHM NONSPECIFIC INTRAVENTRICULAR CONDUCTION DELAY : Confirmed by: Mary Altamirano 24-Feb-2020 20:19:12
== END 2020-02-24 01:01 | disposition home or self-care (01) ==
LOC: ER 20:46
DX: I11.0 Hypertensive heart disease with heart failure (principal); I50.9 Heart failure, unspecified; J44.9 Chronic obstructive pulmonary disease, unspecified; R07.9 Chest pain, unspecified; E66.9 Obesity, unspecified; R06.02 Shortness of breath; E11.9 Type 2 diabetes mellitus without complications
CPT/HCPCS: 93005; 94640; 99285; 96374; 36415; 82553; 82550; 85025; 85610; 80053; 81001; 84484; 83880; 71045; 93010; A9270; J1940

== ENCOUNTER 2020-02-29 19:46 | Emergency (ER) | payer MEDICARE ==
--- NOTE | 2020-02-29 20:15 | ER Document Report ---
ED Medical Screen (RME) - General Chief Complaint: Shortness Of Breath Stated Complaint: LOW HEART RATE,LEG SWELLING Time Seen by Provider: 02/29/20 20:10 Primary Care Provider: GENE WICK PA-C [Primary Care Provider] - Follow up as needed Information source: Patient Notes: Patient presents with shortness of breath that started today. Patient reports mild cough. Patient denies any nausea vomiting or diarrhea. Patient denies any lightheadedness. Patient reports occasional palpitations. Patient has a history of COPD, diabetes, hypertension and CHF. Patient does complain of some increased lower extremity swelling. I have greeted and performed a rapid initial assessment of this patient. A comprehensive ED assessment and evaluation of the patient, analysis of test results and completion of the medical decision making process will be conducted by additional ED providers. TRAVEL OUTSIDE OF THE [place] IN LAST 30 DAYS: No - Related Data Allergies/Adverse Reactions: aspirin [Aspirin] Adverse Reaction (Intermediate, Verified 02/23/20 21:23) bleeding ulcers codeine [Codeine] Adverse Reaction (Intermediate, Verified 02/23/20 21:23) bleeding ulcers Past Medical History - Social History Chew tobacco use (# tins/day): No Frequency of alcohol use: None Drug Abuse: None - Past Medical History Cardiac Medical History: Reports: Hx Atrial Fibrillation, Hx Congestive Heart Failure, Hx Hypercholesterolemia, Hx Hypertension Pulmonary Medical History: Reports: Hx COPD Denies: Hx Asthma, Hx Bronchitis, Hx Pneumonia Neurological Medical History: Denies: Hx Cerebrovascular Accident, Hx Seizures Endocrine Medical History: Reports: Hx Diabetes Mellitus Type 2. Denies: Hx Diabetes Mellitus Type 1, Hx Hyperthyroidism, Hx Hypothyroidism Renal/ Medical History: Denies: Hx Peritoneal Dialysis Malignancy Medical History: Reports Hx Skin Cancer GI Medical History: Reports: Hx Diverticulitis, Hx Gastroesophageal Reflux Disease. Denies: Hx Cirrhosis, Hx Hepatitis Musculoskeltal Medical History: Reports Hx Arthritis - Generalized osteoarthritis, Denies Hx Gout Skin Medical History: Denies Hx Eczema, Denies Hx Psoriasis Psychiatric Medical History: Denies: Hx Depression Infectious Medical History: Denies: Hx Hepatitis Past Surgical History: Reports: Hx Abdominal Surgery - hernia repair, Hx Appendectomy, Hx Cholecystectomy, Hx Inguinal Hernia, Hx Orthopedic Surgery - back x2 with hardware, wrist surgery, elbow surgery, Hx Rectal Surgery - hemmorhoids, Other - [facility]. Denies: Hx Pacemaker - Immunizations Hx Diphtheria, Pertussis, Tetanus Vaccination: No Physical Exam - Vital signs Vitals: Temp Pulse Resp BP Pulse Ox 98.3 F 66 20 144/92 H 90 L 02/29/20 20:05 02/29/20 20:05 02/29/20 20:05 02/29/20 20:05 02/29/20 20:05 - General Notes: Lateral lower extremity edema - Respiratory Respiratory status: No respiratory distress Chest status: Nontender Breath sounds: Nonproductive cough, Wheezing Course - Vital Signs Vital signs: Temp Pulse Resp BP Pulse Ox 98.3 F 66 20 144/92 H 90 L 02/29/20 20:08 02/29/20 20:05 02/29/20 20:05 02/29/20 20:05 02/29/20 20:05 Doctor's Discharge - Discharge Referrals: GENE WICK PA-C [Primary Care Provider] - Follow up as needed
[2020-02-29 20:44] LABS: ABSOLUTE EOSINOPHILS # (AUTO) 0.1 10^3/uL (0.0-0.6); ABSOLUTE LYMPHOCYTES (AUTO) 1.4 10^3/uL (0.5-4.7); ABSOLUTE NEUT (AUTO) 4.5 10^3/uL (1.7-8.2); BASOPHILS % (AUTO) 0.6 % (0-2); EOSINOPHILS % (AUTO) 0.8 % (0-6); HEMATOCRIT 35.7 % (37.9-51.0); HEMOGLOBIN 11.9 g/dL (13.5-17.0); LYMPHOCYTES % (AUTO) 20.3 % (13-45); MEAN CORPUSCULAR HEMOGLOBIN 28.3 pg (27.0-33.4); MEAN CORPUSCULAR HGB CONC 33.3 g/dL (32.0-36.0); MEAN CORPUSCULAR VOLUME 85 fl (80-97); MONOCYTES % (AUTO) 14.2 % (3-13); PLATELET COUNT 175 10^3/uL (150-450); RED CELL DISTRIBUTION WIDTH 15.1 % (11.5-14.0); SEGMENTED NEUTROPHILS % (AUTO) 64.1 % (42-78); TOTAL CELLS COUNTED % (AUTO) 100 %; WHITE BLOOD COUNT 7.1 10^3/uL (4.0-10.5)
--- NOTE | 2020-02-29 21:03 | RADIOLOGY REPORT (SQ) ---
EXAM DESCRIPTION: XR CHEST 1 VIEW COMPLETED DATE/TME: 02/29/2020 20:14 CLINICAL HISTORY: 79 years, Male, sob COMPARISON: Multiple priors, most recent from 02/23/2020 NUMBER OF VIEWS: One TECHNIQUE: Single frontal view of the chest was obtained portably LIMITATIONS: None. FINDINGS: Cardiopericardial silhouette is enlarged. Mediastinal contours are stable. Lungs are clear. No pleural effusion or pneumothorax. Surgical clips project over the right upper quadrant. IMPRESSION: No acute disease. copyright 2010 [employer]- All Rights Reserved
[2020-02-29 21:06] LABS: ALBUMIN 3.8 g/dL (3.5-5.0); ALKALINE PHOSPHATASE 77 U/L (38-126); ANION GAP 11 (5-19); ASPARTATE AMINO TRANSFERASE 18 U/L (17-59); BILIRUBIN,DIRECT 0.3 mg/dL (0.0-0.4); BILIRUBIN,TOTAL 0.5 mg/dL (0.2-1.3); BLOOD UREA NITROGEN 27 mg/dL (7-20); CALCIUM 8.7 mg/dL (8.4-10.2); CARBON DIOXIDE 27 mmol/L (22-30); CHLORIDE 102 mmol/L (98-107); GLUCOSE 209 mg/dL (75-110); POTASSIUM 3.1 mmol/L (3.6-5.0); TOTAL PROTEIN 6.4 g/dL (6.3-8.2)
[2020-02-29 21:13] LABS: TROPONIN I 0.12 ng/mL
--- NOTE | 2020-02-29 23:32 | EKG REPORT ---
SEVERITY:- ABNORMAL ECG - SINUS RHYTHM INCOMPLETE RIGHT BUNDLE BRANCH BLOCK : Confirmed by: Maryam Veras MD 29-Feb-2020 23:31:41
--- NOTE | 2020-03-01 00:53 | ER Document Report ---
ED Dizziness/Weakness - General Chief Complaint: Shortness Of Breath Stated Complaint: LOW HEART RATE,LEG SWELLING Time Seen by Provider: 02/29/20 20:10 Primary Care Provider: GENE WICK PA-C [Primary Care Provider] - Follow up as needed Notes: Prior seen by Dr Patel and Arik this month Entered by TREV PEREZ SCRIBE 02/18/20 0254 Acting as scribe for:REGINO PATEL IV, MD ED General - General Chief Complaint: General Weakness Stated Complaint: HEART ISSUES Time Seen by Provider: 02/17/20 23:48 Primary Care Provider: GENE WICK PA-C [Primary Care Provider] - Follow up as needed Mode of Arrival: Wheelchair Information source: Patient Notes: This 79 year old male patient with a history of insulin-dependent diabetes mellitus presents to the ED today via POV for evaluation after becoming diaphoretic around 2100 yesterday evening. Patient mentions generalized weakness, but denies chest pain or shortness of breath. Patient reports that he was admitted here x2 days ago for chest pain and was discharged yesterday. Patient states that he is followed by cardiology in [place]. TRAVEL OUTSIDE OF THE [place] IN LAST 30 DAYS: No Re-evalutation: Jeb 02/18/20 04:46 Results of ED MSE discussed with patient. Patient's last blood sugar is 229. Patient was able to tolerate p.o. muttering crackers. Patient's prior troponin levels reviewed. Patient has chronically elevated troponins and chronically elevated creatinine. This MD discussed with Dr. Carpenter that the patient had return to the emergency department complaining of weakness and sweatiness but denied having any chest pain. This MD also informed Dr. Carpenter that patient had a blood sugar of 55 and has improved since being given D50. All questions were answered prior to discharge. Emergency signs and symptoms, reasons to ret urn to the emergency department discussed with patient. Patient Name: JOEL AMRIE Date of : 1940 Patient Status: Emergency Emergency Provider: YUE ORTIZ Date: 02/23/20 22:53 Initialization Date: 02/23/20 22:53 ED General - General Chief Complaint: Chest Pain > 30 Stated Complaint: CHEST PAIN, DIFFICULTY BREATHING Time Seen by Provider: 02/23/20 20:57 Primary Care Provider: GENE WICK PA-C [Primary Care Provider] - Follow up as needed Mode of Arrival: Wheelchair Notes: This 79-year-old man presents to the emergency department with a complaint of shortness of breath and chest discomfort which he states began late this afternoon. He has a history of COPD, diabetes mellitus and history of shortness of breath and chest pain episodes for which he has been seen in the emergency department on several occasions. He states that his chest pain now is a 2/10 and that he still has a little shortness of breath. He has chronic edema and denies dizziness or lightheadedness. He is not on home O2. 02/23/20 21:21 - ED Nursing Note by [place] Num: [id number] : 1940 Patient Age: 79 pt comes to ed from via pov brought by self for c/o worsening today of his CP and SOB. pt seen for similar recently in the past week. no med changes. Pitting edema noted to BLE. no distress noted in triage. breathing e/u, speaking in full clear sentences, smiling. MY NOTES 79-year-old male with chief complaint of having chest pain. He has a history of chest pain hypertension renal failure hyperkalemia IDDM atrial fibrillation GERD depression dyspnea diverticular disease and elevated chronic troponins. Patient himself advises he has some fluid in his legs and has on and off chest pain for around 4 years and is followed by a rabbit dresser from [place]. He takes gabapentin allopurinol Cardizem 180 metoprolol 100 twice daily Lasix 20 Bumetanide Amiodarone Plavix vitamin B12. As per above patient has been seen by multiple providers. He brings his knapsack in in case he has to stay and he advises it is fine with him if he stays tonight in the hospital. Patient has no obvious distress. Patient upon arrival did have a 90% saturation but this increased to 95%. Chest x-ray NAD. Patient has a troponin of 0.12 with a H&H of 11.9 and 35.7 with 7.1 white blood cell count. Patient has a magnesium of 1.5 and he will need medications for this. He has a creatinine of 1.6 and a glucose of 209. TRAVEL OUTSIDE OF THE [place] IN LAST 30 DAYS: No - HPI Patient complains to provider of: Weakness Onset: This morning Onset/Duration: Persistent Quality of pain: No pain Severity: Mild Pain Level: Denies Associated symptoms: Chest pain - Related Data Allergies/Adverse Reactions: aspirin [Aspirin] Adverse Reaction (Intermediate, Verified 02/23/20 21:23) bleeding ulcers codeine [Codeine] Adverse Reaction (Intermediate, Verified 02/23/20 21:23) bleeding ulcers Past Medical History - General Information source: Patient - Social History Smoking Status: Never Smoker Cigarette use (# per day): No Chew tobacco use (# tins/day): No Smoking Education Provided: No Frequency of alcohol use: None Drug Abuse: None Family History: Reviewed & Not Pertinent, CAD, DM, Hyperlipidemia, Hypertension Patient has suicidal ideation: No Patient has homicidal ideation: No - Past Medical History Cardiac Medical History: Reports: Hx Atrial Fibrillation, Hx Congestive Heart Failure, Hx Hypercholesterolemia, Hx Hypertension Pulmonary Medical History: Reports: Hx COPD Denies: Hx Asthma, Hx Bronchitis, Hx Pneumonia Neurological Medical History: Denies: Hx Cerebrovascular Accident, Hx Seizures Endocrine Medical History: Reports: Hx Diabetes Mellitus Type 2. Denies: Hx Diabetes Mellitus Type 1, Hx Hyperthyroidism, Hx Hypothyroidism Renal/ Medical History: Denies: Hx Peritoneal Dialysis Malignancy Medical History: Reports Hx Skin Cancer GI Medical History: Reports: Hx Diverticulitis, Hx Gastroesophageal Reflux Disease. Denies: Hx Cirrhosis, Hx Hepatitis Musculoskeletal Medical History: Reports Hx Arthritis - Generalized osteoarthritis, Denies Hx Gout Skin Medical History: Denies Hx Eczema, Denies Hx Psoriasis Psychiatric Medical History: Denies: Hx Depression Infectious Medical History: Denies: Hx Hepatitis Past Surgical History: Reports: Hx Abdominal Surgery - hernia repair, Hx Appende ctomy, Hx Cholecystectomy, Hx Inguinal Hernia, Hx Orthopedic Surgery - back x2 with hardware, wrist surgery, elbow surgery, Hx Rectal Surgery - hemmorhoids, Other - [facility]. Denies: Hx Pacemaker - Immunizations Hx Diphtheria, Pertussis, Tetanus Vaccination: No Hx Pneumococcal Vaccination: 04/12/11 Review of Systems - Review of Systems Constitutional: No symptoms reported EENT: No symptoms reported Cardiovascular: See HPI, Chest pain Respiratory: No symptoms reported Gastrointestinal: No symptoms reported Genitourinary: No symptoms reported Male Genitourinary: No symptoms reported Musculoskeletal: No symptoms reported Skin: No symptoms reported Hematologic/Lymphatic: No symptoms reported Neurological/Psychological: No symptoms reported Physical Exam - Vital signs Vitals: Temp Pulse Resp BP Pulse Ox 98.3 F 66 20 144/92 H 90 L 02/29/20 20:05 02/29/20 20:05 02/29/20 20:05 02/29/20 20:05 02/29/20 20:05 Interpretation: Hypertensive, Hypoxic - RA but inc to 95 - General General appearance: Appears well, Alert - HEENT Head: Normocephalic, Atraumatic Eyes: Normal Pupils: PERRL Nasal: Normal Mouth/Lips: Normal Mucous membranes: Normal Pharynx: Normal Neck: Normal - Respiratory Respiratory status: No respiratory distress Chest status: Nontender Breath sounds: Normal Chest palpation: Normal - Cardiovascular Rhythm: Regular Heart sounds: Normal auscultation Murmur: No - Abdominal Inspection: Normal Distension: No distension Bowel sounds: Normal Tenderness: Nontender Organomegaly: No organomegaly - Rectal Prostate: Other - deferred - Genitourinary Scrotum: Other - deferred - Back Back: Normal - Extremities General upper extremity: Normal inspection General lower extremity: Edema - + pitting edema of jake legs Course - Vital Signs Vital signs: Temp Pulse Resp BP Pulse Ox 98.3 F 52 L 23 H 110/53 L 97 02/29/20 20:08 02/29/20 22:23 03/01/20 02:02 03/01/20 02:02 03/01/20 02:01 - Laboratory Result Diagrams: 02/29/20 20:25 02/29/20 20:25 Laboratory results interpreted by me: 02/29/20 02/29/20 20:25 20:25 RBC 4.20 L Hgb 11.9 L Hct 35.7 L RDW 15.1 H [place] % (Auto) 14.2 H Potassium 3.1 L BUN 27 H Creatinine 1.65 H Est GFR ( Amer) 49 L Est GFR (MDRD) Non-Af 41 L Glucose 209 H Magnesium 1.5 L - Diagnostic Test Radiology reviewed: Reports reviewed - EKG Interpretation by Me EKG shows normal: Sinus rhythm Rate: Normal Rhythm: NSR - 68 bpm incomplete right bundle branch block no ST elevation no ST depression no T wave elevation no T wave depression axis appears within normal limits Discharge - Discharge Clinical Impression: Hypomagnesemia, Leg edema, Hypokalemia Chest pain Qualifiers: Chest pain type: unspecified Qualified Code(s): R07.9 - Chest pain, unspecified Condition: Fair Disposition: HOME, SELF-CARE Additional Instructions: Follow-up with rabbit dresser this week return to ER as needed take medicines as directed encourage fluids up to one half a liter daily. Prescriptions: Metolazone [Zaroxolyn 5 Mg Tablet] 5 mg PO DAILY #3 tablet Referrals: GENE WICK PA-C [Primary Care Provider] - Follow up as needed
[2020-03-01] MEDS ORDERED: MAGNESIUM SULFATE/D5W 1 GM/100 ML RTUPB IV ONE (01:10)
[2020-03-01] MEDS ORDERED: BUMETANIDE INJ/PF 1 MG/4 ML SDV IV ONE (01:11)
[2020-03-01] MEDS ORDERED: CYANOCOBALAMIN (VITAMIN B-12) INJ 1000 MCG/1 ML VIAL IM ONE (01:16)
[2020-03-01] MEDS ORDERED: POTASSIUM CHLORIDE 20 MEQ PACKET PO ONE (02:12)
[2020-03-01 02:35] VITALS: BP 120/58
== END 2020-03-01 03:03 | disposition home or self-care (01) ==
LOC: ER 19:46
DX: E83.42 Hypomagnesemia (principal); E87.6 Hypokalemia; R07.9 Chest pain, unspecified; R60.0 Localized edema; R06.02 Shortness of breath; R53.1 Weakness; R61 Generalized hyperhidrosis; Z79.899 Other long term (current) drug therapy; J44.9 Chronic obstructive pulmonary disease, unspecified; E11.9 Type 2 diabetes mellitus without complications; Z79.4 Long term (current) use of insulin; Z88.8 Allergy status to other drugs, medicaments and biological substances; I50.9 Heart failure, unspecified; I11.0 Hypertensive heart disease with heart failure
CPT/HCPCS: 93005; 99285; 96372; 96375; 96365; 36415; 83735; 85025; 80053; 84484; 83880; 71045; 93010; J3490 ×2; J3420; J3475

== ENCOUNTER 2020-03-25 19:40 | Emergency (ER) | payer MEDICARE ==
--- NOTE | 2020-03-25 20:27 | ER Document Report ---
ED Medical Screen (RME) - General Chief Complaint: Leg Swelling Stated Complaint: LEG SWELLING,URINARY COMPLAINTS Time Seen by Provider: 03/25/20 20:15 Primary Care Provider: GENE WICK PA-C [Primary Care Provider] - Follow up as needed TRAVEL OUTSIDE OF THE [place] IN LAST 30 DAYS: No - HPI Notes: 03/25/20 20:22 79-year-old male with a history of CHF, A. fib, COPD, type 2 diabetes and stage III kidney disease presents to the emergency room by private vehicle for complaints of shortness of breath and leg swelling. Patient states that he has been finding it more difficult to breathe, he checked his pulse ox today and it was only at 60s, with a heart rate in the 50s after he walked back from the shed but his daughter states that she put new batteries in the pulse ox and it read 99% and a heart rate of 84. Denies any chest pain, nausea vomiting or diarrhea. [place]. Patient is only urinated 4 times today after taking 2 different diuretics. I have greeted and performed a rapid initial assessment of this patient. A comprehensive ED assessment and evaluation of the patient, analysis of test results and completion of the medical decision making process will be conducted by additional ED providers. PHYSICAL EXAMINATION: GENERAL: Well-appearing, well-nourished and in no acute distress. CV: s1, s2 regular LUNGS: No respiratory distress Musculoskeletal: Normal range of motion NEUROLOGICAL: Normal speech, normal gait. SKIN: Warm, Dry, normal turgor, no rashes or lesions noted. Bilateral pitting edema - Related Data Allergies/Adverse Reactions: aspirin [Aspirin] Adverse Reaction (Intermediate, Verified 02/23/20 21:23) bleeding ulcers codeine [Codeine] Adverse Reaction (Intermediate, Verified 02/23/20 21:23) bleeding ulcers Past Medical History - Past Medical History Cardiac Medical History: Reports: Hx Atrial Fibrillation, Hx Congestive Heart Failure, Hx Hypercholesterolemia, Hx Hypertension Denies: Hx Coronary Artery Disease, Hx Heart Attack Pulmonary Medical History: Reports: Hx COPD Denies: Hx Asthma, Hx Bronchitis, Hx Pneumonia Neurological Medical History: Denies: Hx Cerebrovascular Accident, Hx Seizures Endocrine Medical History: Reports: Hx Diabetes Mellitus Type 2. Denies: Hx Diabetes Mellitus Type 1, Hx Hyperthyroidism, Hx Hypothyroidism Renal/ Medical History: Denies: Hx Peritoneal Dialysis Malignancy Medical History: Reports Hx Skin Cancer GI Medical History: Reports: Hx Diverticulitis, Hx Gastroesophageal Reflux Disease. Denies: Hx Cirrhosis, Hx Hepatitis Musculoskeltal Medical History: Reports Hx Arthritis - Generalized osteoarthritis, Denies Hx Gout Skin Medical History: Denies Hx Eczema, Denies Hx Psoriasis Psychiatric Medical History: Denies: Hx Depression Infectious Medical History: Denies: Hx Hepatitis Past Surgical History: Reports: Hx Abdominal Surgery - hernia repair, Hx Appendectomy, Hx Cholecystectomy, Hx Herniorrhaphy, Hx Inguinal Hernia, Hx Orthopedic Surgery - back x2 with hardware, wrist surgery, elbow surgery, Hx Rectal Surgery - hemmorhoids, Other - [facility]. Denies: Hx Pacemaker - Immunizations Hx Diphtheria, Pertussis, Tetanus Vaccination: No Physical Exam - Vital signs Vitals: Temp Pulse Resp BP Pulse Ox 98.0 F 56 L 16 136/53 H 94 03/25/20 19:55 03/25/20 19:55 03/25/20 19:55 03/25/20 19:55 03/25/20 19:55 Course - Vital Signs Vital signs: Temp Pulse Resp BP Pulse Ox 98.0 F 56 L 16 136/53 H 94 03/25/20 19:55 03/25/20 19:55 03/25/20 19:55 03/25/20 19:55 03/25/20 19:55 Doctor's Discharge - Discharge Referrals: GENE WICK PA-C [Primary Care Provider] - Follow up as needed
--- NOTE | 2020-03-25 21:08 | RADIOLOGY REPORT (SQ) ---
CLINICAL INDICATION: sob, hx of afib. TECHNIQUE: A single portable AP view was obtained of the chest at 205 hours. COMPARISON: February 29, 2020. FINDINGS: The cardiomediastinal silhouette is enlarged but stable. The lungs are grossly clear. No evidence of effusion or pneumothorax. The visualized bones are unremarkable. IMPRESSION: No evidence of active intrathoracic disease.
[2020-03-25 21:24] LABS: ABSOLUTE EOSINOPHILS # (AUTO) 0.1 10^3/uL (0.0-0.6); ABSOLUTE LYMPHOCYTES (AUTO) 0.8 10^3/uL (0.5-4.7); ABSOLUTE MONOCYTES (AUTO) 1.1 10^3/uL (0.1-1.4); BASOPHILS % (AUTO) 0.3 % (0-2); EOSINOPHILS % (AUTO) 0.5 % (0-6); HEMATOCRIT 35.2 % (37.9-51.0); HEMOGLOBIN 11.8 g/dL (13.5-17.0); LYMPHOCYTES % (AUTO) 6.5 % (13-45); MEAN CORPUSCULAR HEMOGLOBIN 28.7 pg (27.0-33.4); MEAN CORPUSCULAR HGB CONC 33.5 g/dL (32.0-36.0); MEAN CORPUSCULAR VOLUME 86 fl (80-97); MONOCYTES % (AUTO) 9.5 % (3-13); PLATELET COUNT 156 10^3/uL (150-450); RED BLOOD COUNT 4.11 10^6/uL (4.35-5.55); RED CELL DISTRIBUTION WIDTH 15.6 % (11.5-14.0); SEGMENTED NEUTROPHILS % (AUTO) 83.2 % (42-78); TOTAL CELLS COUNTED % (AUTO) 100 %
[2020-03-25 21:32] LABS: APPEARANCE,URINE CLEAR; BILIRUBIN,URINE NEGATIVE (NEGATIVE); COLOR,URINE STRAW; GLUCOSE, URINE >=500 mg/dL (NEGATIVE); KETONES,URINE NEGATIVE (NEGATIVE); LEUKOCYTE ESTERASE,URINE NEGATIVE (NEGATIVE); NITRITE,URINE NEGATIVE (NEGATIVE); PROTEIN,URINE NEGATIVE (NEGATIVE); URINE SPECIFIC GRAVITY 1.007; UROBILINOGEN,URINE NEGATIVE mg/dL (<2.0)
[2020-03-25 21:41] LABS: ALBUMIN 3.9 g/dL (3.5-5.0); ALKALINE PHOSPHATASE 90 U/L (38-126); ANION GAP 12 (5-19); ASPARTATE AMINO TRANSFERASE 21 U/L (17-59); BILIRUBIN,DIRECT 0.3 mg/dL (0.0-0.4); BILIRUBIN,TOTAL 0.6 mg/dL (0.2-1.3); BLOOD UREA NITROGEN 21 mg/dL (7-20); CALCIUM 9.2 mg/dL (8.4-10.2); CARBON DIOXIDE 26 mmol/L (22-30); CHLORIDE 98 mmol/L (98-107); GLUCOSE 305 mg/dL (75-110); POTASSIUM 4.1 mmol/L (3.6-5.0); TOTAL PROTEIN 6.4 g/dL (6.3-8.2)
[2020-03-25 21:59] LABS: TROPONIN I 0.106 ng/mL
--- NOTE | 2020-03-26 01:38 | EKG REPORT ---
SEVERITY:- ABNORMAL ECG - SINUS RHYTHM INCOMPLETE RIGHT BUNDLE BRANCH BLOCK APC's : Confirmed by: Maryam Veras MD 26-Mar-2020 01:37:02
--- NOTE | 2020-03-26 01:43 | ER Document Report ---
Entered by JIN LOUIS SCRIBE 03/26/20 0014 Acting as scribe for:SUZANNE ORDOÑEZ, ED General - General Chief Complaint: Leg Swelling Stated Complaint: LEG SWELLING,URINARY COMPLAINTS Time Seen by Provider: 03/25/20 20:15 Primary Care Provider: GENE WICK PA-C [Primary Care Provider] - 03/26/20 Information source: Patient Notes: This 79 year old male patient with history of COPD, CHF, Afib, renal disease, DM 2, and HTN presents to the emergency department today with complaints of shortness of breath after walking around at home and is followed with some chest pain. Denies any cough, fever, sore throat, runny nose, or covid exposure. Patient reports some swelling in his lower extremities and has urinated only x4 times today despite taking x2 diuretics. 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 Patient states he checks his blood sugar at home and it is always irregular. TRAVEL OUTSIDE OF THE [place] IN LAST 30 DAYS: No - Related Data Allergies/Adverse Reactions: aspirin [Aspirin] Adverse Reaction (Intermediate, Verified 02/23/20 21:23) bleeding ulcers codeine [Codeine] Adverse Reaction (Intermediate, Verified 02/23/20 21:23) bleeding ulcers Home Medications: metolazone, bumex, albuterol, symbicort, spiriva, gabapentin, atorvastatin, sodium bicarb, metoprolol, protonix, calcitrol, amiodarone, allopurinol, plavix, d3, melatonin, vit b Past Medical History - General Information source: Patient - Social History Smoking Status: Former Smoker Cigarette use (# per day): No Chew tobacco use (# tins/day): No Drug Abuse: None Lives with: Family Family History: Reviewed & Not Pertinent, CAD, DM, Hyperlipidemia, Hypertension - Past Medical History Cardiac Medical History: Reports: Hx Atrial Fibrillation, Hx Congestive Heart Failure, Hx Hypercholesterolemia, Hx Hypertension Pulmonary Medical History: Reports: Hx COPD Endocrine Medical History: Reports: Hx Diabetes Mellitus Type 2 Malignancy Medical History: Reports Hx Skin Cancer GI Medical History: Reports: Hx Diverticulitis, Hx Gastroesophageal Reflux Disease Musculoskeletal Medical History: Reports Hx Arthritis - Generalized osteoarthritis Past Surgical History: Reports: Hx Abdominal Surgery - hernia repair, Hx Appendectomy, Hx Cholecystectomy, Hx Herniorrhaphy, Hx Inguinal Hernia, Hx Orthopedic Surgery - back x2 with hardware, wrist surgery, elbow surgery, Hx Rectal Surgery - hemmorhoids, Other - [facility]. Denies: Hx Coronary Stent - Immunizations Hx Diphtheria, Pertussis, Tetanus Vaccination: No Hx Pneumococcal Vaccination: 04/12/11 Review of Systems - Review of Systems Constitutional: See HPI. denies: Fever EENT: See HPI. denies: Sinus discharge, Throat pain Cardiovascular: See HPI, Chest pain Respiratory: See HPI, Short of breath. denies: Cough Gastrointestinal: No symptoms reported Genitourinary: See HPI Male Genitourinary: No symptoms reported Musculoskeletal: See HPI, Leg swelling - bilateral Skin: No symptoms reported Hematologic/Lymphatic: See HPI Neurological/Psychological: No symptoms reported -: Yes All other systems reviewed and negative Physical Exam - Vital signs Vitals: Temp Pulse Resp BP Pulse Ox 98.0 F 56 L 16 136/53 H 94 03/25/20 19:55 03/25/20 19:55 03/25/20 19:55 03/25/20 19:55 03/25/20 19:55 - General Notes: Alert. Appears chronically ill. - HEENT Head: Normocephalic, Atraumatic Eyes: Normal Pupils: PERRL - Respiratory Respiratory status: No respiratory distress Chest status: Nontender Breath sounds: Normal Chest palpation: Normal - Cardiovascular Rhythm: Regular Heart sounds: Normal auscultation Murmur: No - Abdominal Inspection: Obese, Other - Soft Distension: No distension Bowel sounds: Normal Tenderness: Nontender - Extremities General upper extremity: Normal inspection, Normal ROM General lower extremity: Normal inspection, Normal ROM Notes: 2+ peripheral edema of bilateral lower extremities. - Neurological Neuro grossly intact: Yes Cognition: Normal Orientation: AAOx4 [place] Coma Scale Eye Opening: Spontaneous John Coma Scale Verbal: Oriented John Coma Scale Motor: Obeys Commands [place] Coma Scale Total: 15 Speech: Normal - Psychological Associated symptoms: Normal affect, Normal mood - Skin Skin Temperature: Warm Skin Moisture: Dry Skin Color: Normal Course - Re-evaluation Re-evalutation: 03/26/20 01:33 MDM 79 year old male with multiple comorbidities - htn, dm, a fib, chronic renal insuf, is here with sob. No definate chest pain and a bit of difficult historian - there is a question of how well his home O2 monitor worked at home as after the batteries were replaced the readings at home were normal. No fever and no covid exposure. Complaint is some sob which is not extreme. He does have some le edema which is perhaps more than baseline. Already taking zaroxlyn at home and I will add bumex for just a few days. He will call the primary doctor - Gene Wick - this am and return here for chest pain or sob. 03/26/20 02:19 - Vital Signs Vital signs: Temp Pulse Resp BP Pulse Ox 98 F 71 18 125/55 L 98 03/25/20 20:15 03/26/20 02:11 03/26/20 02:11 03/26/20 02:11 03/26/20 02:11 - Laboratory Result Diagrams: 03/25/20 21:00 03/25/20 21:00 Laboratory results interpreted by me: 03/25/20 03/25/20 03/25/20 20:57 21:00 21:00 WBC 12.0 H RBC 4.11 L Hgb 11.8 L Hct 35.2 L RDW 15.6 H Lymph % (Auto) 6.5 L Absolute Neuts (auto) 10.0 H Seg Neutrophils % 83.2 H Sodium 135.8 L BUN 21 H Creatinine 1.68 H Est GFR ( Amer) 48 L Est GFR (MDRD) Non-Af 40 L Glucose 305 H POC Glucose 299 H NT-Pro-B Natriuret Pep Urine Glucose (UA) 03/25/20 03/25/20 21:00 21:00 WBC RBC Hgb Hct RDW Lymph % (Auto) Absolute Neuts (auto) Seg Neutrophils % Sodium BUN Creatinine Est GFR ( Amer) Est GFR (MDRD) Non-Af Glucose POC Glucose NT-Pro-B Natriuret Pep 629 H Urine Glucose (UA) >=500 H - Diagnostic Test Radiology reviewed: Image reviewed, Reports reviewed Discharge - Discharge Clinical Impression: Hypercholesterolemia, DNR (do not resuscitate) HTN (hypertension) Qualifiers: Hypertension type: unspecified Qualified Code(s): I10 - Essential (primary) hypertension Diabetes Qualifiers: Diabetes mellitus type: type 2 Diabetes mellitus prison insulin use: without prison use Diabetes mellitus complication status: with other specified complication Qualified Code(s): E11.69 - Type 2 diabetes mellitus with other specified complication Disposition: HOME, SELF-CARE Instructions: Edema, Peripheral ([facility]), High Blood Pressure ([facility]) Additional Instructions: Call Gene Wick in follow up. Return here for chest pain or shortness of breath or other problems or concerns. If you have furosemide at home do not take it the next 3 days and take this water pill for 3 days instead. After that resume the regular medicines that you take. Prescriptions: Bumetanide [Bumex 1 mg Tablet] 1 tab PO DAILY #3 tab Referrals: GENE WICK PA-C [Primary Care Provider] - 03/26/20 I personally performed the services described in the documentation, reviewed and edited the documentation which was dictated to the scribe in my presence, and it accurately records my words and actions.
[2020-03-26 02:12] VITALS: BP 125/55
== END 2020-03-26 02:11 | disposition home or self-care (01) ==
LOC: ER 19:40
DX: J44.9 Chronic obstructive pulmonary disease, unspecified (principal); I13.0 Hypertensive heart and chronic kidney disease with heart failure and stage 1 through stage 4 chronic kidney disease, or unspecified chronic kidney disease; I50.9 Heart failure, unspecified; E11.22 Type 2 diabetes mellitus with diabetic chronic kidney disease; N18.9 Chronic kidney disease, unspecified; E11.9 Type 2 diabetes mellitus without complications; K21.9 Gastro-esophageal reflux disease without esophagitis; I48.91 Unspecified atrial fibrillation; Z79.51 Long term (current) use of inhaled steroids; E78.00 Pure hypercholesterolemia, unspecified; Z79.899 Other long term (current) drug therapy; Z79.02 Long term (current) use of antithrombotics/antiplatelets; Z87.891 Personal history of nicotine dependence; Z66 Do not resuscitate
CPT/HCPCS: 36415; 71045; 80053; 81001; 82962; 83880; 84484; 85025; 93005; 93010; 99285

== ENCOUNTER 2020-06-18 07:00 | Day surgery (SDC) | payer MEDICARE ==
[~2020-06-18 07:00] MED LIST changes: -CEFAZOLIN 1 GM/D5W RTU 1 GM/50 ML RTUPB IV PRN; +DORZOLAMIDE HCL 2%/TIMOLOL MALEAT 0.5% OPH SOLN 10 ML OD PRN; +FENTANYL CITRATE INJ/PF 100 MCG/2 ML AMPUL ONE; +KETOROLAC TROMETHAMINE 0.45% 4 DROP/0.4 ML DROPERETTE OD PRN; +MIDAZOLAM 2 MG/2 ML INJ ONE; +ONDANSETRON HCL INJ/PF 4 MG/2 ML SDV ONE; +PREDNISOLONE ACETATE 1% OPH SUSP 5 ML OD PRN
[2020-06-18] MEDS ORDERED: LIDOCAINE 1%/PHENYLEPHRINE 1.5% 1 ML VIAL ONE (07:30)
[2020-06-18] MEDS ORDERED: EPINEPHRINE INJ/PF 1 MG/1 ML AMPULE ONE (07:30)
[2020-06-18] MEDS ORDERED: CHONDR SU A NA/HYALUR INTRAOC KIT (SURGICARE) ONE (07:31)
[2020-06-18] MEDS: BESIFLOXACIN HCL 0.6% OPH SUSP 5 ML BOTTLE OD PRN ×3 (13:10→15:18)
[2020-06-18] MEDS: TETRACAINE HCL 0.5% OPH SOLN 4 ML OD PRN ×3 (13:10→15:00)
[2020-06-18] MEDS: CYCLOPENTOLATE 0.2%/PHENYLEPHRINE 1% OPH SOLN 2 ML OD PRN ×3 (13:10→13:39)
[2020-06-18] MEDS: TROPICAMIDE 1% OPH SOLN 15 ML OD PRN ×3 (13:10→13:39)
[2020-06-18] MEDS ORDERED: ONDANSETRON HCL INJ/PF 4 MG/2 ML SDV ONE (14:43)
[2020-06-18] MEDS ORDERED: MIDAZOLAM 2 MG/2 ML INJ ONE (14:44)
[2020-06-18] MEDS ORDERED: FENTANYL CITRATE INJ/PF 100 MCG/2 ML AMPUL ONE (14:44)
--- NOTE | 2020-06-18 15:53 | Operative Report ---
Operative Report-[facility] Operative Report: DATE OF SURGERY: June 18, 2020 PREOPERATIVE DIAGNOSIS: NUCLEAR CATARACT, RIGHT EYE. POSTOPERATIVE DIAGNOSIS: NUCLEAR CATARACT, RIGHT EYE. PROCEDURE PERFORMED: PHACOEMULSIFICATION WITH POSTERIOR CHAMBER INTRAOCULAR LENS IMPLANT, RIGHT EYE. SURGEON: Sandeep Dennis DO MEDICATIONS AND ANESTHESIA: Versed: IV Versed Tetracaine drops: 1 to 2 drops given as needed COMPLICATION: None INDICATIONS FOR SURGERY: Medical necessity: Best corrected visual acuity worse than 20/40 secondary to cataracts with impairment of ability to carry out needs or desired activities, blurred vision, visual distortion, reduced contrast sensitivity and/or glare with association functional impairment and supporting documentation/testing, and cataracts causing symptomatic impairment of visual functions not corrected with tolerable changes in glasses or contact lenses interfering with activities of daily life. PROCEDURE: Consent: The risks, benefits and alternatives of this procedures was discussed with the patient. The patient read and signed the consent forms, was identified and was seated in the exam chair. IOL: MX 60 E 22.0 IOL Diopters: Phacoemulsification with posterior chamber intraocular lens implant: The face was prepped with 5% povidone iodine solution, and a few drops of 5% povidone iodine solution was instilled into the inferior fornix. A non-fenestrated drape was placed over the eye and the lids were parted with the speculum. A paracentesis was made with a 15 degree blade, and 1% lidocaine MPF followed by viscoelastic was injected into the anterior chamber. A 2.4 mm metal micro- keratome was used to create a temporal clear corneal incision. A circular anterior capsulorrhexis was created, followed by hydro-dissection and hydro- delineation. The phacoemulsification hand piece was inserted and the nucleus was removed with the Phaco chop technique. The irrigation-aspiration hand piece was used to remove the residual cortex, and vacuum the posterior capsule. The capsular bag was inflated and viscoelastic and the above-mentioned IOL was injected into the eye with care to insert both leaning and trailing haptics in the capsular bag. The irrigation/aspiration hand piece was reinserted to remove residual viscoelastic from the capsular bag and anterior chamber. The corneal incision was hydrated, and anterior chamber was inflated with sterile BSS via the paracentesis site, and found to be watertight. Postop medication: 1 drop of prednisolone into operative by followed by 1 drop of Cosopt into operative eye followed by 1 drop of Besivance intraoperative by other:
== END 2020-06-18 16:00 | disposition home or self-care (01) ==
LOC: SC 07:00
PROVIDERS: ATTEND Ophthalmology
DX: H25.11 Age-related nuclear cataract, right eye (principal); J44.9 Chronic obstructive pulmonary disease, unspecified; I48.91 Unspecified atrial fibrillation; E10.36 Type 1 diabetes mellitus with diabetic cataract; F32.9 Major depressive disorder, single episode, unspecified; K21.9 Gastro-esophageal reflux disease without esophagitis; I10 Essential (primary) hypertension; E78.00 Pure hypercholesterolemia, unspecified; I42.9 Cardiomyopathy, unspecified; Z95.0 Presence of cardiac pacemaker
CPT/HCPCS: 66984; 82962; V2632; J2250; J3490 ×2; A9270; J0171; J2405; J3010

== ENCOUNTER 2020-06-28 10:30 | Emergency (ER) | payer MEDICARE ==
--- NOTE | 2020-06-28 12:01 | ER Document Report ---
ED Medical Screen (RME) - General Chief Complaint: Nausea Stated Complaint: NAUSEA,CHILLS, Time Seen by Provider: 06/28/20 11:58 Primary Care Provider: GENE WICK PA-C [Primary Care Provider] - Follow up as needed Mode of Arrival: Ambulatory Information source: Patient Notes: 79-year-old male presented to ED for complaining of feeling tired rundown body aches short of breath and nausea at times. He states he was around a lot of family last week at a [employer] and he does not know what is going on if he is got the virus. He is alert oriented respirations regular nonlabored at this time. He does have a history of asthma and COPD. He states he does not smoke drink or use any illicit drugs. TRAVEL OUTSIDE OF THE [place] IN LAST 30 DAYS: No - Related Data Allergies/Adverse Reactions: aspirin [Aspirin] Adverse Reaction (Intermediate, Verified 06/11/20 15:16) bleeding ulcers codeine [Codeine] Adverse Reaction (Intermediate, Verified 06/11/20 15:16) bleeding ulcers Past Medical History - Past Medical History Cardiac Medical History: Reports: Hx Atrial Fibrillation, Hx Congestive Heart Failure, Hx Hypercholesterolemia, Hx Hypertension Denies: Hx Coronary Artery Disease, Hx Heart Attack Pulmonary Medical History: Reports: Hx COPD Denies: Hx Asthma, Hx Bronchitis, Hx Pneumonia Neurological Medical History: Denies: Hx Cerebrovascular Accident, Hx Seizures Endocrine Medical History: Reports: Hx Diabetes Mellitus Type 2. Denies: Hx Diabetes Mellitus Type 1, Hx Hyperthyroidism, Hx Hypothyroidism Renal/ Medical History: Denies: Hx Peritoneal Dialysis Malignancy Medical History: Reports Hx Skin Cancer GI Medical History: Reports: Hx Diverticulitis, Hx Gastroesophageal Reflux Disease, Hx Ulcer. Denies: Hx Cirrhosis, Hx Hepatitis, Hx Hiatal Hernia Musculoskeltal Medical History: Reports Hx Arthritis - Generalized osteoarthr itis, Denies Hx Gout Skin Medical History: Denies Hx Eczema, Denies Hx Psoriasis Psychiatric Medical History: Denies: Hx Depression Infectious Medical History: Denies: Hx Hepatitis Past Surgical History: Reports: Hx Abdominal Surgery - hernia repair, Hx Appendectomy, Hx Cholecystectomy, Hx Herniorrhaphy, Hx Inguinal Hernia, Hx Orthopedic Surgery - back x2 with hardware, wrist surgery, elbow surgery, Hx Rectal Surgery - hemmorhoids, Other - [facility]. Denies: Hx Coronary Stent, Hx Open Heart Surgery, Hx Pacemaker - Immunizations Hx Diphtheria, Pertussis, Tetanus Vaccination: No Physical Exam - Vital signs Vitals: Temp Pulse Resp BP Pulse Ox 98.6 F 59 L 20 127/63 H 95 06/28/20 11:14 06/28/20 11:14 06/28/20 11:14 06/28/20 11:14 06/28/20 11:14 Course - Vital Signs Vital signs: Temp Pulse Resp BP Pulse Ox 98.6 F 59 L 20 127/63 H 95 06/28/20 11:14 06/28/20 11:14 06/28/20 11:14 06/28/20 11:14 06/28/20 11:14 Doctor's Discharge - Discharge Referrals: GENE WICK PA-C [Primary Care Provider] - Follow up as needed
[2020-06-28 13:11] LABS: ABSOLUTE BASOPHILS # (AUTO) 0.1 10^3/uL (0.0-0.2); ABSOLUTE LYMPHOCYTES (AUTO) 0.9 10^3/uL (0.5-4.7); ABSOLUTE MONOCYTES (AUTO) 1.8 10^3/uL (0.1-1.4); ABSOLUTE NEUT (AUTO) 14.1 10^3/uL (1.7-8.2); BASOPHILS % (AUTO) 0.4 % (0-2); EOSINOPHILS % (AUTO) 0.1 % (0-6); HEMATOCRIT 40.3 % (37.9-51.0); HEMOGLOBIN 13.5 g/dL (13.5-17.0); LYMPHOCYTES % (AUTO) 5.2 % (13-45); MEAN CORPUSCULAR HEMOGLOBIN 28.5 pg (27.0-33.4); MEAN CORPUSCULAR HGB CONC 33.6 g/dL (32.0-36.0); MEAN CORPUSCULAR VOLUME 85 fl (80-97); MONOCYTES % (AUTO) 10.7 % (3-13); PLATELET COUNT 209 10^3/uL (150-450); RED BLOOD COUNT 4.75 10^6/uL (4.35-5.55); RED CELL DISTRIBUTION WIDTH 16.8 % (11.5-14.0); SEGMENTED NEUTROPHILS % (AUTO) 83.6 % (42-78); TOTAL CELLS COUNTED % (AUTO) 100 %; WHITE BLOOD COUNT 16.9 10^3/uL (4.0-10.5)
[2020-06-28 13:26] LABS: ALBUMIN 4.5 g/dL (3.5-5.0); ALKALINE PHOSPHATASE 104 U/L (38-126); ANION GAP 10 (5-19); ASPARTATE AMINO TRANSFERASE 35 U/L (17-59); BILIRUBIN,DIRECT 0.1 mg/dL (0.0-0.4); BILIRUBIN,TOTAL 0.6 mg/dL (0.2-1.3); BLOOD UREA NITROGEN 52 mg/dL (7-20); CALCIUM 9.4 mg/dL (8.4-10.2); CARBON DIOXIDE 31 mmol/L (22-30); CHLORIDE 97 mmol/L (98-107); GLUCOSE 149 mg/dL (75-110); POTASSIUM 4.1 mmol/L (3.6-5.0); TOTAL PROTEIN 7.9 g/dL (6.3-8.2)
--- NOTE | 2020-06-28 13:57 | RADIOLOGY REPORT (SQ) ---
EXAM DESCRIPTION: CHEST SINGLE VIEW IMAGES COMPLETED DATE/TIME: 06/28/2020 12:18 pm REASON FOR STUDY: Short of breath nausea body aches COMPARISON: 03/25/2020 EXAM PARAMETERS: NUMBER OF VIEWS: One view. TECHNIQUE: Single frontal radiographic view of the chest acquired. RADIATION DOSE: NA LIMITATIONS: None. FINDINGS: LUNGS AND PLEURA: No opacities, masses or pneumothorax. No pleural effusion. MEDIASTINUM AND HILAR STRUCTURES: No masses. Contour normal. HEART AND VASCULAR STRUCTURES: Heart normal in size. Normal vasculature. BONES: No acute findings. HARDWARE: None in the chest. OTHER: No other significant finding. IMPRESSION: NO ACUTE RADIOGRAPHIC FINDING IN THE CHEST. TECHNICAL DOCUMENTATION: JOB ID: [id number] 2010 [employer]- All Rights Reserved Reading location - IP/workstation name: [email or web address]
[2020-06-28 16:14] LABS: A TYPE INFLUENZA AG NEGATIVE (NEGATIVE); B INFLUENZA AG NEGATIVE (NEGATIVE)
[2020-06-28] MEDS ORDERED: NORMAL SALINE 1000 ML 1,000 ML IV ONE (18:03)
[2020-06-28 19:03] LABS: APPEARANCE,URINE CLEAR; BILIRUBIN,URINE NEGATIVE (NEGATIVE); COLOR,URINE YELLOW; GLUCOSE, URINE NEGATIVE (NEGATIVE); KETONES,URINE NEGATIVE (NEGATIVE); LEUKOCYTE ESTERASE,URINE NEGATIVE (NEGATIVE); NITRITE,URINE NEGATIVE (NEGATIVE); PROTEIN,URINE NEGATIVE (NEGATIVE); URINE SPECIFIC GRAVITY 1.011; UROBILINOGEN,URINE NEGATIVE mg/dL (<2.0)
--- NOTE | 2020-06-28 19:06 | ER Document Report ---
Entered by TREV PEREZ SCRIBE 06/28/20 1453 Acting as scribe for:RAN RAM MD ED General - General Chief Complaint: Nausea Stated Complaint: NAUSEA,CHILLS, Time Seen by Provider: 06/28/20 11:58 Primary Care Provider: GENE WICK PA-C [Primary Care Provider] - Follow up as needed Mode of Arrival: Ambulatory Information source: Patient Notes: This 79 year old male patient with a history of hypertension, hyperlipidemia, A fib, CHF, COPD, type 2 diabetes mellitus, CKD stage III, and GERD presents to the ED today with complaints of shortness of breath that started last night. Patient reports associated generalized weakness and nausea without emesis. He also notes white/yellow nasal drainage. He does express some concerns for COVID, stating that he had a big family gathering x1 week ago. Denies fever, diaphoresis, sore throat, cough, diarrhea, loss of taste/smell, epistaxis, or chest pain. TRAVEL OUTSIDE OF THE [place] IN LAST 30 DAYS: No - Related Data Allergies/Adverse Reactions: aspirin [Aspirin] Adverse Reaction (Intermediate, Verified 06/11/20 15:16) bleeding ulcers codeine [Codeine] Adverse Reaction (Intermediate, Verified 06/11/20 15:16) bleeding ulcers Past Medical History - General Information source: Patient - Social History Smoking Status: Unknown if Ever Smoked Smoking Education Provided: No Family History: Reviewed & Not Pertinent, CAD, DM, Hyperlipidemia, Hypertension - Past Medical History Cardiac Medical History: Reports: Hx Atrial Fibrillation, Hx Congestive Heart Failure, Hx Hypercholesterolemia, Hx Hypertension Pulmonary Medical History: Reports: Hx COPD Endocrine Medical History: Reports: Hx Diabetes Mellitus Type 2 Malignancy Medical History: Reports Hx Skin Cancer GI Medical History: Reports: Hx Diverticulitis, Hx Gastroesophageal Reflux Disease, Hx Ulcer Musculoskeletal Medical History: Reports Hx Arthritis - Generalized osteoarthritis Past Surgical History: Reports: Hx Appendectomy, Hx Cholecystectomy, Hx Herniorrhaphy, Hx Inguinal Hernia, Hx Orthopedic Surgery - back x2 with hardware, wrist surgery, elbow surgery, Hx Rectal Surgery - hemorhoids, Other - [facility] - Immunizations Hx Diphtheria, Pertussis, Tetanus Vaccination: No Hx Pneumococcal Vaccination: 04/12/11 Review of Systems - Review of Systems Constitutional: See HPI, Weakness. denies: Chills, Diaphoresis, Fever EENT: See HPI. denies: Nose discharge, Throat pain Cardiovascular: See HPI. denies: Chest pain Respiratory: See HPI, Short of breath Gastrointestinal: See HPI, Nausea. denies: Diarrhea, Vomiting Genitourinary: No symptoms reported Male Genitourinary: No symptoms reported Musculoskeletal: No symptoms reported Skin: No symptoms reported Hematologic/Lymphatic: No symptoms reported Neurological/Psychological: No symptoms reported -: Yes All other systems reviewed and negative Physical Exam - Vital signs Vitals: Temp Pulse Resp BP Pulse Ox 98.6 F 59 L 20 127/63 H 95 06/28/20 11:14 06/28/20 11:14 06/28/20 11:14 06/28/20 11:14 06/28/20 11:14 Interpretation: Normal - General General appearance: Alert In distress: None - HEENT Head: Normocephalic, Atraumatic Eyes: Normal Pupils: PERRL - Respiratory Respiratory status: No respiratory distress Chest status: Nontender Breath sounds: Normal Chest palpation: Normal - Cardiovascular Rhythm: Regular Heart sounds: Normal auscultation, S1 appreciated, S2 appreciated Murmur: No Friction rub: No Gallop: None auscultated - Abdominal Inspection: Normal Distension: No distension Bowel sounds: Normal Tenderness: Nontender - Abdomen soft Organomegaly: No organomegaly - Back Back: Normal, Nontender - Extremities General upper extremity: Normal inspection General lower extremity: Normal inspection. No: Edema - Neurological Neuro grossly intact: Yes Orientation: AAOx4 John Coma Scale Eye Opening: Spontaneous [place] Coma Scale Verbal: Oriented [place] Coma Scale Motor: Obeys Commands [place] Coma Scale Total: 15 - Psychological Associated symptoms: Normal affect, Normal mood - Skin Skin Temperature: Warm Skin Moisture: Dry Skin Color: Normal Course - Re-evaluation Re-evalutation: 06/28/20 17:25 Patient resting comfortably not showing any signs of distress. Patient states he is ready to go home at this time. - Vital Signs Vital signs: Temp Pulse Resp BP Pulse Ox 98.6 F 59 L 20 127/63 H 95 06/28/20 11:14 06/28/20 11:14 06/28/20 11:14 06/28/20 11:14 06/28/20 11:14 06/28/20 17:25 Vital signs stable 06/28/20 17:26 Vital signs stable. 06/28/20 18:56 Signs stable - Laboratory Results Result Diagrams: 06/28/20 12:45 06/28/20 12:45 Laboratory Results Interpreted: 06/28/20 06/28/20 12:45 12:45 WBC 16.9 H RDW 16.8 H Lymph % (Auto) 5.2 L Absolute Neuts (auto) 14.1 H Absolute Monos (auto) 1.8 H Seg Neutrophils % 83.6 H Chloride 97 L Carbon Dioxide 31 H BUN 52 H Creatinine 2.24 H Est GFR ( Amer) 35 L Est GFR (MDRD) Non-Af 29 L Glucose 149 H 06/28/20 18:57 Of note patient does have a 16.9 white blood cell count without evidence of pneumonia or strep or any other kind bacterial infection at this time. Patient is afebrile alert not showing any toxic appearance. Patient tested for COVID-19 with results pending within the next 1 to 2 days. Patient has an acute kidney injury with a BUN of 52 and a creatinine of 2.2 whereas 6 months ago his baseline 3 months ago , BUN was 21 creatinine was 1.6. Patient was discussed with the hospitalist team regarding admitting patient to the hospital for IV fluid management and to correct this acute kidney injury and also concerns for patient with CHF that we did not exacerbate CHF by given him IV fluids and a rapid way. There was a decline on admit into inpatient and thought the patient could be given IV fluids in the ED and discharged home with follow-up with his primary care physician. Critical Laboratory Results Reviewed: No Critical Results - Radiology Results Radiology Results Interpreted: 06/28/20 19:00 Chest X-Ray 06/28/20 11:59 IMPRESSION: NO ACUTE RADIOGRAPHIC FINDING IN THE CHEST. Chest x-ray shows no acute radiographic finding of infiltrates pneumonia or acute cardiopulmonary disease. Critical Radiology Results Reviewed: No Critical Results - Consults Dr. Sevilla, Hospitalist Time consulted: 18:00 Discharge - Discharge Clinical Impression: Fatigue, Suspected COVID-19 virus infection, Acute kidney injury, Acute kidney injury superimposed on chronic kidney disease Condition: Good Disposition: HOME, SELF-CARE Instructions: COVID-19 Guidance for Persons Under Investigation Additional Instructions: Today your exam shows that your BUN and creatinine has elevated which is considered an acute kidney injury. Apparently your intake of fluids have been less in the last 24 hours in which you normally intake. Plan is for you to drink fluids as you have done on other days you tell us that she is doing 3 large glasses of water on a daily basis as well as other beverages as well soft floaters and soft drinks. We are highly recommending that you drink your quality of water as you should drink on a daily basis and also avoid being in congestive heart failure with over feeling yourself with fluids you are to follow-up with your primary care provider in 1 week so that she can be tested again regarding your acute kidney injury of lack of fluid hydration today. Referrals: GENE WICK PA-C [Primary Care Provider] - Follow up as needed I personally performed the services described in the documentation, reviewed and edited the documentation which was dictated to the scribe in my presence, and it accurately records my words and actions.
[2020-06-28 21:55] VITALS: BP 145/72
== END 2020-06-28 21:56 | disposition home or self-care (01) ==
LOC: ER 10:30
DX: N17.9 Acute kidney failure, unspecified (principal); R53.83 Other fatigue; R11.0 Nausea; Z20.828 Contact with and (suspected) exposure to other viral communicable diseases; E78.5 Hyperlipidemia, unspecified; I48.91 Unspecified atrial fibrillation; I50.9 Heart failure, unspecified; E11.22 Type 2 diabetes mellitus with diabetic chronic kidney disease; I13.0 Hypertensive heart and chronic kidney disease with heart failure and stage 1 through stage 4 chronic kidney disease, or unspecified chronic kidney disease; N18.30 Chronic kidney disease, stage 3 unspecified; Z88.6 Allergy status to analgesic agent
CPT/HCPCS: 99284; 96360; 36415; 87070; 87880; 85025; 80053; 81001; 87804; 71045; U0003; J7030; C9803; 87635

== ENCOUNTER → 2020-07-14 | Outpatient (CLI) | payer MEDICARE ==
[2020-07-14 11:05] LABS: ANION GAP 12 (5-19); BLOOD UREA NITROGEN 74 mg/dL (7-20); CALCIUM 9.6 mg/dL (8.4-10.2); CARBON DIOXIDE 31 mmol/L (22-30); CHLORIDE 93 mmol/L (98-107); POTASSIUM 3.5 mmol/L (3.6-5.0)
[2020-07-14 11:26] LABS: GLUCOSE 439 mg/dL (75-110)
== END ==
LOC: OD 09:36
PROVIDERS: ATTEND Internal Medicine Nephrology
DX: N18.30 Chronic kidney disease, stage 3 unspecified (principal)
CPT/HCPCS: 36415; 80048

== ENCOUNTER 2020-07-23 04:48 | Emergency (ER) | payer MEDICARE ==
--- NOTE | 2020-07-23 07:15 | EKG REPORT ---
SEVERITY:- ABNORMAL ECG - SINUS BRADYCARDIA RHYTHM INCOMPLETE RBBB NONSPECIFIC ST-T CHANGES LATERAL LEADS : Confirmed by: Kehinde Fabian MD 23-Jul-2020 07:15:12
--- NOTE | 2020-07-23 07:22 | RADIOLOGY REPORT (SQ) ---
EXAM DESCRIPTION: X-ray single view chest. CLINICAL HISTORY: 80 years Male, SOB COMPARISON: 06/28/2020 and 03/25/2020 TECHNIQUE: Single portable x-ray view of the chest performed on 07/23/2020 at 6:15 AM FINDINGS: The lungs are well expanded and are clear. There is no evidence of a pneumothorax. The cardiac silhouette is normal in size and configuration. The mediastinal contours are normal. No acute osseous abnormality is identified. No acute soft tissue abnormalities are seen. Lines and tubes: None. Free air: None IMPRESSION: No evidence of acute intrathoracic disease.
[2020-07-23 07:29] LABS: ABSOLUTE BASOPHILS # (AUTO) 0.1 10^3/uL (0.0-0.2); ABSOLUTE LYMPHOCYTES (AUTO) 1.3 10^3/uL (0.5-4.7); ABSOLUTE NEUT (AUTO) 5.2 10^3/uL (1.7-8.2); BASOPHILS % (AUTO) 1.1 % (0-2); EOSINOPHILS % (AUTO) 0.6 % (0-6); HEMATOCRIT 38.1 % (37.9-51.0); HEMOGLOBIN 12.6 g/dL (13.5-17.0); LYMPHOCYTES % (AUTO) 17.2 % (13-45); MEAN CORPUSCULAR HEMOGLOBIN 28.3 pg (27.0-33.4); MEAN CORPUSCULAR HGB CONC 33.2 g/dL (32.0-36.0); MEAN CORPUSCULAR VOLUME 85 fl (80-97); MONOCYTES % (AUTO) 13.4 % (3-13); PLATELET COUNT 188 10^3/uL (150-450); RED BLOOD COUNT 4.46 10^6/uL (4.35-5.55); RED CELL DISTRIBUTION WIDTH 16.6 % (11.5-14.0); SEGMENTED NEUTROPHILS % (AUTO) 67.7 % (42-78); TOTAL CELLS COUNTED % (AUTO) 100 %; WHITE BLOOD COUNT 7.7 10^3/uL (4.0-10.5)
[2020-07-23 07:54] LABS: ALBUMIN 4.2 g/dL (3.5-5.0); ALKALINE PHOSPHATASE 104 U/L (38-126); ANION GAP 11 (5-19); ASPARTATE AMINO TRANSFERASE 39 U/L (17-59); BILIRUBIN,DIRECT 0.2 mg/dL (0.0-0.4); BILIRUBIN,TOTAL 0.7 mg/dL (0.2-1.3); BLOOD UREA NITROGEN 57 mg/dL (7-20); CALCIUM 9.4 mg/dL (8.4-10.2); CARBON DIOXIDE 28 mmol/L (22-30); CHLORIDE 96 mmol/L (98-107); GLUCOSE 245 mg/dL (75-110); POTASSIUM 3.5 mmol/L (3.6-5.0); TOTAL PROTEIN 7.2 g/dL (6.3-8.2)
[2020-07-23 08:15] LABS: TROPONIN I 0.062 ng/mL
--- NOTE | 2020-07-23 10:13 | ER Document Report ---
Entered by DEEP KEY SCRIBE 07/23/2013 Acting as scribe for:AIXA WILSON MD ED General - General Chief Complaint: Shortness Of Breath Stated Complaint: DIFFICULTY BREATHING Time Seen by Provider: 07/23/20 09:09 Primary Care Provider: GENE WICK PA-C [Primary Care Provider] - Follow up as needed Mode of Arrival: Ambulatory Information source: Patient Notes: This 80-year-old male patient presents to the emergency department today with complaints of shortness of breath. Patient reports he has had intermittent shortness of breath for the last 5 to 6 years. When asked if there was anything new or different today he states no, that "any time I am short of breath I have heart problems so I just came to get checked out". Patient used his rescue inhaler "a little bit" this morning. He denies a cough or chest pain. TRAVEL OUTSIDE OF THE [place] IN LAST 30 DAYS: No - Related Data Allergies/Adverse Reactions: aspirin [Aspirin] Adverse Reaction (Intermediate, Verified 07/23/20 05:15) bleeding ulcers codeine [Codeine] Adverse Reaction (Intermediate, Verified 07/23/20 05:15) bleeding ulcers Past Medical History - General Information source: Patient - Social History Smoking Status: Former Smoker Cigarette use (# per day): No Frequency of alcohol use: None Drug Abuse: None Lives with: Family Family History: Reviewed & Not Pertinent, CAD, DM, Hyperlipidemia, Hypertension - Past Medical History Cardiac Medical History: Reports: Hx Atrial Fibrillation, Hx Congestive Heart Failure, Hx Hypercholesterolemia, Hx Hypertension Pulmonary Medical History: Reports: Hx COPD Endocrine Medical History: Reports: Hx Diabetes Mellitus Type 2 Malignancy Medical History: Reports Hx Skin Cancer GI Medical History: Reports: Hx Diverticulitis, Hx Gastroesophageal Reflux Disease, Hx Ulcer Musculoskeletal Medical History: Reports Hx Arthritis - Generalized osteoarthrit is Past Surgical History: Reports: Hx Abdominal Surgery - hernia repair, Hx Appendectomy, Hx Cholecystectomy, Hx Herniorrhaphy, Hx Inguinal Hernia, Hx Orthopedic Surgery - back x2 with hardware, wrist surgery, elbow surgery, Hx Rectal Surgery - hemorhoids, Other - [facility] - Immunizations Hx Diphtheria, Pertussis, Tetanus Vaccination: No Hx Pneumococcal Vaccination: 04/12/11 Review of Systems - Review of Systems Constitutional: No symptoms reported EENT: No symptoms reported Cardiovascular: denies: Chest pain Respiratory: See HPI, Short of breath. denies: Cough Gastrointestinal: No symptoms reported Genitourinary: No symptoms reported Male Genitourinary: No symptoms reported Musculoskeletal: No symptoms reported Skin: No symptoms reported Hematologic/Lymphatic: No symptoms reported Neurological/Psychological: No symptoms reported -: Yes All other systems reviewed and negative Physical Exam - Vital signs Vitals: Temp Pulse Resp BP Pulse Ox 98.2 F 58 L 17 159/73 H 98 07/23/20 05:03 07/23/20 05:03 07/23/20 05:03 07/23/20 05:03 07/23/20 05:03 - Notes Notes: Physical Exam: General: Alert, appears well. HEENT: Normocephalic. Atraumatic. PERRL. Extraocular movements intact. Oropharynx clear. Neck: Supple. Non-tender. Respiratory: No respiratory distress. Extremely faint expiratory wheezing. Cardiovascular: Regular rate and rhythm. Abdominal: Obese. Non-tender. No distension. Normal Bowel Sounds. Back: No gross abnormalities. Extremities: Moves all four extremities. Upper extremities: Normal inspection. Normal ROM. Lower extremities: Normal inspection. No edema. Normal ROM. Neurological: Normal cognition. AAOx4. Normal speech. Psychological: Normal affect. Normal Mood. Skin: Warm. Dry. Normal color. Course - Re-evaluation Re-evalutation: 07/23/20 10:38 Patient CBC Chem-12 are unremarkable or at his baseline. Indeterminate troponin is actually one of the lower ones that he has recorded over the last few years. A D-dimer and CRP are normal which should exclude Covid is being a consideration at this time. His oxygen saturation is 95 to 96% on room air at rest and is not tachypneic. Chest x-ray does not show acute cardiopulmonary process EKG does not show acute changes. After reviewing these findings with the patient, his main complaint now is that he cannot ever sleep. He was actually asleep when I walked into the room this time. He states that because there is too much activity going on at his home. I suggested that he try wearing earplugs to mask the noise so he can sleep. - Vital Signs Vital signs: Temp Pulse Resp BP Pulse Ox 98.2 F 50 L 16 132/68 H 97 07/23/20 08:55 07/23/20 08:55 07/23/20 08:55 07/23/20 08:55 07/23/20 08:55 - Laboratory Results Result Diagrams: 07/23/20 06:46 07/23/20 06:46 Laboratory Results Interpreted: 07/23/20 07/23/20 06:46 06:46 Hgb 12.6 L RDW 16.6 H [place] % (Auto) 13.4 H Sodium 135.4 L Potassium 3.5 L Chloride 96 L BUN 57 H Creatinine 2.22 H Est GFR ( Amer) 35 L Est GFR (MDRD) Non-Af 29 L Glucose 245 H Critical Laboratory Results Reviewed: No Critical Results - Radiology Results Critical Radiology Results Reviewed: No Critical Results - EKG Interpretation by Me EKG shows normal: Sinus rhythm, [place], Intervals, QRS Complexes, ST-T Waves Rate: Normal - 56 Rhythm: NSR [place]/QRS: RBBB, LAHB/LAFB When compared to previous EKG there are: No significant change Discharge - Discharge Clinical Impression: Shortness of breath Condition: Stable Disposition: HOME, SELF-CARE Additional Instructions: Dyspnea, Nonspecific You were evaluated for shortness of breath, or dyspnea. Dyspnea has many causes, and some are more serious than others. Sometimes it's impossible to diagnose the cause of dyspnea with the tests that are available on an emergency basis. Based on our evaluation today, you do not need hospitalization now. We found no evidence of pneumonia, collapsed lung, blood clots in the lung, tumors, or heart failure. Causes of non-specific dyspnea can include asthma or bronchospasm, hyperventilation, emotional distress, heart disease, emphysema, fibrosis of the lung, and stiffness of the chest wall. In healthy individuals with a single episode, it's sometimes reasonable to do nothing but wait to see if the problem occurs again. Additional tests used to evaluate dyspnea can include cardiac stress testing, echocardiography, pulmonary function testing, CAT scan of the chest, bronchoscopy or pulmonary biopsy. Return if shortness of breath persists or worsens, or if you develop chest pain, fever, cough, confusion, or fainting. Continue all your regular medications as they are prescribed. Consider using earplugs to block out noise so that you are able to sleep at home. Follow-up with your primary care provider to discuss your problems getting sleep. RETURN TO THE EMERGENCY ROOM IF ANY NEW OR WORSENING SYMPTOMS. Referrals: GENE WICK PA-C [Primary Care Provider] - Follow up as needed I personally performed the services described in the documentation, reviewed and edited the documentation which was dictated to the scribe in my presence, and it accurately records my words and actions.
[2020-07-23 11:11] VITALS: BP 148/69
== END 2020-07-23 11:16 | disposition home or self-care (01) ==
LOC: ER 04:48
DX: J44.9 Chronic obstructive pulmonary disease, unspecified (principal); I45.2 Bifascicular block; R06.02 Shortness of breath; I10 Essential (primary) hypertension; E11.9 Type 2 diabetes mellitus without complications; Z87.891 Personal history of nicotine dependence
CPT/HCPCS: 36415; 71045; 80053; 83880; 84484; 85025; 85379; 86140; 87040; 93005; 93010; 99285